=== PATIENT | male | born 1940 | race Caucasian/White ===

== ENCOUNTER 2021-08-03 14:27 | Inpatient (IN) | payer MEDICARE ==
[~2021-08-03] VITALS: Ht 172.7 cm; Wt 87.0 kg
[2021-08-03] MEDS ORDERED: ADENOSINE 6 MG/2 ML (ADENOCARD) VIAL IV ONE ×2 (14:55→15:02)
[2021-08-03] MEDS ORDERED: NS IV 1000 ML 1,000 ML ONE ×2 (14:57→15:43)
--- NOTE | 2021-08-03 15:12 | ED Cardiac General ---
History of Present Illness General Chief Complaint: Cardiac/General Problems Stated Complaint: LOW BP,DIZZINESS Source: patient, family Exam Limitations: no limitations History of Present Illness Date Seen by Provider: Aug 03, 2021 Time Seen by Provider: 14:55 Initial Comments Patient is an 81-year-old male who presents to the emergency department with a chief complaint of elevated pulse rate feeling dizzy lightheaded and generally weak this morning. Patient is a very difficult historian and it is hard to pinpoint a timeline of when symptoms started. Patient states a month ago he talked to his about following up with Dr. Chisholm. It seems that he has had intermittent episodes of high and low pulse over the course of the last month. He states it was normal yesterday. He denies any complaints of chest pain but has shortness of breath with laying flat. He has a history of cardiac abnormality, transferred from [facility] many years ago (approx 10) to the care of Dr. Cabezas at [facility]. He is still currently followed by Dr. Cabezas. states that he is on amiodarone and states spironolactone. He has with a bag of other medications to include isosorbide, losartan and other - although she states he is not taking these - only the amiodarone He is not on blood thinners (just baby aspirin). No history of coronary artery disease/stents/bypass. No recent illnesses such as fevers, chills, cough or congestion. No swelling in his lower extremities. No abdominal pain, nausea vomiting or diarrhea. No other complaints of illness. All other review of systems reviewed and negative except as stated. Timing/Duration: 1 day Severity: moderate Prior CP/Workup: no prior chest pain NTG SL BOBBIN DUMPER: No ASA po BOBBIN DUMPER: No Associated Systoms: Malaise, Weakness Allergies and Home Medications Allergies Coded Allergies: Sulfa (Sulfonamide Antibiotics) (Verified Allergy, Unknown, 08/03/21) codeine (Verified Allergy, Unknown, 08/03/21) Patient Home Medication List Home Medication List Reviewed: Yes Amiodarone HCl (Amiodarone HCl) 200 Mg Tablet, 200 MG PO DAILY, (Reported) Entered as Reported by: SARWAT GARCIA on 08/03/212118 Last Action: New Order Aspirin (Aspirin) 81 Mg Tab.chew, 81 MG PO DAILY, (Reported) Entered as Reported by: SARWAT GARCIA on 08/03/212118 Last Action: New Order Carvedilol (Carvedilol) 12.5 Mg Tablet, 12.5 MG PO BID, (Reported) Entered as Reported by: SARWAT GARCIA on 08/03/212118 Last Action: New Order Cetirizine HCl (Cetirizine HCl) 10 Mg Tablet, 10 MG PO DAILY, (Reported) Entered as Reported by: SARWAT GARCIA on 08/03/212118 Last Action: New Order Isosorbide Mononitrate (Isosorbide Mononitrate ER) 30 Mg Tab.er.24h, 30 MG PO DAILY, (Reported) Entered as Reported by: SARWAT GARCIA on 08/03/212118 Last Action: New Order Losartan Potassium (Losartan Potassium) 50 Mg Tablet, 50 MG PO DAILY, (Reported) Entered as Reported by: SARWAT GARCIA on 08/03/212118 Last Action: New Order Potassium Gluconate (Potassium) 595 Mg (99 Mg) Tablet, 99 MG PO DAILY, (Reported) Entered as Reported by: SARWAT GARCIA on 08/03/212118 Last Action: New Order Spironolactone (Spironolactone) 25 Mg Tablet, 25 MG PO DAILY, (Reported) Entered as Reported by: SARWAT GARCIA on 08/03/212118 Last Action: New Order Review of Systems Review of Systems Constitutional: see HPI EENTM: No Symptoms Reported Respiratory: No Symptoms Reported Cardiovascular: No Symptoms Reported Gastrointestinal: No Symptoms Reported Genitourinary: No Symptoms Reported Musculoskeletal: no symptoms reported Skin: no symptoms reported Psychiatric/Neurological: Weakness (Malaise, generalized weakness, dizziness) All Other Systems Reviewed Negative Unless Noted: Yes Physical Exam Vital Signs Vital Signs - First Documented 08/03/21 14:42 Temp 37.2 Pulse 197 Resp 20 B/P (MAP) 123/106 (112) Pulse Ox 97 Capillary Refill : Height, Weight, BMI Height: '" Weight: lbs. oz. kg; BMI Method: General Appearance: No Apparent Distress, WD/WN HEENT: PERRL/EOMI, Other (Dry oral mucosa) Neck: Normal Inspection Respiratory: Lungs Clear, Normal Breath Sounds, No Accessory Muscle Use, No Respiratory Distress Cardiovascular: Systolic Murmur (re-examined after cardioversion - harsh systolic murmur heard over the precordium), Tachycardia, Other (2+ radial pulses bilaterally) Gastrointestinal: Non Tender, Soft Extremity: Normal Inspection, Normal Range of Motion, Non Tender, Pedal Edema (1+ bilateral lower extremities) Neurologic/Psychiatric: Alert, Oriented x3, No Motor/Sensory Deficits, Normal Mood/Affect, oncology nurse II-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 Ack. Understanding Agreement on procedure with pt: Yes Breath Sounds per Auscultation: Clear Heart Sounds per Auscultation: Irregular Airway Exam: Mouth opens >2 fingers, Neck Full Range of Motion, Visulation of Uvula Sedation Adminstration Time: 15:38 Total Time spent in CS 27 min After sedation with etomidate, patient was electrically cardioverted with 100 J. He did transiently drop his oxygen saturations down to the mid 80s while on 2 L of oxygen per nasal cannula. Was transitioned over to simple facemask and then maintained sats in the upper 90s. Patient reexamined at 1630, awake, alert, oriented without complaints. Vital signs remained stable. Re-examination Time: 16:30 Additional Procedures: cardioversion/defib Progress Cardioversion with Etomidate as sedation 20mg; 100J; successful. Required supplemental O2 Progress/Results/Core Measures Results/Orders Lab Results Laboratory Tests Test 08/03/21 14:54 Range/Units White Blood Count 10.3 4.3-11.0 10^3/uL Red Blood Count 5.17 4.30-5.52 10^6/uL Hemoglobin 17.2 13.3-17.7 g/dL Hematocrit 51 40-54 % Mean Corpuscular Volume 99 80-99 fL Mean Corpuscular Hemoglobin 33 25-34 pg Mean Corpuscular Hemoglobin Concent 34 32-36 g/dL Red Cell Distribution Width 14.1 10.0-14.5 % Platelet Count 184 130-400 10^3/uL Mean Platelet Volume 11.6 9.0-12.2 fL Immature Granulocyte % (Auto) 0 % Neutrophils (%) (Auto) 67 42-75 % Lymphocytes (%) (Auto) 18 12-44 % Monocytes (%) (Auto) 11 0-12 % Eosinophils (%) (Auto) 3 0-10 % Basophils (%) (Auto) 1 0-10 % Neutrophils # (Auto) 6.9 1.8-7.8 X 10^3 Lymphocytes # (Auto) 1.9 1.0-4.0 X 10^3 Monocytes # (Auto) 1.2 H 0.0-1.0 X 10^3 Eosinophils # (Auto) 0.3 0.0-0.3 10^3/uL Basophils # (Auto) 0.1 0.0-0.1 10^3/uL Immature Granulocyte # (Auto) 0.0 0.0-0.1 10^3/uL Sodium Level 141 135-145 MMOL/L Potassium Level 4.7 3.6-5.0 MMOL/L Chloride Level 103 98-107 MMOL/L Carbon Dioxide Level 24 21-32 MMOL/L Anion Gap 14 5-14 MMOL/L Blood Urea Nitrogen 36 H 7-18 MG/DL Creatinine 2.01 H 0.60-1.30 MG/DL Estimat Glomerular Filtration Rate 33 BUN/Creatinine Ratio 18 Glucose Level 112 H 70-105 MG/DL Calcium Level 10.7 H 8.5-10.1 MG/DL Corrected Calcium 10.5 H 8.5-10.1 MG/DL Magnesium Level 2.1 1.6-2.4 MG/DL Total Bilirubin 0.8 0.1-1.0 MG/DL Aspartate Amino Transf (AST/SGOT) 26 5-34 U/L Alanine Aminotransferase (ALT/SGPT) 13 0-55 U/L Alkaline Phosphatase 32 L 40-136 U/L Troponin I 0.737 *H <0.028 NG/ML B-Type Natriuretic Peptide 2679.9 H <100.0 PG/ML Total Protein 7.5 6.4-8.2 GM/DL Albumin 4.3 3.2-4.5 GM/DL My Orders Orders - SERJIO BIRMINGHAM MD Adenosine Injection (Adenocard Injection (08/03/21 14:55) Ns Iv 1000 Ml (Sodium Chloride 0.9%) (08/03/21 14:57) Adenosine Injection (Adenocard Injection (08/03/21 15:02) Ed Iv/Invasive Line Start (08/03/21 15:09) Cbc With Automated Diff (08/03/21 15:09) Comprehensive Metabolic Panel (08/03/21 15:09) Bnp Mclean (08/03/21 15:09) Chest 1 View, Ap/Pa Only (08/03/21 15:09) Diltiazem Drip Pre-Mix (Cardizem Drip Pr (08/03/21 15:15) Diltiazem Injection (Cardizem Injection) (08/03/21 15:15) Ns Iv 1000 Ml (Sodium Chloride 0.9%) (08/03/21 15:43) Amiodarone For Bolus (Cordarone Bolus) (08/03/21 17:00) Amiodarone Injection (Cordarone Injectio (08/03/21 17:00) Ns Iv 1000 Ml (Sodium Chloride 0.9%) (08/03/21 17:00) Ed Admission (Communication) (08/03/21 18:02) Medications Given in ED Vital Signs/I&O 08/03/21 08/03/21 08/03/21 14:42 17:21 17:32 Temp 37.2 Pulse 197 66 64 Resp 20 B/P (MAP) 123/106 (112) 112/81 117/88 Pulse Ox 97 08/03/21 23:59 Intake Total 2103 ml Balance 2103 ml Progress Progress Note #1: Time: 15:[address] Chisholm called back and identified V Tach on the EKG - we discussed and will cardiovert. Progress Note #2: Time: 16:23 Progress Note Patient successfully cardioverted. Dr Chisholm in the Department just afterward; patient's BP is good. On simple facemask at 5Lm sats 97%. Dr Chisholm will get records from Dr Cabezas's office, plans for echo. discussed with Dr Bales. Will put on Stepdown. Initial ECG Impression Date: Aug 03, 2021 Initial ECG Impression Time: 15:24 Initial ECG Rate: 192 Initial ECG Rhythm: A Fib/Flutter Initial ECG Intervals QRS 215, QTc 410, Comment underlying rhythm appears to be possibly A. fib with RVR; almost bigeminal pattern EKG #1: EKG Time: 15:04 Rate: 196 Comment Narrow complex rhythm however QRS 202, more regular, not bigeminal, post 6 mg, 12 mg and 12 mg of adenosine EKG #2: EKG Time: 15:43 Rate: 65 Rhythm: Normal Sinus ECG Comparisson: Changed Comment IA 239 QRS 134 Qtc 430 no ectopy, no ST change Diagnostic Imaging Diagonstic Imaging: Xray Plain Films/CT/US/NM/MRI: chest Comments [facility] [place], [place] NAME: KARLA TAYLOR [facility] REC#: [id number] PT STATUS: REG ER : 1940 PHYSICIAN: SERJIO BIRMINGHAM MD ADMIT DATE: 08/03/21/ER Signed Date of Exam:08/03/21 CHEST 1 VIEW, AP/PA ONLY INDICATION: Dizziness. COMPARISON: None FINDINGS: Single frontal radiographic view of the chest was obtained and shows borderline enlargement of the cardiac silhouette and pulmonary vasculature. Lungs are clear. There is no large effusion or pneumothorax. Osseous structures show no gross acute abnormalities. IMPRESSION: 1. Borderline cardiomegaly with probable mild pulmonary vascular congestion. Dictated by: Dictated on workstation # [id number] Dict: 08/03/21 1641 Trans: 08/03/21 1651 CV [id number] Interpreted by: DOMONIQUE GONZALES MD Electronically signed by: DOMONIQUE GONZALES MD 08/03/21 1651 Critical Care Note Critical Care Start Time: 14:55 Stop Time: 16:05 Total Time (minutes) 40 minutes critical care time in the evaluation and management of this 81-year-old with wide-complex tachycardia. Time includes initial resuscitative measures with attempts at chemical cardioversion with adenosine. Review and interpretation of labs, EKGs and imaging. Discussion with family and cardiology and admitting provider. Time does not include that spent in procedures, sedation and electrical cardioversion. Departure Communication (Admissions) Time/Spoke to Admitting Phy: 16:[address] Nii Noriega Time/Spoke to Consulting Phy: 15:[address] Chisholm Impression Primary Impression: Ventricular tachycardia Disposition: ADMITTED INPATIENT Condition: Improved Admissions Decision to Admit Reason: Admit from ER (General) Decision to Admit/Date: Aug 03, 2021 Time/Decision to Admit Time: 16:25 Departure-Patient Inst. Referrals: NO,LOCAL PHYSICIAN (PCP/Family) Primary Care Physician SERJIO BIRMINGHAM MD Aug 03, 2021 15:12
[2021-08-03] MEDS: dilTIAZem DRIP PRE-MIX 125 ML IV SCH (15:16)
[2021-08-03 15:27] LABS: BASOPHILS # (AUTO) 0.1 10^3/uL (0.0-0.1); BASOPHILS % (AUTO) 1 % (0-10); EOSINOPHILS # (AUTO) 0.3 10^3/uL (0.0-0.3); EOSINOPHILS % (AUTO) 3 % (0-10); HEMATOCRIT 51 % (40-54); HEMOGLOBIN 17.2 g/dL (13.3-17.7); LYMPHOCYTES # (AUTO) 1.9 X 10^3 (1.0-4.0); LYMPHOCYTES % (AUTO) 18 % (12-44); MEAN CORPUSCULAR HEMOGLOBIN 33 pg (25-34); MEAN CORPUSCULAR HGB CONC 34 g/dL (32-36); MEAN CORPUSCULAR VOLUME 99 fL (80-99); MEAN PLATELET VOLUME 11.6 fL (9.0-12.2); MONOCYTES # (AUTO) 1.2 X 10^3 (0.0-1.0); MONOCYTES % (AUTO) 11 % (0-12); NEUTROPHILS # (AUTO) 6.9 X 10^3 (1.8-7.8); NEUTROPHILS % (AUTO) 67 % (42-75); PLATELET COUNT 184 10^3/uL (130-400); WHITE BLOOD COUNT 10.3 10^3/uL (4.3-11.0)
[2021-08-03 15:29] LABS: ALBUMIN 4.3 GM/DL (3.2-4.5); POTASSIUM 4.7 MMOL/L (3.6-5.0)
[2021-08-03 15:30] LABS: CALCIUM 10.7 MG/DL (8.5-10.1)
[2021-08-03 15:31] LABS: TOTAL PROTEIN 7.5 GM/DL (6.4-8.2)
[2021-08-03 15:33] LABS: BILIRUBIN,TOTAL 0.8 MG/DL (0.1-1.0)
[2021-08-03 15:35] LABS: CREATININE SERUM 2.01 MG/DL (0.60-1.30)
--- NOTE | 2021-08-03 16:43 | Diagnostic Imaging Report ---
INDICATION: Dizziness. COMPARISON: None FINDINGS: Single frontal radiographic view of the chest was obtained and shows borderline enlargement of the cardiac silhouette and pulmonary vasculature. Lungs are clear. There is no large effusion or pneumothorax. Osseous structures show no gross acute abnormalities. IMPRESSION: 1. Borderline cardiomegaly with probable mild pulmonary vascular congestion. Dictated by: Dictated on workstation # [id number]
[2021-08-03] MEDS ORDERED: AMIODARONE INJECTION 450 MG in D5W IV SOLUTION (EXCEL) 250 ML IV SCH ×2 (17:00→18:45)
[2021-08-03] MEDS ORDERED: AMIODARONE FOR BOLUS 150 MG in NS (IVPB) 100 ML IV ONE (17:00)
[2021-08-03 17:04] LABS: MAGNESIUM 2.1 MG/DL (1.6-2.4)
[2021-08-03] MEDS: NS IV 1000 ML 1,000 ML IV SCH (17:29)
--- NOTE | 2021-08-03 17:32 | Consultation-Cardiology ---
HPI-Cardiology Cardiology Consultation Date of Consultation 08/03/21 Date of Admission Time Seen by Provider: 17:27 Indication: Ventricular tachycardia HPI 81 years old gentleman with history of congestive heart failure. Patient is a poor historian and noncompliant with his medication. He has been following with the heart transplant clinic at [facility] for over 10 years. Does not recall having a heart catheterization or a stress test or any recent test other than echo cardiogram. He came into the emergency room with chief complaint of rapid heart rate and feeling lightheaded and dizzy and generalized weakness. Not able to provide full history. He was noted to have wide-complex tachycardia. Was given adenosine without success and cardioversion was done. He is awake laying down comfortably, feeling better. Had significant pedal edema and dyspnea on exertion but he is fairly active without limitation, he was able to mow the lawn yesterday. Home Medications & Allergies Allergies: Coded Allergies: Sulfa (Sulfonamide Antibiotics) (Verified Allergy, Unknown, 08/03/21) codeine (Verified Allergy, Unknown, 08/03/21) Home Medication List Reviewed: Yes [id number] Hx Patient Social History Marital Status: Employed/Student: retired Have you traveled recently?: No Alcohol Use?: No Past Medical History Discussed below Family Medical History Family Medical Hx Noncontributory Review of Systems-General Review of Systems Constitutional: see HPI, dizziness, malaise, weakness EENTM: see HPI, no symptoms reported Respiratory: no symptoms reported, see HPI Cardiovascular: see HPI, edema, palpitations Gastrointestinal: no symptoms reported, see HPI Genitourinary: no symptoms reported, see HPI Musculoskeletal: no symptoms reported Skin: no symptoms reported Psychiatric/Neurological: See HPI, Weakness (Malaise, generalized weakness, dizziness) All Other Systems Reviewed Negative Unless Noted: Yes Reviewed Test Results Reviewed Test Results Lab Laboratory Tests Test 08/03/21 14:54 Range/Units White Blood Count 10.3 4.3-11.0 10^3/uL Red Blood Count 5.17 4.30-5.52 10^6/uL Hemoglobin 17.2 13.3-17.7 g/dL Hematocrit 51 40-54 % Mean Corpuscular Volume 99 80-99 fL Mean Corpuscular Hemoglobin 33 25-34 pg Mean Corpuscular Hemoglobin Concent 34 32-36 g/dL Red Cell Distribution Width 14.1 10.0-14.5 % Platelet Count 184 130-400 10^3/uL Mean Platelet Volume 11.6 9.0-12.2 fL Immature Granulocyte % (Auto) 0 % Neutrophils (%) (Auto) 67 42-75 % Lymphocytes (%) (Auto) 18 12-44 % Monocytes (%) (Auto) 11 0-12 % Eosinophils (%) (Auto) 3 0-10 % Basophils (%) (Auto) 1 0-10 % Neutrophils # (Auto) 6.9 1.8-7.8 X 10^3 Lymphocytes # (Auto) 1.9 1.0-4.0 X 10^3 Monocytes # (Auto) 1.2 H 0.0-1.0 X 10^3 Eosinophils # (Auto) 0.3 0.0-0.3 10^3/uL Basophils # (Auto) 0.1 0.0-0.1 10^3/uL Immature Granulocyte # (Auto) 0.0 0.0-0.1 10^3/uL Sodium Level 141 135-145 MMOL/L Potassium Level 4.7 3.6-5.0 MMOL/L Chloride Level 103 98-107 MMOL/L Carbon Dioxide Level 24 21-32 MMOL/L Anion Gap 14 5-14 MMOL/L Blood Urea Nitrogen 36 H 7-18 MG/DL Creatinine 2.01 H 0.60-1.30 MG/DL Estimat Glomerular Filtration Rate 33 BUN/Creatinine Ratio 18 Glucose Level 112 H 70-105 MG/DL Calcium Level 10.7 H 8.5-10.1 MG/DL Corrected Calcium 10.5 H 8.5-10.1 MG/DL Magnesium Level 2.1 1.6-2.4 MG/DL Total Bilirubin 0.8 0.1-1.0 MG/DL Aspartate Amino Transf (AST/SGOT) 26 5-34 U/L Alanine Aminotransferase (ALT/SGPT) 13 0-55 U/L Alkaline Phosphatase 32 L 40-136 U/L Troponin I 0.737 *H <0.028 NG/ML B-Type Natriuretic Peptide 2679.9 H <100.0 PG/ML Total Protein 7.5 6.4-8.2 GM/DL Albumin 4.3 3.2-4.5 GM/DL Physical Exam Physical Exam Vital Signs Vital Signs - First Documented 08/03/21 14:42 Temp 37.2 Pulse 197 Resp 20 B/P (MAP) 123/106 (112) Pulse Ox 97 Capillary Refill : Height, Weight, BMI Height: '" Weight: lbs. oz. kg; 28.00 BMI Method: General Appearance: No Apparent Distress, WD/WN Eyes: Bilateral Eye Normal Inspection, Bilateral Eye PERRL, Bilateral Eye EOMI HEENT: PERRL/EOMI, Other (Dry oral mucosa) Neck: Normal Inspection Respiratory: Lungs Clear, Normal Breath Sounds, No Accessory Muscle Use, No Respiratory Distress Cardiovascular: Systolic Murmur (re-examined after cardioversion - harsh systolic murmur heard over the precordium), Tachycardia, Other (2+ radial pulses bilaterally) Gastrointestinal: Non Tender, Soft Back: Normal Inspection, No CVA Tenderness, No Vertebral Tenderness Extremity: Normal Inspection, Normal Range of Motion, Non Tender, Pedal Edema (1+ bilateral lower extremities) Neurologic/Psychiatric: Alert, Oriented x3, No Motor/Sensory Deficits, Normal Mood/Affect, soda flaker II-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 He has been maintained on amiodarone as an outpatient. I will give him a bolus of amiodarone and IV drip and monitor. Patient is at high risk for sudden due to heart failure. Congestive heart failure, acute on chronic compensated left ventricular systolic dysfunction, unknown etiology. Probably nonischemic. Following with [facility] with Dr. Cabezas. I will try to obtain copy of the records. Mild elevation in troponin, probably type II myocardial infarction secondary to tachycardia, underlying coronary artery disease cannot be excluded at this point. Acute renal failure, probably underlying chronic renal insufficiency. Starting IV fluid cautiously and monitor renal function. We will add diuretics as needed Noncompliance with medication, patient has bottles for Coreg, losartan, spironolactone, reported that he does not take any medication other than amiodarone and baby aspirin. Peripheral edema. Secondary to heart failure, will initiate diuretics. Clinical Quality Measures AMI/AHF: ASA po Prior to arrival: TRISTON Layne MD Aug 03, 2021 17:32
[2021-08-03] MEDS ORDERED: ANTACID SUSP 30 ML UDC (MYLANTA) PO PRN (18:45)
[2021-08-03] MEDS ORDERED: ENOXAPARIN 40 MG/0.4 ML (LOVENOX) SYR SC SCH (18:45)
[2021-08-03] MEDS ORDERED: MELATONIN 3 MG TABLET PO PRN (18:45)
[2021-08-03] MEDS ORDERED: ONDANSETRON 4 MG (ZOFRAN) ORAL DISSOLVE TAB PO PRN (18:45)
[2021-08-03] MEDS ORDERED: polyethylene glycoL POWDER 17 GM (MIRALAX) PACK PO PRN (18:45)
[2021-08-03] MEDS ORDERED: ONDANSETRON 4 MG/2 ML (SDV) Z0FRAN IV PRN (18:45)
--- NOTE | 2021-08-03 19:22 | Tele-ICU Progress Note ---
Subjective Date Seen by a Provider: Aug 03, 2021 Subjective/Events-last exam New TeleICU admission 81 yo M admitted via ED for sustained VTach, presenting comlaints were lightheadedness and palpitations. Status post cardioversion in ED. Cardiology on consult. Patient is awake, alert on RA Not in distress Now in SR with HR 79 No complaints in ICU Magnesium and lovenox rec'd Negative sepsis screen Assessment/Plan Assessment/Plan 1. Vtach status post cardioversion followed by Head Of [employer] 2. Cardiomegaly, acute pulmonary edema. Follow-up echo. Medical management for arrhythmia, heart failure. Not hypoxic. Not in respiratory distress 3. DVT prophylaxis 4. Negative sepsis screen 5. Acute v chronic kidney disease. Follow-up AM labs, obtain history from patient KEN QUINTEROS MD Aug 03, 2021 19:22
[2021-08-03] MEDS: ENOXAPARIN INJECTION 30 MG/0.3 ML SYR SC SCH (20:46)
[2021-08-03] MEDS ORDERED: ASPI-999 PO (21:19)
[2021-08-03] MEDS ORDERED: LOSA50TA63 PO (21:19)
[2021-08-03] MEDS ORDERED: ISOS30TA82 PO (21:19)
[2021-08-03] MEDS ORDERED: POTA99TA26 PO (21:19)
[2021-08-03] MEDS ORDERED: CETI10TA17 PO (21:19)
[2021-08-03] MEDS ORDERED: CARV12.53 PO (21:19)
[2021-08-03] MEDS ORDERED: AMIO200T65 PO (21:19)
[2021-08-03] MEDS ORDERED: SPIR25TA5 PO (21:19)
[2021-08-04] MEDS: NS IV 1000 ML 1,000 ML IV SCH ×3 (03:11→15:01)
[2021-08-04 04:52] LABS: BASOPHILS # (AUTO) 0.1 10^3/uL (0.0-0.1); BASOPHILS % (AUTO) 1 % (0-10); EOSINOPHILS # (AUTO) 0.5 10^3/uL (0.0-0.3); EOSINOPHILS % (AUTO) 5 % (0-10); HEMATOCRIT 45 % (40-54); HEMOGLOBIN 15.3 g/dL (13.3-17.7); LYMPHOCYTES % (AUTO) 18 % (12-44); MEAN CORPUSCULAR HEMOGLOBIN 33 pg (25-34); MEAN CORPUSCULAR HGB CONC 34 g/dL (32-36); MEAN CORPUSCULAR VOLUME 98 fL (80-99); MEAN PLATELET VOLUME 12.1 fL (9.0-12.2); MONOCYTES # (AUTO) 1.3 10^3/uL (0.0-1.0); MONOCYTES % (AUTO) 11 % (0-12); NEUTROPHILS # (AUTO) 7.5 10^3/uL (1.8-7.8); NEUTROPHILS % (AUTO) 66 % (42-75); PLATELET COUNT 161 10^3/uL (130-400); WHITE BLOOD COUNT 11.4 10^3/uL (4.3-11.0)
[2021-08-04 05:08] LABS: PHOSPHORUS 2.7 MG/DL (2.3-4.7)
[2021-08-04 05:09] LABS: CREATININE SERUM 1.67 MG/DL (0.60-1.30)
[2021-08-04 05:11] LABS: MAGNESIUM 1.7 MG/DL (1.6-2.4)
[2021-08-04] MEDS: KCL 20 MEQ TAB (K-DUR) PO SCH (06:28)
[2021-08-04] MEDS: POTASSIUM CL 10MEQ/50ML IVPB 50 ML IV SCH (06:28)
[2021-08-04] MEDS: MAGNESIUM 1 GM/100 ML IVPB 100 ML IV SCH (06:28)
--- NOTE | 2021-08-04 08:28 | Tele-ICU Progress Note ---
Subjective Date Seen by a Provider: Aug 04, 2021 Time Seen by a Provider: 07:00 Subjective/Events-last exam This virtual visit was conducted using real time audio/video. Thank you for asking us to see this patient for vtach,pulm edema and CHARLENE. Recent events: Cardioverted. PMH:CHF SH: smoking history N FH: Non-contributory ROS: as in HPI PE: Comfortable. VSS. 143/87. O2 sat 96% on RA HEENT: No obvious masses, adenopathy or JVD. Chest: clear to auscultation. CV: RRR S1 S2 No murmur or added sounds. Abd: Non-tender. Bowel sounds Y. : Unremarkable. Wylie N. SHIPPING TECHNICIAN/psychiatric: Grossly intact. No obvious focal findings. Extremities: 1+ edema. Capillary refill < 3 seconds. Skin: unremarkable. Results: Elevated WCC 11.4, BUN 31, Creat 1.67, Trop 1.396. CXR: CM, mild congest.. Available chart/ vitals / labs / images reviewed. Video assessment done using teleICU camera, rest of exam as per RN. A/P: Critical Care: critically ill patient. Cont.Vy., Dilt., Amiod., Aldact. Discussed with RN KT. Asked RN to reach out to eICU if any questions or concerns later. Time spent with patient/coordination of care with other health professionals (mins): 15 Sepsis Event Evaluation Height, Weight, BMI Height: '" Weight: lbs. oz. kg; 210.41 BMI Method: Exam Exam Patient acknowledged, consented, and participated in this virtual visit which was conducted using real time audio/video Vital Signs Date Time Temp Pulse Resp B/P (MAP) Pulse Ox O2 Delivery O2 Flow Rate FiO2 08/04/21 08:00 85 160/118 94 Room Air 08/04/21 07:00 82 22 143/87 94 Room Air 08/04/21 07:00 78 08/04/21 06:00 63 22 109/69 94 Room Air 08/04/21 05:00 63 21 112/65 92 Room Air 08/04/21 04:01 36.6 08/04/21 04:00 77 20 139/90 94 Room Air 08/04/21 04:00 95 Room Air 08/04/21 03:00 64 26 139/86 94 Room Air 08/04/21 02:00 79 20 154/101 94 Room Air 08/04/21 01:00 80 08/04/21 01:00 81 30 141/97 93 Room Air 08/04/21 00:24 36.4 08/04/21 00:00 95 Room Air 08/04/21 00:00 77 25 125/86 94 Room Air 08/03/21 23:00 62 17 116/75 93 Room Air 08/03/21 22:00 63 26 107/66 94 Room Air 08/03/21 21:00 81 22 129/88 98 Room Air 08/03/21 20:00 36.9 08/03/21 20:00 97 Room Air 08/03/21 20:00 72 25 114/75 96 Room Air 08/03/21 19:02 96 Room Air 08/03/21 19:00 77 25 123/100 97 Room Air 08/03/21 19:00 80 08/03/21 18:40 36.8 Room Air 08/03/21 18:39 80 08/03/21 18:30 148/95 08/03/21 18:15 77 16 119/79 97 08/03/21 17:32 64 117/88 08/03/21 17:21 66 112/81 08/03/21 14:42 37.2 197 20 123/106 (112) 97 I & O 08/04/21 07:00 Intake Total 3653 ml Output Total 900 ml Balance 2753 ml Height & Weight Height: '" Weight: lbs. oz. kg; 210.41 BMI Method: General Appearance: No Apparent Distress, WD/WN HEENT: PERRL/EOMI, Other (Dry oral mucosa) Neck: Normal Inspection Respiratory: Lungs Clear, Normal Breath Sounds, No Accessory Muscle Use, No Respiratory Distress Cardiovascular: Systolic Murmur (re-examined after cardioversion - harsh systolic murmur heard over the precordium), Tachycardia, Other (2+ radial pulses bilaterally) Extremity: Normal Inspection, Normal Range of Motion, Non Tender, Pedal Edema (1+ bilateral lower extremities) Neurologic/Psychiatric: Alert, Oriented x3, No Motor/Sensory Deficits, Normal Mood/Affect, 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
[2021-08-04] MEDS ORDERED: ETOMIDATE IV SOLN 20 MG/10 ML VIAL IV ONE (08:36)
[2021-08-04] MEDS ORDERED: SPIRONOLACTONE 25 MG (ALDACTONE) TAB PO SCH (09:00)
[2021-08-04] MEDS ORDERED: LIDOCAINE 1% INJ 20 ML VIAL ONE (10:07)
[2021-08-04] MEDS ORDERED: HEParin (CATH LAB) 2,000 ML IV ONE (10:07)
[2021-08-04] MEDS ORDERED: BALANCE OF NATURE PO (10:46)
[2021-08-04] MEDS ORDERED: ASPI-1238 PO (10:46)
[2021-08-04] MEDS ORDERED: OXYM30SP25 NS (10:49)
--- NOTE | 2021-08-04 11:06 | Cardiology Progress Note ---
Subjective Date Seen by Provider: Aug 04, 2021 Time Seen by Provider: 11:03 Subjective/Events-last exam Patient was seen at bedside, sitting comfortably. Feeling better. No chest pain was reported Review of Systems General: No Chills, No Night Sweats; Fatigue; No Malaise, No Appetite, No Other HEENT: No Head Aches, No Visual Changes, No Eye Pain, No Ear Pain, No Dy sphasia, No Sinus Congestion, No Post Nasal Drip, No Sore Throat, No Other Pulmonary: No Dyspnea, No Cough, No Pleuritic Chest Pain, No Other Cardiovascular: Edema; No: Chest Pain, Palpitations, Orthopnea, Paroxysmal Noc. Dyspnea, Lt Headedness, Other Objective-Cardiology Exam Last Set of Vital Signs Vital Signs 08/04/21 10:00 Pulse 91 Resp 11 B/P (MAP) 149/110 Pulse Ox 95 O2 Delivery Room Air I&O Intake and Output 08/04/21 00:00 Intake Total 2253 ml Output Total 200 ml Balance 2053 ml Intake Oral 150 ml IV Total 2103 ml Output Urine Total 200 ml Daily Weight Change No General: Alert, Oriented X3, Cooperative HEENT: Atraumatic, PERRLA Neck: Supple, No JVD, No Thyromegaly Lungs: Clear to Auscultation, Normal Air Movement Heart: Regular Rate, Normal S1, Normal S2, Other (Aortic stenosis) Abdomen: Normal Bowel Sounds, Soft, No Tenderness, No Hepatosplenomegaly, No Masses Extremities: No Clubbing, No Cyanosis, Normal Pulses, No Tenderness/Swelling, Other (+2 pedal edema) Skin: No Rashes, No Breakdown, No Significant Lesion Neuro: Normal Gait, Normal Speech, Strength at 5/5 X4 Ext, Normal Tone, Sensation Intact Psych/Mental Status: Mental Status NL, Mood NL Results Lab Laboratory Tests 08/03/21 14:54 08/04/21 04:03 A/P-Cardiology Admission Diagnosis Ventricular tachycardia Hypotensive shock Congestive heart failure, acute on chronic left ventricular systolic dysfunction Acute renal failure Assessment/Plan Sustained ventricular tachycardia, patient had wide-complex tachycardia required electrical cardioversion. He has been maintained on amiodarone as an outpatient. Patient was given amiodarone bolus and started on a drip. I am planning for cardiac catheterization and then proceeding with single- chamber ICD implant for secondary prevention Congestive heart failure, acute on chronic left ventricular systolic dysfunction, previously known to have nonischemic cardiomyopathy, last echo from 2019 was reported to me by Dr. Cabezas that his ejection fraction was 40 to 45%. Current echo showed significant deterioration in his left ventricular function. Ejection fraction 20 to 25%. Patient has been noncompliant with his medication, educated about the importance of compliance. I am starting at low-dose beta-blockers and ARB, I will avoid aggressive treatment due to history of hypotension on medication. Mild elevation in troponin, probably type II myocardial infarction, cannot exclude underlying coronary artery disease due to the severe cardiomyopathy. No recent cardiac cardiac catheterization. Acute renal failure, probably underlying chronic renal insufficiency. Receiving IV fluid and I will proceed with diuresis after the cardiac catheterization. Noncompliance with medication, patient has bottles for Coreg, losartan, spironolactone, reported that he does not take any medication other than amiodarone and baby aspirin. Peripheral edema. Secondary to heart failure, will initiate diuretics. TRISTON RITTER MD Aug 04, 2021 11:06
[2021-08-04] MEDS ORDERED: HEParin 1000 UNIT/ML (10ML VIAL) FOR BOLUS ONE (13:30)
[2021-08-04] MEDS ORDERED: MIDAZOLAM 5 MG/5 ML (VERSED) VIAL ONE (13:30)
[2021-08-04] MEDS ORDERED: NITRO DRIP 25000 MCG/D5W 0 ML IV ONE (13:30)
[2021-08-04] MEDS ORDERED: VERAPAMIL 5 MG/2 ML (CALAN) VIAL IV ONE (13:30)
[2021-08-04] MEDS ORDERED: fentaNYL INJ 100 MCG/2 ML AMP ONE (13:30)
[2021-08-04] MEDS ORDERED: NS IV 1000 ML 1,000 ML ONE ×2 (13:48→14:05)
[2021-08-04] MEDS ORDERED: meTOprolol 5 MG/5 ML (LOPRESSOR) VIAL ONE ×2 (13:51→13:53)
--- NOTE | 2021-08-04 14:27 | Cardiac Cath Report ---
Cardiac Cath Report Physician (s)/Sporting Goods Salesperson (s) Physician TRISTON RITTER MD Pre-Procedure Diagnosis Pre-Procedure Diagnosis: Sustained ventricular tachycardia Post-Procedure Note Procedure Start Date: Aug 04, 2021 Name of Procedure: Left heart catheterization Findings/Procedure Note PROCEDURE NOTE: 81 years old gentleman with history of nonischemic cardiomyopathy, admitted with ventricular tachycardia required electrical shock. Maintained on amiodarone drip, had mild elevation in troponin. No recent cardiac work-up, last cardiac work-up was done over 10 years ago. I decided to proceed with cardiac catheterization with elevated troponin. On arrival to the [facility] patient had multiple episodes of sustained ventricular tachycardia, I gave him a total of 10 mg of IV Lopressor and additional bolus of amiodarone 150 mg daily and the amiodarone drip was restarted. He continued to have frequent PVCs. After explaining the procedure to the patient, all pros and cons were explained, all questions were answered. The patient signed the consent and then he was placed on the cardiac catheterization laboratory. Groin was prepped SL fashion local anesthesia was used. Sheath placed in the right femoral artery. Yifan right and left catheter were used to access the coronary system. Yifan right was used to access the left ventricular cavity. Left ventriculogram was not done, pressure was measured At the end of the procedure the sheath was removed. Closure device was deployed FINDINGS: Hemodynamics LV 133/14, end-diastolic pressure of 14 Aorta 125/81 mean of 98 ANATOMY: Left Main is calcified and free of obstructive disease Left Anterior Descending is calcified artery proximally with moderate stenosis nonobstructive disease, diagonal artery has moderate disease Left Circumflex is tortuous artery with moderate disease at the midportion. Right Coronary Artery has diffuse ectasia with mild disease nonobstructive disease LV Gram was not done, pressure was measured CONCLUSION: 1. Heavily calcified left main and proximal LAD with mild to moderate disease nonobstructive disease otherwise tortuous coronary system with mild disease. 2. Diffuse ectasia in the right coronary artery with slow flow, small vessel disease nonobstructive disease 3. Normal left ventricular end-diastolic pressure DISCUSSION AND RECOMMENDATION: Patient has worsening of the left ventricular function, by echo his ejection fraction around 20%. His recurrent sustained ventricular tachycardia has been difficult to control. We will continue with aggressive beta-blockers and increase amiodarone dose to 400 twice daily. I am planning to proceed with ICD implant Anesthesia Type: Conscious Sedation Estimated blood loss (mL): 10 ml Contrast Amount: 45 ml Total Radiation Dose: 816 mGy Post-Procedure Diagnosis Post-operative diagnosis: Congestive heart failure, acute on chronic left ventricular systolic dysfunction, nonischemic cardiomyopathy Ventricular tachycardia Coronary artery disease Non-ST elevation myocardial infarction TRISTON RITTER MD Aug 04, 2021 14:27
--- NOTE | 2021-08-04 14:27 | Anesthesia-General Post-Op ---
MAC Patient Condition Mental Status/LOC: Same as Preop Cardiovascular: Satisfactory Nausea/Vomiting: Absent Respiratory: Satisfactory Pain: Controlled Complications: Absent Post Op Complications Complications None Follow Up Care/Instructions Patient Instructions None needed. Anesthesiology Discharge Order Discharge Order Patient is doing well, no complaints, stable vital signs, no apparent adverse anesthesia problems. No complications reported per nursing. LAURA KELLY CRNA Aug 04, 2021 14:27
[2021-08-04] MEDS ORDERED: PATIENT MAY USE OWN MEDS, ALL PO SCH (14:30)
[2021-08-04] MEDS: dilTIAZem DRIP PRE-MIX 125 ML IV SCH (15:02)
[2021-08-04] MEDS ORDERED: AMIODARONE (BOLUS) 150 MG/3 ML IV ONE (16:17)
[2021-08-04] MEDS: FUROSEMIDE 40 MG/4 ML INJ (LASIX) IVP SCH (17:32)
--- NOTE | 2021-08-04 18:17 | History & Physical-Hospitalist ---
History of Present Illness HPI/Chief Complaint Sancho Romero is an 81 year old male with PMH HFrEF, CKD, HTN, who presented with rapid heart rate. He noticed that his heart rate was high on his blood pressure monitor. He denies any chest pain. He was not having palpitations. He denies shortness of breath. He was feeling a bit lightheaded. He was otherwise in his normal state of health. He was found to be in ventricular tachycardia and was cardioverted in the emergency room and has remained in normal sinus rhythm since that time. Source: patient Exam Limitations: no limitations Date Seen 08/04/21 Time Seen by a Provider: 09:40 Attending Physician Da Bales MD PCP No,Local Physician Referring Physician Date of Admission Aug 03, 2021 at 18:03 Home Medications & Allergies Home Medications Reviewed patient Home Medication Reconciliation performed by pharmacy medication reconciliations television technician and/or nursing. Patients Allergies have been reviewed. Allergies Allergies Coded Allergies Sulfa (Sulfonamide Antibiotics) (Verified Allergy, Unknown, 08/03/21) codeine (Verified Allergy, Unknown, 08/03/21) Past Zudvewn-Jmuwuc-Zhtpau Hx Patient Social History Marrital Status: Employed/Student: retired Tobacco Use?: No Smoking Status: Never a Smoker Smokeless Tobacco Frequency: Never a User Use of E-Cig and/or Vaping dev: No Use of E-Cig and/or Vaping Spencer: Never a User Substance use?: No Alcohol Use?: No Pt feels they are or have been: No Immunizations Up To Date First/Initial COVID19 Vaccinat: May 2020 Second COVID19 Vaccination Jovany: June 2020 Current Status Advance Directives: Yes Advance Directive Location: Family to bring in copy Communicates: Verbally Primary Language: Honduran Preferred Spoken Language: Honduran Is interpretation needed?: No Implanted or Applied Medical D: None Family Medical History No Pertinent Family Hx Review of Systems Constitutional: dizziness EENTM: no symptoms reported Respiratory: no symptoms reported Cardiovascular: no symptoms reported Gastrointestinal: no symptoms reported Genitourinary: no symptoms reported Musculoskeletal: no symptoms reported Skin: no symptoms reported Psychiatric/Neurological: No Symptoms Reported Physical Exam Physical Exam Vital Signs Vital Signs - First Documented 08/03/21 08/03/21 14:42 18:40 Temp 37.2 Pulse 197 Resp 20 B/P (MAP) 123/106 (112) Pulse Ox 97 O2 Delivery Room Air Capillary Refill : Height, Weight, BMI Height: '" Weight: lbs. oz. kg; 210.41 BMI Method: General Appearance: No Apparent Distress, WD/WN HEENT: PERRL/EOMI, Pharynx Normal Neck: Normal Inspection, Supple Respiratory: Lungs Clear, Normal Breath Sounds, No Respiratory Distress Cardiovascular: Regular Rate, Rhythm, No Edema, No Murmur Gastrointestinal: Normal Bowel Sounds, Non Tender, Soft Extremity: Normal Inspection, Pedal Edema Neurologic/Psychiatric: Alert, Oriented x3, No Motor/Sensory Deficits, Normal Mood/Affect Skin: Normal Color, Warm/Dry Results Results/Procedures Labs Laboratory Tests 08/03/21 14:54 08/04/21 04:03 Patient resulted labs reviewed. Imaging: Reviewed Imaging Report Assessment/Plan Admission Diagnosis Ventricular tachycardia Admission Status: Inpatient Order (span 2 midnights) Reason for Inpatient Admission: IV antiarrhythmics Assessment and Plan Ventricular tachycardia Acute on chronic heart failure with reduced ejection fraction NSTEMI DARLIN on CKD HTN Cardiology following Amiodarone gtt Cardizem gtt Left heart cath today Kidney function improved with fluids Planning diuresis after heart cath DVT prophylaxis: Lovenox Diagnosis/Problems Diagnosis/Problems (1) Ventricular tachycardia Status: Acute (2) NSTEMI (non-ST elevation myocardial infarction) Status: Acute (3) Acute on chronic HFrEF (heart failure with reduced ejection fraction) Status: Acute (4) HTN (hypertension) Status: Chronic Clinical Quality Measures AMI/AHF: ASA po Prior to arrival: DA Torres MD Aug 04, 2021 18:17
[2021-08-04] MEDS: ENOXAPARIN INJECTION 30 MG/0.3 ML SYR SC SCH (19:06)
[2021-08-04] MEDS: AMIODARONE 200 MG (CORDARONE) TAB PO SCH (19:57)
[2021-08-04] MEDS ORDERED: LORATADINE (CLARITIN) 10 MG TAB PO ONE (20:45)
[2021-08-04] MEDS ORDERED: FUROSEMIDE 40 MG/4 ML INJ (LASIX) IVP ONE (23:45)
[2021-08-04] MEDS ORDERED: MAGNESIUM 1 GM/100 ML IVPB 100 ML IV ONE (23:45)
[2021-08-05] MEDS: NS IV 1000 ML 1,000 ML IV SCH ×2 (00:26→06:30)
[2021-08-05 04:33] LABS: BASOPHILS % (AUTO) 0 % (0-10); EOSINOPHILS # (AUTO) 0.1 10^3/uL (0.0-0.3); EOSINOPHILS % (AUTO) 1 % (0-10); HEMATOCRIT 49 % (40-54); HEMOGLOBIN 17.2 g/dL (13.3-17.7); LYMPHOCYTES # (AUTO) 1.1 10^3/uL (1.0-4.0); LYMPHOCYTES % (AUTO) 8 % (12-44); MEAN CORPUSCULAR HEMOGLOBIN 34 pg (25-34); MEAN CORPUSCULAR HGB CONC 35 g/dL (32-36); MEAN CORPUSCULAR VOLUME 96 fL (80-99); MEAN PLATELET VOLUME 11.9 fL (9.0-12.2); MONOCYTES # (AUTO) 1.5 10^3/uL (0.0-1.0); MONOCYTES % (AUTO) 11 % (0-12); NEUTROPHILS # (AUTO) 11.1 10^3/uL (1.8-7.8); NEUTROPHILS % (AUTO) 80 % (42-75); PLATELET COUNT 153 10^3/uL (130-400); WHITE BLOOD COUNT 13.8 10^3/uL (4.3-11.0)
[2021-08-05 04:43] LABS: POTASSIUM 3.8 MMOL/L (3.6-5.0)
[2021-08-05 04:44] LABS: CALCIUM 9.2 MG/DL (8.5-10.1)
[2021-08-05] MEDS ORDERED: AMIODARONE FOR BOLUS 150 MG in NS (IVPB) 100 ML IV ONE (04:45)
[2021-08-05 04:48] LABS: CREATININE SERUM 1.46 MG/DL (0.60-1.30); PHOSPHORUS 2.8 MG/DL (2.3-4.7)
[2021-08-05 04:50] LABS: MAGNESIUM 1.8 MG/DL (1.6-2.4)
[2021-08-05] MEDS: KCL 20 MEQ TAB (K-DUR) PO SCH (06:29)
[2021-08-05] MEDS: MAGNESIUM 1 GM/100 ML IVPB 100 ML IV SCH (06:29)
[2021-08-05] MEDS: POTASSIUM CL 10MEQ/50ML IVPB 50 ML IV SCH (06:29)
--- NOTE | 2021-08-05 07:38 | Tele-ICU Progress Note ---
Progress Note video rounds completed 81 y/o male admitted with syncope and v tach. Taken to lab nurse and found to have HFrEF and non obstructive CAD. Had AICD placed Cardiology following Titrating beta blockers and PO amiodarone PE: comfortale in bed HR: 80-90 BP: 145/77 O2 sat: 94% Plans: as per cardiology labs stable creatinine improving Focused Exam Height, Weight, BMI Height: '" Weight: lbs. oz. kg; 29.73 BMI Method: Laboratory Tests 08/05/21 04:06 Labs Labs Laboratory Tests 08/05/21 04:06: White Blood Count 13.8H, Red Blood Count 5.11, Hemoglobin 17.2, Hematocrit 49, Mean Corpuscular Volume 96, Mean Corpuscular Hemoglobin 34, Mean Corpuscular Hemoglobin Concent 35, Red Cell Distribution Width 13.4, Platelet Count 153, Mean Platelet Volume 11.9, Immature Granulocyte % (Auto) 0, Neutrophils (%) (Auto) 80H, Lymphocytes (%) (Auto) 8L, Monocytes (%) (Auto) 11, Eosinophils (%) (Auto) 1, Basophils (%) (Auto) 0, Neutrophils # (Auto) 11.1H, Lymphocytes # (Auto) 1.1, Monocytes # (Auto) 1.5H, Eosinophils # (Auto) 0.1, Basophils # (Auto) 0.0, Immature Granulocyte # (Auto) 0.1, Sodium Level 138, Potassium Level 3.8, Chloride Level 104, Carbon Dioxide Level 17L, Anion Gap 17H, Blood Urea Nitrogen 23H, Creatinine 1.46H, Estimat Glomerular Filtration Rate 48, BUN/Creatinine Ratio 16, Glucose Level 115H, Calcium Level 9.2, Phosphorus Level 2.8, Magnesium Level 1.8 Microbiology 08/03/21 MRSA Screen - Final, Complete MRSA not isolated MAGDALENO WADE MD Aug 05, 2021 07:38
[2021-08-05] MEDS ORDERED: MIDAZOLAM 5 MG/5 ML (VERSED) VIAL ONE (09:05)
[2021-08-05] MEDS ORDERED: fentaNYL INJ 100 MCG/2 ML AMP ONE (09:05)
[2021-08-05] MEDS ORDERED: NS IV 1000 ML 2,000 ML ONE (09:08)
[2021-08-05] MEDS ORDERED: HEParin (CATH LAB) 1,000 ML IV ONE (09:08)
[2021-08-05] MEDS ORDERED: LIDOCAINE 1% INJ 20 ML VIAL ONE (09:08)
[2021-08-05] MEDS: LOSARTAN 25 MG (COZAAR) TAB PO SCH (09:17)
[2021-08-05] MEDS: FUROSEMIDE 40 MG/4 ML INJ (LASIX) IVP SCH ×2 (09:17→18:09)
[2021-08-05] MEDS: AMIODARONE 200 MG (CORDARONE) TAB PO SCH ×2 (09:17→21:31)
[2021-08-05] MEDS ORDERED: AMIODARONE (BOLUS) 150 MG/3 ML IV ONE (09:26)
[2021-08-05] MEDS ORDERED: meTOprolol 5 MG/5 ML (LOPRESSOR) VIAL IV ONE (09:30)
[2021-08-05] MEDS ORDERED: ceFAZolin INJECTION 1,000 MG ONE (09:56)
[2021-08-05] MEDS ORDERED: proPOfol 200 MG/20 ML (DIPRIVAN) VIAL IV ONE (10:42)
--- NOTE | 2021-08-05 11:01 | Anesthesia-General Post-Op ---
MAC Patient Condition Mental Status/LOC: Same as Preop Cardiovascular: Satisfactory Nausea/Vomiting: Absent Respiratory: Satisfactory Pain: Controlled Complications: Absent Post Op Complications Complications None Follow Up Care/Instructions Patient Instructions None needed. Anesthesiology Discharge Order Discharge Order Patient is doing well, no complaints, stable vital signs, no apparent adverse anesthesia problems. No complications reported per nursing. ARMANDO RAMOS CRNA Aug 05, 2021 11:01
--- NOTE | 2021-08-05 11:01 | Anesthesia-Procedure Note ---
Procedures/Interventions Procedure Start/Stop/Diagnosis Date of Procedure: Aug 05, 2021 Start Time: 10:49 Stop Time: 10:52 Additional Procedures Procedures Sedation for Defibrillator Function Testing. Patient well sedated from CVCL medications. Additional 20mg of propofol given for testing. Tolerated shock well. Vital signs stable. Maintaining spontaneous respirations with a 93% SpO2. Care back to [facility] Staff. ARMANDO RAMOS CRNA Aug 05, 2021 11:01
--- NOTE | 2021-08-05 11:10 | Conscious Sedation/ASA ---
Conscious Sedation Pre-Proced Time 09:00 ASA Score 3 For ASA 3 and 4: Consider anesthesia and medical clearance. Also, for patients with a history of failed moderate sedation consider anesthesia. Airway Lungs Heart ASA score ASA 1: a normal healthy patient ASA 2: a patient with a mild systemic disease (mid diabetes, controlled hypertension, obesity x ASA 3: a patient with a severe systemic disease that limits activity (angina, COPD, prior Myocardial infarction) ASA 4: a patient with an incapacitating disease that is a constant threat to life (CHF, renal failure) ASA 5: a moribund patient not expected to survive 24 hrs. (ruptured aneurysm) ASA 6: a declared brain- patient whose organs are being harvested. For emergent operations, add the letter E after the classification Mallampati Classification Grade 3 Sedation Plan Analgesia, Amnesia, Plan communicated to team members, Discussed options with patient/fam, Discussed risks with patient/fam The patient is an appropriate candidate to undergo the planned procedure, sedation, and anesthesia. The patient immediately re-assessed prior to indication. TRISTON RITTER MD Aug 05, 2021 11:09
--- NOTE | 2021-08-05 11:13 | ICD Implantation ---
Single Chamber ICD Implant DATE OF SERVICE: 81 male SINGLE CHAMBER ICD IMPLANTATION PRIMARY PHYSICIAN: REFERRING PHYSICIAN: BIOCHEMISTRY SPECIALIST: Triston Chisholm INDICATION: Sustained ventricular tachycardia PREOPERATIVE DIAGNOSES: Sustained ventricular tachycardia, nonischemic cardiomyopathy POSTOPERATIVE DIAGNOSES: Ventricular tachycardia HISTORY: ICD implantation is recommended. PROCEDURE PERFORMED: 1. Single-chamber ICD implantation. 2. Implantable loop recorder explantation. 3. Venogram. 4. DFT testing. COMPLICATIONS: None. ESTIMATED BLOOD LOSS: 20 mL. SPECIMENS: None. ANESTHESIA: Conscious sedation. ORAL ANTICOAGULATION: None. FLUOROSCOPY TIME: FLUOROSCOPY DOSE: CONTRAST DOSE: PROCEDURE DETAILS: After all the questions were answered, an informed consent was taken. All the risks and complication were explained in detail. The patient was brought to the EP lab. The patient's right and left chest was prepped and draped in the usual sterile fashion. A 2-inch horizontal incision was made 1 cm below the clavicle and dissection carried down to the pectoralis fascia. IV antibiotics were admin istered prior to first incision. Under fluoroscopic guidance, access was gained in the axillary vein and a regular J-wire was placed. We then introduced a sheath into the axillary vein. A ICD lead was inserted. This is a single- coiled ICD lead. The RV lead was inserted across the tricuspid valve to an apical septal portion of the RV. The lead position was checked in URDU and VEE view. The screw was deployed and lead connected to the client server programmer. Good sensing and pacing thresholds were obtained. Diaphragmatic pacing was ruled out. The lead was secured with 2-0 Vicryl nonabsorbable sutures. The lead was secured to the underlying muscle and fascia. We then took an ICD generator and the lead was connected to the device in a hermetic fashion. The device and it was placed in the pocket. Aggressive irrigation with normal saline solution was done. Interrogation of the device revealed good integrity of the leads and connection. The wound was closed using 2 layers. The first layer was an interrupted 2-0 Vicryl. The second layer was an uninterrupted 4-0 Vicryl suture. Half inch Steri-Strips and a small dressing was then applied to the wound. DFT testing was done with anesthesia support. The induction mechanism was a T- shock. The first T-shock was at 310 milliseconds at one joule. Sustained ventricular fibrillation was identified a single shock was delivered and it was successful in terminating ventricular fibrillation. DEVICE INFORMATION: [place] VR MRI DF4 [id number] VENTRICULAR LEAD [id number] INTRAOPERATIVE DEVICE TESTING: Threshold: 0.4 ms at 0.25 V, impedance 456, R wave 10.25. DEVICE INTERROGATION IMMEDIATELY POSTOP: Good sensing and capture activity PLAN: The patient will be observed for 23 hours. We will continue with two more dosages of IV antibiotics. We will check a chest x-ray and interrogate the device in the morning. An EKG will be done as well. If everything checks out, the patient will be discharged tomorrow. CONCLUSION: Successful implantation of single-chamber ICD without complication Successful DFT testing TRISTON CHISHOLM MD Aug 05, 2021 11:13
[2021-08-05] MEDS ORDERED: PATIENT MAY USE OWN MEDS, ALL PO SCH (11:15)
[2021-08-05] MEDS ORDERED: NS IV 1000 ML 1,000 ML IV SCH (11:15)
--- NOTE | 2021-08-05 11:16 | Cardiology Progress Note ---
Subjective Date Seen by Provider: Aug 05, 2021 Time Seen by Provider: 11:13 Subjective/Events-last exam Patient was seen and evaluated at bedside, laying down comfortably, had multiple episode of ventricular tachycardia last night. Required multiple boluses of amiodarone. Currently feeling better, mild dyspnea Review of Systems General: No Chills, No Night Sweats; Fatigue; No Malaise, No Appetite, No Other HEENT: No Head Aches, No Visual Changes, No Eye Pain, No Ear Pain, No Dysphasia, No Sinus Congestion, No Post Nasal Drip, No Sore Throat, No Other Pulmonary: Dyspnea; No Cough, No Pleuritic Chest Pain, No Other Cardiovascular: No: Chest Pain, Palpitations, Orthopnea, Paroxysmal Noc. Dyspnea, Edema, Lt Headedness, Other Objective-Cardiology Exam Last Set of Vital Signs Vital Signs 08/05/21 08/05/21 08:15 09:00 Temp 36.9 Pulse 86 Resp 23 B/P (MAP) 139/78 Pulse Ox 93 O2 Delivery Nasal Cannula O2 Flow Rate 2.00 I&O Intake and Output 08/05/21 00:00 Intake Total 1780 ml Output Total 3450 ml Balance -1670 ml Intake Oral 780 ml IV Total 1000 ml Output Urine Total 3450 ml General: Alert, Oriented X3, Cooperative HEENT: Atraumatic, PERRLA Neck: Supple, No JVD, No Thyromegaly Lungs: Clear to Auscultation, Normal Air Movement Heart: Regular Rate, Normal S1, Normal S2, Other (Aortic stenosis) Abdomen: Normal Bowel Sounds, Soft, No Tenderness, No Hepatosplenomegaly, No Masses Extremities: No Clubbing, No Cyanosis, Normal Pulses, No Tenderness/Swelling, Other (+2 pedal edema) Skin: No Rashes, No Breakdown, No Significant Lesion Neuro: Normal Gait, Normal Speech, Strength at 5/5 X4 Ext, Normal Tone, Sensation Intact Psych/Mental Status: Mental Status NL, Mood NL Results Lab Laboratory Tests 08/05/21 04:06 A/P-Cardiology Admission Diagnosis Ventricular tachycardia Hypotensive shock Congestive heart failure, acute on chronic left ventricular systolic dysfunction Acute renal failure Assessment/Plan Sustained ventricular tachycardia, patient had wide-complex tachycardia required electrical cardioversion. He has been maintained on amiodarone as an outpatient. Patient was given amiodarone bolus and started on a drip. Patient continued to have recurrent ventricular tachycardia, required multiple boluses of amiodarone, total of 4 boluses of amiodarone each was 150 mg and received a full drip and started on amiodarone 400 twice daily orally. Status post single-chamber ICD implant on August 05, 2021 with DFT testing. No complication noted. Coronary artery disease, mild to moderate disease per cardiac catheterization done on August 04, 2021. Continue to monitor Congestive heart failure, acute on chronic left ventricular systolic dysfunction, previously known to have nonischemic cardiomyopathy, last echo from 2019 was reported to me by Dr. Cabezas that his ejection fraction was 40 to 45%. Current echo showed significant deterioration in his left ventricular function. Ejection fraction 20 to 25%. Patient has been noncompliant with his medication, educated about the importance of compliance. I will increase Coreg to 6.25 mg twice a day and planning to increase it to 12.5 mg twice a day, continue on losartan. Mild dyspnea and fluid overload secondary to cardiac catheterization IV fluid, will give him Lasix and evaluate tolerance and response Mild elevation in troponin, probably type II myocardial infarction, conservative management is recommended Acute renal failure, chronic renal insufficiency, tolerating IV fluid, renal function are better. Continue to monitor Noncompliance with medication, patient has bottles for Coreg, losartan, spironolactone, reported that he does not take any medication other than amiodarone and baby aspirin. Peripheral edema. Secondary to heart failure, will initiate diuretics. TRISTON RITTER MD Aug 05, 2021 11:16
--- NOTE | 2021-08-05 11:47 | Diagnostic Imaging Report ---
EXAMINATION: Chest 1 view HISTORY: Pacemaker placement COMPARISON: 08/03/2021 FINDINGS: Pacemaker is present. There is mild edema. There is a small left effusion. No pneumothorax. Heart size normal. IMPRESSION: 1. Mild edema and small left effusion. No pneumothorax. Dictated by: Dictated on workstation # [id number]
[2021-08-05] MEDS: ceFAZolin INJECTION 1,000 MG in NS (IVPB) 50 ML IV SCH ×2 (14:03→21:42)
[2021-08-05] MEDS: dilTIAZem DRIP PRE-MIX 125 ML IV SCH (15:23)
[2021-08-05] MEDS: ENOXAPARIN INJECTION 30 MG/0.3 ML SYR SC SCH (18:09)
[2021-08-06 05:04] LABS: MEAN CORPUSCULAR VOLUME 95 fL (80-99)
[2021-08-06 05:06] LABS: BASOPHILS # (AUTO) 0.1 10^3/uL (0.0-0.1); BASOPHILS % (AUTO) 0 % (0-10); EOSINOPHILS # (AUTO) 0.2 10^3/uL (0.0-0.3); EOSINOPHILS % (AUTO) 2 % (0-10); HEMATOCRIT 45 % (40-54); LYMPHOCYTES # (AUTO) 1.1 10^3/uL (1.0-4.0); LYMPHOCYTES % (AUTO) 9 % (12-44); MEAN CORPUSCULAR HEMOGLOBIN 34 pg (25-34); MEAN CORPUSCULAR HGB CONC 35 g/dL (32-36); MEAN PLATELET VOLUME 11.8 fL (9.0-12.2); MONOCYTES # (AUTO) 1.7 10^3/uL (0.0-1.0); MONOCYTES % (AUTO) 14 % (0-12); NEUTROPHILS # (AUTO) 9.2 10^3/uL (1.8-7.8); NEUTROPHILS % (AUTO) 75 % (42-75); PLATELET COUNT 121 10^3/uL (130-400); WHITE BLOOD COUNT 12.3 10^3/uL (4.3-11.0)
[2021-08-06 05:15] LABS: ALBUMIN 3.5 GM/DL (3.2-4.5); POTASSIUM 3.5 MMOL/L (3.6-5.0)
[2021-08-06 05:16] LABS: CALCIUM 8.4 MG/DL (8.5-10.1)
[2021-08-06 05:17] LABS: TOTAL PROTEIN 6.3 GM/DL (6.4-8.2)
[2021-08-06 05:19] LABS: BILIRUBIN,TOTAL 1.1 MG/DL (0.1-1.0)
[2021-08-06 05:21] LABS: CREATININE SERUM 1.51 MG/DL (0.60-1.30); PHOSPHORUS 2.8 MG/DL (2.3-4.7)
[2021-08-06 05:24] LABS: MAGNESIUM 1.6 MG/DL (1.6-2.4)
[2021-08-06] MEDS: MAGNESIUM 1 GM/100 ML IVPB 100 ML IV SCH (05:28)
[2021-08-06] MEDS: POTASSIUM CL 10MEQ/50ML IVPB 50 ML IV SCH (05:28)
[2021-08-06] MEDS: KCL 20 MEQ TAB (K-DUR) PO SCH (05:28)
[2021-08-06] MEDS: FUROSEMIDE 40 MG/4 ML INJ (LASIX) IVP SCH ×2 (06:01→17:46)
[2021-08-06] MEDS: ceFAZolin INJECTION 1,000 MG in NS (IVPB) 50 ML IV SCH (06:03)
[2021-08-06] MEDS: LOSARTAN 25 MG (COZAAR) TAB PO SCH (08:14)
[2021-08-06] MEDS: AMIODARONE 200 MG (CORDARONE) TAB PO SCH ×2 (08:14→21:43)
--- NOTE | 2021-08-06 09:13 | Tele-ICU Progress Note ---
Subjective Date Seen by a Provider: August 06, 2021 Time Seen by a Provider: 07:20 Subjective/Events-last exam This virtual visit was conducted using real time audio/video. Thank you for asking us to see this patient for vtach, pulm edema and CHARLENE. Recent events: AICD 08/05/21. PE: Comfortable. VSS. 126/103. O2 sat 93% on RA HEENT: No obvious masses, adenopathy or JVD. Chest: clear to auscultation. CV: RRR S1 S2 No murmur or added sounds. Abd: Non-tender. Bowel sounds Y. : Unremarkable. Wylie N. [employer] DEPUTY CLERK/psychiatric: Grossly intact. No obvious focal findings. Extremities: 1-2+ edema. Capillary refill < 3 seconds. Skin: unremarkable. Results: Elevated WCC 12.3, BUN 30, Creat 1.51, Trop 1.396. CXR: CM, mild congest. Available chart/ vitals / labs / images reviewed. Video assessment done using teleICU camera, rest of exam as per RN. A/P: Critical Care: critically ill patient. Cont.Vy., Dilt., Amiod., Aldact, coreg, losartan, lasix. Replace K. Discussed with KARLA Roberson. Asked RN to reach out to eICU if any questions or concerns later. Time spent with patient/coordination of care with other health professionals (mins): 15 Sepsis Event Evaluation Height, Weight, BMI Height: '" Weight: lbs. oz. kg; 29.73 BMI Method: Exam Exam Patient acknowledged, consented, and participated in this virtual visit which was conducted using real time audio/video Vital Signs Date Time Temp Pulse Resp B/P (MAP) Pulse Ox O2 Delivery O2 Flow Rate FiO2 08/06/21 09:00 99 24 95/63 92 Nasal Cannula 2.00 08/06/21 08:00 92 Room Air 08/06/21 08:00 73 16 131/84 93 Nasal Cannula 2.00 08/06/21 07:58 37.2 08/06/21 07:00 71 08/06/21 07:00 68 13 130/90 92 Nasal Cannula 2.00 08/06/21 06:11 Nasal Cannula 2.00 08/06/21 06:00 94 26 126/84 93 Nasal Cannula 2.00 08/06/21 05:00 92 28 110/88 91 Nasal Cannula 2.00 08/06/21 04:00 92 Room Air 08/06/21 04:00 61 28 123/77 94 Nasal Cannula 2.00 08/06/21 03:00 85 28 138/99 90 Nasal Cannula 2.00 08/06/21 02:00 87 28 133/91 95 Nasal Cannula 2.00 08/06/21 01:49 37.6 08/06/21 01:00 92 08/06/21 01:00 86 28 131/75 94 Nasal Cannula 2.00 08/06/21 00:00 86 24 131/82 92 Nasal Cannula 2.00 08/05/21 23:59 92 Room Air 08/05/21 23:00 69 22 129/76 93 Nasal Cannula 2.00 08/05/21 22:00 97 28 117/86 92 Nasal Cannula 2.00 08/05/21 21:00 90 23 125/68 93 Nasal Cannula 2.00 08/05/21 20:00 92 Room Air 08/05/21 20:00 89 21 121/61 93 Nasal Cannula 2.00 08/05/21 19:00 90 08/05/21 19:00 86 33 112/84 92 Nasal Cannula 2.00 08/05/21 18:00 61 16 120/71 94 Nasal Cannula 2.00 08/05/21 17:00 58 21 115/63 95 Nasal Cannula 2.00 08/05/21 16:00 Nasal Cannula 2.00 08/05/21 16:00 90 27 146/84 95 Nasal Cannula 2.00 08/05/21 15:00 79 19 108/65 95 Nasal Cannula 2.00 08/05/21 14:00 80 17 94/68 94 Nasal Cannula 2.00 08/05/21 13:00 80 29 112/95 94 Nasal Cannula 2.00 08/05/21 12:41 57 08/05/21 12:15 54 21 108/67 93 Nasal Cannula 2.00 08/05/21 12:00 55 108/68 Nasal Cannula 2.00 08/05/21 12:00 Nasal Cannula 2.00 08/05/21 11:45 56 124/74 Nasal Cannula 2.00 08/05/21 11:39 57 22 124/77 90 Nasal Cannula 2.00 I & O 08/06/21 07:00 Intake Total 1000 ml Output Total 2150 ml Balance -1150 ml Height & Weight Height: '" Weight: lbs. oz. kg; 29.73 BMI Method: General Appearance: No Apparent Distress, WD/WN HEENT: PERRL/EOMI, Pharynx Normal Neck: Normal Inspection, Supple Respiratory: Lungs Clear, Normal Breath Sounds, No Respiratory Distress Cardiovascular: Regular Rate, Rhythm, No Edema, No Murmur Extremity: Normal Inspection, Pedal Edema Neurologic/Psychiatric: Alert, Oriented x3, No Motor/Sensory Deficits, Normal Mood/Affect Skin: Normal Color, Warm/Dry Lymphatic: No Adenopathy Results Lab Laboratory Tests 08/05/21 04:06 08/06/21 04:51 Assessment/Plan Assessment/Plan See free text. Critical Care: Critically Ill Patient WIL DAMON MD August 06, 2021 09:13
--- NOTE | 2021-08-06 09:21 | Cardiology Progress Note ---
Subjective Date Seen by Provider: August 06, 2021 Time Seen by Provider: 09:20 Subjective/Events-last exam Patient is sitting in a chair, feeling better. No new complaint Review of Systems General: No Chills, No Night Sweats, No Fatigue, No Malaise, No Appetite, No Other HEENT: No Head Aches, No Visual Changes, No Eye Pain, No Ear Pain, No Dysphasia, No Sinus Congestion, No Post Nasal Drip, No Sore Throat, No Other Pulmonary: No Dyspnea, No Cough, No Pleuritic Chest Pain, No Other Cardiovascular: No: Chest Pain, Palpitations, Orthopnea, Paroxysmal Noc. Dyspnea, Edema, Lt Headedness, Other Objective-Cardiology Exam Last Set of Vital Signs Vital Signs 08/06/21 08/06/21 07:58 09:00 Temp 37.2 Pulse 99 Resp 24 B/P (MAP) 95/63 Pulse Ox 92 O2 Delivery Nasal Cannula O2 Flow Rate 2.00 I&O Intake and Output 08/06/21 00:00 Intake Total 1250 ml Output Total 3550 ml Balance -2300 ml Intake Oral 600 ml IV Total 650 ml Output Urine Total 3550 ml # Bowel Movements 1 General: Alert, Oriented X3, Cooperative HEENT: Atraumatic, PERRLA Neck: Supple, No JVD, No Thyromegaly Lungs: Clear to Auscultation, Normal Air Movement Heart: Regular Rate, Normal S1, Normal S2, Other (Aortic stenosis) Abdomen: Normal Bowel Sounds, Soft, No Tenderness, No Hepatosplenomegaly, No Masses Extremities: No Clubbing, No Cyanosis, Normal Pulses, No Tenderness/Swelling, Other (+2 pedal edema) Skin: No Rashes, No Breakdown, No Significant Lesion Neuro: Normal Gait, Normal Speech, Strength at 5/5 X4 Ext, Normal Tone, Sensation Intact Psych/Mental Status: Mental Status NL, Mood NL Results Lab Laboratory Tests 08/06/21 04:51 A/P-Cardiology Admission Diagnosis Ventricular tachycardia Hypotensive shock Congestive heart failure, acute on chronic left ventricular systolic dysfunction Acute renal failure Assessment/Plan Sustained ventricular tachycardia, patient had wide-complex tachycardia required electrical cardioversion. He has been maintained on amiodarone as an outpatient. Patient was given amiodarone bolus and started on a drip. Patient continued to have recurrent ventricular tachycardia, required multiple boluses of amiodarone, total of 4 boluses of amiodarone each was 150 mg and received a full drip and started on amiodarone 400 twice daily orally. Status post single-chamber ICD implant on August 05, 2021 with DFT testing. No complication noted. Still having frequent PVCs and short runs of nonsustained ventricular tachycardia. I will try lidocaine and evaluate tolerance and response Coronary artery disease, mild to moderate disease per cardiac catheterization done on August 04, 2021. Continue to monitor Congestive heart failure, acute on chronic left ventricular systolic dysfunction, previously known to have nonischemic cardiomyopathy, last echo from 2019 was reported to me by Dr. Cabezas that his ejection fraction was 40 to 45%. Current echo showed significant deterioration in his left ventricular function. Ejection fraction 20 to 25%. Patient has been noncompliant with his medication, educated about the importance of compliance. I will increase Coreg to 6.25 mg twice a day and planning to increase it to 12.5 mg twice a day, continue on losartan. Mild dyspnea and fluid overload secondary to cardiac catheterization IV fluid, will give him Lasix and evaluate tolerance and response Mild elevation in troponin, probably type II myocardial infarction, conservative management is recommended Acute renal failure, chronic renal insufficiency, tolerating IV fluid, renal function are better. Continue to monitor Noncompliance with medication, patient has bottles for Coreg, losartan, spironolactone, reported that he does not take any medication other than amiodarone and baby aspirin. Peripheral edema. Secondary to heart failure, will initiate diuretics. TRISTON RITTER MD August 06, 2021 09:21
[2021-08-06] MEDS ORDERED: LIDOCAINE BOLUS 100 MG/5 ML (IMS) SYR IV ONE (09:30)
[2021-08-06] MEDS ORDERED: SENNA W/DOCUSATE (SENOKOT S) TABLET PO ONE (10:00)
[2021-08-06] MEDS ORDERED: DOCUSATE SODIUM 100 MG (COLACE) CAP PO ONE (10:00)
[2021-08-06] MEDS ORDERED: LORATADINE (CLARITIN) 10 MG TAB PO ONE (10:00)
[2021-08-06] MEDS: LIDOCAINE DRIP 500 ML IV SCH (10:19)
[2021-08-06] MEDS: dilTIAZem DRIP PRE-MIX 125 ML IV SCH (13:34)
[2021-08-06] MEDS: ACETAMINOPHEN 325 MG TABLET PO PRN (13:35)
[2021-08-06] MEDS: ENOXAPARIN INJECTION 30 MG/0.3 ML SYR SC SCH (17:46)
[2021-08-06] MEDS: SENNA W/DOCUSATE (SENOKOT S) TABLET PO SCH (21:43)
[2021-08-06] MEDS: DOCUSATE SODIUM 100 MG (COLACE) CAP PO SCH (21:43)
--- NOTE | 2021-08-06 22:48 | Progress Note - Hospitalist ---
Subjective HPI/CC On Admission Date Seen by Provider: August 06, 2021 Time Seen by Provider: 09:40 Sancoh Romero is an 81 year old male with PMH HFrEF, CKD, HTN, who presented with rapid heart rate. He noticed that his heart rate was high on his blood pressure monitor. He denies any chest pain. He was not having palpitations. He denies shortness of breath. He was feeling a bit lightheaded. He was otherwise in his normal state of health. He was found to be in ventricular tachycardia and was cardioverted in the emergency room and has remained in normal sinus rhythm since that time. Subjective/Events-last exam He is feeling well today. He denies chest pain. He denies shortness of breath. He has no complaints. Objective Exam Vital Signs Vital Signs Date Time Temp Pulse Resp B/P (MAP) Pulse Ox O2 Delivery O2 Flow Rate FiO2 08/06/21 20:00 94 Room Air 08/06/21 19:40 37.2 08/06/21 19:00 80 08/06/21 18:00 12 130/95 2.00 Capillary Refill : General Appearance: No Apparent Distress, WD/WN Respiratory: Lungs Clear, No Respiratory Distress Cardiovascular: Regular Rate, Rhythm, No Murmur Gastrointestinal: Normal Bowel Sounds, Soft Extremity: Normal Inspection, No Pedal Edema Neurologic/Psychiatric: Alert, Normal Mood/Affect Skin: Normal Color, Warm/Dry Results/Procedures Lab Laboratory Tests 08/06/21 04:51 Patient resulted labs reviewed. Imaging: Reviewed Imaging Report Assessment/Plan Assessment and Plan Assess & Plan/Chief Complaint Ventricular tachycardia Acute on chronic heart failure with reduced ejection fraction NSTEMI DARLIN on CKD HTN Cardiology following s/p ICD placement Continue oral Amiodarone Increasing Coreg DVT prophylaxis: Lovenox Critical Care Critically Ill Patient Diagnosis/Problems Diagnosis/Problems (1) Ventricular tachycardia Status: Acute (2) NSTEMI (non-ST elevation myocardial infarction) Status: Acute (3) Acute on chronic HFrEF (heart failure with reduced ejection fraction) Status: Acute (4) HTN (hypertension) Status: Chronic Clinical Quality Measures AMI/AHF: ASA po Prior to arrival: DA Torres MD August 06, 2021 22:48
[2021-08-07] MEDS: ACETAMINOPHEN 325 MG TABLET PO PRN (03:32)
[2021-08-07] MEDS: KCL 20 MEQ TAB (K-DUR) PO SCH (03:38)
[2021-08-07] MEDS: POTASSIUM CL 10MEQ/50ML IVPB 50 ML IV SCH (03:38)
[2021-08-07] MEDS: MAGNESIUM 1 GM/100 ML IVPB 100 ML IV SCH (03:38)
[2021-08-07 04:34] LABS: BASOPHILS % (AUTO) 0 % (0-10); EOSINOPHILS # (AUTO) 0.2 10^3/uL (0.0-0.3); EOSINOPHILS % (AUTO) 2 % (0-10); HEMATOCRIT 43 % (40-54); LYMPHOCYTES # (AUTO) 1.2 10^3/uL (1.0-4.0); LYMPHOCYTES % (AUTO) 11 % (12-44); MEAN CORPUSCULAR HEMOGLOBIN 33 pg (25-34); MEAN CORPUSCULAR HGB CONC 35 g/dL (32-36); MEAN CORPUSCULAR VOLUME 95 fL (80-99); MEAN PLATELET VOLUME 11.9 fL (9.0-12.2); MONOCYTES # (AUTO) 1.9 10^3/uL (0.0-1.0); MONOCYTES % (AUTO) 17 % (0-12); NEUTROPHILS # (AUTO) 7.6 10^3/uL (1.8-7.8); NEUTROPHILS % (AUTO) 70 % (42-75); PLATELET COUNT 116 10^3/uL (130-400); WHITE BLOOD COUNT 10.9 10^3/uL (4.3-11.0)
[2021-08-07 04:50] LABS: POTASSIUM 3.3 MMOL/L (3.6-5.0)
[2021-08-07 04:51] LABS: CALCIUM 8.1 MG/DL (8.5-10.1)
[2021-08-07 04:55] LABS: PHOSPHORUS 2.5 MG/DL (2.3-4.7)
[2021-08-07 04:56] LABS: CREATININE SERUM 1.93 MG/DL (0.60-1.30)
[2021-08-07 04:58] LABS: MAGNESIUM 1.7 MG/DL (1.6-2.4)
[2021-08-07 06:32] VITALS: BP 122/71
[2021-08-07] MEDS: LIDOCAINE DRIP 500 ML IV SCH (06:32)
[2021-08-07] MEDS: SENNA W/DOCUSATE (SENOKOT S) TABLET PO SCH (08:35)
[2021-08-07] MEDS: AMIODARONE 200 MG (CORDARONE) TAB PO SCH (08:35)
[2021-08-07] MEDS: DOCUSATE SODIUM 100 MG (COLACE) CAP PO SCH (08:35)
[2021-08-07] MEDS: LOSARTAN 25 MG (COZAAR) TAB PO SCH (08:35)
[2021-08-07] MEDS ORDERED: AMIO200T65 PO (08:36)
[2021-08-07] MEDS ORDERED: NF-MEXI150 PO (08:36)
[2021-08-07] MEDS ORDERED: LOSA25TA41 PO (08:36)
[2021-08-07] MEDS ORDERED: FURO-125 PO (08:36)
--- NOTE | 2021-08-07 08:37 | Discharge Inst-Post CATH ---
Discharge Inst-CATH/EP Problems Reviewed?: Yes Post Cardiac Cath/EP D/C Inst Follow Up/Plan Appointment with Dr Chisholm in one week <b>CARDIAC CATH/EP PROCEDURE DISCHARGE INSTRUCTIONS</b> ACTIVITY * Go Home directly and rest. * Limit activity of the leg (or wrist if it was used) for 7 days including aerobics, swimming, jogging, bicycling, etc. * Restrict stair-climbing for 7 days if possible, if not, climb up with your non-cath leg, then bring together on the same step. * Avoid lifting, pushing, pulling or excessive movement of the affected extremity for 7 days. * Customary sexual activity may be resumed after 2 days-use caution not to use a position that strains or causes pain to the affected extremity. * No driving for 24 hours. * NO SMOKING. * Avoid straining for bowel movements for 7 days. * Gentle walking on level ground is allowed. * Returning to work will depend on the type of procedure and the results. Your doctor will discuss this with you. CALL YOUR DOCTOR FOR ANY OF THE FOLLOWING: *If bleeding from the puncture site occurs- Apply gentle pressure to site with clean cloth and call your doctor or EMS. * If a knot or lump forms under the skin, increases in size, or causes pain. * If bruising appears to be worsening or moving further down your leg instead of disappearing. * Temperature above 101 F. CARE OF YOUR GROIN INCISION; * Bruising or purple discoloration of the skin near the puncture site is common. * You may shower only, no bathtub bathing for 5 days. Be careful to avoid slipping as your leg may feel stiff. * If a closure device was used on your femoral artery, please see the attached guide regarding care of the device and your leg. * Leave dressing on FOR 24 hours. CARE OF YOUR WRIST INCISION; * Bruising or purple discoloration of the skin near the puncture site is common. * You may shower. * DO NOT submerge wrist. * Leave dressing on FOR 24 hours. TRISTON CHISHOLM MD August 07, 2021 08:37
--- NOTE | 2021-08-07 08:39 | Cardiology Progress Note ---
Subjective Date Seen by Provider: August 07, 2021 Time Seen by Provider: 08:37 Subjective/Events-last exam Patient is feeling better, reporting improvement No further episodes of ventricular tachycardia while on lidocaine Review of Systems General: No Chills, No Night Sweats, No Fatigue, No Malaise, No Appetite, No Other HEENT: No Head Aches, No Visual Changes, No Eye Pain, No Ear Pain, No Dysphasia, No Sinus Congestion, No Post Nasal Drip, No Sore Throat, No Other Pulmonary: No Dyspnea, No Cough, No Pleuritic Chest Pain, No Other Cardiovascular: No: Chest Pain, Palpitations, Orthopnea, Paroxysmal Noc. Dyspnea, Edema, Lt Headedness, Other Objective-Cardiology Exam Last Set of Vital Signs Vital Signs 08/06/21 08/07/21 08/07/21 19:00 08:00 08:18 Temp 36.5 Pulse 82 Resp 28 B/P (MAP) 112/72 Pulse Ox 93 O2 Delivery Room Air O2 Flow Rate 2.00 I&O Intake and Output 08/07/21 00:00 Intake Total 1575 ml Output Total 1975 ml Balance -400 ml Intake Oral 1575 ml Output Urine Total 1975 ml # Bowel Movements 1 General: Alert, Oriented X3, Cooperative HEENT: Atraumatic, PERRLA Neck: Supple, No JVD, No Thyromegaly Lungs: Clear to Auscultation, Normal Air Movement Heart: Regular Rate, Normal S1, Normal S2, Other (Aortic stenosis) Abdomen: Normal Bowel Sounds, Soft, No Tenderness, No Hepatosplenomegaly, No Masses Extremities: No Clubbing, No Cyanosis, Normal Pulses, No Tenderness/Swelling, Other (+2 pedal edema) Skin: No Rashes, No Breakdown, No Significant Lesion Neuro: Normal Gait, Normal Speech, Strength at 5/5 X4 Ext, Normal Tone, Sensation Intact Psych/Mental Status: Mental Status NL, Mood NL Results Lab Laboratory Tests 08/07/21 04:16 A/P-Cardiology Admission Diagnosis Ventricular tachycardia Hypotensive shock Congestive heart failure, acute on chronic left ventricular systolic dysfunction Acute renal failure Assessment/Plan Sustained ventricular tachycardia, patient had wide-complex tachycardia required electrical cardioversion. He has been maintained on amiodarone as an outpatient. Patient was given amiodarone bolus and started on a drip. Patient continued to have recurrent ventricular tachycardia, required multiple boluses of amiodarone, total of 4 boluses of amiodarone each was 150 mg and received a full drip and started on amiodarone 400 twice daily orally. Status post single-chamber ICD implant on August 05, 2021 with DFT testing. No complication noted. Improved after starting lidocaine. I will discharge him on mexiletine and amiodarone and continue to monitor as an outpatient Coronary artery disease, mild to moderate disease per cardiac catheterization done on August 04, 2021. Continue to monitor Congestive heart failure, acute on chronic left ventricular systolic dysfunction, previously known to have nonischemic cardiomyopathy, last echo from 2019 was reported to me by Dr. Cabezas that his ejection fraction was 40 to 45%. Current echo showed significant deterioration in his left ventricular function. Ejection fraction 20 to 25%. Patient has been noncompliant with his medication, educated about the importance of compliance. I will increase Coreg to 6.25 mg twice a day and planning to increase it to 12.5 mg twice a day, continue on losartan. Tolerating current medication well Mild dyspnea and fluid overload secondary to cardiac catheterization IV fluid, will give him Lasix and evaluate tolerance and response Mild elevation in troponin, probably type II myocardial infarction, conservative management is recommended Acute renal failure, chronic renal insufficiency, tolerating IV fluid, renal function are better. Continue to monitor Noncompliance with medication, patient has bottles for Coreg, losartan, spironolactone, reported that he does not take any medication other than amiodarone and baby aspirin. Peripheral edema. Secondary to heart failure, will initiate diuretics. TRISTON RITTER MD August 07, 2021 08:38
[2021-08-07] MEDS ORDERED: MEXILETINE 150 MG (MEXITIL) CAPSULE PO SCH (09:00)
[2021-08-07] MEDS ORDERED: LORATADINE (CLARITIN) 10 MG TAB PO SCH (09:00)
--- NOTE | 2021-08-07 11:17 | Discharge Summary ---
Diagnosis/Chief Complaint Date of Admission Aug 03, 2021 at 18:03 Date of Discharge Discharge Date: August 07, 2021 Admission Diagnosis Ventricular tachycardia Primary Care No,Local Physician Discharge Diagnosis (1) Ventricular tachycardia Status: Acute (2) NSTEMI (non-ST elevation myocardial infarction) Status: Acute (3) Acute on chronic HFrEF (heart failure with reduced ejection fraction) Status: Acute (4) HTN (hypertension) Status: Chronic Discharge Summary Discharge Physical Exam Allergies: Coded Allergies: Sulfa (Sulfonamide Antibiotics) (Verified Allergy, Unknown, 08/03/21) codeine (Verified Allergy, Unknown, 08/03/21) Vitals & I&Os Vital Signs Date Time Temp Pulse Resp B/P (MAP) Pulse Ox O2 Delivery O2 Flow Rate FiO2 08/07/21 10:00 85 19 116/75 91 Room Air 08/07/21 08:18 36.5 08/06/21 19:00 2.00 General Appearance: No Apparent Distress, WD/WN Respiratory: Lungs Clear, No Respiratory Distress Cardiovascular: Regular Rate, Rhythm, No Murmur Neurologic/Psychiatric: Alert, Oriented x3 Hospital Course Patient was admitted to the hospital secondary to sustained V. tach. He was cardioverted in the emergency department and admitted to the ICU where he had refractory ventricular tachycardia. He was bolused with amiodarone and treated with an amiodarone drip and echo revealed diminished EF of 15%. He had an AICD placed as well. He was started on a lidocaine drip due to frequent PVCs and did well with this. He was able to be transition to mexiletine orally and discharged home in stable and improved condition. Ideally I would have liked to watch him for 1 more day on oral medications to ensure that he remained in sinus rhythm but patient refused any further days in the hospital. We discussed the risk of premature discharge and he expressed understanding and states "if I was going to I want to at home." He was discharged home to follow-up with Dr. Chisholm as scheduled. Labs (last 24 hrs) Laboratory Tests 08/07/21 04:16: White Blood Count 10.9, Red Blood Count 4.55, Hemoglobin 15.0, Hematocrit 43, Mean Corpuscular Volume 95, Mean Corpuscular Hemoglobin 33, Mean Corpuscular Hemoglobin Concent 35, Red Cell Distribution Width 13.2, Platelet Count 116L, Mean Platelet Volume 11.9, Immature Granulocyte % (Auto) 0, Neutrophils (%) (Auto) 70, Lymphocytes (%) (Auto) 11L, Monocytes (%) (Auto) 17H, Eosinophils (%) (Auto) 2, Basophils (%) (Auto) 0, Neutrophils # (Auto) 7.6, Lymphocytes # (Auto) 1.2, Monocytes # (Auto) 1.9H, Eosinophils # (Auto) 0.2, Basophils # (Auto) 0.0, Immature Granulocyte # (Auto) 0.0, Sodium Level 136, Potassium Level 3.3L, C hloride Level 101, Carbon Dioxide Level 22, Anion Gap 13, Blood Urea Nitrogen 41H, Creatinine 1.93H, Estimat Glomerular Filtration Rate 34, BUN/Creatinine Ratio 21, Glucose Level 117H, Calcium Level 8.1L, Phosphorus Level 2.5, Magnesium Level 1.7 Microbiology 08/03/21 MRSA Screen - Final, Complete MRSA not isolated Patient resulted labs reviewed. Pending Labs Laboratory Tests 08/07/21 04:16: White Blood Count 10.9, Red Blood Count 4.55, Hemoglobin 15.0, Hematocrit 43, Mean Corpuscular Volume 95, Mean Corpuscular Hemoglobin 33, Mean Corpuscular Hemoglobin Concent 35, Red Cell Distribution Width 13.2, Platelet Count 116, Mean Platelet Volume 11.9, Immature Granulocyte % (Auto) 0, Neutrophils (%) (Auto) 70, Lymphocytes (%) (Auto) 11, Monocytes (%) (Auto) 17, Eosinophils (%) (Auto) 2, Basophils (%) (Auto) 0, Neutrophils # (Auto) 7.6, Lymphocytes # (Auto) 1.2, Monocytes # (Auto) 1.9, Eosinophils # (Auto) 0.2, Basophils # (Auto) 0.0, Immature Granulocyte # (Auto) 0.0, Sodium Level 136, Potassium Level 3.3, Chloride Level 101, Carbon Dioxide Level 22, Anion Gap 13, Blood Urea Nitrogen 41, Creatinine 1.93, Estimat Glomerular Filtration Rate 34, BUN/Creatinine Ratio 21, Glucose Level 117, Calcium Level 8.1, Phosphorus Level 2.5, Magnesium Level 1.7 Imaging: Reviewed Imaging Report Discussion & Recommendations Discharge Planning: >30 minutes discharge planning Discharge Home Medications: Active Scripts Active Lasix (Furosemide) 20 Mg Tablet 20 Mg PO PRN Use 1 tablet daily as needed for edema and take [id number] potassium with the Lasix Amiodarone HCl 200 Mg Tablet 200 Mg PO BID Losartan Potassium 25 Mg Tablet 25 Mg PO DAILY Mexiletine HCl 150 Mg Cap 150 Mg PO BID Reported Afrin (Oxymetazoline HCl) 0.05 % Exeter 1-2 Exeter NS UD PRN [Balance Of Nature] 1 Ea PO TIDWM Aspirin EC (Aspirin) 81 Mg Tablet.dr 81 Mg PO HS Carvedilol 12.5 Mg Tablet 12.5 Mg PO BID WITH MEALS Cetirizine HCl 10 Mg Tablet 10 Mg PO HS Instructions to patient/family Please see electronic discharge instructions given to patient. Clinical Quality Measures AMI/AHF: ASA po Prior to arrival: GARRY Linder MD August 07, 2021 11:17
== END 2021-08-07 11:28 | disposition home or self-care (01) | DRG 222 ==
LOC: ER 14:30 → ICU 18:03
PROVIDERS: ADMIT Internal Medicine; ATTEND Internal Medicine
PROC: 5A2204Z Restoration of Cardiac Rhythm, Single (ICD-10-PCS; 2021-08-03)
PROC: 4A023N7 Measurement of Cardiac Sampling and Pressure, Left Heart, Percutaneous Approach (ICD-10-PCS; 2021-08-04)
PROC: B2111ZZ Fluoroscopy of Multiple Coronary Arteries using Low Osmolar Contrast (ICD-10-PCS; 2021-08-04)
PROC: 0JH608Z Insertion of Defibrillator Generator into Chest Subcutaneous Tissue and Fascia, Open Approach (ICD-10-PCS; principal; 2021-08-05)
PROC: 02HK3KZ Insertion of Defibrillator Lead into Right Ventricle, Percutaneous Approach (ICD-10-PCS; 2021-08-05)
DX: I47.2 Ventricular tachycardia (principal); I50.23 Acute on chronic systolic (congestive) heart failure; I21.A1 Myocardial infarction type 2; R57.8 Other shock; I13.0 Hypertensive heart and chronic kidney disease with heart failure and stage 1 through stage 4 chronic kidney disease, or unspecified chronic kidney disease; N17.9 Acute kidney failure, unspecified; I42.9 Cardiomyopathy, unspecified; N18.9 Chronic kidney disease, unspecified; I49.3 Ventricular premature depolarization; Z91.14 Patient's other noncompliance with medication regimen; Z79.82 Long term (current) use of aspirin; Z88.5 Allergy status to narcotic agent; Z88.2 Allergy status to sulfonamides
CPT/HCPCS: 33249; 36415; 71045; 80048; 80053; 83735; 83880; 84100; 84484; 85025; 87081; 92960; 93005; 93306; 93458; 93641; 99291

== ENCOUNTER 2022-03-04 13:37 | Emergency (ER) | payer MEDICARE ==
[~2022-03-04] VITALS: Ht 172 cm; Wt 80.0 kg
[~2022-03-04 13:37] MED LIST: AMIO200T65 PO; ASPI-1238 PO; ASPI-999 PO; BALANCE OF NATURE PO; CARV12.53 PO; CETI10TA17 PO; FURO-125 PO; ISOS30TA82 PO; LOSA25TA41 PO; LOSA50TA63 PO; NF-MEXI150 PO; OXYM30SP25 NS; POTA99TA26 PO; SPIR25TA5 PO
[2022-03-04 14:10] LABS: BASOPHILS # (AUTO) 0.1 10^3/uL (0.0-0.1); BASOPHILS % (AUTO) 1 % (0-10); EOSINOPHILS # (AUTO) 0.4 10^3/uL (0.0-0.3); EOSINOPHILS % (AUTO) 6 % (0-10); HEMATOCRIT 46 % (40-54); HEMOGLOBIN 15.6 g/dL (13.3-17.7); LYMPHOCYTES % (AUTO) 14 % (12-44); MEAN CORPUSCULAR HEMOGLOBIN 33 pg (25-34); MEAN CORPUSCULAR HGB CONC 34 g/dL (32-36); MEAN CORPUSCULAR VOLUME 97 fL (80-99); MEAN PLATELET VOLUME 11.3 fL (9.0-12.2); MONOCYTES # (AUTO) 0.9 10^3/uL (0.0-1.0); MONOCYTES % (AUTO) 13 % (0-12); NEUTROPHILS # (AUTO) 4.7 10^3/uL (1.8-7.8); NEUTROPHILS % (AUTO) 67 % (42-75); PLATELET COUNT 170 10^3/uL (130-400); WHITE BLOOD COUNT 7.1 10^3/uL (4.3-11.0)
[2022-03-04 14:28] LABS: BILIRUBIN,TOTAL 0.8 MG/DL (0.1-1.0); CALCIUM 9.6 MG/DL (8.5-10.1); CREATININE SERUM 2.16 MG/DL (0.60-1.30); POTASSIUM 4.1 MMOL/L (3.6-5.0); TOTAL PROTEIN 7.5 GM/DL (6.4-8.2)
[2022-03-04 14:33] LABS: PROTHROMBIN TIME PATIENT 13.9 SEC (12.2-14.7)
[2022-03-04] MEDS ORDERED: ASPIRIN 81 MG CHEW (CHILDREN'S ASA) PO STA (14:47)
--- NOTE | 2022-03-04 15:03 | ED Cardiac General ---
History of Present Illness General Chief Complaint: Cardiac/General Problems Stated Complaint: ELEVATED BP/HEADACHE/TIRED Nursing Triage Note: PT TO RM 5 PT STATES B/P ELEVATED TODAY, HAD MEDS CHANGED BY DR CHISHOLM ON SATURDAY OF LAST WEEK. PT ALSO CO OF SINUS CONGESTION AND HEADACHE History of Present Illness Date Seen by Provider: Mar 04, 2022 Time Seen by Provider: 13:45 Initial Comments 81-year-old male presents because of elevated blood pressure with occasional headaches over the last 2 days. He had some of his medications changed by Dr. Chisholm on 02/26/2022. Jardiance was added and his blood sugar dropped to 80, his has held that for the last 2 days and is remained 100- 120. She is not certain of all of his medications but he knows that they increased his amiodarone and losartan last week. He feels the headache was related to sinus congestion, he took some OTC sinus medication the last 2days. Discussed this could elevate his B/P. He reports sinus congestion has improved. He has no chest pain or shortness of breath. He had a pacemaker placed in July [address] Chisholm, after having V. tach and cardioversion. He had a heart cath at that time which showed an ejection fraction of 20 to 25%. He takes a spirin 81 mg once a day (though his states sometimes twice a day). They were concerned today, as his b/p was elevated in the 160-180/100-110. Upon evaluation here, 161/113. Sinus rhythm per telemetry. Patient ambulated to exam room, otherwise stable and no SOA. He is not on Nitroglycerin and denies sleep apnea. No anti-coagulants. He denies stenting or angioplasty with previous hearth caths. Timing/Duration: 1-2 days Severity: mild NTG SL SAS PROGRAMMER: No ASA po SAS PROGRAMMER: No Associated Systoms: No Chest Pain, No Cough; Headaches (intermittent, sinus headaches. ); No Loss of Appetite, No Malaise, No Nausea/Vomiting, No Rash, No Seizure, No Shortness of Air, No Syncope, No Weakness; Other (No vision changes. ) Allergies and Home Medications Allergies Coded Allergies: Sulfa (Sulfonamide Antibiotics) (Verified Allergy, Unknown, 08/03/21) codeine (Verified Allergy, Unknown, 08/03/21) Patient Home Medication List Home Medication List Reviewed: Yes Amiodarone HCl (Amiodarone HCl) 200 Mg Tablet, 200 MG PO BID Prescribed by: TRISTON CHISHOLM on 08/07/21835 Aspirin (Aspirin EC) 81 Mg Tablet.dr, 81 MG PO HS, (Reported) Entered as Reported by: RAYMOND WARREN on 08/04/211045 Carvedilol (Carvedilol) 12.5 Mg Tablet, 12.5 MG PO BID WITH MEALS, (Reported) Entered as Reported by: SARWAT GARCIA on 08/03/212118 Cetirizine HCl (Cetirizine HCl) 10 Mg Tablet, 10 MG PO HS, (Reported) Entered as Reported by: SARWAT GARCIA on 08/03/212118 Furosemide (Lasix) 20 Mg Tablet, 20 MG PO PRN Prescribed by: TRISTON CHISHOLM on 08/07/21835 Losartan Potassium (Losartan Potassium) 25 Mg Tablet, 25 MG PO DAILY Prescribed by: TRISTON CHISHOLM on 08/07/21835 Mexiletine HCl (Mexiletine HCl) 150 Mg Cap, 150 MG PO BID Prescribed by: TRISTON CHISHOLM on 08/07/21835 Oxymetazoline HCl (Afrin) 0.05 % [place], 1-2 SPRAY NS UD PRN for CONGESTION, (Reported) Entered as Reported by: RAYMOND WARREN on 08/04/21 104 [[place]] , 1 EA PO TIDWM, (Reported) Entered as Reported by: RAYMOND WARREN on 08/04/211045 Review of Systems Review of Systems Constitutional: no symptoms reported, see HPI Respiratory: No Symptoms Reported, See HPI Cardiovascular: See HPI; Denies Chest Pain, Denies Palpitations, Denies Syncope; Other (Elevated B/P) Gastrointestinal: No Symptoms Reported, See HPI Genitourinary: No Symptoms Reported, See HPI All Other Systems Reviewed Negative Unless Noted: Yes Past Xhuoiju-Ehbyww-Mehlzm Hx Patient Social History Tobacco Use?: No Substance use?: No Alcohol Use?: No Pt feels they are or have been: No Immunizations Up To Date Influenza Vaccine Up-to-Date: Yes; Up-to-Date First/Initial COVID19 Vaccinat: May 2020 Second COVID19 Vaccination Jovany: June 2020 Third COVID19 Vaccination Date: January 2021 Past Medical History Surgery/Hospitalization HX: PACEMAKER, T AND A, HTN Family Medical History Reviewed Nursing Family Hx No Pertinent Family Hx Physical Exam Vital Signs Vital Signs - First Documented 03/04/22 03/04/22 13:45 17:02 Temp 35.6 Pulse 89 Resp 18 B/P (MAP) 161/113 (129) Pulse Ox 98 O2 Delivery Room Air Capillary Refill : Less Than 3 Seconds Height, Weight, BMI Height: '" Weight: lbs. oz. kg; 27.00 BMI Method: General Appearance: No Apparent Distress, WD/WN HEENT: PERRL/EOMI, TMs Normal, Normal ENT Inspection, Pharynx Normal, Moist Mucous Membranes, Other (no sinus tenderness. ) Neck: Full Range of Motion, Normal Inspection, Non Tender, Supple Respiratory: Chest Non Tender, Lungs Clear, Normal Breath Sounds Cardiovascular: Regular Rate, Rhythm, No Edema, Normal Peripheral Pulses Gastrointestinal: Normal Bowel Sounds, Non Tender, Soft Extremity: Normal Capillary Refill, Other (left knee pain, swelling. Chronic from childhood illness. ) Neurologic/Psychiatric: Alert, Oriented x3, No Motor/Sensory Deficits, Normal Mood/Affect Skin: Normal Color, Warm/Dry Procedures/Interventions Patient Education: Explained Benefits, Explained Risks, Pt. Ack. Understanding Breath Sounds per Auscultation: Clear Heart Sounds per Auscultation: Irregular Airway Exam: Mouth opens >2 fingers, Neck Full Range of Motion, Visulation of Uvula Sedation Adminstration Time: 1538 Re-examination Time: 1630 Progress/Results/Core Measures Results/Orders Lab Results Laboratory Tests Test 03/04/22 13:55 Range/Units White Blood Count 7.1 4.3-11.0 10^3/uL Red Blood Count 4.80 4.30-5.52 10^6/uL Hemoglobin 15.6 13.3-17.7 g/dL Hematocrit 46 40-54 % Mean Corpuscular Volume 97 80-99 fL Mean Corpuscular Hemoglobin 33 25-34 pg Mean Corpuscular Hemoglobin Concent 34 32-36 g/dL Red Cell Distribution Width 14.9 H 10.0-14.5 % Platelet Count 170 130-400 10^3/uL Mean Platelet Volume 11.3 9.0-12.2 fL Immature Granulocyte % (Auto) 0 % Neutrophils (%) (Auto) 67 42-75 % Lymphocytes (%) (Auto) 14 12-44 % Monocytes (%) (Auto) 13 H 0-12 % Eosinophils (%) (Auto) 6 0-10 % Basophils (%) (Auto) 1 0-10 % Neutrophils # (Auto) 4.7 1.8-7.8 10^3/uL Lymphocytes # (Auto) 1.0 1.0-4.0 10^3/uL Monocytes # (Auto) 0.9 0.0-1.0 10^3/uL Eosinophils # (Auto) 0.4 H 0.0-0.3 10^3/uL Basophils # (Auto) 0.1 0.0-0.1 10^3/uL Immature Granulocyte # (Auto) 0.0 0.0-0.1 10^3/uL Prothrombin Time 13.9 12.2-14.7 SEC INR Comment 1.0 0.8-1.4 Activated Partial Thromboplast Time 25 24-35 SEC Sodium Level 142 135-145 MMOL/L Potassium Level 4.1 3.6-5.0 MMOL/L Chloride Level 103 98-107 MMOL/L Carbon Dioxide Level 23 21-32 MMOL/L Anion Gap 16 H 5-14 MMOL/L Blood Urea Nitrogen 37 H 7-18 MG/DL Creatinine 2.16 H 0.60-1.30 MG/DL Estimat Glomerular Filtration Rate 30 BUN/Creatinine Ratio 17 Glucose Level 113 H 70-105 MG/DL Calcium Level 9.6 8.5-10.1 MG/DL Corrected Calcium 9.6 8.5-10.1 MG/DL Total Bilirubin 0.8 0.1-1.0 MG/DL Aspartate Amino Transf (AST/SGOT) 20 5-34 U/L Alanine Aminotransferase (ALT/SGPT) 23 0-55 U/L Alkaline Phosphatase 51 40-136 U/L Troponin I 0.043 H <0.028 NG/ML C-Reactive Protein High Sensitivity 0.53 H 0.00-0.50 MG/DL B-Type Natriuretic Peptide 1807.7 H <100.0 PG/ML Total Protein 7.5 6.4-8.2 GM/DL Albumin 4.0 3.2-4.5 GM/DL My Orders Orders - JARAD NICOLE Ekg Tracing (03/04/22 13:59) Cbc With Automated Diff (03/04/22 14:00) Comprehensive Metabolic Panel (03/04/22 14:00) Hs C Reactive Protein (03/04/22 14:00) Protime With Inr (03/04/22 14:00) Partial Thromboplastin Time (03/04/22 14:00) Troponin I Karen (03/04/22 14:00) Chest 1 View, Ap/Pa Only (03/04/22 14:47) Aspirin Chewable Tablet (Baby Aspirin Ch (03/04/22 14:47) Diltiazem Injection (Cardizem Injection) (03/04/22 14:57) Bnp Karen (03/04/22 15:05) Ed Iv/Invasive Line Start (03/04/22 15:18) Ns Iv 500 Ml (Sodium Chloride 0.9%) (03/04/22 15:30) Medications Given in ED Current Medications Medications Dose Ordered Sig/Praneeth Route Start Time Stop Time Status Last Admin Dose Admin Sodium Chloride 500 ml @ 0 mls/hr Q0M ONCE IV 03/04/22 15:30 03/04/22 15:31 DC 03/04/22 15:23 500 MLS/HR Vital Signs/I&O 03/04/22 03/04/22 03/04/22 13:45 15:05 17:02 Temp 35.6 Pulse 89 81 76 Resp 18 B/P (MAP) 161/113 (129) 142/93 140/91 Pulse Ox 98 98 O2 Delivery Room Air Blood Pressure Mean: 129 Progress Progress Note : Time: 13:45 Progress Note Patient seen and evaluated, will obtain labs, ASA 324 mg, EKG and chest x-ray. 1430 B/P continues to be elevated, will give Cardiazem 10 mg IV. 1515 B/P down to 130s/80s, continues to have no chest pain or SOA. Troponin elevated 0.[address] Kam. [address] Kam, agreeable with plan to admit, serial troponins. 1630 spoke to patient and and patient in depth, recommended plan for admission. Patient prefers to be discharged to home, understands he will sign out AGAINST MEDICAL ADVICE and returning home versus admission could result in . He has echo schedule with Dr. Chisholm on 03/06/22. AMA form completed. Dr. Kam notified. Initial ECG Impression Date: Mar 04, 2022 Initial ECG Impression Time: 14:10 Initial ECG Rate: 82 Initial ECG Rhythm: Normal Sinus Initial ECG Intervals: Normal Initial ECG Intervals MO 196, QRS D 165, QT 440, QTc 479. Axes: P 3, R 9, T 57 Initial ECG Impression: Normal Initial ECG Comparisson: Unchanged Diagnostic Imaging Diagonstic Imaging: Xray Plain Films/CT/US/NM/MRI: chest Comments NAME: [facility] REC#: [id number] PT STATUS: REG ER : 1940 PHYSICIAN: JARAD NICOLE ADMIT DATE: 03/04/22/ER Draft Date of Exam:03/04/22 CHEST 1 VIEW, AP/PA ONLY EXAMINATION: Chest 1 view HISTORY: Hypertension COMPARISON: None available. FINDINGS: Heart size is enlarged. Left-sided cardiac device is present. Patchy interstitial opacities within the lungs. No pleural effusion or pneumothorax. The osseous structures are intact. IMPRESSION: 1. Cardiomegaly with mild interstitial opacities throughout the lungs. Findings can be seen with pulmonary edema or atypical infection. Dictated on workstation # [id number] Dict: 03/04/22 1459 Trans: 03/04/22 1501 [facility] [id number] Interpreted by: BENJI ALONZO DO Electronically signed by: Reviewed: Reviewed by Me Departure Impression Primary Impression: Hypertensive heart disease Qualified Codes: I11.0 - Hypertensive heart disease with heart failure Additional Impressions: Elevated troponin Cardiomyopathy Qualified Codes: I42.9 - Cardiomyopathy, unspecified Disposition: 07 AGAINST MEDICAL ADVICE Condition: Critical Admissions Decision to Admit/Date: Mar 04, 2022 Time/Decision to Admit Time: 15:00 Departure-Patient Inst. Decision time for Depature: 16:30 Referrals: NO,LOCAL PHYSICIAN (PCP) Primary Care Physician TRISTON CHISHOLM MD Patient Instructions: Troponin Test, High Blood Pressure (DC) Add. Discharge Instructions: You are leaving against the recommendation of this Emergency Dept and Dr. Kam, you understand the risks associated with this decision could result in your . Return to emergency department for chest pain, shortness of breath, or continued elevation of blood pressure. Keep your scheduled appointment for your echocardiogram and appointment with Dr. Chisholm for this week. Continue to take all of your home medications as prescribed. Return to the emergency department for new, urgent healthcare needs. All discharge instructions reviewed with patient and/or family. Voiced understanding. Copy Copies To 1: TRISTON CHISHOLM MD, AMY ARNP Mar 04, 2022 15:03
[2022-03-04] MEDS ORDERED: NS IV 500 ML 500 ML IV ONE (15:30)
[2022-03-04 17:02] VITALS: BP 140/91
== END 2022-03-04 17:02 | disposition left against medical advice (07) ==
LOC: EDUNIT# 13:37 → ER 13:41
DX: I11.9 Hypertensive heart disease without heart failure (principal); I42.9 Cardiomyopathy, unspecified; R74.8 Abnormal levels of other serum enzymes; M25.562 Pain in left knee; M25.462 Effusion, left knee; Z95.0 Presence of cardiac pacemaker
CPT/HCPCS: 36415; 71045; 80053; 83880; 84484; 85025; 85610; 85730; 86141; 93005

== ENCOUNTER → 2022-03-06 | Outpatient (CLI) | payer MEDICARE | LOC: CARD 13:07 | PROVIDERS: ATTEND Internal Medicine Cardiovascular Disease | DX: I11.9 Hypertensive heart disease without heart failure (principal); I34.0 Nonrheumatic mitral (valve) insufficiency; I34.81 Nonrheumatic mitral (valve) annulus calcification; I07.1 Rheumatic tricuspid insufficiency | CPT/HCPCS: 93306 ==

== ENCOUNTER 2022-05-05 16:57 | Emergency (ER) | payer MEDICARE ==
[~2022-05-05] VITALS: Ht 170.1 cm; Wt 80.0 kg
[2022-05-05 17:29] LABS: BASOPHILS % (AUTO) 1 % (0-10); EOSINOPHILS # (AUTO) 0.3 10^3/uL (0.0-0.3); EOSINOPHILS % (AUTO) 5 % (0-10); HEMATOCRIT 48 % (40-54); LYMPHOCYTES # (AUTO) 0.8 10^3/uL (1.0-4.0); LYMPHOCYTES % (AUTO) 12 % (12-44); MEAN CORPUSCULAR HEMOGLOBIN 31 pg (25-34); MEAN CORPUSCULAR HGB CONC 33 g/dL (32-36); MEAN CORPUSCULAR VOLUME 94 fL (80-99); MEAN PLATELET VOLUME 11.5 fL (9.0-12.2); MONOCYTES # (AUTO) 0.8 10^3/uL (0.0-1.0); MONOCYTES % (AUTO) 13 % (0-12); NEUTROPHILS # (AUTO) 4.4 10^3/uL (1.8-7.8); NEUTROPHILS % (AUTO) 69 % (42-75); PLATELET COUNT 155 10^3/uL (130-400); WHITE BLOOD COUNT 6.3 10^3/uL (4.3-11.0)
--- NOTE | 2022-05-05 17:35 | Diagnostic Imaging Report ---
INDICATION: Chest pain. TECHNIQUE: Single view chest 5:17 PM. CORRELATION STUDY: 03/04/2022. FINDINGS: Left-sided AICD. Heart size and mediastinum are enlarged. There is pulmonary vascular congestion and edema appearing changed from prior. Small effusions. Scattered wispy-like opacities. Particularly, the left mid lung field and bilateral lung bases may reflect edema versus less likely infiltrate. IMPRESSION: Cardiac enlargement appears to be present with point vascular congestion and edema. Pulmonary opacities favor scattered areas of mild edema with infiltrate not excluded. Small effusions. Dictated by: Dictated on workstation # [id number]
[2022-05-05 17:41] LABS: INR 1.1 (0.8-1.4); PROTHROMBIN TIME PATIENT 14.3 SEC (12.2-14.7)
[2022-05-05 17:42] LABS: ALBUMIN 4.1 GM/DL (3.2-4.5); POTASSIUM 4.3 MMOL/L (3.6-5.0)
[2022-05-05 17:44] LABS: CALCIUM 10.1 MG/DL (8.5-10.1)
[2022-05-05 17:45] LABS: TOTAL PROTEIN 7.5 GM/DL (6.4-8.2)
[2022-05-05 17:48] LABS: CREATININE SERUM 1.83 MG/DL (0.60-1.30)
[2022-05-05 17:51] LABS: MAGNESIUM 2.4 MG/DL (1.6-2.4)
--- NOTE | 2022-05-05 18:31 | ED General ---
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 STARTED 2 DAYS AGO. Source of Information: Patient, Family Exam Limitations: No Limitations History of Present Illness Date Seen by Provider: May 05, 2022 Allergies and Home Medications Allergies Coded Allergies: Sulfa (Sulfonamide Antibiotics) (Verified Allergy, Unknown, 05/05/22) codeine (Verified Allergy, Unknown, 05/05/22) Patient Home Medication List Amiodarone HCl (Amiodarone HCl) 200 Mg Tablet, 200 MG PO BID Prescribed by: TRISTON CHISHOLM on 08/07/21835 Aspirin (Aspirin EC) 81 Mg Tablet.dr, 81 MG PO HS, (Reported) Entered as Reported by: RAYMOND WARREN on 08/04/211045 Carvedilol (Carvedilol) 12.5 Mg Tablet, 12.5 MG PO BID WITH MEALS, (Reported) Entered as Reported by: SARWAT GARCIA on 08/03/212118 Cetirizine HCl (Cetirizine HCl) 10 Mg Tablet, 10 MG PO HS, (Reported) Entered as Reported by: SARWAT GARCIA on 08/03/212118 Furosemide (Lasix) 20 Mg Tablet, 20 MG PO PRN Prescribed by: TRISTON CHISHOLM on 08/07/21835 Losartan Potassium (Losartan Potassium) 25 Mg Tablet, 25 MG PO DAILY Prescribed by: TRISTON CHISHOLM on 08/07/21835 Mexiletine HCl (Mexiletine HCl) 150 Mg Cap, 150 MG PO BID Prescribed by: TRISTON CHISHOLM on 08/07/21835 Oxymetazoline HCl (Afrin) 0.05 % [place], 1-2 SPRAY NS UD PRN for CONGESTION, (Reported) Entered as Reported by: RAYMOND WARREN on 08/04/21 1049 [Balance Of Nature] , 1 EA PO TIDWM, (Reported) Entered as Reported by: RAYMOND WARREN on 08/04/211045 Past Afhixaj-Tdbwby-Gmafhx Hx Patient Social History Tobacco Use?: No Use of E-Cig and/or Vaping dev: No Substance use?: No Alcohol Use?: No Pt feels they are or have been: No Immunizations Up To Date Influenza Vaccine Up-to-Date: Yes; Up-to-Date First/Initial COVID19 Vaccinat: May 2020 Second COVID19 Vaccination Jovany: June 2020 Third COVID19 Vaccination Date: January 2021 Past Medical History Surgery/Hospitalization HX: PACEMAKER, T AND A, HTN Family Medical History No Pertinent Family Hx Physical Exam Vital Signs Vital Signs - First Documented Capillary Refill : Less Than 3 Seconds Height, Weight, BMI Height: '" Weight: lbs. oz. kg; 27.00 BMI Method: Procedures/Interventions Patient Education: Explained Benefits, Explained Risks, Pt. Ack. Understanding Breath Sounds per Auscultation: Clear Heart Sounds per Auscultation: Irregular Airway Exam: Mouth opens >2 fingers, Neck Full Range of Motion, Visulation of Uvula Sedation Adminstration Time: 1538 Re-examination Time: 1630 Progress/Results/Core Measures Suspected Sepsis SIRS Temperature: Pulse: 79 Respiratory Rate: 18 Laboratory Tests 05/05/22 17:21: White Blood Count 6.3 Blood Pressure 136 /102 Mean: 113 Laboratory Tests 05/05/22 17:21: Creatinine 1.83H, INR Comment 1.1, Platelet Count 155, Total Bilirubin 1.0 Results/Orders Lab Results Laboratory Tests Test 05/05/22 17:21 05/05/22 17:26 Range/Units White Blood Count 6.3 4.3-11.0 10^3/uL Red Blood Count 5.11 4.30-5.52 10^6/uL Hemoglobin 16.0 13.3-17.7 g/dL Hematocrit 48 40-54 % Mean Corpuscular Volume 94 80-99 fL Mean Corpuscular Hemoglobin 31 25-34 pg Mean Corpuscular Hemoglobin Concent 33 32-36 g/dL Red Cell Distribution Width 15.2 H 10.0-14.5 % Platelet Count 155 130-400 10^3/uL Mean Platelet Volume 11.5 9.0-12.2 fL Immature Granulocyte % (Auto) 0 % Neutrophils (%) (Auto) 69 42-75 % Lymphocytes (%) (Auto) 12 12-44 % Monocytes (%) (Auto) 13 H 0-12 % Eosinophils (%) (Auto) 5 0-10 % Basophils (%) (Auto) 1 0-10 % Neutrophils # (Auto) 4.4 1.8-7.8 10^3/uL Lymphocytes # (Auto) 0.8 L 1.0-4.0 10^3/uL Monocytes # (Auto) 0.8 0.0-1.0 10^3/uL Eosinophils # (Auto) 0.3 0.0-0.3 10^3/uL Basophils # (Auto) 0.0 0.0-0.1 10^3/uL Immature Granulocyte # (Auto) 0.0 0.0-0.1 10^3/uL Prothrombin Time 14.3 12.2-14.7 SEC INR Comment 1.1 0.8-1.4 Activated Partial Thromboplast Time 29 24-35 SEC Sodium Level 138 135-145 MMOL/L Potassium Level 4.3 3.6-5.0 MMOL/L Chloride Level 101 98-107 MMOL/L Carbon Dioxide Level 24 21-32 MMOL/L Anion Gap 13 5-14 MMOL/L Blood Urea Nitrogen 35 H 7-18 MG/DL Creatinine 1.83 H 0.60-1.30 MG/DL Estimat Glomerular Filtration Rate 36 BUN/Creatinine Ratio 19 Glucose Level 111 H 70-105 MG/DL Calcium Level 10.1 8.5-10.1 MG/DL Corrected Calcium 10.0 8.5-10.1 MG/DL Magnesium Level 2.4 1.6-2.4 MG/DL Total Bilirubin 1.0 0.1-1.0 MG/DL Aspartate Amino Transf (AST/SGOT) 20 5-34 U/L Alanine Aminotransferase (ALT/SGPT) 21 0-55 U/L Alkaline Phosphatase 55 40-136 U/L Myoglobin 113.3 H 10.0-92.0 NG/ML Troponin I < 0.028 <0.028 NG/ML C-Reactive Protein High Sensitivity 2.07 H 0.00-0.50 MG/DL B-Type Natriuretic Peptide 2731.1 H <100.0 PG/ML Total Protein 7.5 6.4-8.2 GM/DL Albumin 4.1 3.2-4.5 GM/DL Influenza Type A (RT-PCR) Not Detected Not Detecte Influenza Type B (RT-PCR) Not Detected Not Detecte SARS-CoV-2 RNA (RT-PCR) Not Detected Not Detecte GUIDO Mandujano MD Cbc With Automated Diff (05/05/22 17:03) Magnesium (05/05/22 17:03) Chest 1 View, Ap/Pa Only (05/05/22 17:03) Ekg Tracing (05/05/22 17:03) Comprehensive Metabolic Panel (05/05/22 17:03) Myoglobin Serum (05/05/22 17:03) Protime With Inr (05/05/22 17:03) Partial Thromboplastin Time (05/05/22 17:03) O2 (05/05/22 17:03) Monitor-Rhythm Ecg Trace Only (05/05/22 17:03) Lipid Panel (05/06/22 06:00) Ed Iv/Invasive Line Start (05/05/22 17:03) Troponin I Karen (05/05/22 17:03) Bnp Karen (05/05/22 17:14) Hs C Reactive Protein (05/05/22 17:14) Covid 19 Inhouse Test (05/05/22 17:14) Influenza A And B By Pcr (05/05/22 17:14) Vital Signs/I&O 05/05/22 05/05/22 17:00 17:00 Temp 36.2 Pulse 79 Resp 18 B/P (MAP) 136/102 (113) Pulse Ox 97 O2 Delivery Room Air Room Air Capillary Refill : Less Than 3 Seconds Blood Pressure Mean: 113 ECG Initial ECG Impression Date: May 05, 2022 Initial ECG Impression Time: 17:09 Initial ECG Rate: 80 Initial ECG Rhythm: Normal Sinus Comment Sinus rhythm with no ischemic ST elevation or depression. IL intervals slightly prolonged and QTc interval slightly prolonged. No significant axis deviation. EKG is similar to prior. Departure Impression Primary Impression: Acute exacerbation of congestive heart failure Qualified Codes: I50.9 - Heart failure, unspecified Disposition: 01 HOME, SELF-CARE Condition: Stable Departure-Patient Inst. Decision time for Depature: 18:28 Referrals: NO,LOCAL PHYSICIAN (PCP) Primary Care Physician TRISTON CHISHOLM MD (Family) Primary Care Physician Patient Instructions: CHF Add. Discharge Instructions: Resume taking furosemide and potassium. To even out your urination with diuresis, discussed splitting up your diuretic dose into 1 morning dose and 1 afternoon dose when you follow-up with your prescriber. Follow-up with your primary care provider and/or Dr. Chisholm next week. Call Saturday for an appointment. Return to care if you have worsening or unresolving symptoms despite restarting diuretic therapy. All discharge instructions reviewed with patient and/or family. Voiced understanding. Copy Copies To 1: TRISTON CHISHOLM MD, JOSHUA T MD May 05, 2022 18:31
[2022-05-05 18:40] VITALS: BP 134/92
== END 2022-05-05 18:40 | disposition home or self-care (01) ==
LOC: EDUNIT# 16:57 → ER 17:00
DX: I11.0 Hypertensive heart disease with heart failure (principal); I50.9 Heart failure, unspecified; Z95.0 Presence of cardiac pacemaker; Z20.822 Contact with and (suspected) exposure to COVID-19
CPT/HCPCS: 36415; 71045; 80053; 83735; 83874; 83880; 84484; 85025; 85610; 85730; 86141; 87636; 93005; 93041

== ENCOUNTER 2022-05-15 14:13 | Inpatient (IN) | payer MEDICARE ==
[~2022-05-15] VITALS: Ht 172.7 cm; Wt 79.5 kg
--- OUTSIDE RECORDS SUMMARY | 2022-05-15 17:24 | XMS REPORT | Clinical Summary ---
Author Author [facility] Organization [facility] Address Unknown Phone Unavailable Care Team Providers Care Commissions Analyst Name Role Phone Luac Silverio MD PCP Source Comments Some departments are not documenting in the electronic medical record. If you d o not see the information that you expected, contact Release of Information in [facility] Information Management department at [phone] for further assistan ce in locating additional records.[facility] Allergies Comments Active Allergy Reactions Severity Noted Date Codeine UNKNOWN Low 08/25/2021 Propoxyphene UNKNOWN Low 08/25/2021 Atorvastatin DIZZINESS High 08/28/2021 Morphine UNKNOWN Low 08/25/2021 Sulfa (Sulfonamide UNKNOWN Low 08/25/2021 Antibiotics) Medications End Date Status Medication Sig Dispensed Refills Start Date Active aspirin EC 81 mg tablet Take 81 mg by 0 mouth daily. Take with food. Active carvediloL (COREG) 12.5 Take 12.5 mg 0 mg tablet by mouth twice daily with meals. Take with food. Active cetirizine (ZYRTEC) 10 mg Take 10 mg by 0 tablet mouth at bedtime daily. Active furosemide (LASIX) 20 mg Take 20 mg by 0 tablet mouth as Needed. Active losartan (COZAAR) 25 mg Take 25 mg by 0 tablet mouth daily. Active mexiletine (MEXITIL) 150 Take 300 mg 0 mg capsule by mouth twice daily. Active Potassium 99 mg tab Take 1 tablet 0 by mouth as Needed. Active amiodarone (CORDARONE) Take one 90 tablet 0 200 mg tablet tablet by 2 mouth daily. Take with food. Active Problems Problem Noted Date VT (ventricular tachycardia) 08/25/2021 Overview: Formatting of this note is di fferent from the original. Per OV note on 08/14/[address] Andrew Chisholm 07/11/2016 - ECHO: ([employer] [facility]) Nor mal left ventricular wall motion and systolic ejection fraction 55%. Co ncentric left ventricular hypertrophy. Decreased diastolic compl iance of the left ventricle. Mitral annular calcification. Moderate aortic valve stenosis with an aortic valve area of 1.5 cm. Left atrial enlargem ent 04/09/2019 - ECHO: ([facility]) Pre served LV systolic function. Severe left ventricular hypertrophy. Septal wa ll measures 1.6 cm. The aortic valve is calcified and thickened by cherie ocity criteria. There is mild aortic stenosis. If there is a clinical concern for more advanced aortic stenosis, would recommend dobutamine pr otocol echocardiogram to evaluate for low gradient aortic stenosis. IN ad dition, would recommend contrast administration for better visualization of LV endothelium. 09/26/2019 - ECHO: ([facility]) Mil d LV systolic dysfunction. LVEF is approximately 45%. Severe concentric l eft ventricular hypertrophy with diastolic dysfunction. Normal LV fill ing pressures. Mild aortic stenosis. Peak velocity of 2.8 meters per second with a calculated mean gradient of 14 mmHg. No pericardial ef fusion. PA systolic pressure estimated at 30 mmHg. 08/03/2021 - ECHO: ([facility]) LV cavity size is normal. There is moderate concentric hypertrophy. Sy stolic function is mildly to moderately reduced. EF ~ 15%. Severe diffuse hypokinesis features are consistent with a pseudonormal LV filli ng pattern, with concomitant abnormal relaxation and increase fillin g pressure (grade 2 diastolic dysfunction). Moderate hypokinesis of the mid anteroseptal, apical septal and apical myocardium. LA is moderatel y dilated. RA is dilated. Mild to moderate AV stenosis. Peak gradient 18 mmHg, mean gradient 11mmHg, valve are 1.5 cm2. PASP in the range of 40-4 5 mmHg. CRI (chronic renal insufficiency) 08/25/2021 Overview: Per OV note on 08/14/[address] Andrew Chisholm Peripheral edema 08/25/2021 Overview: Per OV note on 08/14/[address] Andrew Chisholm ICD (implantable cardioverter-defibrillator), single, in situ 08/25/2021 Overview: Per OV note on 08/14/[address] 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 Never 08/28/2021 How many drinks containing alcohol do you have on No t asked a typical day when you are drinking? How often do you have six or more drinks on one Not asked occasion? Sex Assigned at Date Recorded Not on file Obstetrics History Last Filed Vital Signs Reading Time Taken Comments Vital Sign 164/72 08/28/2021 2:22 PM CDT Blood Pressure 64 08/28/2021 2:22 PM CDT Pulse - - Temperature - - Respiratory Rate 97% 08/28/2021 2:22 PM CDT Oxygen Saturation - - Inhaled Oxygen Concentration 81.6 kg (180 lb) 08/28/2021 2:22 PM CDT Weight 172.7 cm (5' 8") 08/28/2021 2:22 PM CDT Height 27.37 08/28/2021 2:22 PM CDT Body Mass Index Plan of Treatment Health Maintenance Due Date Last Done Comments MEDICARE ANNUAL WELLNESS 1940 VISIT PHYSICAL (COMPREHENSIVE) 1958 EXAM PNEUMOCOCCAL VACCINE (2 - 04/23/2015 04/23/2014, PPSV23 if available, else 12/22/2005 PCV20) COVID-19 VACCINE (4 - 03/21/2021 01/24/2021, Booster for Pfizer 06/01/2020, series) 05/11/2020 INFLUENZA VACCINE (#1) 2021 12/21/2020 ADVANCED CARE PLANNING 04/08/2022 DISCUSSION AND DOCUMENTATION DEPRESSION SCREENING 04/08/2022 DTAP/TDAP VACCINES (2 - 01/17/2025 01/17/2015 Td or Tdap) SHINGLES RECOMBINANT Completed 05/23/2019, VACCINE 12/30/2018, 04/08/2004 Results Not on filefrom Last 3 Months Insurance Type Payer Benefit Subscriber ID Effective Phone Address Plan / Dates Group Medicare UHC MEDICARE UHC [id number] 2021-P [phone] MEDICARE resent [id number] [facility] [address] [place] [address] Care Teams Start Date End Date Commissions Analyst Relationship Specialty 08/16/21 Luca Silverio MD PCP - General [address] [place] [address]
[2022-05-15] MEDS ORDERED: ONDANSETRON 4 MG/2 ML (SDV) Z0FRAN IV PRN (17:30)
[2022-05-15] MEDS ORDERED: MELATONIN 3 MG TABLET PO PRN (17:30)
[2022-05-15] MEDS ORDERED: MILK OF MAGNESIA 400 MG/5 ML 30 ML UDC PO PRN (17:30)
[2022-05-15] MEDS ORDERED: ANTACID SUSP 30 ML UDC (MYLANTA) PO PRN (17:30)
[2022-05-15] MEDS ORDERED: BENZONATATE 100 MG (TESSALON) CAPSULE PO PRN (17:30)
[2022-05-15] MEDS ORDERED: FUROSEMIDE 40 MG/4 ML INJ (LASIX) IV SCH (18:00)
[2022-05-15] MEDS ORDERED: SALINE NASAL SPRAY (OCEAN) 45 ML BTL PRN (19:00)
--- NOTE | 2022-05-15 19:59 | Cardiology History & Physical ---
HPI-Cardiology Cardiology Consultation Date of Consultation 05/15/22 Date of Admission Time Seen by Provider: 07:30 [facility] Mr. Romero is a 82-year-old gentleman with a history of ventricular tachycardia on mexiletine and amiodarone, hypertension, nonischemic, cardiomyopathy with an EF lasted 30 to 35%, allergies who presents for evaluation of increasing lower extremity edema. Patient states that for the past 2 weeks he has been "" taking on fluid. He comments that he also noted some associated increasing abdominal girth as well as increasing lower extremity edema. He always sleeps in a recliner so it is difficult to tell whether he can lie flat or not. He comments that he takes Lasix 20 mg every morning and notes that over the past 2 weeks the Lasix 20 mg has not been as effective as at increasing his urine output. Personal read of his EKG from several days prior demonstrates normal sinus rhythm first-degree AV block and LVH with repolarization abnormalities. Of note he had an echocardiogram from February 2022 which demonstrated an EF of 30 to 35% mild MR mild TR with an RVSP of approximately 60 mmHg. In addition he had a cath from July 08, 2021 which demonstrated left main and proximal LAD with heavy calcification and mild to moderate nonobstructive disease RCA was not noted to be ectatic with slow flow. Otherwise, patient denies any chest pain shortness of breath palpitations presyncope syncope. He notes some chest pressure but this is only associated with his recent increase body fluid and shortness of breath. We are now asked to aid in consultation. PMH-Cardiology Other PMHx Ventricular tachycardia currently controlled on mexiletine and amiodarone with ICD in place Hypertension Nonischemic cardiomyopathy with an EF of 30 to 35% Seasonal allergies Social History Patient Social History Marrital Status: Smoking: Never smoker Dip or chew tobacco?: No Alcohol Use?: No Family Hx Significant Family History: No Pertinent Family Hx ( reviewed and noncontributory) ROS-Cardiology Review of Systems All systems were reviewed and are negative except what is described in [facility] Home Medications & Allergies Allergies: Coded Allergies: Sulfa (Sulfonamide Antibiotics) (Verified Allergy, Unknown, 05/05/22) codeine (Verified Allergy, Unknown, 05/05/22) Amiodarone 200 mg p.o. twice daily, Aspirin 81 mg p.o. daily Coreg 12.5 mg p.o. twice daily Zyrtec 10 mg p.o. daily Lasix 20 mg p.o. daily Losartan 25 mg p.o. daily Mexiletine 150 mg p.o. twice daily Afrin Potassium chloride Exam-Cardiology Vital Signs Vital Signs Date Time Temp Pulse Resp B/P (MAP) Pulse Ox O2 Delivery O2 Flow Rate FiO2 05/15/22 17:55 83 05/15/22 17:35 Room Air Exam General Appearance: Alert, Oriented X3 HEENT: Atraumatic Respiratory: Other (Diminished breath sounds in the bilateral bases with associated rales. Reduced air movement in the bilateral lung oviedo. No ann marie wheezing or rhonchi.) Cardiovascular: Regular Rate, Normal S1, Normal S2, Other (2 out of 6 to 3 out of 6 systolic murmur heard best at the right sternal border, no gallops or rubs are appreciated) Abdominal: Normal Bowel Sounds Extremities: No Clubbing, Other (2-3+ pitting edema to the knees) Skin: No Rashes, No Significant Lesion Psych/Mental Status: Mental Status NL A/P-Cardiology Admission Diagnosis Admission Status: Inpatient Order (span 2 midnights) Reason for Inpatient Admission: IV diuresis Assessment/Plan Mr. Romero is a 82-year-old gentleman with a history of ventricular tachycardia on mexiletine and amiodarone, hypertension, nonischemic, cardiomyopathy with an EF lasted 30 to 35%, allergies who presents for evaluation of increasing lower extremity edema. ##CHF: Patient reports increasing lower extremity edema, abdominal girth. Also notes shortness of breath. Patient reports Lasix 20 mg not as effective as it has been over the past 2 weeks. All signs and symptoms consistent with CHF. -Check a BMP and troponin -Repeat echocardiogram -Lasix 40 mg IV twice daily -Record strict I's and O's -Fluid restriction at 1.5 L daily -Keep K greater than 4 and mag greater than 2 ##Hypertension: -Continue with amiodarone, Coreg, losartan for now. ##Ventricular tachycardia: Continue with amiodarone I have asked nursing to coordinate with pharmacy to allow patient to take home mexiletine as we do not have it in our formulary. ##Nonischemic cardiomyopathy: Patient currently on Coreg and losartan. - Could consider transition to beta-clau, Entresto, Jardiance, Aldactone. We will do so over the next several days DANY DUQUE MD May 15, 2022 19:59
[2022-05-15 20:00] VITALS: BP 124/96
[2022-05-15] MEDS: AMIODARONE 200 MG (CORDARONE) TAB PO SCH (21:20)
[2022-05-15] MEDS: OXYMETAZOLINE (AFRIN) 0.05% NA 30 ML BTL SCH (23:03)
[2022-05-16] VITALS: BP 113/71
[2022-05-16 03:55] VITALS: BP 116/68
[2022-05-16 06:07] LABS: BASOPHILS # (AUTO) 0.1 10^3/uL (0.0-0.1); BASOPHILS % (AUTO) 1 % (0-10); EOSINOPHILS # (AUTO) 0.3 10^3/uL (0.0-0.3); EOSINOPHILS % (AUTO) 4 % (0-10); HEMATOCRIT 43 % (40-54); HEMOGLOBIN 14.7 g/dL (13.3-17.7); LYMPHOCYTES % (AUTO) 17 % (12-44); MEAN CORPUSCULAR HEMOGLOBIN 32 pg (25-34); MEAN CORPUSCULAR HGB CONC 35 g/dL (32-36); MEAN CORPUSCULAR VOLUME 93 fL (80-99); MEAN PLATELET VOLUME 11.3 fL (9.0-12.2); MONOCYTES # (AUTO) 0.8 10^3/uL (0.0-1.0); MONOCYTES % (AUTO) 14 % (0-12); NEUTROPHILS # (AUTO) 3.9 10^3/uL (1.8-7.8); NEUTROPHILS % (AUTO) 64 % (42-75); PLATELET COUNT 162 10^3/uL (130-400); WHITE BLOOD COUNT 6.1 10^3/uL (4.3-11.0)
[2022-05-16 06:23] LABS: ALBUMIN 3.3 GM/DL (3.2-4.5); BILIRUBIN,TOTAL 1.1 MG/DL (0.1-1.0); CALCIUM 9.9 MG/DL (8.5-10.1); CREATININE SERUM 1.83 MG/DL (0.60-1.30); POTASSIUM 3.1 MMOL/L (3.6-5.0)
[2022-05-16 07:54] VITALS: BP 127/86
[2022-05-16] MEDS: FUROSEMIDE 40 MG/4 ML INJ (LASIX) IVP SCH ×2 (09:08→17:29)
[2022-05-16] MEDS: LOSARTAN 25 MG (COZAAR) TAB PO SCH (09:09)
[2022-05-16] MEDS: AMIODARONE 200 MG (CORDARONE) TAB PO SCH (09:09)
[2022-05-16] MEDS: ASPIRIN 81 MG CHEW (CHILDREN'S ASA) PO SCH (09:10)
[2022-05-16] MEDS: LORATADINE (CLARITIN) 10 MG TAB PO SCH (09:12)
[2022-05-16] MEDS: KCL 10 MEQ TAB (MICRO K) PO SCH (09:13)
[2022-05-16] MEDS: OXYMETAZOLINE (AFRIN) 0.05% NA 30 ML BTL SCH ×2 (09:23→20:50)
[2022-05-16] MEDS ORDERED: KCL 20 MEQ TAB (K-DUR) PO NR (10:30)
--- NOTE | 2022-05-16 10:55 | Progress Note - Cardiology ---
Cardiology SOAP Progress Note Subjective: Sitting up on the side of the bed Spouse at the bedside States he feels his breathing is nearly back to baseline No c/o CP or palpitations LE swelling is better per pt report, but again not back to his baseline Objective: I&O/Vital Signs 05/17/22 05/17/22 05/17/22 05/17/22 00:00 00:00 01:00 04:00 Temp 36.4 36.5 Pulse 86 100 76 Resp 22 16 B/P (MAP) 117/86 (96) 121/86 (98) Pulse Ox 94 92 O2 Delivery Room Air Room Air Room Air 05/17/22 05/17/22 05/17/22 07:00 08:19 08:21 Temp 36.5 Pulse 99 97 Resp 20 B/P (MAP) 112/72 (85) Pulse Ox 92 93 O2 Delivery Room Air Room Air 05/17/22 00:00 Intake Total 872 ml Output Total 1825 ml Balance -953 ml Constitutional: AAO x 3, well-developed, well-nourished Respiratory: No accessory muscle use; respiratory distress, chest expansion is symmetric, chest is bilaterally symmetric, other (diminished bases bilate) Cardiovascular: regular rate-rhythm; No JVD; systolic murmur Gastrointestional: No tender; soft, round, audible bowel sounds Extremities: other (bilat pitting LE swelling) Neurologic/Psychiatric: grossly intact (moves all extremities) Skin: No rash on exposed areas, No ulcerations on exposed areas Results/Procedures: Labs Laboratory Tests 05/17/22 05:44: White Blood Count 5.5, Red Blood Count 4.85, Hemoglobin 15.2, Hematocrit 45, Mean Corpuscular Volume 92, Mean Corpuscular Hemoglobin 31, Mean Corpuscular Hemoglobin Concent 34, Red Cell Distribution Width 14.8H, Platelet Count 169, Mean Platelet Volume 11.5, Sodium Level 141, Potassium Level 3.4L, Chloride Level 99, Carbon Dioxide Level 28, Anion Gap 14, Blood Urea Nitrogen 36H, Creatinine 2.05H, Estimat Glomerular Filtration Rate 32, BUN/Creatinine Ratio 18, Glucose Level 92, Calcium Level 9.7 A/P: Assessment: Acute on chronic systolic CHF Minimally elevated troponin - likely Type 2 OH secondary to acute systolic CHF and transient hypoxia H/O Sustained ventricular tachycardia, patient had wide-complex tachycardia required electrical cardioversion. He has been maintained on amiodarone as an outpatient. Patient was given amiodarone bolus and started on a drip. Patient continued to have recurrent ventricular tachycardia, required multiple boluses of amiodarone, total of 4 boluses of amiodarone each was 150 mg and received a full drip and started on amiodarone 400 twice daily orally. Currently on Amiodarone and Mexiltine. Has been managed by Dr. Chisholm Status post single-chamber ICD implant on August 05, [address] Chisholm with DFT testing, [employer] VR MRI DF4. - Last pacemaker/ICD interrogation was done in February 2022 with good sensing and capture activity. NICM - 2D echo was done in July [address] Chisholm showed dilated left ventricle and moderate LVH, severe left ventricular hypokinesia with ejection fraction 15 to 20%, biatrial enlargement, mildmoderate aortic valve stenosis with peak gradient 18 mmHg, mean gradient 11 mmHg, valve area 1.5 cm clear, PA pressure 40 to 45 mmHg - Repeat echo was done on April 05, [address] Chisholm with normal LV size, moderate LVH, ejection fraction 30 to 35%, diffuse hypokinesia, dilated left atrium, dilated right atrium, calcified mitral valve with mild mitral regurgitation, moderate tricuspid regurgitation, PA pressure 55 to 60 mmHg. Coronary artery disease - mild to moderate disease per cardiac catheterization done on August 04, [address] Chisholm Hypertension Hyperlipidemia Chronic renal insufficiency, chronic kidney disease stage III H/O Noncompliance with medication, reporting compliance recently. Chronic Peripheral edema Mild bilateral carotid stenosis, ultrasound was done in February [address] Chisholm Plan: Acute on chronic systolic CHF - continue diuretics - monitor lab closely and replace electrolytes as indicated ICM - Continue with Jardiance, ARB and BB Replace electrolytes Dr. Carbajal's notes have been reviewed Discussed plan of care with SUSY Alvarez May 16, 2022 10:55
[2022-05-16] MEDS ORDERED: LOSA25TA41 PO (11:15)
[2022-05-16] MEDS ORDERED: NF-MEXI150 PO (11:15)
[2022-05-16] MEDS ORDERED: POTA99TA26 PO (11:15)
[2022-05-16] MEDS ORDERED: FURO20TA4 PO (11:15)
[2022-05-16] MEDS ORDERED: CARV25TA PO (11:15)
[2022-05-16 11:45] VITALS: BP 122/77
[2022-05-16] MEDS ORDERED: AMIO200T65 PO (11:45)
--- NOTE | 2022-05-16 14:01 | History & Physical ---
MILADISKAREN 05/16/22 1401: History of Present Illness History of Present Illness Reason for visit/HPI Patient is an 82 year old male with a history of systolic heart failure, HTN, Ventricular tachycardia and has an ICD in place who initially presented to [facility] in [place], [place] with chief complaint of LE edema. He is a patient of Dr. Mercado and was prescribed lasix 20 mg PO to use as needed for peripheral edema which he rpeorts that he only had to use occasionally until approximately 2 weeks ago. At this time, he noticed increasing edema and started taking his lasix daily. However, his edema continued to worsen, especially 4-5 days ago. At this time, the patient began to notice that if he reclined in his chair he would have a feeling of pressure in his lower abdomen. Additionally, he began to notice dyspnea when reclining or laying on his back that improved with sitting up. This led him to present to [facility] yesterday where he was transferred to [facility]. He was st arted on lasix 40 mg IV and reports that his swelling has improved greatly since yesterday and his calves no longer feel firm due to the edema. He reports that he is also no longer having any shortness of breath or feeling of pressure in his abdomen since admission. The patient does note some fatigue which he attributes to starting Jardiance in February. He reports stopping taking the medication late March due to the fatigue, but feels that he never returned to his baseline. Patient states that they have had a dry mouth for the past week, but that it has improved to normal since admission. Patient has no other complaints. Date of Admission May 15, 2022 at 17:21 Date Seen by a Provider: May 16, 2022 Time Seen by a Provider: 10:30 I consulted on this patient on 05/16/22 13:49 Attending Physician No,Local Physician Admitting Physician Admitting Physician: Garry Conti MD Attending Physician: Garry Conti MD Consult Allergies and Home Medications Allergies Coded Allergies: Sulfa (Sulfonamide Antibiotics) (Verified Allergy, Unknown, 05/05/22) codeine (Verified Allergy, Unknown, 05/05/22) atorvastatin (Verified Allergy, DIZZINESS, 05/16/22) morphine (Verified Allergy, UNKNOWN, 05/16/22) propoxyphene (Verified Allergy, UNKNOWN, 05/16/22) Patient Home Medication List Home Medication List Reviewed: Yes Amiodarone HCl (Amiodarone HCl) 200 Mg Tablet, 200 MG PO DAILY, (Reported) Entered as Reported by: RAYMOND WARREN on 05/16/221144 Last Action: Reviewed Aspirin (Aspirin EC) 81 Mg Tablet.dr, 81 MG PO HS, (Reported) Entered as Reported by: RAYMOND WARREN on 08/04/211045 Last Action: Reviewed Carvedilol (Carvedilol) 25 Mg Tablet, 25 MG PO BID, (Reported) Entered as Reported by: RAYMOND WARREN on 05/16/221114 Last Action: Reviewed Cetirizine HCl (Cetirizine HCl) 10 Mg Tablet, 10 MG PO HS, (Reported) Entered as Reported by: SARWAT GARCIA on 08/03/212118 Last Action: Reviewed Furosemide (Furosemide) 20 Mg Tablet, 20 MG PO DAILY, (Reported) Entered as Reported by: RAYMOND WARREN on 05/16/221114 Last Action: Reviewed Losartan Potassium (Losartan Potassium) 25 Mg Tablet, 25 MG PO DAILY, (Reported) Entered as Reported by: RAYMOND WARREN on 05/16/221114 Last Action: Reviewed Mexiletine HCl (Mexiletine HCl) 150 Mg Cap, 150 MG PO BID, (Reported) Entered as Reported by: RAYMOND WARREN on 05/16/221114 Last Action: Reviewed Oxymetazoline HCl (Afrin) 0.05 % [place], 1-2 SPRAY NS UD PRN for CONGESTION, (Reported) Entered as Reported by: RAYMOND WARREN on 08/04/211048 Last Action: Reviewed Potassium Gluconate (Potassium) 595 Mg (99 Mg) Tablet, 99 MG PO DAILY, (Reported) Entered as Reported by: RAYMOND WARREN on 05/16/221114 Last Action: Reviewed [Balance Of Nature] , 2 EA PO TIDWM, (Reported) Entered as Reported by: RAYMOND WARREN on 08/04/211045 Last Action: Reviewed Discontinued Medications Amiodarone HCl (Amiodarone HCl) 200 Mg Tablet, 200 MG PO BID Discontinued Reason: Duplicate Order Prescribed by: TRISTON RITTER on 08/07/21 2323 Last Action: Discontinued Carvedilol (Carvedilol) 12.5 Mg Tablet, 12.5 MG PO BID WITH MEALS, (Reported) Discontinued Reason: Duplicate Order Entered as Reported by: SARWAT GARCIA on 08/03/212118 Last Action: Discontinued Furosemide (Lasix) 20 Mg Tablet, 20 MG PO PRN Discontinued Reason: No Longer Taking Prescribed by: TRISTON RITTER on 08/07/21835 Last Action: Discontinued Losartan Potassium (Losartan Potassium) 25 Mg Tablet, 25 MG PO DAILY Discontinued Reason: Duplicate Order Prescribed by: TRISTON RITTER on 08/07/21835 Last Action: Discontinued Mexiletine HCl (Mexiletine HCl) 150 Mg Cap, 150 MG PO BID Discontinued Reason: Duplicate Order Prescribed by: TRISTON RITTER on 08/07/21835 Last Action: Discontinued Past Lsxnhxt-Tuxbxp-Yazayj Hx Patient Social History Marrital Status: Tobacco Use?: No Smoking Status: Never a Smoker Use of E-Cig and/or Vaping dev: No Use of E-Cig and/or Vaping [place]: Never a User Substance use?: No Alcohol Use?: No Immunizations Up To Date First/Initial COVID19 Vaccinat: May 2020 Second COVID19 Vaccination Jovany: June 2020 Current Status Primary Language: German Family Medical History No Pertinent Family Hx ( reviewed and noncontributory) Review of Systems Constitutional: No chills, No fever EENTM: No hearing loss, No vision loss Respiratory: No cough, No short of breath Cardiovascular: No chest pain; edema (b/l LE 3+,) Gastrointestinal: No constipation, No diarrhea, No nausea, No vomiting Genitourinary: No dysuria, No hematuria Musculoskeletal: No back pain; joint pain (R knee, states is chronic issue) Skin: No change in color, No lesions Psychiatric/Neurological: Denies Numbness, Denies Weakness Physical Exam Vital Signs Vital Signs - First Documented 05/15/22 05/15/22 05/16/22 17:35 17:55 08:00 Pulse 83 O2 Delivery Room Air O2 Flow Rate 0.00 Capillary Refill : Height, Weight, BMI Height: '" Weight: lbs. oz. kg; 26.62 BMI Method: General Appearance: No Apparent Distress, WD/WN HEENT: PERRL/EOMI, Pharynx Normal Neck: Non Tender, Supple Respiratory: Lungs Clear, Normal Breath Sounds, No Accessory Muscle Use Cardiovascular: Regular Rate, Rhythm, Systolic Murmur Gastrointestinal: Non Tender, Soft Rectal: Deferred Back: No CVA Tenderness, No Vertebral Tenderness Extremity: Non Tender, No Calf Tenderness, Pedal Edema (3+ b/l) Neurologic/Psychiatric: Alert, Oriented x3 Skin: Normal Color, Warm/Dry Lymphatic: No Adenopathy Assessment/Plan Assessment and Plan Acute decompensated systolic heart failure On lasix 40mg IV 2x daily Fluid restriction of 1.5L Sodium restricted diet Monitor I&O, actual weight Maintaining oxygen saturation around 95% on RA Cardiology consulted Monitor telemetry Elevated troponin Likely due to heart failure Denies chest pain/SOB EKG negative for acute CO Continue aspirin 81mg daily Will monitor CKD stage 3b Monitor BUN, Cr; currently around their baseline Diurese cautiously Hypokalemia Start potassium replacement with 40meq KCL PO Check Mg level HTN Continue losartan 25mg PO daily and carvedilol 12.5mg PO BID Ventricular tachycardia Continue amiodarone 200mg PO BID and home mexilitine 150mg PO BID Has not been tachycardic Heparin for DVT prophylaxis Admission Diagnosis Admission Status: Observation GARRY CONTI MD 05/16/22 1505: Allergies and Home Medications Allergies Coded Allergies: Sulfa (Sulfonamide Antibiotics) (Verified Allergy, Unknown, 05/05/22) codeine (Verified Allergy, Unknown, 05/05/22) atorvastatin (Verified Allergy, DIZZINESS, 05/16/22) morphine (Verified Allergy, UNKNOWN, 05/16/22) propoxyphene (Verified Allergy, UNKNOWN, 05/16/22) Patient Home Medication List Amiodarone HCl (Amiodarone HCl) 200 Mg Tablet, 200 MG PO DAILY, (Reported) Entered as Reported by: RAYMOND WARREN on 05/16/22 1145 Last Action: Reviewed Aspirin (Aspirin EC) 81 Mg Tablet.dr, 81 MG PO HS, (Reported) Entered as Reported by: RAYMOND WARREN on 08/04/21 1046 Last Action: Reviewed Carvedilol (Carvedilol) 25 Mg Tablet, 25 MG PO BID, (Reported) Entered as Reported by: RAYMOND WARREN on 05/16/22 1115 Last Action: Reviewed Cetirizine HCl (Cetirizine HCl) 10 Mg Tablet, 10 MG PO HS, (Reported) Entered as Reported by: SARWAT GARCIA on 08/03/212118 Last Action: Reviewed Furosemide (Furosemide) 20 Mg Tablet, 20 MG PO DAILY, (Reported) Entered as Reported by: RAYMOND WARREN on 05/16/221114 Last Action: Reviewed Losartan Potassium (Losartan Potassium) 25 Mg Tablet, 25 MG PO DAILY, (Reported) Entered as Reported by: RAYMOND WARREN on 05/16/221114 Last Action: Reviewed Mexiletine HCl (Mexiletine HCl) 150 Mg Cap, 150 MG PO BID, (Reported) Entered as Reported by: RAYMOND WARREN on 05/16/221114 Last Action: Reviewed Oxymetazoline HCl (Afrin) 0.05 % [place], 1-2 SPRAY NS UD PRN for CONGESTION, (Reported) Entered as Reported by: RAYMOND WARREN on 08/04/211048 Last Action: Reviewed Potassium Gluconate (Potassium) 595 Mg (99 Mg) Tablet, 99 MG PO DAILY, (Reported) Entered as Reported by: RAYMOND WARREN on 05/16/221114 Last Action: Reviewed [Balance Of Nature] , 2 EA PO TIDWM, (Reported) Entered as Reported by: RAYMOND WARREN on 08/04/211045 Last Action: Reviewed Discontinued Medications Amiodarone HCl (Amiodarone HCl) 200 Mg Tablet, 200 MG PO BID Discontinued Reason: Duplicate Order Prescribed by: TRISTON RITTER on 08/07/21835 Last Action: Discontinued Carvedilol (Carvedilol) 12.5 Mg Tablet, 12.5 MG PO BID WITH MEALS, (Reported) Discontinued Reason: Duplicate Order Entered as Reported by: SARWAT GARCIA on 08/03/212118 Last Action: Discontinued Furosemide (Lasix) 20 Mg Tablet, 20 MG PO PRN Discontinued Reason: No Longer Taking Prescribed by: TRISTON RITTER on 08/07/21835 Last Action: Discontinued Losartan Potassium (Losartan Potassium) 25 Mg Tablet, 25 MG PO DAILY Discontinued Reason: Duplicate Order Prescribed by: TRISTON RITTER on 08/07/21835 Last Action: Discontinued Mexiletine HCl (Mexiletine HCl) 150 Mg Cap, 150 MG PO BID Discontinued Reason: Duplicate Order Prescribed by: TRISTON RITTER on 08/07/21 0836 Last Action: Discontinued Assessment/Plan Assessment and Plan Patient admitted to the hospital with acutely decompensated systolic heart failure. He was started on jardiance for his heart failure but developed a "genital infection" per his so quit taking it. Since that time around 1 month ago he has been taking lasix but didn't htink that it worked as well as it previously did. He has been compliant with it though but continued to get worsening lower extremity edema. He has also been unable to lie flat due to SOB and has orthopnea so significant that he has to sleep in a recliner. He presented to outside hospital and was transferred her for cardiac evaluation. He has responded well to diuresis so far and has filled his urinal multiple times today already. I encouraged him to sit with his legs up as well to help with edema. Cardiology has been consulted and we will restart his heart failure meds. I am replacing potassium with his lasix but given his chronic renal failure will do so cautiously. Supervisory-Addendum Brief Verification & Attestation Participated in pt care: history, MDM, physical Personally performed: exam, history, MDM, supervision of care Care discussed with: Medical Student Procedures: n/a Results interpretation: Verified all documentation Verification and Attestation of Medical Student E/M Service A medical student performed and documented this service in my presence. I reviewed and verified all information documented by the medical student and made modifications to such information, when appropriate. I personally performed the physical exam and medical decision making. Garry Conti, May 16, 2022,14:55 KAREN REDDING May 16, 2022 14:01 GARRY CONTI MD May 16, 2022 15:05
[2022-05-16 16:40] VITALS: BP 103/77
--- NOTE | 2022-05-16 19:27 | Progress Note - Cardiology ---
Cardiology SOAP Progress Note Subjective: No cp or palp or syncope Shortness of breath is improving No n/v/d No focal weakness Gen weakness present Objective: I&O/Vital Signs 05/16/22 05/16/22 05/16/22 05/16/22 07:28 07:54 08:00 11:45 Temp 36.7 36.7 Pulse 78 81 82 Resp 16 15 B/P (MAP) 127/86 (100) 122/77 (92) Pulse Ox 94 94 94 O2 Delivery Room Air Room Air Room Air O2 Flow Rate 0.00 05/16/22 05/16/22 12:45 16:40 Temp 36.6 Pulse 79 82 Resp 16 B/P (MAP) 103/77 (86) O2 Delivery Room Air 05/16/22 00:00 Intake Total 600 ml Output Total 900 ml Balance -300 ml Constitutional: AAO x 3, well-developed, well-nourished Respiratory: No accessory muscle use; respiratory distress, chest expansion is symmetric, chest is bilaterally symmetric, other (diminished bases bilate) Cardiovascular: regular rate-rhythm; No JVD; systolic murmur Gastrointestional: No tender; soft, round, audible bowel sounds Extremities: other (bilat pitting LE swelling) Neurologic/Psychiatric: other (moves all limbs equally) Skin: No rash on exposed areas, No ulcerations on exposed areas Results/Procedures: Labs Laboratory Tests 05/16/22 05:22: White Blood Count 6.1, Red Blood Count 4.60, Hemoglobin 14.7, Hematocrit 43, Mean Corpuscular Volume 93, Mean Corpuscular Hemoglobin 32, Mean Corpuscular He moglobin Concent 35, Red Cell Distribution Width 15.0H, Platelet Count 162, Mean Platelet Volume 11.3, Immature Granulocyte % (Auto) 0, Neutrophils (%) (Auto) 64, Lymphocytes (%) (Auto) 17, Monocytes (%) (Auto) 14H, Eosinophils (%) (Auto) 4, Basophils (%) (Auto) 1, Neutrophils # (Auto) 3.9, Lymphocytes # (Auto) 1.0, Monocytes # (Auto) 0.8, Eosinophils # (Auto) 0.3, Basophils # (Auto) 0.1, Immature Granulocyte # (Auto) 0.0, Sodium Level 140, Potassium Level 3.1L, Chloride Level 99, Carbon Dioxide Level 27, Anion Gap 14, Blood Urea Nitrogen 35H, Creatinine 1.83H, Estimat Glomerular Filtration Rate 36, BUN/Creatinine Ratio 19, Glucose Level 86, Calcium Level 9.9, Corrected Calcium 10.5H, Magnesium Level 2.0, Total Bilirubin 1.1H, Aspartate Amino Transf (AST/SGOT) 19, Alanine Aminotransferase (ALT/SGPT) 12, Alkaline Phosphatase 57, Troponin I 0.190H, B-Type Natriuretic Peptide 2519.4H, Total Protein 7.0, Albumin 3.3, Triglycerides Level 86, Cholesterol Level 158, LDL Cholesterol Direct 115, VLDL Cholesterol 17, HDL Cholesterol 34L Laboratory Tests 05/16/22 05:22 A/P: Assessment: Acute on chronic systolic CHF Minimally elevated troponin - likely Type 2 [place] secondary to acute systolic CHF and transient hypoxia H/o sustained ventricular tachycardia - patient had wide-complex tachycardia required electrical cardioversion. He has been maintained on amiodarone as an outpatient. - status post single-chamber ICD implant on August 05, [address] Chisholm with DFT testing, [employer] [place] VR MRI DF4. kast pacemaker/ICD interrogation was done in February 2022 with good sensing and capture activity. NICM - 2D echo was done in July [address] Chisholm showed dilated left ventricle and moderate LVH, severe left ventricular hypokinesia with ejection fraction 15 to 20%, biatrial enlargement, mildmoderate aortic valve stenosis with peak gradient 18 mmHg, mean gradient 11 mmHg, valve area 1.5 cm clear, PA pressure 40 to 45 mmHg - Repeat echo was done on April 05, [address] Chisholm with normal LV size, moderate LVH, ejection fraction 30 to 35%, diffuse hypokinesia, dilated left atrium, dilated right atrium, calcified mitral valve with mild mitral regurgitation, moderate tricuspid regurgitation, PA pressure 55 to 60 mmHg. Coronary artery disease - mild to moderate disease per cardiac catheterization done on August 04, [address] Chisholm Hypertension Hyperlipidemia Chronic renal insufficiency, chronic kidney disease stage III H/O Noncompliance with medication, reporting compliance recently. Chronic Peripheral edema Mild bilateral carotid stenosis, ultrasound was done in February [address] Chisholm Plan: Acute on chronic systolic CHF - continue diuretics - monitor lab closely and replace electrolytes as indicated ICM - Continue with Jardiance, ARB and BB Replace electrolytes I reviewed his records and interviewed and examined him. I discussed his case with VALDO Anne MD FACP FAC CCDS May 16, 2022 19:27
[2022-05-16 19:50] VITALS: BP 99/69
[2022-05-17] VITALS: BP 117/86
[2022-05-17 04:00] VITALS: BP 121/86
[2022-05-17 05:59] LABS: HEMATOCRIT 45 % (40-54); HEMOGLOBIN 15.2 g/dL (13.3-17.7); MEAN CORPUSCULAR HEMOGLOBIN 31 pg (25-34); MEAN CORPUSCULAR HGB CONC 34 g/dL (32-36); MEAN CORPUSCULAR VOLUME 92 fL (80-99); MEAN PLATELET VOLUME 11.5 fL (9.0-12.2); PLATELET COUNT 169 10^3/uL (130-400); WHITE BLOOD COUNT 5.5 10^3/uL (4.3-11.0)
[2022-05-17 06:16] LABS: POTASSIUM 3.4 MMOL/L (3.6-5.0)
[2022-05-17 06:17] LABS: CALCIUM 9.7 MG/DL (8.5-10.1)
[2022-05-17 06:21] LABS: CREATININE SERUM 2.05 MG/DL (0.60-1.30)
[2022-05-17] MEDS: FUROSEMIDE 40 MG/4 ML INJ (LASIX) IVP SCH (06:54)
[2022-05-17] MEDS: KCL 10 MEQ TAB (MICRO K) PO SCH (06:54)
[2022-05-17] MEDS: ASPIRIN 81 MG CHEW (CHILDREN'S ASA) PO SCH (08:01)
[2022-05-17] MEDS: LORATADINE (CLARITIN) 10 MG TAB PO SCH (08:01)
[2022-05-17] MEDS: LOSARTAN 25 MG (COZAAR) TAB PO SCH (08:01)
[2022-05-17 08:21] VITALS: BP 112/72
[2022-05-17] MEDS ORDERED: AMIODARONE 200 MG (CORDARONE) TAB PO SCH (09:00)
[2022-05-17] MEDS ORDERED: EMPAGLIFLOZIN 10 MG TABLET (JARDIANCE) PO SCH (09:00)
[2022-05-17] MEDS: OXYMETAZOLINE (AFRIN) 0.05% NA 30 ML BTL SCH (09:00)
--- NOTE | 2022-05-17 11:05 | Progress Note - Cardiology ---
Cardiology SOAP Progress Note Subjective: Sitting up in recliner at the bedside Spouse at the bedside States he feels good Reports LE swelling is much improved Objective: I&O/Vital Signs 05/17/22 05/17/22 05/17/22 05/17/22 00:00 00:00 01:00 04:00 Temp 36.4 36.5 Pulse 86 100 76 Resp 22 16 B/P (MAP) 117/86 (96) 121/86 (98) Pulse Ox 94 92 O2 Delivery Room Air Room Air Room Air 05/17/22 05/17/22 05/17/22 07:00 08:19 08:21 Temp 36.5 Pulse 99 97 Resp 20 B/P (MAP) 112/72 (85) Pulse Ox 92 93 O2 Delivery Room Air Room Air 05/17/22 00:00 Intake Total 872 ml Output Total 1825 ml Balance -953 ml Constitutional: AAO x 3, well-developed, well-nourished Respiratory: No accessory muscle use; respiratory distress, chest expansion is symmetric, chest is bilaterally symmetric, other (diminished bases bilate) Cardiovascular: regular rate-rhythm; No JVD; systolic murmur Gastrointestional: No tender; soft, round, audible bowel sounds Extremities: other (bilat mod LE swelling (improved from yesterday)) Neurologic/Psychiatric: other (moves all limbs equally) Skin: No rash on exposed areas, No ulcerations on exposed areas Results/Procedures: Labs Laboratory Tests 05/17/22 05:44: White Blood Count 5.5, Red Blood Count 4.85, Hemoglobin 15.2, Hematocrit 45, Mean Corpuscular Volume 92, Mean Corpuscular Hemoglobin 31, Mean Corpuscular Hemoglobin Concent 34, Red Cell Distribution Width 14.8H, Platelet Count 169, Mean Platelet Volume 11.5, Sodium Level 141, Potassium Level 3.4L, Chloride Level 99, Carbon Dioxide Level 28, Anion Gap 14, Blood Urea Nitrogen 36H, Creatinine 2.05H, Estimat Glomerular Filtration Rate 32, BUN/Creatinine Ratio 18, Glucose Level 92, Calcium Level 9.7 Laboratory Tests 05/16/22 05:22 05/17/22 05:44 A/P: Assessment: Acute on chronic systolic CHF - clinically improving Minimally elevated troponin - likely Type 2 [place] secondary to acute systolic CHF and transient hypoxia H/o sustained ventricular tachycardia - patient had wide-complex tachycardia required electrical cardioversion. He has been maintained on amiodarone as an outpatient. - status post single-chamber ICD implant on August 05, [address] Chisholm with DFT testing, [employer] [place] VR MRI DF4. kast pacemaker/ICD interrogation was done in February 2022 with good sensing and capture activity. NICM - 2D echo was done in July [address] Chisholm showed dilated left ventricle and moderate LVH, severe left ventricular hypokinesia with ejection fraction 15 to 20%, biatrial enlargement, mildmoderate aortic valve stenosis with peak grad ient 18 mmHg, mean gradient 11 mmHg, valve area 1.5 cm clear, PA pressure 40 to 45 mmHg - Repeat echo was done on April 05, [address] Chisholm with normal LV size, moderate LVH, ejection fraction 30 to 35%, diffuse hypokinesia, dilated left atrium, dilated right atrium, calcified mitral valve with mild mitral regurgitation, moderate tricuspid regurgitation, PA pressure 55 to 60 mmHg. Coronary artery disease - mild to moderate disease per cardiac catheterization done on August 04, [address] Chisholm Hypertension Hyperlipidemia Chronic renal insufficiency, chronic kidney disease stage III H/O Noncompliance with medication, reporting compliance recently. Chronic Peripheral edema Mild bilateral carotid stenosis, ultrasound was done in February [address] Chisholm Plan: Acute on chronic systolic CHF - clinically improving - reduce diuretics d/t worsening of renal functioon - monitor lab closely and replace electrolytes as indicated ICM - Continue with Jardiance, ARB and BB Replace electrolytes SUSY LUIS May 17, 2022 11:05
[2022-05-17] MEDS ORDERED: KCL 20 MEQ TAB (K-DUR) PO NR (11:30)
--- NOTE | 2022-05-17 11:38 | Discharge Inst-Simple/Standard ---
Discharge Inst-Standard Patient Instructions/Follow Up Plan of Care/Instructions/FU: Please continue to take your medications as written. Please follow up with your primary care doctor to follow up this hospital stay. Activity as Tolerated: Yes Discharge Diet: Low Sodium Diet, Cardiac Diet Return to The Hospital For: Chest pain, shortness of breath, increasing leg swelling, weight gain, fever, weakness, if you feel you are getting worse. GARRY CONTI MD May 17, 2022 11:38
[2022-05-17] MEDS ORDERED: FURO40TA4 PO (11:43)
--- NOTE | 2022-05-17 12:36 | Discharge Summary ---
KAREN REDDING 05/17/22 1228: Discharge Summary Hospital Course Hospital Course Date of Admission: May 15, 2022 at 17:21 Admission Diagnosis : Family Physician/Provider: Dereck Woodson Physician Date of Discharge: 05/17/22 Discharge Diagnosis: [Acute decompensated systolic HF] Hospital Course: [ Patient is an 82 year old male with a history of systolic heart failure, HTN, Ventricular tachycardia and has an ICD in place who initially presented to [facility] in [place], [place] with chief complaint of LE edema. He is a patient of Dr. Mercado and was prescribed lasix 20 mg PO to use as needed for peripheral edema which he reported that he only had to use occasionally until approximately 2 weeks ago. At this time, he noticed increasing edema and started taking his lasix daily. However, his edema continued to worsen, especially 4-5 days ago. At this time, the patient began to notice that if he reclined in his chair he would have a feeling of pressure in his lower abdomen. Additionally, he began to notice dyspnea when reclining or laying on his back that improved with sitting up. This led him to present to [facility] on 05/15 where he was transferred to [facility]. He was started on lasix 40 mg IV BID. During the course of the stay his edema improved greatly and he is back to what he considers his baseline. He had no further complaints of SOB or fullness in the abdomen after starting on the diuretic. Today, the patient feels greatly improved and is eager to return home. He is being discharged today and will follow up with his copper plater and PCP outpatient] Labs and Pending Lab Test: Laboratory Tests 05/17/22 05:44: White Blood Count 5.5, Red Blood Count 4.85, Hemoglobin 15.2, Hematocrit 45, Mean Corpuscular Volume 92, Mean Corpuscular Hemoglobin 31, Mean Corpuscular Hemoglobin Concent 34, Red Cell Distribution Width 14.8H, Platelet Count 169, Mean Platelet Volume 11.5, Sodium Level 141, Potassium Level 3.4L, Chloride Level 99, Carbon Dioxide Level 28, Anion Gap 14, Blood Urea Nitrogen 36H, Creatinine 2.05H, Estimat Glomerular Filtration Rate 32, BUN/Creatinine Ratio 18, Glucose Level 92, Calcium Level 9.7 Home Meds Active Furosemide 40 Mg Tablet 40 Mg PO DAILY Reported Amiodarone HCl 200 Mg Tablet 200 Mg PO DAILY Potassium (Potassium Gluconate) 595 Mg (99 Mg) Tablet 99 Mg PO DAILY Losartan Potassium 25 Mg Tablet 25 Mg PO DAILY Carvedilol 25 Mg Tablet 25 Mg PO BID Mexiletine HCl 150 Mg Cap 150 Mg PO BID Afrin (Oxymetazoline HCl) 0.05 % [place] 1-2 [place] NS UD PRN [Balance Of Nature] 2 Ea PO TIDWM Aspirin EC (Aspirin) 81 Mg Tablet.dr 81 Mg PO HS Cetirizine HCl 10 Mg Tablet 10 Mg PO HS Assessment/Pt Instructions Acute decompensated systolic heart failure Discharged on lasix 40mg PO daily Denies any chest pain/SOB Instructed to avoid excess fluid or Na intake Has maintained oxygen saturation around 95% on RA Scheduled to follow up outpatient with his copper plater and PCP in the next 1-2 weeks Elevated troponin Likely due to heart failure Denies chest pain/SOB EKG negative for acute SC Continue aspirin 81mg daily PO CKD stage 3b BUN and Cr are around this patient's baseline Hypokalemia Improved with potassium replacement of 40meq KCL PO to 3.4 from 3.1 Continue home K supplements daily HTN Continue losartan 25mg PO daily and carvedilol 12.5mg PO BID Ventricular tachycardia Continue amiodarone 200mg PO BID and home mexilitine 150mg PO BID Rate has been controlled throughout his stay Discharge Instructions Discharge Diet: Low Sodium Diet, Cardiac Diet Activity as Tolerated: Yes Discharge Physical Examination Vital Signs Vital Signs Date Time Temp Pulse Resp B/P (MAP) Pulse Ox O2 Delivery O2 Flow Rate FiO2 05/17/22 08:21 36.5 97 20 112/72 (85) 93 Room Air 05/16/22 08:00 0.00 General Appearance: No Apparent Distress, WD/WN HEENT: PERRL/EOMI, Pharynx Normal Respiratory: Lungs Clear, No Accessory Muscle Use, No Respiratory Distress Cardiovascular: Regular Rate, Rhythm, Normal Peripheral Pulses, Systolic Murmur Gastrointestinal: Non Tender, Soft Extremity: Normal Capillary Refill, No Calf Tenderness, Pedal Edema (1+ b/l today, pt states about their normal) Skin: Normal Color, Warm/Dry Neurologic/Psychiatric: Alert, Oriented x3 Allergies: Coded Allergies: Sulfa (Sulfonamide Antibiotics) (Verified Allergy, Unknown, 05/05/22) codeine (Verified Allergy, Unknown, 05/05/22) atorvastatin (Verified Allergy, DIZZINESS, 05/16/22) morphine (Verified Allergy, UNKNOWN, 05/16/22) propoxyphene (Verified Allergy, UNKNOWN, 05/16/22) empagliflozin (Verified Adverse Reaction, Unknown, "gential infection", 05/17/22) Discharge Summary Date of Admission May 15, 2022 at 17:21 Date of Discharge Discharge Date: May 17, 2022 LULU CHING MD 05/17/22 1556: Discharge Summary Discharge Physical Examination Allergies: Coded Allergies: Sulfa (Sulfonamide Antibiotics) (Verified Allergy, Unknown, 05/05/22) codeine (Verified Allergy, Unknown, 05/05/22) atorvastatin (Verified Allergy, DIZZINESS, 05/16/22) morphine (Verified Allergy, UNKNOWN, 05/16/22) propoxyphene (Verified Allergy, UNKNOWN, 05/16/22) empagliflozin (Verified Adverse Reaction, Unknown, "gential infection", 05/17/22) Progress Note Addendum Progress Notes/Assess & Plan Date Seen 05/17/22 Time Seen by Provider: 11:00 Progress Note Addendum Progress Notes/Assess & Plan Date Seen 05/19/22 Time Seen by Provider: 11:00 Progress Note Addendum Progress Notes/Assess & Plan Date Seen 05/17/22 Time Seen by Provider: 11:00 Addendum Physician Addendum Addendum Verification and Attestation of Medical Student E/M Service A medical student performed and documented this service in my presence. I reviewed and verified all information documented by the medical student and made modifications to such information, when appropriate. I personally performed the physical exam and medical decision making. Lulu Ching, May 19, 2022,12:46 Progress 12:46 KAREN REDDING May 17, 2022 12:28 LULU CHING MD May 17, 2022 15:56
[2022-05-17] MEDS ORDERED: POTA-51 PO (13:25)
--- NOTE | 2022-05-17 17:06 | Progress Note - Cardiology ---
Cardiology SOAP Progress Note Subjective: No cp or palp or syncope Improving swelling and shortness of breath No n/v/d No focal weakness Gen weakness present Objective: I&O/Vital Signs 05/17/22 05/17/22 05/17/22 05/17/22 07:00 08:19 08:21 13:30 Temp 36.5 Pulse 99 97 Resp 20 B/P (MAP) 112/72 (85) Pulse Ox 92 93 O2 Delivery Room Air Room Air 05/17/22 00:00 Intake Total 872 ml Output Total 1825 ml Balance -953 ml Constitutional: AAO x 3, well-developed, well-nourished Respiratory: No accessory muscle use; respiratory distress, chest expansion is symmetric, chest is bilaterally symmetric, other (diminished bases bilate) Cardiovascular: regular rate-rhythm; No JVD; systolic murmur Gastrointestional: No tender; soft, round, audible bowel sounds Extremities: other (bilat mod LE swelling (improved from yesterday)) Neurologic/Psychiatric: other (moves all limbs equally) Skin: No rash on exposed areas, No ulcerations on exposed areas Results/Procedures: Labs Laboratory Tests 05/17/22 05:44: White Blood Count 5.5, Red Blood Count 4.85, Hemoglobin 15.2, Hematocrit 45, Mean Corpuscular Volume 92, Mean Corpuscular Hemoglobin 31, Mean Corpuscular Hemoglobin Concent 34, Red Cell Distribution Width 14.8H, Platelet Count 169, Mean Platelet Volume 11.5, Sodium Level 141, Potassium Level 3.4L, Chloride Level 99, Carbon Dioxide Level 28, Anion Gap 14, Blood Urea Nitrogen 36H, Creatinine 2.05H, Estimat Glomerular Filtration Rate 32, BUN/Creatinine Ratio 18, Glucose Level 92, Calcium Level 9.7 Laboratory Tests 05/16/22 05:22 05/17/22 05:44 A/P: Assessment: Acute on chronic systolic CHF - clinically improving Minimally elevated troponin - likely Type 2 AL secondary to acute systolic CHF and transient hypoxia H/o sustained ventricular tachycardia - patient had wide-complex tachycardia required electrical cardioversion. He has been maintained on amiodarone as an outpatient. - status post single-chamber ICD implant on August 05, [address] Chisholm with DFT testing, [employer] VR MRI DF4. kast pacemaker/ICD interrogation was done in February 2022 with good sensing and capture activity. NICM - 2D echo was done in July [address] Chisholm showed dilated left ventricle and moderate LVH, severe left ventricular hypokinesia with ejection fraction 15 to 20%, biatrial enlargement, mildmoderate aortic valve stenosis with peak gradient 18 mmHg, mean gradient 11 mmHg, valve area 1.5 cm clear, PA pressure 40 to 45 mmHg - Repeat echo was done on April 05, [address] Chisholm with normal LV size, moderate LVH, ejection fraction 30 to 35%, diffuse hypokinesia, dilated left atrium, dilated right atrium, calcified mitral valve with mild mitral regurgitation, moderate tricuspid regurgitation, PA pressure 55 to 60 mmHg. Coronary artery disease - mild to moderate disease per cardiac catheterization done on August 04, [address] Chisholm Hypertension Hyperlipidemia Chronic renal insufficiency, chronic kidney disease stage III H/O Noncompliance with medication, reporting compliance recently. Chronic Peripheral edema Mild bilateral carotid stenosis, ultrasound was done in February [address] Chisholm Plan: Acute on chronic systolic CHF - clinically improving - reduce diuretics d/t worsening of renal functioon - monitor lab closely and replace electrolytes as indicated ICM - Continue with Jardiance, ARB and BB Replace electrolytes VALDO BALES MD FACP FAC CCDS May 17, 2022 17:06
--- NOTE | 2022-05-17 19:12 | Physician Query Clarification ---
Physician Query-General Query to Physician: The medical record reflects the following clinical scenario: The patient, in the setting of History/Risk factors, heart failure, HTN, Ventricular tachycardia and has an ICD Clinical Findings Dyspnea, Troponin troponin I 0.190, Treatment IV Lasix, Aspirin, Cardiology Consult, EKG's Question: Do you agree with the impression of "likely Type 2 MA secondary to acute systolic CHF and transient hypoxia" per Dr Ying Kam ? 1. Yes; will document Likely Type 2 MA, present on admission in the Progress Notes 2. No; will continue current documentation in the Progress Notes 3. Other; will document explanation of clinical findings 4. Clinically undetermined; no explanation for clinical findings Please clarify and document your clinical opinion in the Progress Notes and Discharge Summary including the definitive and/or presumptive diagnosis, (suspected or probable), related to the above clinical findings. Please include clinical findings supporting your diagnosis. In responding to this query, please exercise your independent professional judgment. The purpose of this communication is to more accurately reflect the complexity of your patients condition. The fact that a question is asked does not imply that any particular answer is desired or expected. Thank you for timely response to this clarification. Chelsea Herbert, MSN, RN Clinical Automatic Equipment Technician [phone] [email or web address] PHYSICIAN RESPONSE: Based on the clinical findings in the record, please respond to the query above on this document as an addendum. Physician Response: Physician Response 1 If you have questions please contact: Computer Network Engineer: Ext: Thank you for your time and cooperation. Clinical Automatic Equipment Technician/Computer Network Engineer This is a permanent part of the medical record CHELSEA HERBERT May 17, 2022 19:12 GARRY CONTI MD May 18, 2022 15:57
[2022-05-18] MEDS ORDERED: FUROSEMIDE 40 MG (LASIX) TAB PO SCH (09:00)
[2022-05-18] MEDS ORDERED: PANT40TA2 PO (09:29)
== END 2022-05-17 13:35 | disposition home or self-care (01) | DRG 280 ==
LOC: CSD 17:21
PROVIDERS: ADMIT Family Medicine; ATTEND Family Medicine
DX: I13.0 Hypertensive heart and chronic kidney disease with heart failure and stage 1 through stage 4 chronic kidney disease, or unspecified chronic kidney disease (principal); I50.23 Acute on chronic systolic (congestive) heart failure; I21.A1 Myocardial infarction type 2; I47.20 Ventricular tachycardia, unspecified; N18.32 Chronic kidney disease, stage 3b; E87.6 Hypokalemia; I42.8 Other cardiomyopathies; I25.10 Atherosclerotic heart disease of native coronary artery without angina pectoris; E78.5 Hyperlipidemia, unspecified; I65.23 Occlusion and stenosis of bilateral carotid arteries; Z95.810 Presence of automatic (implantable) cardiac defibrillator; Z79.82 Long term (current) use of aspirin; Z79.899 Other long term (current) drug therapy; T38.3X6A Underdosing of insulin and oral hypoglycemic [antidiabetic] drugs, initial encounter; Z91.128 Patient's intentional underdosing of medication regimen for other reason
CPT/HCPCS: 36415; 80048; 80053; 80061; 83036; 83735; 83880; 84484; 85025; 85027; 93005; 93306

== ENCOUNTER 2022-05-18 07:37 | Emergency (ER) | payer MEDICARE ==
[~2022-05-18] VITALS: Ht 172 cm; Wt 77.0 kg
[~2022-05-18 07:37] MED LIST changes: +CARV25TA PO; +FURO20TA4 PO; +FURO40TA4 PO; +POTA-51 PO
--- NOTE | 2022-05-18 08:08 | ED General ---
General Chief Complaint: Respiratory Problems Stated Complaint: TIGHTNESS IN CHEST Nursing Triage Note: Patient to ER via wheelchair. Patient was just discharged from [facility] at noon [phone]. Patient was prescribed lasix. 2am patient states he felt short of breath and felt like he needed to come back. pressure in the epigastric region. Pacemaker placed July 2021. 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 Dr. Bobby Silverio is primary doc. "I can't breathe laying down." Source of Information: Patient, Family, Old Records Exam Limitations: No Limitations History of Present Illness Date Seen by Provider: May 18, 2022 Time Seen by Provider: 07:52 Initial Comments This 82-year-old gentleman with congestive heart failure presents to the emergency room with complaints of pressure in the mid abdomen and epigastric region as well as shortness of breath. He was discharged from the hospital yesterday after treatment for acute exacerbation of congestive heart failure. He picked up his medications from the pharmacy and took them as prescribed. This morning at 0200 he woke with shortness of air and pressure in the epigastrium. He has difficulty lying flat because of shortness of breath which is chronic and unchanged this morning. He does not describe any chest pain. On exam he has mild tenderness in the right upper quadrant. He reports no bowel movement in the last 5 days. Allergies and Home Medications Allergies Coded Allergies: Sulfa (Sulfonamide Antibiotics) (Verified Allergy, Unknown, 05/05/22) codeine (Verified Allergy, Unknown, 05/05/22) atorvastatin (Verified Allergy, DIZZINESS, 05/16/22) morphine (Verified Allergy, UNKNOWN, 05/16/22) propoxyphene (Verified Allergy, UNKNOWN, 05/16/22) empagliflozin (Verified Adverse Reaction, Unknown, "gential infection", 05/17/22) Patient Home Medication List Home Medication List Reviewed: Yes Amiodarone HCl (Amiodarone HCl) 200 Mg Tablet, 200 MG PO DAILY, (Reported) Entered as Reported by: RAYMOND WARREN on 05/16/22 1145 Aspirin (Aspirin EC) 81 Mg Tablet., 81 MG PO HS, (Reported) Entered as Reported by: RAYMOND WARREN on 08/04/21 1046 Carvedilol (Carvedilol) 25 Mg Tablet, 25 MG PO BID, (Reported) Entered as Reported by: RAYMOND WARREN on 05/16/22 111 Cetirizine HCl (Cetirizine HCl) 10 Mg Tablet, 10 MG PO HS, (Reported) Entered as Reported by: SARWAT GARCIA on 08/03/212118 Furosemide (Furosemide) 40 Mg Tablet, 40 MG PO DAILY Prescribed by: GARRY CONTI on 05/17/22 1143 Losartan Potassium (Losartan Potassium) 25 Mg Tablet, 25 MG PO DAILY, (Reported) Entered as Reported by: RAYMOND WARREN on 05/16/22 111 Mexiletine HCl (Mexiletine HCl) 150 Mg Cap, 150 MG PO BID, (Reported) Entered as Reported by: RAYMOND WARREN on 05/16/22 111 Oxymetazoline HCl (Afrin) 0.05 % [place], 1-2 SPRAY NS UD PRN for CONGESTION, (Reported) Entered as Reported by: RAYMOND WARREN on 08/04/21 104 Pantoprazole Sodium (Protonix) 40 Mg Tablet.dr, 40 MG PO DAILY Prescribed by: GUIDO LORA on 05/18/22 0929 Potassium Chloride (Potassium Chloride) 20 Meq Tablet.er, 20 MEQ PO DAILY Prescribed by: SUSY LUIS on 05/17/22 1325 [Balance Of Nature] , 2 EA PO TIDWM, (Reported) Entered as Reported by: RAYMOND WARREN on 08/04/21 104 Discontinued Medications Amiodarone HCl (Amiodarone HCl) 200 Mg Tablet, 200 MG PO BID Discontinued Reason: Duplicate Order Prescribed by: TRISTON CHISHOLM on 08/07/21 08 Carvedilol (Carvedilol) 12.5 Mg Tablet, 12.5 MG PO BID WITH MEALS, (Reported) Discontinued Reason: Duplicate Order Entered as Reported by: SARWAT GARCIA on 08/03/212118 Furosemide (Lasix) 20 Mg Tablet, 20 MG PO PRN Discontinued Reason: No Longer Taking Prescribed by: TRISTON CHISHOLM on 08/07/21835 Furosemide (Furosemide) 20 Mg Tablet, 20 MG PO DAILY, (Reported) Entered as Reported by: RAYMOND WARREN on 05/16/221114 Losartan Potassium (Losartan Potassium) 25 Mg Tablet, 25 MG PO DAILY Discontinued Reason: Duplicate Order Prescribed by: TRISTON CHISHOLM on 08/07/21 0836 Mexiletine HCl (Mexiletine HCl) 150 Mg Cap, 150 MG PO BID Discontinued Reason: Duplicate Order Prescribed by: TRISTON CHISHOLM on 08/07/21 0836 Potassium Gluconate (Potassium) 595 Mg (99 Mg) Tablet, 99 MG PO DAILY, (Reported) Entered as Reported by: RAYMOND WARREN on 05/16/22 1115 Review of Systems Review of Systems Constitutional: no symptoms reported EENTM: no symptoms reported Respiratory: see HPI Cardiovascular: see HPI Gastrointestinal: see HPI Genitourinary: no symptoms reported Musculoskeletal: no symptoms reported Skin: no symptoms reported Psychiatric/Neurological: No Symptoms Reported Hematologic/Lymphatic: No Symptoms Reported Past Rnwttgr-[id number] Hx Patient Social History Tobacco Use?: No Substance use?: No Alcohol Use?: No Immunizations Up To Date First/Initial COVID19 Vaccinat: May 2020 Second COVID19 Vaccination Jovany: June 2020 Third COVID19 Vaccination Date: January 2021 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 oz. kg; 26.00 BMI Method: General Appearance: WD/WN, Anxious HEENT: PERRL/EOMI, Normal ENT Inspection, Other (oropharynx dry. Bilateral cerumen impaction) Neck: Normal Inspection; No JVD Respiratory: Lungs Clear, Normal Breath Sounds, No Accessory Muscle Use Cardiovascular: Regular Rate, Rhythm, Other (mild edema) Gastrointestinal: Normal Bowel Sounds, Soft; No Distended; Tenderness (epigastr ic) Extremity: Pedal Edema Neurologic/Psychiatric: Alert, Oriented x3, No Motor/Sensory Deficits, measurer machine II- XII Norm as Tested, Other (Mildly anxious) Skin: Normal Color, Warm/Dry Procedures/Interventions Patient Education: Explained Benefits, Explained Risks, Pt. Ack. Understanding Breath Sounds per Auscultation: Clear Heart Sounds per Auscultation: Irregular Airway Exam: Mouth opens >2 fingers, Neck Full Range of Motion, Visulation of Uvula Sedation Adminstration Time: 1538 Re-examination Time: 1630 Progress/Results/Core Measures Suspected Sepsis SIRS Temperature: Pulse: 92 Respiratory Rate: 22 Laboratory Tests 05/18/22 08:20: White Blood Count 11.1H Blood Pressure 133 /95 Mean: 108 Laboratory Tests 05/18/22 08:20: Creatinine 2.12H, Platelet Count 189, Total Bilirubin 1.1H Results/Orders Lab Results Laboratory Tests Test 05/18/22 08:20 Range/Units White Blood Count 11.1 H 4.3-11.0 10^3/uL Red Blood Count 5.18 4.30-5.52 10^6/uL Hemoglobin 16.2 13.3-17.7 g/dL Hematocrit 48 40-54 % Mean Corpuscular Volume 93 80-99 fL Mean Corpuscular Hemoglobin 31 25-34 pg Mean Corpuscular Hemoglobin Concent 34 32-36 g/dL Red Cell Distribution Width 15.0 H 10.0-14.5 % Platelet Count 189 130-400 10^3/uL Mean Platelet Volume 11.2 9.0-12.2 fL Immature Granulocyte % (Auto) 1 % Neutrophils (%) (Auto) 83 H 42-75 % Lymphocytes (%) (Auto) 6 L 12-44 % Monocytes (%) (Auto) 9 0-12 % Eosinophils (%) (Auto) 1 0-10 % Basophils (%) (Auto) 1 0-10 % Neutrophils # (Auto) 9.2 H 1.8-7.8 10^3/uL Lymphocytes # (Auto) 0.6 L 1.0-4.0 10^3/uL Monocytes # (Auto) 1.0 0.0-1.0 10^3/uL Eosinophils # (Auto) 0.2 0.0-0.3 10^3/uL Basophils # (Auto) 0.1 0.0-0.1 10^3/uL Immature Granulocyte # (Auto) 0.1 0.0-0.1 10^3/uL Neutrophils % (Manual) 81 % Lymphocytes % (Manual) 10 % Monocytes % (Manual) 7 % Eosinophils % (Manual) 1 % Band Neutrophils 1 % Poikilocytosis Blood Morphology Comment NORMAL Sodium Level 141 135-145 MMOL/L Potassium Level 4.0 3.6-5.0 MMOL/L Chloride Level 99 98-107 MMOL/L Carbon Dioxide Level 28 21-32 MMOL/L Anion Gap 14 5-14 MMOL/L Blood Urea Nitrogen 38 H 7-18 MG/DL Creatinine 2.12 H 0.60-1.30 MG/DL Estimat Glomerular Filtration Rate 30 BUN/Creatinine Ratio 18 Glucose Level 121 H 70-105 MG/DL Calcium Level 10.4 H 8.5-10.1 MG/DL Corrected Calcium 10.6 H 8.5-10.1 MG/DL Magnesium Level 1.9 1.6-2.4 MG/DL Total Bilirubin 1.1 H 0.1-1.0 MG/DL Aspartate Amino Transf (AST/SGOT) 23 5-34 U/L Alanine Aminotransferase (ALT/SGPT) 18 0-55 U/L Alkaline Phosphatase 65 40-136 U/L B-Type Natriuretic Peptide 1824.8 H <100.0 PG/ML Total Protein 7.8 6.4-8.2 GM/DL Albumin 3.8 3.2-4.5 GM/DL Lipase 28 8-78 U/L My Orders Orders - GUIDO GOLD MD Ekg Tracing (05/18/22 07:52) Monitor-Rhythm Ecg Trace Only (05/18/22 07:52) Cbc With Automated Diff (05/18/22 08:02) Comprehensive Metabolic Panel (05/18/22 08:02) Lipase (05/18/22 08:02) Magnesium (05/18/22 08:02) Ed Iv/Invasive Line Start (05/18/22 08:02) Acute Abd Series (05/18/22 08:02) Bnp [place] (05/18/22 08:02) Ondansetron Injection (Zofran Injectio (05/18/22 08:15) Lidocaine 2% Viscous 15 Ml (Xylocaine Vi (05/18/22 08:15) Antacid Suspension (Mylanta Suspension (05/18/22 08:15) Manual Differential (05/18/22 08:20) Medications Given in ED Vital Signs/I&O 05/18/22 05/18/22 07:47 09:48 Temp 37.6 Pulse 92 82 Resp 22 10 B/P (MAP) 133/95 (108) 100/73 Pulse Ox 96 93 O2 Delivery Room Air Room Air Capillary Refill : Less Than 3 Seconds Blood Pressure Mean: 108 Progress Note : Progress Note Work-up including labs (CBC, chemistry, BNP), ECG, and chest x-ray was reviewed. These were compared with prior. X-ray was viewed by me and personally compared with prior and improvement was noted. There was slight improvement and stability demonstrated. This effectively ruled out worsening cardiopulmonary problems. GI cocktail was administered and resolved this symptoms. See discharge instructions for further discussion. We reviewed treatment for cerumen impaction. Protonix was prescribed for the epigastric pain. ECG Initial ECG Impression Date: May 18, 2022 Initial ECG Impression Time: 07:50 Initial ECG Rate: 84 Initial ECG Rhythm: Normal Sinus Comment Sinus rhythm with multiple PVCs. GA interval prolonged at [address] elevation or depression. No axis deviation. Possible old left bundle branch block. Similar to prior. Diagnostic Imaging Diagonstic Imaging: Xray Plain Films/CT/US/NM/MRI: chest Comments NAME: [facility] REC#: [id number] PT STATUS: DEP ER : 1940 PHYSICIAN: GUIDO GOLD MD ADMIT DATE: 05/18/22/ER Signed Date of Exam:05/18/22 ACUTE ABD SERIES CLINICAL INDICATIONS: Patient with abdominal pain. EXAMS: X-ray of the chest PA view and x-ray of the abdomen supine and upright views. COMPARISONS: Chest x-ray dated 05/05/2022. FINDINGS: CHEST: There is stable cardiomegaly and mild prominence of the pulmonary vasculature which has slightly decreased in the interim. There is persistent increased lung markings throughout both lungs which may be related to interstitial edema versus chronic lung changes. There is slight improved aeration of both lower lung field regions with subtle patchy airspace opacities which may represent atelectasis versus infiltrates. There is no pleural effusion or pneumothorax. Cardiac pacemaker/AICD is again seen, stable and appears intact. There are hypertrophic spurs involving the thoracic spine. ABDOMEN AND PELVIS: Unremarkable x-ray of the abdomen with nonobstructed bowel gas pattern. There is no evidence of abdominal free air. There is an oval-shaped radiodense area overlying the left abdomen suspected to represent an ingested object. Suspected phleboliths seen in the pelvis. There are hypertrophic spurs involving the thoracic spine and both hips. IMPRESSION: 1: Again seen cardiomegaly with mild pulmonary vascular congestion which has slightly improved in the interim. 2: There are mild patchy airspace opacities involving both lower lung [place] which may represent atelectasis versus pulmonary edema. Subtle infectious process cannot be completely excluded. These findings have slightly decreased in the interim. 3: Unremarkable x-ray of the abdomen. There is no intra-abdominal free air or evidence of intestinal obstruction. Dictated by: Dictated on workstation # [id number] Dict: 05/18/22 0854 Trans: 05/19/22 1344 [facility] [id number] Interpreted by: JOSEPH FANG MD Electronically signed by: JOSEPH FANG MD 05/19/22 1344 Departure Impression Primary Impression: Epigastric pain Additional Impressions: Chronic heart failure Qualified Codes: I50.9 - Heart failure, unspecified Cerumen impaction Qualified Codes: H61.23 - Impacted cerumen, bilateral Disposition: 01 HOME, SELF-CARE Condition: Improved Departure-Patient Inst. Decision time for Depature: 09:24 Referrals: NO,LOCAL PHYSICIAN (PCP/Family) Primary Care Physician Patient Instructions: Ear Wax Impaction ED, Gastritis ED Add. Discharge Instructions: Start Protonix (pantoprazole) prescribed. Follow-up with your primary care provider in a few weeks to determine if you should continue Protonix. Avoid the following: Eating large meals, eating close to bedtime, caffeine, carbonation, citrus fruits and juices, tomato products, chocolate, alcohol, tobacco, mints, fatty/greasy foods, spicy foods, NSAID medications such as ibuprofen or naproxen, or anything else you know irritate your stomach. You may use Tums per package instructions for flareups of the abdominal pain. If constipation is part of the problem, MiraLAX (or generic polyethylene glycol) is a good gentle laxative that may be used to help clear constipation. You have earwax impactions in both ears. This can be treated with [id number] earwax products such as Debrox. Alternatively, you may place a few drops of mineral oil or coconut oil in each ear 2 or 3 times a week to start loosening the wax. If these home treatments do not resolve the earwax impaction, you may present to your primary care office or ENT office for irrigation to remove the earwax. The home treatment should help loosen the wax in preparation for the irrigation. Return to care if you have worsening symptoms despite following these instructions. All discharge instructions reviewed with patient and/or family. Voiced u nderstanding. Scripts Pantoprazole Sodium (Protonix) 40 Mg Tablet. 40 MG PO DAILY, #30 TAB Prov: GUIDO GOLD MD 05/18/22 Copy Copies To 1: TRISTON CHISHOLM MD, JOSHUA T MD May 18, 2022 08:08
[2022-05-18] MEDS ORDERED: ANTACID SUSP 30 ML UDC (MYLANTA) PO ONE (08:15)
[2022-05-18] MEDS ORDERED: ONDANSETRON 4 MG/2 ML (SDV) Z0FRAN IVP ONE (08:15)
[2022-05-18] MEDS ORDERED: LIDOCAINE 2% VISCOUS 15 ML UDC PO ONE (08:15)
[2022-05-18 08:33] LABS: BASOPHILS # (AUTO) 0.1 10^3/uL (0.0-0.1); BASOPHILS % (AUTO) 1 % (0-10); EOSINOPHILS # (AUTO) 0.2 10^3/uL (0.0-0.3); EOSINOPHILS % (AUTO) 1 % (0-10); HEMATOCRIT 48 % (40-54); HEMOGLOBIN 16.2 g/dL (13.3-17.7); LYMPHOCYTES # (AUTO) 0.6 10^3/uL (1.0-4.0); LYMPHOCYTES % (AUTO) 6 % (12-44); MEAN CORPUSCULAR HEMOGLOBIN 31 pg (25-34); MEAN CORPUSCULAR HGB CONC 34 g/dL (32-36); MEAN CORPUSCULAR VOLUME 93 fL (80-99); MEAN PLATELET VOLUME 11.2 fL (9.0-12.2); MONOCYTES % (AUTO) 9 % (0-12); NEUTROPHILS # (AUTO) 9.2 10^3/uL (1.8-7.8); NEUTROPHILS % (AUTO) 83 % (42-75); PLATELET COUNT 189 10^3/uL (130-400); WHITE BLOOD COUNT 11.1 10^3/uL (4.3-11.0)
[2022-05-18 08:43] LABS: ALBUMIN 3.8 GM/DL (3.2-4.5)
[2022-05-18 08:45] LABS: CALCIUM 10.4 MG/DL (8.5-10.1)
[2022-05-18 08:46] LABS: TOTAL PROTEIN 7.8 GM/DL (6.4-8.2)
[2022-05-18 08:48] LABS: BILIRUBIN,TOTAL 1.1 MG/DL (0.1-1.0)
[2022-05-18 08:50] LABS: CREATININE SERUM 2.12 MG/DL (0.60-1.30)
[2022-05-18 08:53] LABS: BAND NEUTROPHILS 1 %; EOSINOPHILS % (MANUAL) 1 %; LYMPHOCYTES % (MANUAL) 10 %; MAGNESIUM 1.9 MG/DL (1.6-2.4); MONOCYTES % (MANUAL) 7 %; NEUTROPHILS % (MANUAL) 81 %
[2022-05-18 08:54] LABS: RBC MORPH NORMAL
--- NOTE | 2022-05-18 09:05 | Diagnostic Imaging Report ---
CLINICAL INDICATIONS: Patient with abdominal pain. EXAMS: X-ray of the chest PA view and x-ray of the abdomen supine and upright views. COMPARISONS: Chest x-ray dated 05/05/2022. FINDINGS: CHEST: There is stable cardiomegaly and mild prominence of the pulmonary vasculature which has slightly decreased in the interim. There is persistent increased lung markings throughout both lungs which may be related to interstitial edema versus chronic lung changes. There is slight improved aeration of both lower lung field regions with subtle patchy airspace opacities which may represent atelectasis versus infiltrates. There is no pleural effusion or pneumothorax. Cardiac pacemaker/AICD is again seen, stable and appears intact. There are hypertrophic spurs involving the thoracic spine. ABDOMEN AND PELVIS: Unremarkable x-ray of the abdomen with nonobstructed bowel gas pattern. There is no evidence of abdominal free air. There is an oval-shaped radiodense area overlying the left abdomen suspected to represent an ingested object. Suspected phleboliths seen in the pelvis. There are hypertrophic spurs involving the thoracic spine and both hips. IMPRESSION: 1: Again seen cardiomegaly with mild pulmonary vascular congestion which has slightly improved in the interim. 2: There are mild patchy airspace opacities involving both lower lung [place] which may represent atelectasis versus pulmonary edema. Subtle infectious process cannot be completely excluded. These findings have slightly decreased in the interim. 3: Unremarkable x-ray of the abdomen. There is no intra-abdominal free air or evidence of intestinal obstruction. Dictated by: Dictated on workstation # [id number]
[2022-05-18] MEDS ORDERED: PANT40TA2 PO (09:29)
[2022-05-18 09:48] VITALS: BP 100/73
== END 2022-05-18 09:48 | disposition home or self-care (01) ==
LOC: EDUNIT# 07:37 → ER 07:38
DX: I11.0 Hypertensive heart disease with heart failure (principal); I50.9 Heart failure, unspecified; H61.23 Impacted cerumen, bilateral
CPT/HCPCS: 36415; 74022; 80053; 83690; 83735; 83880; 85007; 85027; 93005; 96374

== ENCOUNTER 2022-05-22 05:46 | Inpatient (IN) | payer MEDICARE ==
[~2022-05-22] VITALS: Ht 172.7 cm; Wt 79.0 kg
[~2022-05-22 05:46] MED LIST changes: +PANT40TA2 PO
--- NOTE | 2022-05-22 06:25 | ED Abdominal Pain ---
General Chief Complaint: Abdominal/GI Problems Stated Complaint: SOB Source of Information: Patient (LIMITED, DIFFICULT HISTORIAN), Spouse History of Present Illness Date Seen by Provider: May 22, 2022 Time Seen by Provider: 06:25 Initial Comments PT ARRIVES VIA POV FROM HOME IN [place] STATES HE WOKE UP THIS MORNING AND COULDN'T BREATHE AND HAS PRESSURE IN HIS UPPER ABDOMEN HE STATES HE "CAN'T BELCH" STATES HE FEELS LIKE IF HE COULD BELCH HE WOULD FEEL BETTER NO NAUSEA/VOMITING HE STATES HE HAS BEEN HAVING THESE SYMPTOMS FOR THE LAST WEEK HE STATES HE CAN'T LAY DOWN BECAUSE HE GETS SHORT OF BREATH STATES HE IS "DEHYDRATED" BECAUSE HIS MOUTH IS DRY NO BM FOR THE LAST COUPLE OF DAYS ATE DINNER AT 1900 LAST NIGHT--CHICKEN AND RICE HE HAS CONTINUED TO EAT NORMALLY HE IS ON A DIURETIC AND VOIDS FREQUENTLY PT'S FIRST VISIT HERE WAS 07/2021--HE HAD V-TACH, AND HAD A PACEMAKER AND DEFIBRILLATOR PLACED AT THAT TIME HE HAS HAD 6 VISITS HERE HE WAS HERE 05/05 FOR CHF ADMITTED HERE 05/15-05/18/22 FOR CHF HE CAME BACK TO ER 05/18/22 FOR THIS SAME EPIGASTRIC DISCOMFORT HE WAS AT [facility] ER 05/20/22 FOR CONSTIPATION, AND HAD ENEMAS WITH LARGE BM'S AND PRESCRIBED MIRALAX HE HAS AN APPOINTMENT TODAY WITH HIS PCP, DR. LINDER, IN [place] HE HAS NOT SEEN HIS DRJeniffer RECENTLY FOR ANY OF THESE COMPLAINTS HE HAS AN APPOINTMENT WITH DR. RITTER 06/04/22, HE HAS NOT SEEN HIM SINCE LAST FEBRUARY. PCP: DR. LINDER, [place] EDUCATIONAL RESOURCE COORDINATOR: DR. RITTER Allergies and Home Medications Allergies Coded Allergies: Sulfa (Sulfonamide Antibiotics) (Verified Allergy, Unknown, 05/05/22) codeine (Verified Allergy, Unknown, 05/05/22) atorvastatin (Verified Allergy, DIZZINESS, 05/16/22) morphine (Verified Allergy, UNKNOWN, 05/16/22) propoxyphene (Verified Allergy, UNKNOWN, 05/16/22) empagliflozin (Verified Adverse Reaction, Unknown, "gential infection", 05/17/22) Patient Home Medication List Amiodarone HCl (Amiodarone HCl) 200 Mg Tablet, 200 MG PO DAILY, (Reported) Entered as Reported by: RAYMOND WARREN on 05/16/22 1145 Aspirin (Aspirin EC) 81 Mg Tablet.dr, 81 MG PO HS, (Reported) Entered as Reported by: RAYMOND WARREN on 08/04/21 104 Carvedilol (Carvedilol) 25 Mg Tablet, 25 MG PO BID, (Reported) Entered as Reported by: RAYMOND WARREN on 05/16/22 111 Cetirizine HCl (Cetirizine HCl) 10 Mg Tablet, 10 MG PO HS, (Reported) Entered as Reported by: SARWAT GARCIA on 08/03/212118 Furosemide (Furosemide) 40 Mg Tablet, 40 MG PO DAILY Prescribed by: GARRY CONTI on 05/17/22 114 Losartan Potassium (Losartan Potassium) 25 Mg Tablet, 25 MG PO DAILY, (Reported) Entered as Reported by: RAYMOND WARREN on 05/16/22 111 Mexiletine HCl (Mexiletine HCl) 150 Mg Cap, 150 MG PO BID, (Reported) Entered as Reported by: RAYMOND WARREN on 05/16/22 111 Oxymetazoline HCl (Afrin) 0.05 % [place], 1-2 SPRAY NS UD PRN for CONGESTION, (R eported) Entered as Reported by: RAYMOND WARREN on 08/04/21 104 Pantoprazole Sodium (Protonix) 40 Mg Tablet.dr, 40 MG PO DAILY Prescribed by: GUIDO LORA on 05/18/22 0929 Potassium Chloride (Potassium Chloride) 20 Meq Tablet.er, 20 MEQ PO DAILY Prescribed by: SUSY LUIS on 05/17/22 1325 [Balance Of Nature] , 2 EA PO TIDWM, (Reported) Entered as Reported by: RAYMOND WARREN on 08/04/21 104 Discontinued Medications Amiodarone HCl (Amiodarone HCl) 200 Mg Tablet, 200 MG PO BID Discontinued Reason: Duplicate Order Prescribed by: TRISTON RITTER on 08/07/21 0836 Carvedilol (Carvedilol) 12.5 Mg Tablet, 12.5 MG PO BID WITH MEALS, (Reported) Discontinued Reason: Duplicate Order Entered as Reported by: SARWAT GARCIA on 08/03/212118 Furosemide (Lasix) 20 Mg Tablet, 20 MG PO PRN Discontinued Reason: No Longer Taking Prescribed by: TRISTON RITTER on 08/07/21 0836 Furosemide (Furosemide) 20 Mg Tablet, 20 MG PO DAILY, (Reported) Entered as Reported by: RAYMOND WARREN on 05/16/22 111 Losartan Potassium (Losartan Potassium) 25 Mg Tablet, 25 MG PO DAILY Discontinued Reason: Duplicate Order Prescribed by: TRISTON RITTER on 08/07/21 0836 Mexiletine HCl (Mexiletine HCl) 150 Mg Cap, 150 MG PO BID Discontinued Reason: Duplicate Order Prescribed by: TRISTON RITTER on 08/07/21 0836 Potassium Gluconate (Potassium) 595 Mg (99 Mg) Tablet, 99 MG PO DAILY, (Reported) Entered as Reported by: RAYMOND WARREN on 05/16/22 111 Review of Systems Review of Systems Constitutional: no symptoms reported; No chills, No diaphoresis, No fever EENTM: See HPI (DRY MOUTH) Respiratory: See HPI; Denies Cough; Orthopnea, Shortness of Air, SOA With Exertion, SOA at Rest; Denies Wheezing Cardiovascular: See HPI, Edema; Denies Lightheadedness, Denies Palpitations, Denies Syncope Gastrointestinal: See HPI, Abdominal Pain, Constipated; Denies Nausea, Denies Poor Appetite, Denies Vomiting Genitourinary: No Symptoms Reported Musculoskeletal: no symptoms reported Skin: no symptoms reported Psychiatric/Neurological: No Symptoms Reported Endocrine: No Symptoms Reported Past Rjjhyky-[id number]-[id number] Hx Immunizations Up To Date First/Initial COVID19 Vaccinat: May 2020 Second COVID19 Vaccination Jovany: June 2020 Third COVID19 Vaccination Date: January 2021 Past Medical History Surgery/Hospitalization HX: T AND A, HTN Surgeries: Yes Cardiac, Defibrillator, Tonsillectomy Respiratory: No Cardiac: Yes (V-TACH S/P DEFIBRILLATOR AND LOOP RECORDER; EF 20%) Cardiomyopathy, Chronic Edema/Swelling, Coronary Artery Disease, High Cholesterol, Hypertension, Irregular Heartbeat Neurological: No Genitourinary: Yes (RENAL INSUFFICIENCY) Gastrointestinal: Yes Chronic Constipation Musculoskeletal: No Endocrine: No Cancer: No Psychosocial: No Integumentary: No Blood Disorders: No Family Medical History No Pertinent Family Hx CARDIAC CATH 08/04/[address] RITTER: CONCLUSION: 1. Heavily calcified left main and proximal LAD with mild to moderate disease nonobstructive disease otherwise tortuous coronary system with mild disease. 2. Diffuse ectasia in the right coronary artery with slow flow, small vessel disease nonobstructive disease 3. Normal left ventricular end-diastolic pressure DISCUSSION AND RECOMMENDATION: Patient has worsening of the left ventricular function, by echo his ejection fraction around 20%. His recurrent sustained ventricular tachycardia has been difficult to control. We will continue with aggressive beta-blockers and increase amiodarone dose to 400 twice daily. I am planning to proceed with ICD implant Anesthesia Type: Conscious Sedation -SINGLE CHAMBER ICD DEFIBRILLATOR, AND LOOP RECORDER PLACED 08/05/[address] RITTER Physical Exam Vital Signs Vital Signs - First Documented 05/22/22 06:23 Temp 36.4 Pulse 75 Resp 18 B/P (MAP) 132/82 (99) Capillary Refill : Height/Weight/BMI Height: '" Weight: lbs. oz. 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 Ack. Understanding Breath Sounds per Auscultation: Clear Heart Sounds per Auscultation: Irregular Airway Exam: Mouth opens >2 fingers, Neck Full Range of Motion, Visulation of Uvula Sedation Adminstration Time: 1538 Re-examination Time: 1630 Progress/Results/Core Measures Results/Orders Lab Results Laboratory Tests Test 05/22/22 06:20 05/22/22 06:35 05/22/22 06:44 Range/Units Influenza Type A (RT-PCR) Not Detected Not Detecte Influenza Type B (RT-PCR) Not Detected Not Detecte SARS-CoV-2 RNA (RT-PCR) Not Detected Not Detecte White Blood Count 7.4 4.3-11.0 10^3/uL Red Blood Count 4.87 4.30-5.52 10^6/uL Hemoglobin 15.3 13.3-17.7 g/dL Hematocrit 46 40-54 % Mean Corpuscular Volume 94 80-99 fL Mean Corpuscular Hemoglobin 31 25-34 pg Mean Corpuscular Hemoglobin Concent 34 32-36 g/dL Red Cell Distribution Width 15.1 H 10.0-14.5 % Platelet Count 209 130-400 10^3/uL Mean Platelet Volume 11.3 9.0-12.2 fL Immature Granulocyte % (Auto) 0 % Neutrophils (%) (Auto) 73 42-75 % Lymphocytes (%) (Auto) 11 L 12-44 % Monocytes (%) (Auto) 10 0-12 % Eosinophils (%) (Auto) 4 0-10 % Basophils (%) (Auto) 1 0-10 % Neutrophils # (Auto) 5.4 1.8-7.8 10^3/uL Lymphocytes # (Auto) 0.8 L 1.0-4.0 10^3/uL Monocytes # (Auto) 0.8 0.0-1.0 10^3/uL Eosinophils # (Auto) 0.3 0.0-0.3 10^3/uL Basophils # (Auto) 0.0 0.0-0.1 10^3/uL Immature Granulocyte # (Auto) 0.0 0.0-0.1 10^3/uL Erythrocyte Sedimentation Rate 21 0-30 MM/HR Prothrombin Time 14.4 12.2-14.7 SEC INR Comment 1.1 0.8-1.4 Activated Partial Thromboplast Time 30 24-35 SEC Sodium Level 141 135-145 MMOL/L Potassium Level 4.3 3.6-5.0 MMOL/L Chloride Level 98 98-107 MMOL/L Carbon Dioxide Level 29 21-32 MMOL/L Anion Gap 14 5-14 MMOL/L Blood Urea Nitrogen 46 H 7-18 MG/DL Creatinine 2.57 #H 0.60-1.30 MG/DL Estimat Glomerular Filtration Rate 24 BUN/Creatinine Ratio 18 Glucose Level 113 H 70-105 MG/DL Calcium Level 10.5 H 8.5-10.1 MG/DL Corrected Calcium 10.6 H 8.5-10.1 MG/DL Magnesium Level 2.6 H 1.6-2.4 MG/DL Total Bilirubin 1.0 0.1-1.0 MG/DL Aspartate Amino Transf (AST/SGOT) 21 5-34 U/L Alanine Aminotransferase (ALT/SGPT) 22 0-55 U/L Alkaline Phosphatase 66 40-136 U/L Total Creatine Kinase 81 30-200 U/L Creatine Kinase MB 1.0 <6.6 NG/ML Myoglobin 147.2 H 10.0-92.0 NG/ML Troponin I < 0.028 <0.028 NG/ML C-Reactive Protein High Sensitivity 2.74 H 0.00-0.50 MG/DL B-Type Natriuretic Peptide 1447.5 H <100.0 PG/ML Total Protein 8.0 6.4-8.2 GM/DL Albumin 3.9 3.2-4.5 GM/DL Amylase Level 72 25-125 U/L Lipase 39 8-78 U/L Urine Color YELLOW Urine Clarity CLEAR Urine pH 7.5 5-9 Urine Specific Jay Em 1.010 L 1.016-1.022 Urine Protein NEGATIVE NEGATIVE Urine Glucose (UA) NEGATIVE NEGATIVE Urine Ketones NEGATIVE NEGATIVE Urine Nitrite NEGATIVE NEGATIVE Urine Bilirubin NEGATIVE NEGATIVE Urine Urobilinogen 0.2 < = 1.0 MG/DL Urine Leukocyte Esterase NEGATIVE NEGATIVE Urine RBC (Auto) TRACE-I H NEGATIVE Urine RBC RARE /HPF Urine WBC NONE /HPF Urine Squamous Epithelial Cells NONE /HPF Urine Crystals NONE /LPF Urine Bacteria NEGATIVE /HPF Urine Casts NONE /LPF Urine Mucus NEGATIVE /LPF Urine Culture Indicated NO My Orders Orders - HARLEY MUJICA DO Ed Iv/Invasive Line Start (05/22/22 06:30) Ekg Tracing (05/22/22 06:30) Monitor-Rhythm Ecg Trace Only (05/22/22 06:30) Amylase (05/22/22 06:30) Bnp Karen (05/22/22 06:30) Cbc With Automated Diff (05/22/22 06:30) Comprehensive Metabolic Panel (05/22/22 06:30) Creatine Kinase (05/22/22 06:30) Creatine Kinase Mb (05/22/22 06:30) Hs C Reactive Protein (05/22/22 06:30) Lipase (05/22/22 06:30) Magnesium (05/22/22 06:30) Protime With Inr (05/22/22 06:30) Partial Thromboplastin Time (05/22/22 06:30) Ua Culture If Indicated (05/22/22 06:30) Erythrocyte Sedimentation Rate (05/22/22 06:30) Myoglobin Serum (05/22/22 06:30) Troponin I Payne (05/22/22 06:30) Covid 19 Inhouse Test (05/22/22 06:31) Influenza A And B By Pcr (05/22/22 06:31) Isolation Central Supply Req (05/22/22 06:31) Chest 1 View, Ap/Pa Only (05/22/22 06:50) Ekg Tracing (05/22/22 06:58) Ct Chest/Abdomen/Pelvis Wo (05/22/22 07:44) Vital Signs/I&O 05/22/22:23 Temp 36.4 Pulse 75 Resp 18 B/P (MAP) 132/82 (99) Diagnostic Imaging Comments CXR--PER RADIOLOGIST REPORT AT 0736 Findings: Heart is enlarged, increased from prior. There is increased vascular congestion. There is some left greater than right mixed interstitial and airspace opacities, given the additional findings suspect for edema. No effusion. No pneumothorax. Impression: Likely pulmonary edema, greater left with cardiomegaly and vascular congestion. No appreciable pleural fluid. CT CHEST/ABDOMEN/PELVIS--PER RADIOLOGIST REPORT AT 0850 FINDINGS: There are peripheral reticular opacities and nodular opacities. No apical basilar gradient. No honeycombing. No consolidation. No pleural effusion. No pneumothorax. No suspicious nodules. There is no axillary or supraclavicular lymphadenopathy. There is no mediastinal lymphadenopathy. A pacemaker is present. The heart is enlarged. There are severe coronary artery calcifications. No pericardial effusion. Aorta is normal in caliber. The liver is normal without focal lesion. There is no biliary ductal dilation. There are small stones and sludge in the gallbladder. No evidence of cholecystitis. Pancreas is normal. Spleen is normal. Adrenal glands are normal. Simple cysts are present in the kidneys. There is a small hemorrhagic cyst in the right kidney. No suspicious renal lesion. There is no hydronephrosis. Urinary bladder is normal. Bowel is normal in caliber without obstruction or inflammation. No free fluid or air. No abdominal or pelvic lymphadenopathy. Aorta is normal in caliber without aneurysm. There are no suspicious osseus lesions. IMPRESSION: 1. 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 2. No acute abnormality in the abdomen or pelvis. Reviewed: Reviewed by Me Departure Impression Primary Impression: Acute on chronic HFrEF (heart failure with reduced ejection fraction) Additional Impression: WORSENING OF CHRONIC RENAL INSUFFICIENCY Departure-Patient Inst. Referrals: NO,LOCAL PHYSICIAN (PCP/Family) Primary Care Physician HARLEY MUJICA DO May 22, 2022 06:25
[2022-05-22 06:58] LABS: BASOPHILS % (AUTO) 1 % (0-10); EOSINOPHILS # (AUTO) 0.3 10^3/uL (0.0-0.3); EOSINOPHILS % (AUTO) 4 % (0-10); HEMATOCRIT 46 % (40-54); HEMOGLOBIN 15.3 g/dL (13.3-17.7); LYMPHOCYTES # (AUTO) 0.8 10^3/uL (1.0-4.0); LYMPHOCYTES % (AUTO) 11 % (12-44); MEAN CORPUSCULAR HEMOGLOBIN 31 pg (25-34); MEAN CORPUSCULAR HGB CONC 34 g/dL (32-36); MEAN CORPUSCULAR VOLUME 94 fL (80-99); MEAN PLATELET VOLUME 11.3 fL (9.0-12.2); MONOCYTES # (AUTO) 0.8 10^3/uL (0.0-1.0); MONOCYTES % (AUTO) 10 % (0-12); NEUTROPHILS # (AUTO) 5.4 10^3/uL (1.8-7.8); NEUTROPHILS % (AUTO) 73 % (42-75); PLATELET COUNT 209 10^3/uL (130-400); WHITE BLOOD COUNT 7.4 10^3/uL (4.3-11.0)
[2022-05-22 06:59] LABS: ALBUMIN 3.9 GM/DL (3.2-4.5); CHLORIDE 98 MMOL/L (98-107); POTASSIUM 4.3 MMOL/L (3.6-5.0); SODIUM 141 MMOL/L (135-145)
[2022-05-22 06:59] LABS: BILIRUBIN,URINE NEGATIVE (NEGATIVE); CLARITY,URINE CLEAR; COLOR,URINE YELLOW; GLUCOSE, URINE (UA) NEGATIVE (NEGATIVE); KETONES,URINE NEGATIVE (NEGATIVE); LEUKOCYTE ESTERASE ,URINE NEGATIVE (NEGATIVE); NITRITE,URINE NEGATIVE (NEGATIVE); PH,URINE 7.5 (5-9); PROTEIN,URINE NEGATIVE (NEGATIVE)
[2022-05-22 07:00] LABS: CALCIUM 10.5 MG/DL (8.5-10.1)
[2022-05-22 07:01] LABS: AMYLASE 72 U/L (25-125); GLUCOSE 113 MG/DL (70-105)
[2022-05-22 07:03] LABS: CARBON DIOXIDE 29 MMOL/L (21-32); INR 1.1 (0.8-1.4); PROTHROMBIN TIME PATIENT 14.4 SEC (12.2-14.7)
[2022-05-22 07:05] LABS: ALKALINE PHOSPHATASE 66 U/L (40-136); CREATININE SERUM 2.57 MG/DL (0.60-1.30); GFR ESTIMATED 24
[2022-05-22 07:06] LABS: BUN/CREATININE RATIO 18
[2022-05-22 07:08] LABS: ALANINE AMINOTRANSFERASE 22 U/L (0-55); MAGNESIUM 2.6 MG/DL (1.6-2.4)
[2022-05-22 07:09] LABS: CREATINE KINASE 81 U/L (30-200); LIPASE 39 U/L (8-78)
[2022-05-22 07:26] LABS: BACTERIA,URINE NEGATIVE /HPF; RBC,URINE RARE /HPF
--- NOTE | 2022-05-22 07:27 | Diagnostic Imaging Report ---
Indication: Respiratory distress. Study compared to 05/18/2022. Findings: Heart is enlarged, increased from prior. There is increased vascular congestion. There is some left greater than right mixed interstitial and airspace opacities, given the additional findings suspect for edema. No effusion. No pneumothorax. Impression: Likely pulmonary edema, greater left with cardiomegaly and vascular congestion. No appreciable pleural fluid. Dictated by: Dictated on workstation # [id number]
[2022-05-22 07:47] LABS: ERYTHROCYTE SEDIMENTATION RATE 21 MM/HR (0-30)
--- NOTE | 2022-05-22 08:33 | Diagnostic Imaging Report ---
EXAMINATION: CT chest, abdomen and pelvis without intravenous contrast. TECHNIQUE: Multiple contiguous axial images were obtained through the chest, abdomen and pelvis without intravenous contrast. All CT scans use one or more of the following dose optimizing techniques: automated exposure control, MA and/or KvP adjustment based on patient size and exam type or iterative reconstruction. HISTORY: Chest and abdominal pain COMPARISON: None available. FINDINGS: There are peripheral reticular opacities and nodular opacities. No apical basilar gradient. No honeycombing. No consolidation. No pleural effusion. No pneumothorax. No suspicious nodules. There is no axillary or supraclavicular lymphadenopathy. There is no mediastinal lymphadenopathy. A pacemaker is present. The heart is enlarged. There are severe coronary artery calcifications. No pericardial effusion. Aorta is normal in caliber. The liver is normal without focal lesion. There is no biliary ductal dilation. There are small stones and sludge in the gallbladder. No evidence of cholecystitis. Pancreas is normal. Spleen is normal. Adrenal glands are normal. Simple cysts are present in the kidneys. There is a small hemorrhagic cyst in the right kidney. No suspicious renal lesion. There is no hydronephrosis. Urinary bladder is normal. Bowel is normal in caliber without obstruction or inflammation. No free fluid or air. No abdominal or pelvic lymphadenopathy. Aorta is normal in caliber without aneurysm. There are no suspicious osseus lesions. IMPRESSION: 1. 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 2. No acute abnormality in the abdomen or pelvis. Dictated by: Dictated on workstation # [id number]
[2022-05-22] MEDS ORDERED: FUROSEMIDE 40 MG/4 ML INJ (LASIX) IVP ONE (09:00)
[2022-05-22] MEDS ORDERED: ENOXAPARIN 80 MG/0.8 ML (LOVENOX) SYR SC ONE (09:00)
[2022-05-22 11:00] VITALS: BP 139/86
[2022-05-22] MEDS ORDERED: polyethylene glycoL POWDER 17 GM (MIRALAX) PACK PO PRN (12:00)
[2022-05-22] MEDS ORDERED: CALCIUM CARBONATE 500 MG (TUMS) TAB.CHEW PO PRN (12:00)
[2022-05-22] MEDS ORDERED: MELATONIN 3 MG TABLET PO PRN (12:00)
[2022-05-22] MEDS ORDERED: ONDANSETRON 4 MG (ZOFRAN) ORAL DISSOLVE TAB PO PRN (12:00)
[2022-05-22] MEDS ORDERED: LACTULOSE SYRUP 10GM/15ML (ENULOSE) 30ML UDC PO PRN (12:00)
[2022-05-22] MEDS ORDERED: MILK OF MAGNESIA 400 MG/5 ML 30 ML UDC PO PRN (12:00)
[2022-05-22] MEDS ORDERED: ACETAMINOPHEN 325 MG TABLET PO PRN (12:00)
[2022-05-22] MEDS ORDERED: ANTACID SUSP 30 ML UDC (MYLANTA) PO PRN (12:00)
[2022-05-22] MEDS ORDERED: NS IV 500 ML 500 ML IV PRN (12:00)
[2022-05-22] MEDS ORDERED: BISACODYL 10 MG SUPP (DULCOLAX) PR PRN (12:00)
[2022-05-22] MEDS ORDERED: ENOXAPARIN 40 MG/0.4 ML (LOVENOX) SYR SC SCH (12:00)
[2022-05-22] MEDS ORDERED: ONDANSETRON 4 MG/2 ML (SDV) Z0FRAN IV PRN (12:00)
[2022-05-22] MEDS ORDERED: DOCUSATE SODIUM 100 MG (COLACE) CAP PO SCH (12:15)
--- NOTE | 2022-05-22 12:33 | Consultation-Cardiology ---
HPI-Cardiology Cardiology Consultation Date of Consultation 05/22/22 Date of Admission Time Seen by Provider: 12:27 Indication: Congestive heart failure HPI 82 years old gentleman with history of congestive heart failure, multiple admissions recently for worsening heart failure. Was discharged recently from the hospital and has been doing well until 3 days ago when he started to have increasing dyspnea, pedal edema. Denied any chest pain. No palpitation. No syncope. Home Medications & Allergies Allergies: Coded Allergies: Sulfa (Sulfonamide Antibiotics) (Verified Allergy, Unknown, 05/05/22) codeine (Verified Allergy, Unknown, 05/05/22) atorvastatin (Verified Allergy, DIZZINESS, 05/16/22) morphine (Verified Allergy, UNKNOWN, 05/16/22) propoxyphene (Verified Allergy, UNKNOWN, 05/16/22) empagliflozin (Verified Adverse Reaction, Unknown, "gential infection", 05/17/22) Home Medication List Reviewed: Yes [id number]-[id number] Hx Patient Social History Marital Status: Employed/Student: retired Smoking Status: Never a Smoker Have you traveled recently?: Yes Alcohol Use?: No Immunizations Up To Date Date of Influenza Vaccine: Jan 17, 2022 Past Medical History Discussed below Family Medical History Significant Family History: No Pertinent Family Hx Review of Systems-General Review of Systems Constitutional: no symptoms reported; No chills, No diaphoresis, No fever; malaise EENTM: see HPI, no symptoms reported Respiratory: see HPI; No cough; dyspnea on exertion; No hemoptysis; orthopnea; No phlegm; short of breath; No stridor, No wheezing, No other Cardiovascular: see HPI; No chest pain; edema; No Hx of Intervention, No palpitations, No syncope, No vascular heart diseas, No other Gastrointestinal: no symptoms reported, see HPI Genitourinary: no symptoms reported, see HPI Musculoskeletal: no symptoms reported Skin: no symptoms reported Psychiatric/Neurological: No Symptoms Reported Reviewed Test Results Reviewed Test Results Lab Laboratory Tests Test 05/22/22 06:20 05/22/22 06:35 05/22/22 06:44 05/22/22 11:53 Range/Units Influenza Type A (RT-PCR) Not Detected Not Detecte Influenza Type B (RT-PCR) Not Detected Not Detecte SARS-CoV-2 RNA (RT-PCR) Not Detected Not Detecte White Blood Count 7.4 4.3-11.0 10^3/uL Red Blood Count 4.87 4.30-5.52 10^6/uL Hemoglobin 15.3 13.3-17.7 g/dL Hematocrit 46 40-54 % Mean Corpuscular Volume 94 80-99 fL Mean Corpuscular Hemoglobin 31 25-34 pg Mean Corpuscular Hemoglobin Concent 34 32-36 g/dL Red Cell Distribution Width 15.1 H 10.0-14.5 % Platelet Count 209 130-400 10^3/uL Mean Platelet Volume 11.3 9.0-12.2 fL Immature Granulocyte % (Auto) 0 % Neutrophils (%) (Auto) 73 42-75 % Lymphocytes (%) (Auto) 11 L 12-44 % Monocytes (%) (Auto) 10 0-12 % Eosinophils (%) (Auto) 4 0-10 % Basophils (%) (Auto) 1 0-10 % Neutrophils # (Auto) 5.4 1.8-7.8 10^3/uL Lymphocytes # (Auto) 0.8 L 1.0-4.0 10^3/uL Monocytes # (Auto) 0.8 0.0-1.0 10^3/uL Eosinophils # (Auto) 0.3 0.0-0.3 10^3/uL Basophils # (Auto) 0.0 0.0-0.1 10^3/uL Immature Granulocyte # (Auto) 0.0 0.0-0.1 10^3/uL Erythrocyte Sedimentation Rate 21 0-30 MM/HR Prothrombin Time 14.4 12.2-14.7 SEC INR Comment 1.1 0.8-1.4 Activated Partial Thromboplast Time 30 24-35 SEC Sodium Level 141 135-145 MMOL/L Potassium Level 4.3 3.6-5.0 MMOL/L Chloride Level 98 98-107 MMOL/L Carbon Dioxide Level 29 21-32 MMOL/L Anion Gap 14 5-14 MMOL/L Blood Urea Nitrogen 46 H 7-18 MG/DL Creatinine 2.57 #H 0.60-1.30 MG/DL Estimat Glomerular Filtration Rate 24 BUN/Creatinine Ratio 18 Glucose Level 113 H 70-105 MG/DL Calcium Level 10.5 H 8.5-10.1 MG/DL Corrected Calcium 10.6 H 8.5-10.1 MG/DL Magnesium Level 2.6 H 1.6-2.4 MG/DL Total Bilirubin 1.0 0.1-1.0 MG/DL Aspartate Amino Transf (AST/SGOT) 21 5-34 U/L Alanine Aminotransferase (ALT/SGPT) 22 0-55 U/L Alkaline Phosphatase 66 40-136 U/L Total Creatine Kinase 81 30-200 U/L Creatine Kinase MB 1.0 <6.6 NG/ML Myoglobin 147.2 H 10.0-92.0 NG/ML Troponin I < 0.028 < 0.028 <0.028 NG/ML C-Reactive Protein High Sensitivity 2.74 H 0.00-0.50 MG/DL B-Type Natriuretic Peptide 1447.5 H <100.0 PG/ML Total Protein 8.0 6.4-8.2 GM/DL Albumin 3.9 3.2-4.5 GM/DL Amylase Level 72 25-125 U/L Lipase 39 8-78 U/L Urine Color YELLOW Urine Clarity CLEAR Urine pH 7.5 5-9 Urine Specific [place] 1.010 L 1.016-1.022 Urine Protein NEGATIVE NEGATIVE Urine Glucose (UA) NEGATIVE NEGATIVE Urine Ketones NEGATIVE NEGATIVE Urine Nitrite NEGATIVE NEGATIVE Urine Bilirubin NEGATIVE NEGATIVE Urine Urobilinogen 0.2 < = 1.0 MG/DL Urine Leukocyte Esterase NEGATIVE NEGATIVE Urine RBC (Auto) TRACE-I H NEGATIVE Urine RBC RARE /HPF Urine WBC NONE /HPF Urine Squamous Epithelial Cells NONE /HPF Urine Crystals NONE /LPF Urine Bacteria NEGATIVE /HPF Urine Casts NONE /LPF Urine Mucus NEGATIVE /LPF Urine Culture Indicated NO Physical Exam Physical Exam Vital Signs Vital Signs - First Documented 05/22/22 05/22/22 06:23 11:00 Temp 36.4 Pulse 75 Resp 18 B/P (MAP) 132/82 (99) O2 Delivery Room Air Capillary Refill : Less Than 3 Seconds Height, Weight, BMI Height: '" Weight: lbs. oz. kg; 26.48 BMI Method: General Appearance: No Apparent Distress, WD/WN Eyes: Bilateral Eye Normal Inspection, Bilateral Eye PERRL, Bilateral Eye EOMI HEENT: PERRL/EOMI, TMs Normal, Normal ENT Inspection, Pharynx Normal, Moist Mucous Membranes Neck: Full Range of Motion, Normal Inspection, Non Tender, Supple, Carotid Bruit, JVD Respiratory: Chest Non Tender, Normal Breath Sounds, No Accessory Muscle Use, No Respiratory Distress Cardiovascular: Regular Rate, Rhythm, Normal Peripheral Pulses, Systolic Murmur, Gallop/S3 Gastrointestinal: Normal Bowel Sounds, No Organomegaly, No Pulsatile Mass, Non Tender, Soft Back: Normal Inspection, No CVA Tenderness, No Vertebral Tenderness Extremity: Normal Capillary Refill, Normal Inspection, Normal Range of Motion, Non Tender, No Calf Tenderness, Pedal Edema Neurologic/Psychiatric: Alert, Oriented x3, No Motor/Sensory Deficits, Normal Mood/Affect Skin: Normal Color, Warm/Dry Lymphatic: No Adenopathy A/P-Cardiology Admission Diagnosis Congestive heart failure, acute on chronic left ventricular systolic dysfunction, nonischemic cardiomyopathy Mild to moderate aortic valve stenosis Hypertension Hyperlipidemia Assessment/Plan Congestive heart failure, acute on chronic left ventricular systolic dysfunction, nonischemic cardiomyopathy Admitted and started on aggressive diuresis, I added Bumex and will evaluate his response. Type II myocardial infarction, mild elevation in troponin earlier in May 2022, On this admission his troponin level continue to be normal Coronary artery disease,. Had mild to moderate coronary artery disease by cardiac catheterization in July 2021. Mild to moderate aortic valve stenosis noted by echo done in May 2022. 2D echo done in May 2022 with moderate LVH, ejection fraction 30 to 35%, biatrial dilatation, mild mitral regurgitation, mild to moderate aortic stenosis, pulmonary hypertension with PA pressure 50 mmHg History of sustained ventricular tachycardia, had ICD implanted in July 2021. Has been doing well. Hypertension, restarting home medication and monitor blood pressure Hyperlipidemia, monitor lipids Acute on chronic renal insufficiency, chronic kidney disease stage III. Monitor renal function while on diuretics History of noncompliant with medication, reporting compliance at this time. Mild bilateral carotid stenosis, last ultrasound showed mild disease done in February 2022. Continue to monitor TRISTNO RITTER MD May 22, 2022 12:33
[2022-05-22] MEDS: MEXILETINE 200 MG CAPSULE PO SCH ×2 (13:10→20:23)
--- NOTE | 2022-05-22 13:58 | Physical Therapy Evaluation ---
PT Evaluation-General Medical Diagnosis Admission Date May 22, 2022 at 10:41 Medical Diagnosis: CHF/renal insufficiency Onset Date: May 22, 2022 Therapy Diagnosis Therapy Diagnosis: debility Precautions Precautions/Isolations: Fall Prevention, Standard Precautions Referral Physician: Nii Reason for Referral: Evaluation/Treatment Medical History Pertinent Medical History: Heart Failure, HTN, Renal Insufficiency Additional Medical History pacemaker Current History ER secondary to SOA and abdominal pressure Reviewed History: Yes Social History Home: Single Level Current Living Status: Spouse Prior Prior Level of Function SCALE: Activities may be completed with or without assistive devices. 1-Jnqgynddgi-yufszws completes the activity by him/herself with no assistance from a helper. 5-Set-up or Clean-up Assistance-helper sets up or cleans up; patient completes activity. [place] assists only prior to or following the activity. 4-Supervision or Touching Assistance-helper provides verbal cues and/or touching/steadying and/or contact guard assistance as patient completes activity. Assistance may be provided throughout the activity or intermittently. 3-Partial/Moderate Assistance-helper does LESS THAN HALF the effort. [place] li fts, holds or supports trunk or limbs, but provides less than half the effort. 2-Substantial/Maximal Assistance-helper does MORE THAN HALF the effort. [place] lifts or holds trunk or limbs and provides more than half the effort. 5-Xgatvrktk-ccidae does ALL the effort. Patient does none of the effort to complete the activity. Or, the assistance of 2 or more helpers is required for the patient to complete the activity. If activity was not attempted, code reason: 7-Patient Refused. 9-Not Applicable-not attempted and the patient did not perform the activity before the current illness, exacerbation or injury. 10-Not Attempted due to Environmental Limitations-(lack of equipment, weather restraints, etc.). 88-Not Attempted due to Medical Conditions or Safety Concerns. Bed Mobility: 6 Transfers (B,C,W/C): 6 Gait: 6 Stairs: 6 Indoor Mobility (Ambulation): Independent Stairs: Independent Prior Devices Use: Other-see list below Prior Device Use: cane PT Evaluation-Current Subjective Patient reports he is feeling much better and agrees to PT. Objective Patient Orientation: Normal For Age Attachments: Oxygen ROM/Strength ROM Lower Extremities bilateral LE WFL Strength Lower Extremities 4/5 grossly bilateral LE all planes Integumentary/Posture Bowel Incontinence: No Bladder Incontinence: No Posture WFL Neuromuscular (Tone, Coordination, Reflexes) grossly intact Sensory Vision: Functional Hearing: Functional Transfers Lying to Sitting/Side of Bed(Q: 6 Sit to Stand (QC): 4 Chair/Wlh-ud-Chqlq Xfer(QC): 4 Gait Mode of Locomotion: Walk Anticipated Mode of Locomotion: Walk Walk 10 feet (QC): 4 Walk 50 ft with 2 Turns(QC): 4 Walk 150 ft (QC): 4 Distance: 250' Gait Assistive Device: FWW Comments/Gait Description safe and functional with no deviation Balance Sitting Static: Normal Sitting Dynamic: Normal Standing Static: Normal Standing Dynamic: Normal Picking up an Object (QC): 6 Assessment/Needs Patient will be seen short term by skilled PT to address functional mobility to ensure safe return to home at maximum LOF. Rehab Potential: Fair PT Residential Goals Lead Caster Goals PT Lead Caster Goals Time Frame: May 26, 2022 Roll Left & Right (QC): 6 Sit to Lying (QC): 6 Lying-Sitting on Side/Bed(QC): 6 Sit to Stand (QC): 6 Chair/Mye-rb-Thlpt Xfer(QC): 6 Toilet Transfer (QC): 6 Walk 10 feet (QC): 6 Walk 50ft with 2 Turns (QC): 6 Walk 150 ft (QC): 6 PT Plan Treatment/Plan Treatment Plan: Continue Plan of Care Treatment Plan: Education, Functional Activity Geoff, Functional Strength, Gait, Safety, Therapeutic Exercise Treatment Duration: May 26, 2022 Frequency: 5 times per week Estimated Hrs Per Day: .25 hour per day Patient and/or Family Agrees t: Yes Time Time In: 1310 Time Out: 1335 DATE: May 22, 2022 Total Billed Treatment Time: 25 Total Billed Treatment 1 visit EVModC 12 min FA 13 min KARLA MERINO PT May 22, 2022 13:58
[2022-05-22] MEDS ORDERED: POLY238P32 PO (14:42)
[2022-05-22] MEDS ORDERED: PANT40TA52 PO (14:42)
[2022-05-22] MEDS ORDERED: LOSA50TA63 PO (14:42)
[2022-05-22] MEDS ORDERED: POTA-51 PO (14:42)
[2022-05-22] MEDS ORDERED: FURO40TA4 PO (14:42)
[2022-05-22 16:00] VITALS: BP 107/65
--- NOTE | 2022-05-22 18:28 | History & Physical-Hospitalist ---
History of Present Illness HPI/Chief Complaint Sancho Romero is an 82 year old male with PMH HTN, HLD, CAD, NICM, HFrEF, AICD, ventricular tachycardia, aortic stenosis, pulmonary HTN, CKD 3b, who presented with shortness of breath. He was recently in the hospital with a heart failure exacerbation. He says he was feeling well until one day ago. He started feeling more short of breath. He denies fevers. He denies cough. He denies chest pain. He denies abdominal pain. He reports compliance with his medications. He has been urinating well with his Lasix. Source: patient, family Exam Limitations: no limitations Date Seen 05/22/22 Time Seen by a Provider: 12:00 Attending Physician No,Local Physician PCP Admitting Physician: Da Woodward MD Attending Physician: Da Woodward MD Referring Physician Date of Admission May 22, 2022 at 10:41 Home Medications & Allergies Home Medications Reviewed patient Home Medication Reconciliation performed by pharmacy medication reconciliations prosthetic technician and/or nursing. Patients Allergies have been reviewed. Allergies Allergies Coded Allergies Sulfa (Sulfonamide Antibiotics) (Verified Allergy, Unknown, 05/05/22) codeine (Verified Allergy, Unknown, 05/05/22) atorvastatin (Verified AllergyDIZZINESS, 05/16/22) morphine (Verified AllergyUNKNOWN, 05/16/22) propoxyphene (Verified AllergyUNKNOWN, 05/16/22) empagliflozin (Verified Adverse Reaction, Unknown, "gential infection", 05/17/22) Past Ieofmci-Nqjxqr-Tiiszu Hx Patient Social History Marrital Status: Employed/Student: retired Tobacco Use?: No Smoking Status: Never a Smoker Smokeless Tobacco Frequency: Never a User Use of E-Cig and/or Vaping dev: No Substance use?: No Alcohol Use?: No Pt feels they are or have been: No Immunizations Up To Date Date of Influenza Vaccine: Jan 17, 2022 First/Initial COVID19 Vaccinat: May 2020 Second COVID19 Vaccination Jovany: June 2020 Current Status Advance Directives: Yes Communicates: Verbally Primary Language: Swedish Preferred Spoken Language: Swedish Is interpretation needed?: No Implanted or Applied Medical D: Pacemaker Past Medical History Surgeries: Cardiac, Defibrillator, Tonsillectomy Cardiomyopathy, Chronic Edema/Swelling, Coronary Artery Disease, High Cho lesterol, Hypertension, Irregular Heartbeat Chronic Constipation Blood Disorders: No Family Medical History No Pertinent Family Hx CARDIAC CATH 08/04/[address] RITTER: CONCLUSION: 1. Heavily calcified left main and proximal LAD with mild to moderate disease nonobstructive disease otherwise tortuous coronary system with mild disease. 2. Diffuse ectasia in the right coronary artery with slow flow, small vessel disease nonobstructive disease 3. Normal left ventricular end-diastolic pressure DISCUSSION AND RECOMMENDATION: Patient has worsening of the left ventricular function, by echo his ejection fraction around 20%. His recurrent sustained ventricular tachycardia has been difficult to control. We will continue with aggressive beta-blockers and increase amiodarone dose to 400 twice daily. I am planning to proceed with ICD implant Anesthesia Type: Conscious Sedation -SINGLE CHAMBER ICD DEFIBRILLATOR, AND LOOP RECORDER PLACED 08/05/[address] RITTER Review of Systems Constitutional: no symptoms reported EENTM: no symptoms reported Respiratory: dyspnea on exertion, short of breath Cardiovascular: no symptoms reported Gastrointestinal: no symptoms reported Physical Exam Physical Exam Vital Signs Vital Signs - First Documented 05/22/22 05/22/22 05/22/22 06:23 10:30 16:00 Temp 36.4 Pulse 75 Resp 18 B/P (MAP) 132/82 (99) Pulse Ox 99 O2 Delivery Room Air O2 Flow Rate 2.00 Capillary Refill : Less Than 3 Seconds Height, Weight, BMI Height: '" Weight: lbs. oz. kg; 26.48 BMI Method: General Appearance: No Apparent Distress, WD/WN HEENT: PERRL/EOMI, Pharynx Normal Neck: Normal Inspection, Supple Respiratory: No Respiratory Distress, Decreased Breath Sounds Cardiovascular: Regular Rate, Rhythm, No Murmur Gastrointestinal: Normal Bowel Sounds, Soft Extremity: Normal Inspection; No Inflammation; Pedal Edema Neurologic/Psychiatric: Alert, Oriented x3, Normal Mood/Affect Skin: Normal Color, Warm/Dry Results Results/Procedures Labs Laboratory Tests 05/22/22 06:35 05/23/22 04:11 Patient resulted labs reviewed. Imaging: Reviewed Imaging Films, Reviewed Imaging Report Assessment/Plan Admission Diagnosis Acute on chronic HFrEF Admission Status: Inpatient Order (span 2 midnights) Reason for Inpatient Admission: Heart failure Assessment and Plan Acute on chronic HFrEF NICM CAD pHTN HTN HLD Aortic stenosis Ventricular tachycardia DARLIN on CKD 3b CXR with pulmonary edema Cardiology consulted Started on IV Lasix Continue home meds as able Diagnosis/Problems Diagnosis/Problems (1) Acute on chronic HFrEF (heart failure with reduced ejection fraction) Status: Acute (2) Acute kidney injury superimposed on chronic kidney disease Status: Acute (3) HTN (hypertension) Status: Chronic (4) Ventricular tachycardia Status: Chronic DA WOODWARD MD May 22, 2022 18:28
[2022-05-22] MEDS: ENOXAPARIN INJECTION 30 MG/0.3 ML SYR SC SCH (19:29)
[2022-05-22] MEDS: SENNOSIDES 8.6 MG (SENOKOT) TAB PO SCH (20:23)
[2022-05-22] MEDS: DOCUSATE SODIUM 100 MG (COLACE) CAP PO SCH (20:23)
[2022-05-22 20:34] VITALS: BP 86/70
[2022-05-23] VITALS: BP 95/61
[2022-05-23 04:00] VITALS: BP 103/63
[2022-05-23 04:36] LABS: BASOPHILS # (AUTO) 0.1 10^3/uL (0.0-0.1); BASOPHILS % (AUTO) 1 % (0-10); EOSINOPHILS # (AUTO) 0.4 10^3/uL (0.0-0.3); EOSINOPHILS % (AUTO) 7 % (0-10); HEMATOCRIT 43 % (40-54); HEMOGLOBIN 14.4 g/dL (13.3-17.7); LYMPHOCYTES # (AUTO) 1.1 10^3/uL (1.0-4.0); LYMPHOCYTES % (AUTO) 20 % (12-44); MEAN CORPUSCULAR HEMOGLOBIN 31 pg (25-34); MEAN CORPUSCULAR HGB CONC 34 g/dL (32-36); MEAN CORPUSCULAR VOLUME 93 fL (80-99); MEAN PLATELET VOLUME 11.3 fL (9.0-12.2); MONOCYTES # (AUTO) 0.9 10^3/uL (0.0-1.0); MONOCYTES % (AUTO) 16 % (0-12); NEUTROPHILS # (AUTO) 3.1 10^3/uL (1.8-7.8); NEUTROPHILS % (AUTO) 56 % (42-75); PLATELET COUNT 203 10^3/uL (130-400); WHITE BLOOD COUNT 5.6 10^3/uL (4.3-11.0)
[2022-05-23 04:51] LABS: POTASSIUM 3.9 MMOL/L (3.6-5.0)
[2022-05-23 04:52] LABS: CALCIUM 9.6 MG/DL (8.5-10.1)
[2022-05-23 04:57] LABS: CREATININE SERUM 2.39 MG/DL (0.60-1.30)
[2022-05-23 04:59] LABS: MAGNESIUM 2.2 MG/DL (1.6-2.4)
[2022-05-23] MEDS ORDERED: MAGNESIUM 1 GM/100 ML IVPB 100 ML IV SCH (06:00)
[2022-05-23] MEDS ORDERED: KCL 20 MEQ TAB (K-DUR) PO SCH (06:00)
[2022-05-23] MEDS ORDERED: POTASSIUM BICARB 20 MEQ (EFFER-K) TABLET PO SCH (06:00)
[2022-05-23] MEDS ORDERED: POTASSIUM CL 10MEQ/50ML IVPB 50 ML IV SCH (06:00)
--- NOTE | 2022-05-23 07:04 | Consultation - Surgery ---
ANEL QUIÑONEZ 05/23/22 0704: History of Present Illness History of Present Illness Patient Consulted On(oriana/time) 05/23/22 06:58 Date Seen by Provider: May 23, 2022 Time Seen by Provider: 06:30 History of Present Illness Sancho Romero is a 82yo male presenting with 5/10 lower abdominal pressure localized below umbilicus that transforms into slight RUQ tenderness; pt states that it started 4 days ago and felt like he needed to belch, but couldn't. Pt had associated loss of appetite due to fullness feeling. Pt denies aggravating factors but endorses medication alleviating his pressure when he was admitted, but didn't remember what medication was given. Upon admission pt received CT abdomen w/o contrast showing presence of small stones and sludge in gallbladder w/o biliary ductal dilation and acute cholecystitis leading to Surgery consultation. Currently patient seems to be w/o discomfort and in good spirit; states he had ate well last night which is an improvement from previous days. Pt denies fever, chills, chest pain, palpitations, and N/V/D. Pt has a history of CHF, which has been associated with chronic lower extremity edema. Allergies and Home Medications Allergies Coded Allergies: Sulfa (Sulfonamide Antibiotics) (Verified Allergy, Unknown, 05/05/22) codeine (Verified Allergy, Unknown, 05/05/22) atorvastatin (Verified Allergy, DIZZINESS, 05/16/22) morphine (Verified Allergy, UNKNOWN, 05/16/22) propoxyphene (Verified Allergy, UNKNOWN, 05/16/22) empagliflozin (Verified Adverse Reaction, Unknown, "gential infection", 05/17/22) Patient Home Medication List Amiodarone HCl (Amiodarone HCl) 200 Mg Tablet, 200 MG PO DAILY, (Reported) Entered as Reported by: RAYMOND WARREN on 05/16/22 1145 Last Action: Reviewed Aspirin (Aspirin EC) 81 Mg Tablet.dr, 81 MG PO HS, (Reported) Entered as Reported by: RAYMOND WARREN on 08/04/21 1046 Last Action: Reviewed Carvedilol (Carvedilol) 25 Mg Tablet, 25 MG PO BID, (Reported) Entered as Reported by: RAYMOND WARREN on 05/16/22 1115 Last Action: Reviewed Cetirizine HCl (Cetirizine HCl) 10 Mg Tablet, 10 MG PO HS, (Reported) Entered as Reported by: SARWAT GARCIA on 08/03/212118 Last Action: Reviewed Furosemide (Furosemide) 40 Mg Tablet, 40 MG PO DAILY, (Reported) Entered as Reported by: RAYMOND WARREN on 05/22/221441 Last Action: Reviewed Losartan Potassium (Losartan Potassium) 50 Mg Tablet, 25 MG PO DAILY, (Reported) Entered as Reported by: RAYMOND WARREN on 05/22/221441 Last Action: Reviewed Mexiletine HCl (Mexiletine HCl) 150 Mg Cap, 150 MG PO BID, (Reported) Entered as Reported by: RAYMOND WARREN on 05/16/22 111 Last Action: Reviewed Oxymetazoline HCl (Afrin) 0.05 % [place], 1-2 SPRAY NS UD PRN for CONGESTION, (Reported) Entered as Reported by: RAYMOND WARREN on 08/04/211048 Last Action: Reviewed Pantoprazole Sodium (Pantoprazole Sodium) 40 Mg Tablet.dr, 40 MG PO DAILY, (Reported) Entered as Reported by: RAYMOND WARREN on 05/22/221441 Last Action: Reviewed Polyethylene Glycol 3350 ([id number]) 17 Gram/Dose Powder, 17 GM PO BID PRN for CONSTIPATION-2ND LINE, (Reported) Entered as Reported by: RAYMOND WARREN on 05/22/221441 Last Action: Reviewed Potassium Chloride (Potassium Chloride) 20 Meq Tablet.er, 20 MEQ PO DAILY, (Reported) Entered as Reported by: RAYMOND WARREN on 05/22/221441 Last Action: Reviewed [Balance Of Nature] , 2 EA PO TIDWM, (Reported) Entered as Reported by: RAYMOND WARREN on 08/04/211045 Last Action: Reviewed Discontinued Medications Amiodarone HCl (Amiodarone HCl) 200 Mg Tablet, 200 MG PO BID Discontinued Reason: Duplicate Order Prescribed by: TRISTON RITTER on 08/07/21 0898 Carvedilol (Carvedilol) 12.5 Mg Tablet, 12.5 MG PO BID WITH MEALS, (Reported) Discontinued Reason: Duplicate Order Entered as Reported by: SARWAT GARCIA on 08/03/212118 Furosemide (Lasix) 20 Mg Tablet, 20 MG PO PRN Discontinued Reason: No Longer Taking Prescribed by: TRISTON RITTER on 08/07/21 0836 Furosemide (Furosemide) 20 Mg Tablet, 20 MG PO DAILY, (Reported) Entered as Reported by: RAYMOND WARREN on 05/16/22 111 Furosemide (Furosemide) 40 Mg Tablet, 40 MG PO DAILY Discontinued Reason: Duplicate Order Prescribed by: GARRY CONTI on 05/17/22 1143 Last Action: Discontinued Losartan Potassium (Losartan Potassium) 25 Mg Tablet, 25 MG PO DAILY Discontinued Reason: Duplicate Order Prescribed by: TRISTON RITTER on 08/07/21 0836 Losartan Potassium (Losartan Potassium) 25 Mg Tablet, 25 MG PO DAILY, (Reported) Discontinued Reason: No Longer Taking Entered as Reported by: RAYMOND WARREN on 05/16/22 111 Last Action: Discontinued Mexiletine HCl (Mexiletine HCl) 150 Mg Cap, 150 MG PO BID Discontinued Reason: Duplicate Order Prescribed by: TRISTON RITTER on 08/07/21 0836 Pantoprazole Sodium (Protonix) 40 Mg Tablet.dr, 40 MG PO DAILY Discontinued Reason: Duplicate Order Prescribed by: GUIDO LORA on 05/18/22 0929 Last Action: Discontinued Potassium Chloride (Potassium Chloride) 20 Meq Tablet.er, 20 MEQ PO DAILY Discontinued Reason: Duplicate Order Prescribed by: SUSY LUIS on 05/17/22 1325 Last Action: Discontinued Potassium Gluconate (Potassium) 595 Mg (99 Mg) Tablet, 99 MG PO DAILY, (Report ed) Entered as Reported by: RAYMOND WARREN on 05/16/22 111 Past Akgxyyq-Pglbwo-Oqsyvx Hx Patient Social History Smoking Status: Never a Smoker Alcohol Use?: No Have you traveled recently?: Yes Immunizations Up To Date Date of Influenza Vaccine: Jan 17, 2022 Surgeries History of Surgeries: Yes Surgeries: Cardiac, Defibrillator, Tonsillectomy Respiratory History of Respiratory Disorde: No Cardiovascular History of Cardiac Disorders: Yes (V-TACH S/P DEFIBRILLATOR AND LOOP RECORDER; EF 20%) Cardiac Disorders: Cardiomyopathy, Chronic Edema/Swelling, Coronary Artery Disease, High Cholesterol, Hypertension, Irregular Heartbeat Neurological History of Neurological Disord: No Genitourinary History of Genitourinary Disor: Yes (RENAL INSUFFICIENCY) Gastrointestinal History of Gastrointestinal Di: Yes Gastrointestinal Disorders: Chronic Constipation Musculoskeletal History of Musculoskeletal Dis: No Endocrine History of Endocrine Disorders: No Cancer History of Cancer: No Psychosocial History of Psychiatric Problem: No Integumentary History of Skin or Integumenta: No Blood Transfusions History of Blood Disorders: No Family Medical History Significant Family History: No Pertinent Family Hx, Diabetes (Father ), Hypertension (Mother ), Other Conditions/Hx (Cerebral Hemorrhage - Mother ) Review of Systems-General Constitutional: No chills, No fever Respiratory: No cough, No short of breath Cardiovascular: No chest pain, No palpitations Gastrointestinal: abdominal pain (RUQ); No diarrhea; loss of appetite; No nausea, No vomiting; other (Lower Abdominal Pressure migrating to RUQ) Psychiatric/Neurological: Denies Headache, Denies Numbness, Denies Paresthesia Physical Exam-General Problems Physical Exam Vital Signs Vital Signs - First Documented 05/22/22 05/22/22 05/22/22 06:23 10:30 16:00 Temp 36.4 Pulse 75 Resp 18 B/P (MAP) 132/82 (99) Pulse Ox 99 O2 Delivery Room Air O2 Flow Rate 2.00 Capillary Refill : Less Than 3 Seconds General Appearance: no apparent distress HEENT: PERRL/EOMI, pharynx normal Neck: non-tender, full range of motion, supple Respiratory: chest non-tender, lungs clear, normal breath sounds, no respiratory distress, no accessory muscle use Cardiovascular: regular rate, rhythm Peripheral Pulses: 2+ Radial Pulses (R), 2+ Radial Pulses (L) Gastrointestinal: normal bowel sounds, non tender, soft; No distended, No guarding, No rebound Extremities: non-tender, normal inspection, no pedal edema, no calf tenderness Neurologic/Psychiatric: alert, normal mood/affect, oriented x 3 Skin: normal color, warm/dry Lymphatic: no adenopathy Data Review Labs Laboratory Tests 05/22/22 11:53: Troponin I < 0.028 05/23/22 04:11: White Blood Count 5.6, Red Blood Count 4.59, Hemoglobin 14.4, Hematocrit 43, Mean Corpuscular Volume 93, Mean Corpuscular Hemoglobin 31, Mean Corpuscular Hemoglobin Concent 34, Red Cell Distribution Width 14.9H, Platelet Count 203, Mean Platelet Volume 11.3, Immature Granulocyte % (Auto) 1, Neutrophils (%) (Auto) 56, Lymphocytes (%) (Auto) 20, Monocytes (%) (Auto) 16H, Eosinophils (%) (Auto) 7, Basophils (%) (Auto) 1, Neutrophils # (Auto) 3.1, Lymphocytes # (Auto) 1.1, Monocytes # (Auto) 0.9, Eosinophils # (Auto) 0.4H, Basophils # (Auto) 0.1, Immature Granulocyte # (Auto) 0.0, Sodium Level 139, Potassium Level 3.9, Chloride Level 98, Carbon Dioxide Level 27, Anion Gap 14, Blood Urea Nitrogen 44H, Creatinine 2.39H, Estimat Glomerular Filtration Rate 26, BUN/Creatinine Ratio 18, Glucose Level 102, Calcium Level 9.6, Magnesium Level 2.2, B-Type Natriuretic Peptide 1054.1H Radiology Date of Exam:05/22/22 CHEST 1 VIEW, AP/PA ONLY Indication: Respiratory distress. Study compared to 05/18/2022. Findings: Heart is enlarged, increased from prior. There is increased vascular congestion. There is some left greater than right mixed interstitial and airspace opacities, given the additional findings suspect for edema. No effusion. No pneumothorax. Impression: Likely pulmonary edema, greater left with cardiomegaly and vascular congestion. No appreciable pleural fluid. Date of Exam:05/22/22 CT CHEST/ABDOMEN/PELVIS WO EXAMINATION: CT chest, abdomen and pelvis without intravenous contrast. TECHNIQUE: Multiple contiguous axial images were obtained through the chest, abdomen and pelvis without intravenous contrast. All CT scans use one or more of the following dose optimizing techniques: automated exposure control, MA and/or KvP adjustment based on patient size and exam type or iterative reconstruction. HISTORY: Chest and abdominal pain COMPARISON: None available. FINDINGS: There are peripheral reticular opacities and nodular opacities. No apical basilar gradient. No honeycombing. No consolidation. No pleural effusion. No pneumothorax. No suspicious nodules. There is no axillary or supraclavicular lymphadenopathy. There is no mediastinal lymphadenopathy. A pacemaker is present. The heart is enlarged. There are severe coronary artery calcifications. No pericardial effusion. Aorta is normal in caliber. The liver is normal without focal lesion. There is no biliary ductal dilation. There are small stones and sludge in the gallbladder. No evidence of cholecystitis. Pancreas is normal. Spleen is normal. Adrenal glands are normal. Simple cysts are present in the kidneys. There is a small hemorrhagic cyst in the right kidney. No suspicious renal lesion. There is no hydronephrosis. Urinary bladder is normal. Bowel is normal in caliber without obstruction or inflammation. No free fluid or air. No abdominal or pelvic lymphadenopathy. Aorta is normal in caliber without aneurysm. There are no suspicious osseus lesions. IMPRESSION: 1. 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 2. No acute abnormality in the abdomen or pelvis Assessment/Plan Assessment/Plan Assessment/Plan Acute on Chronic Renal Insufficiency Acute on Chronic CHF Cholelithiasis RUQ Tenderness and Abdominal Pressure Absent RUQ tenderness and Abdominal Pressure Lack of signs indicating Acute Cholecystitis and Acute Cholagitis No surgical indications at this time; f/u outpatient w/ Kayleigh if new RUQ pain appears RD FENG DO 05/23/22 180: History of Present Illness History of Present Illness History of Present Illness Consult requested by Dr. Bales for cholelithiasis. Patient is an 82 year old male with lower abdominal pain and shortness of breath. Had recent constipation issues and was given enema and improved. Has been taking Miralax now and helping. Patient with the pressure in lower abdomen yesterday that felt like if he would belch would make it better. Nothing seems to make it worse. Rated the pain at a 5/10. Currently not having any pain. His breathing has improved as well he states. He had a ct scan of the chest abdomen and pelvis: 1. 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 2. No acute abnormality in the abdomen or pelvis. Also noted to have small gallstones and sludge with out evidence of cholecystitis. Allergies and Home Medications Allergies Coded Allergies: Sulfa (Sulfonamide Antibiotics) (Verified Allergy, Unknown, 05/05/22) codeine (Verified Allergy, Unknown, 05/05/22) atorvastatin (Verified Allergy, DIZZINESS, 05/16/22) morphine (Verified Allergy, UNKNOWN, 05/16/22) propoxyphene (Verified Allergy, UNKNOWN, 05/16/22) empagliflozin (Verified Adverse Reaction, Unknown, "gential infection", 05/17/22) Patient Home Medication List Home Medication List Reviewed: Yes Amiodarone HCl (Amiodarone HCl) 200 Mg Tablet, 200 MG PO DAILY, (Reported) Entered as Reported by: RAYMOND WARREN on 05/16/22 114 Last Action: Reviewed Aspirin (Aspirin EC) 81 Mg Tablet.dr, 81 MG PO HS, (Reported) Entered as Reported by: RAYMOND WARREN on 08/04/211045 Last Action: Reviewed Carvedilol (Carvedilol) 25 Mg Tablet, 25 MG PO BID, (Reported) Entered as Reported by: RAYMOND WARREN on 05/16/221114 Last Action: Reviewed Cetirizine HCl (Cetirizine HCl) 10 Mg Tablet, 10 MG PO HS, (Reported) Entered as Reported by: SARWAT GARCIA on 08/03/212118 Last Action: Reviewed Furosemide (Furosemide) 40 Mg Tablet, 40 MG PO DAILY, (Reported) Entered as Reported by: RAYMOND WARREN on 05/22/221441 Last Action: Reviewed Losartan Potassium (Losartan Potassium) 50 Mg Tablet, 25 MG PO DAILY, (Reported) Entered as Reported by: RAYMOND WARREN on 05/22/221441 Last Action: Reviewed Mexiletine HCl (Mexiletine HCl) 150 Mg Cap, 150 MG PO BID, (Reported) Entered as Reported by: RAYMOND WARREN on 05/16/221114 Last Action: Reviewed Oxymetazoline HCl (Afrin) 0.05 % [place], 1-2 SPRAY NS UD PRN for CONGESTION, (Reported) Entered as Reported by: RAYMOND WARREN on 08/04/211048 Last Action: Reviewed Pantoprazole Sodium (Pantoprazole Sodium) 40 Mg Tablet.dr, 40 MG PO DAILY, (Reported) Entered as Reported by: RAYMOND WARREN on 05/22/221441 Last Action: Reviewed Polyethylene Glycol 3350 ([id number]) 17 Gram/Dose Powder, 17 GM PO BID PRN for CONSTIPATION-2ND LINE, (Reported) Entered as Reported by: RAYMOND WARREN on 05/22/221441 Last Action: Reviewed Potassium Chloride (Potassium Chloride) 20 Meq Tablet.er, 20 MEQ PO DAILY, (Reported) Entered as Reported by: RAYMOND WARREN on 05/22/221441 Last Action: Reviewed [Balance Of Nature] , 2 EA PO TIDWM, (Reported) Entered as Reported by: RAYMOND WARREN on 08/04/211045 Last Action: Reviewed Discontinued Medications Amiodarone HCl (Amiodarone HCl) 200 Mg Tablet, 200 MG PO BID Discontinued Reason: Duplicate Order Prescribed by: TRISTON RITTER on 08/07/21 0836 Carvedilol (Carvedilol) 12.5 Mg Tablet, 12.5 MG PO BID WITH MEALS, (Reported) Discontinued Reason: Duplicate Order Entered as Reported by: SARWAT GARCIA on 08/03/212118 Furosemide (Lasix) 20 Mg Tablet, 20 MG PO PRN Discontinued Reason: No Longer Taking Prescribed by: TRISTON RITTER on 08/07/21 0836 Furosemide (Furosemide) 20 Mg Tablet, 20 MG PO DAILY, (Reported) Entered as Reported by: RAYMOND WARREN on 05/16/22 111 Furosemide (Furosemide) 40 Mg Tablet, 40 MG PO DAILY Discontinued Reason: Duplicate Order Prescribed by: GARRY CONTI on 05/17/22 1143 Last Action: Discontinued Losartan Potassium (Losartan Potassium) 25 Mg Tablet, 25 MG PO DAILY Discontinued Reason: Duplicate Order Prescribed by: TRISTON RITTER on 08/07/21 0836 Losartan Potassium (Losartan Potassium) 25 Mg Tablet, 25 MG PO DAILY, (Reported) Discontinued Reason: No Longer Taking Entered as Reported by: RAYMOND WARREN on 05/16/22 111 Last Action: Discontinued Mexiletine HCl (Mexiletine HCl) 150 Mg Cap, 150 MG PO BID Discontinued Reason: Duplicate Order Prescribed by: TRISTON RITTER on 08/07/21 0836 Pantoprazole Sodium (Protonix) 40 Mg Tablet.dr, 40 MG PO DAILY Discontinued Reason: Duplicate Order Prescribed by: GUIDO LORA on 05/18/22 0929 Last Action: Discontinued Potassium Chloride (Potassium Chloride) 20 Meq Tablet.er, 20 MEQ PO DAILY Discontinued Reason: Duplicate Order Prescribed by: SUSY LUIS on 05/17/22 1325 Last Action: Discontinued Potassium Gluconate (Potassium) 595 Mg (99 Mg) Tablet, 99 MG PO DAILY, (Reported) Entered as Reported by: RAYMOND WARREN on 05/16/22 111 Past Kxszpnd-Fhnhpq-Hadguq Hx Reviewed Nursing Assessment Reviewed/Agree w Nursing PMH: Yes Family Medical History Significant Family History: Diabetes (Father ), Hypertension (Mother ), Other Conditions/Hx (Cerebral Hemorrhage - Mother ) Review of Systems-General Constitutional: No chills, No fever EENTM: No blurred vision, No double vision Respiratory: No cough; short of breath Cardiovascular: No chest pain, No palpitations Gastrointestinal: abdominal pain; No diarrhea; loss of appetite, nausea; No vomiting; other (Lower Abdominal Pressure ) Musculoskeletal: No back pain, No joint pain Skin: No change in color, No change in hair/nails Psychiatric/Neurological: Denies Anxiety, Denies Depressed, Denies Emotional Problems All Other Systems Reviewed Negative Unless Noted: Yes (Negative excepted noted.) Physical Exam-General Problems Physical Exam General Appearance: WD/WN, no apparent distress HEENT: PERRL/EOMI, normal ENT inspection Neck: non-tender, supple Respiratory: chest non-tender, no respiratory distress, no accessory muscle use Cardiovascular: regular rate, rhythm, no JVD Gastrointestinal: non tender, soft; No distended, No guarding, No rebound Rectal: deferred Back: no CVA tenderness, no vertebral tenderness Extremities: non-tender, normal inspection, no pedal edema, no calf tenderness Neurologic/Psychiatric: alert, normal mood/affect, oriented x 3 Skin: normal color, warm/dry Lymphatic: no adenopathy Assessment/Plan Assessment/Plan Assessment/Plan Acute on Chronic Renal Insufficiency Acute on Chronic CHF Cholelithiasis Lower abdominal pain Patient with ct showing cholelithiasis without evidence of cholecystitis I feel this is incidental finding on CT. He is without pain at time of my examination. No surgical indications at this time; f/u outpatient w/ Kayleigh if new RUQ pain appears Will sign off, call if needed. Supervisory-Addendum Brief Verification & Attestation Participated in pt care: history, MDM, physical Personally performed: exam, history, MDM, supervision of care Care discussed with: Medical Student Procedures: n/a Results interpretation: Verified all documentation Verification and Attestation of Medical Student E/M Service A medical student performed and documented this service in my presence. I revie wed and verified all information documented by the medical student and made modifications to such information, when appropriate. I personally performed the physical exam and medical decision making. Rd Feng, May 23, 2022,18:04 ANEL QUIÑONEZ May 23, 2022 07:04 RD FENG DO May 23, 2022 18:01
--- NOTE | 2022-05-23 07:45 | Diagnostic Imaging Report ---
INDICATION: CHF. Frontal chest obtained at 05:11 a.m. compared to 05/22/2022. FINDINGS: There is cardiomegaly with unchanged pacemaker device. There is central vascular congestion with stable interstitial infiltrate versus edema. There is no pneumothorax or pleural fluid. IMPRESSION: Cardiomegaly. Central vascular congestion with stable interstitial infiltrate versus edema. No pneumothorax or pleural fluid. Dictated by: Dictated on workstation # [id number]
[2022-05-23 08:00] VITALS: BP 112/84
[2022-05-23] MEDS ORDERED: EMPAGLIFLOZIN 10 MG TABLET (JARDIANCE) PO SCH (09:00)
[2022-05-23] MEDS: DOCUSATE SODIUM 100 MG (COLACE) CAP PO SCH ×2 (09:27→20:47)
[2022-05-23] MEDS: ASPIRIN E.C. 81 MG (ECOTRIN) TAB PO SCH (09:27)
[2022-05-23] MEDS: AMIODARONE 200 MG (CORDARONE) TAB PO SCH (09:27)
[2022-05-23] MEDS: SENNOSIDES 8.6 MG (SENOKOT) TAB PO SCH ×2 (09:27→20:47)
[2022-05-23] MEDS: BUMETANIDE 1 MG/4 ML (BUMEX) VIAL IV SCH (09:27)
[2022-05-23] MEDS: MEXILETINE 200 MG CAPSULE PO SCH (09:58)
--- NOTE | 2022-05-23 10:07 | Physical Therapy Daily Note ---
PT Daily Note-Current Subjective Pt laying Supine in bed w/HOB raised. Pt agrees to PT. Pain Location: No Pain Reported Section J - Health Conditions 1. Rarely or not at all 2. Occasionally 3. Frequently 4. Almost constantly 8. Unable to answer Pain Effect on Sleep: 1 Pain Interference with Therapy: 1 Pain Interference w/Day-to-Day: 1 Mental Status Patient Orientation: Person, Place, Time, Situation Attachments: Other-See Comments (Telemetry) Transfers SCALE: Activities may be completed with or without assistive devices. 6-Jyrzbvmtpr-abhywfd completes the activity by him/herself with no assistance from a helper. 5-Set-up or Clean-up Assistance-helper sets up or cleans up; patient completes activity. Hedrick assists only prior to or following the activity. 4-Supervision or Touching Assistance-helper provides verbal cues and/or touching/steadying and/or contact guard assistance as patient completes activity. Assistance may be provided throughout the activity or intermittently. 3-Partial/Moderate Assistance-helper does LESS THAN HALF the effort. Hedrick lifts, holds or supports trunk or limbs, but provides less than half the effort. 2-Substantial/Maximal Assistance-helper does MORE THAN HALF the effort. Hedrick lifts or holds trunk or limbs and provides more than half the effort. 0-Tqbppaoap-hkerun does ALL the effort. Patient does none of the effort to complete the activity. Or, the assistance of 2 or more helpers is required for the patient to complete the activity. If activity was not attempted, code reason: 7-Patient Refused. 9-Not Applicable-not attempted and the patient did not perform the activity before the current illness, exacerbation or injury. 10-Not Attempted due to Environmental Limitations-(lack of equipment, weather restraints, etc.). 88-Not Attempted due to Medical Conditions or Safety Concerns. Lying to Sitting/Side of Bed(Q: 5 Sit to Stand (QC): 5 Weight Bearing Full Weight Bearing Full Weight Bearing Gait Training Does the Patient Walk?: Yes Distance: 250' Walk 10 feet (QC): 5 Walk 50 ft with 2 Turns(QC): 5 Walk 150 ft (QC): 5 Gait Assistive Device: FWW Wheelchair Training Does the Pt Use a Wheelchair?: No Treatments Pt and Sp ask questions regarding CHF regiment. RELATIONS MGR advised that PT suggests exercise & movement then elevation, positional changes & compression/JUAN hoses. Medical would would regiment for any medications, etc. TF to EOB then stands and amb in hallway before returning to rest at EOB and eat breakfast. Assessment Current Status: Good Progress Pt is TF and amb. well. PT Review Trainer Goals Review Trainer Goals PT Review Trainer Goals Time Frame: May 26, 2022 Roll Left & Right (QC): 6 Sit to Lying (QC): 6 Lying-Sitting on Side/Bed(QC): 6 Sit to Stand (QC): 6 Chair/Glp-bj-Alpja Xfer(QC): 6 Toilet Transfer (QC): 6 Walk 10 feet (QC): 6 Walk 50ft with 2 Turns (QC): 6 Walk 150 ft (QC): 6 PT Plan Treatment/Plan Treatment Plan: Continue Plan of Care Treatment Plan: Education, Functional Activity Geoff, Functional Strength, Gait, Safety, Therapeutic Exercise Treatment Duration: May 26, 2022 Frequency: 5 times per week Estimated Hrs Per Day: .25 hour per day Patient and/or Family Agrees t: Yes Time Time In: 825 Time Out: 855 DATE: May 23, 2022 Total Billed Treatment Time: 30 Total Billed Treatment 1, FA (15m) & GT (15m) RG ANDREA RELATIONS MGR May 23, 2022 10:07
--- NOTE | 2022-05-23 10:55 | Cardiology Progress Note ---
Subjective Date Seen by Provider: May 23, 2022 Time Seen by Provider: 08:55 Subjective/Events-last exam Patient is sitting up at bed side, eating breakfast. Denies any chest pain, reports dyspnea has improved. Objective-Cardiology Exam Last Set of Vital Signs Vital Signs 05/23/22 05/23/22 09:00 15:20 Temp 37.6 Pulse 80 Resp 20 B/P (MAP) 125/82 (96) Pulse Ox 93 O2 Delivery Room Air O2 Flow Rate 2.00 I&O l Intake and Output 05/23/22 00:00 Intake Total 1030 ml Output Total 1900 ml Balance -870 ml Intake Oral 1030 ml Output Urine Total 1900 ml Daily Weight Change No General: Alert, Oriented X3 HEENT: Atraumatic, PERRLA Lungs: Clear to Auscultation, Normal Air Movement Heart: Regular Rate Abdomen: Normal Bowel Sounds, Soft Extremities: Other (+1 edema BLE) Skin: No Rashes Results Lab Laboratory Tests 05/23/22 04:11 A/P-Cardiology Admission Diagnosis Congestive heart failure, acute on chronic left ventricular systolic dysfunction , nonischemic cardiomyopathy Mild to moderate aortic valve stenosis Hypertension Hyperlipidemia Assessment/Plan Congestive heart failure, acute on chronic left ventricular systolic dysfunction, nonischemic cardiomyopathy Admitted and started on aggressive diuresis, started on IV Bumex. Patient reporting improvement of his symptoms Type II myocardial infarction, mild elevation in troponin earlier in May 2022, On this admission his troponin level continue to be normal Coronary artery disease,. Had mild to moderate coronary artery disease by cardiac catheterization in July 2021. Mild to moderate aortic valve stenosis noted by echo done in May 2022. 2D echo done in May 2022 with moderate LVH, ejection fraction 30 to 35%, biatrial dilatation, mild mitral regurgitation, mild to moderate aortic stenosis, pulmonary hypertension with PA pressure 50 mmHg History of sustained ventricular tachycardia, had ICD implanted in July 2021. Has been doing well. Hypertension, restarting home medication and monitor blood pressure Hyperlipidemia, monitor lipids Acute on chronic renal insufficiency, chronic kidney disease stage III. Monitor renal function while on diuretics History of noncompliant with medication, reporting compliance at this time. Mild bilateral carotid stenosis, last ultrasound showed mild disease done in February 2022. Continue to monitor Patient was seen and evaluated with Leandra, examination performed, management plan was discussed, agree with the current scribed note, I made few changes to the note using Italic font Patient was seen at bedside, laying down comfortably, still complaining of constipation but overall feeling better Reporting improvement in his symptoms Continue with diuretics, continue to monitor tolerance and response. LEANDRA CARLSON May 23, 2022 10:55 TRISTON RITTER MD May 23, 2022 16:34
--- NOTE | 2022-05-23 11:16 | Progress Note - Hospitalist ---
Subjective HPI/CC On Admission Date Seen by Provider: May 23, 2022 Time Seen by Provider: 09:50 Sancho Romero is an 82 year old male with PMH HTN, HLD, CAD, NICM, HFrEF, AICD, ventricular tachycardia, aortic stenosis, pulmonary HTN, CKD 3b, who presented with shortness of breath. He was recently in the hospital with a heart failure exacerbation. He says he was feeling well until one day ago. He started feeling more short of breath. He denies fevers. He denies cough. He denies chest pain. He denies abdominal pain. He reports compliance with his medications. He has been urinating well with his Lasix. Subjective/Events-last exam He is feeling better. He is not short of breath. He walked in the ha with joby sheldon. Objective Exam Vital Signs Vital Signs Date Time Temp Pulse Resp B/P (MAP) Pulse Ox O2 Delivery O2 Flow Rate FiO2 05/23/22 08:00 37.4 81 17 112/84 (93) Room Air 05/23/22 04:00 96 2.00 Capillary Refill : Less Than 3 Seconds General Appearance: No Apparent Distress, WD/WN Respiratory: No Respiratory Distress, Decreased Breath Sounds Cardiovascular: Regular Rate, Rhythm, No Murmur Gastrointestinal: Normal Bowel Sounds, Non Tender, Soft Extremity: Non Tender; No Inflammation; Pedal Edema Neurologic/Psychiatric: Alert, Oriented x3, Normal Mood/Affect Skin: Normal Color, Warm/Dry Results/Procedures Lab Laboratory Tests 05/23/22 04:11 Patient resulted labs reviewed. Imaging: Reviewed Imaging Films, Reviewed Imaging Report Assessment/Plan Assessment and Plan Assess & Plan/Chief Complaint Acute on chronic HFrEF NICM CAD pHTN HTN HLD Aortic stenosis Ventricular tachycardia DARLIN on CKD 3b CXR stable pulmonary edema Cardiology following Transitioned to Bumex Continue home meds as able Diagnosis/Problems Diagnosis/Problems (1) Acute on chronic HFrEF (heart failure with reduced ejection fraction) Status: Acute (2) Acute kidney injury superimposed on chronic kidney disease Status: Acute (3) HTN (hypertension) Status: Chronic (4) Ventricular tachycardia Status: Chronic DA WOODWARD MD May 23, 2022 11:16
[2022-05-23 11:58] VITALS: BP 106/68
[2022-05-23] MEDS: BISACODYL 10 MG SUPP (DULCOLAX) PR NR ×2 (13:07→16:12)
[2022-05-23] MEDS: ENOXAPARIN INJECTION 30 MG/0.3 ML SYR SC SCH (13:10)
[2022-05-23 15:20] VITALS: BP 125/82
[2022-05-23 19:30] VITALS: BP 100/63
[2022-05-23] MEDS: MEXILETINE 150 MG CAPSULE PO SCH (20:47)
[2022-05-24 00:05] VITALS: BP 85/52
[2022-05-24 04:15] VITALS: BP 94/55
[2022-05-24 05:11] LABS: POTASSIUM 4.2 MMOL/L (3.6-5.0)
[2022-05-24 05:12] LABS: CALCIUM 9.7 MG/DL (8.5-10.1)
[2022-05-24 05:16] LABS: CREATININE SERUM 2.57 MG/DL (0.60-1.30)
[2022-05-24 05:18] LABS: MAGNESIUM 2.5 MG/DL (1.6-2.4)
[2022-05-24 07:36] VITALS: BP_SYST 112; BP_SYST 94; BP_DIAS 55; BP_DIAS 72
--- NOTE | 2022-05-24 08:17 | Cardiology Progress Note ---
Subjective Date Seen by Provider: May 24, 2022 Time Seen by Provider: 08:16 Subjective/Events-last exam Patient was seen at bedside, feeling better. Had 3 bowel movements Review of Systems General: No Chills, No Night Sweats, No Fatigue, No Malaise, No Appetite, No Other HEENT: No Head Aches, No Visual Changes, No Eye Pain, No Ear Pain, No Dysphasia, No Sinus Congestion, No Post Nasal Drip, No Sore Throat, No Other Pulmonary: No Dyspnea, No Cough, No Pleuritic Chest Pain, No Other Cardiovascular: No: Chest Pain, Palpitations, Orthopnea, Paroxysmal Noc. Dyspnea, Edema, Lt Headedness, Other Objective-Cardiology Exam Last Set of Vital Signs Vital Signs I&O Intake and Output 05/24/22 00:00 Intake Total 1415 ml Output Total 1110 ml Balance 305 ml Intake Oral 1415 ml Output Urine Total 1110 ml # Voids 3 # Bowel Movements 1 General: Alert, Oriented X3 HEENT: Atraumatic, PERRLA Lungs: Clear to Auscultation, Normal Air Movement Heart: Regular Rate, Normal S1, Normal S2 Abdomen: Normal Bowel Sounds, Soft Extremities: Other (+1 edema BLE) Skin: No Rashes Neuro: Normal Speech, Strength at 5/5 X4 Ext, Sensation Intact Psych/Mental Status: Mental Status NL, Mood NL Results Lab Laboratory Tests 05/24/22 04:35 A/P-Cardiology Admission Diagnosis Congestive heart failure, acute on chronic left ventricular systolic dysfunction, nonischemic cardiomyopathy Mild to moderate aortic valve stenosis Hypertension Hyperlipidemia Assessment/Plan Congestive heart failure, acute on chronic left ventricular systolic dysfunction, nonischemic cardiomyopathy Admitted and started on aggressive diuresis, started on IV Bumex. Better today. Continue with diuretics. Type II myocardial infarction, mild elevation in troponin earlier in May 2022, On this admission his troponin level continue to be normal Coronary artery disease,. Had mild to moderate coronary artery disease by cardiac catheterization in July 2021. Constipation, started on Colace, responded to Dulcolax suppository. Feeling better. Mild to moderate aortic valve stenosis noted by echo done in May 2022. 2D echo done in May 2022 with moderate LVH, ejection fraction 30 to 35%, biatrial dilatation, mild mitral regurgitation, mild to moderate aortic stenosis, pulmonary hypertension with PA pressure 50 mmHg History of sustained ventricular tachycardia, had ICD implanted in July 2021. Has been doing well. Hypertension, restarting home medication and monitor blood pressure Hyperlipidemia, monitor lipids Acute on chronic renal insufficiency, chronic kidney disease stage III. Monitor renal function while on diuretics History of noncompliant with medication, reporting compliance at this time. Mild bilateral carotid stenosis, last ultrasound showed mild disease done in February 2022. Continue to monitor Okay for discharge and follow-up as an outpatient TRISTON RITTER MD May 24, 2022 08:17
[2022-05-24] MEDS: MEXILETINE 150 MG CAPSULE PO SCH (08:28)
[2022-05-24] MEDS: ASPIRIN E.C. 81 MG (ECOTRIN) TAB PO SCH (08:28)
[2022-05-24] MEDS: AMIODARONE 200 MG (CORDARONE) TAB PO SCH (08:28)
[2022-05-24] MEDS: SENNOSIDES 8.6 MG (SENOKOT) TAB PO SCH (08:28)
[2022-05-24] MEDS: BUMETANIDE 1 MG/4 ML (BUMEX) VIAL IV SCH (08:28)
[2022-05-24] MEDS: DOCUSATE SODIUM 100 MG (COLACE) CAP PO SCH (08:28)
[2022-05-24] MEDS ORDERED: BUME1TAB8 PO (10:08)
--- NOTE | 2022-05-24 11:13 | Discharge Summary ---
Discharge Summary Hospital Course Was the Problem List Reviewed?: Yes Problems/Dx: (1) Acute on chronic HFrEF (heart failure with reduced ejection fraction) Status: Acute (2) Acute kidney injury superimposed on chronic kidney disease Status: Acute (3) HTN (hypertension) Status: Chronic (4) Ventricular tachycardia Status: Chronic Hospital Course Date of Admission: May 22, 2022 at 10:41 Admission Diagnosis : Acute on chronic HFrEF Family Physician/Provider: Kandice,Local Physician Date of Discharge: 05/24/22 Discharge Diagnosis: Acute on chronic HFrEF Hospital Course: Sancho Romero is an 82 year old male who was admitted with acute on chronic HFrEF. Cardiology was consulted and assisted with his care. He was found to have pulmonary edema on chest imaging. He was diuresed and responded well. He was transitioned from Lasix to Bumex. His course was complicated by DARLIN on CKD. He appears to have baseline CKD 4. He will follow up with Dr. Chisholm in about a week and a half. He will contact his PCP to reschedule a missed appointment due to his hospitalization. He was discharged home in stable condition. Labs and Pending Lab Test: Laboratory Tests 05/24/22 04:35: Sodium Level 138, Potassium Level 4.2, Chloride Level 96L, Carbon Dioxide Level 28, Anion Gap 14, Blood Urea Nitrogen 41H, Creatinine 2.57H, Estimat Glomerular Filtration Rate 24, BUN/Creatinine Ratio 16, Glucose Level 115H, Calcium Level 9.7, Magnesium Level 2.5H Home Meds Active Bumetanide 1 Mg Tablet 1 Mg PO DAILY 30 Days Reported Losartan Potassium 50 Mg Tablet 25 Mg PO DAILY TAKES OF A 50MG TAB Potassium Chloride 20 Meq Tablet.er 20 Meq PO DAILY Pantoprazole Sodium 40 Mg Tablet.dr 40 Mg PO DAILY [id number] (Polyethylene Glycol 3350) 17 Gram/Dose Powder 17 Gm PO BID PRN Amiodarone HCl 200 Mg Tablet 200 Mg PO DAILY Carvedilol 25 Mg Tablet 25 Mg PO BID Mexiletine HCl 150 Mg Cap 150 Mg PO BID Afrin (Oxymetazoline HCl) 0.05 % [place] 1-2 [place] NS UD PRN [Balance Of Nature] 2 Ea PO TIDWM Aspirin EC (Aspirin) 81 Mg Tablet.dr 81 Mg PO HS Cetirizine HCl 10 Mg Tablet 10 Mg PO HS Assessment/Pt Instructions See instructions Discharge Planning: <30 minutes discharge planning Discharge Instructions Discharge Diet: Low Sodium Diet Activity as Tolerated: Yes Consultations Cardiology Discharge Physical Examination Vital Signs Vital Signs Date Time Temp Pulse Resp B/P (MAP) Pulse Ox O2 Delivery O2 Flow Rate FiO2 05/24/22 08:00 94 Room Air 05/24/22 07:36 37.1 76 16 94/55 (68) 2.00 2.00 General Appearance: No Apparent Distress, WD/WN Respiratory: Lungs Clear, No Respiratory Distress Cardiovascular: Regular Rate, Rhythm, Systolic Murmur Gastrointestinal: Normal Bowel Sounds, Soft Extremity: Non Tender, Pedal Edema Skin: Normal Color, Warm/Dry Neurologic/Psychiatric: Alert, No Motor/Sensory Deficits Allergies: Coded Allergies: Sulfa (Sulfonamide Antibiotics) (Verified Allergy, Unknown, 05/05/22) codeine (Verified Allergy, Unknown, 05/05/22) atorvastatin (Verified Allergy, DIZZINESS, 05/16/22) morphine (Verified Allergy, UNKNOWN, 05/16/22) propoxyphene (Verified Allergy, UNKNOWN, 05/16/22) empagliflozin (Verified Adverse Reaction, Unknown, "gential infection", 05/17/22) Discharge Summary Date of Admission May 22, 2022 at 10:41 Date of Discharge Discharge Date: May 24, 2022 Discharge Time: 11:10 Admission Diagnosis Acute on chronic HFrEF Consults/Procedures Consulations Cardiology Discharge Diagnosis Acute on chronic HFrEF NICM CAD pHTN HTN HLD Aortic stenosis Ventricular tachycardia DARLIN on CKD 4 (1) Acute on chronic HFrEF (heart failure with reduced ejection fraction) Status: Acute (2) Acute kidney injury superimposed on chronic kidney disease Status: Acute (3) HTN (hypertension) Status: Chronic (4) Ventricular tachycardia Status: Chronic DA WOODWARD MD May 24, 2022 11:13
[2022-05-24 12:08] VITALS: BP 112/72
[2022-05-25] MEDS ORDERED: BUMETANIDE 1 MG (BUMEX) TAB PO SCH (09:00)
== END 2022-05-24 11:00 | disposition home or self-care (01) | DRG 291 ==
LOC: EDUNIT# 05:46 → ER 05:47 → CSD 10:41
PROVIDERS: ADMIT Internal Medicine; ATTEND Internal Medicine
DX: I13.0 Hypertensive heart and chronic kidney disease with heart failure and stage 1 through stage 4 chronic kidney disease, or unspecified chronic kidney disease (principal); I50.23 Acute on chronic systolic (congestive) heart failure; I47.20 Ventricular tachycardia, unspecified; N18.4 Chronic kidney disease, stage 4 (severe); N17.9 Acute kidney failure, unspecified; I42.8 Other cardiomyopathies; I27.20 Pulmonary hypertension, unspecified; I35.0 Nonrheumatic aortic (valve) stenosis; I25.10 Atherosclerotic heart disease of native coronary artery without angina pectoris; Z95.810 Presence of automatic (implantable) cardiac defibrillator; E78.00 Pure hypercholesterolemia, unspecified; Z79.82 Long term (current) use of aspirin; Z79.899 Other long term (current) drug therapy; K80.20 Calculus of gallbladder without cholecystitis without obstruction; K59.00 Constipation, unspecified; Z91.14 Patient's other noncompliance with medication regimen; I65.23 Occlusion and stenosis of bilateral carotid arteries; Z20.822 Contact with and (suspected) exposure to COVID-19; I25.2 Old myocardial infarction
CPT/HCPCS: 36415; 71045; 71250; 74176; 80048; 80053; 81000; 82150; 82550; 82553; 83690; 83735; 83874; 83880; 84484; 85025; 85610; 85652; 85730; 86141; 87636; 93005

== ENCOUNTER 2022-05-26 04:20 | Emergency (ER) | payer MEDICARE ==
[~2022-05-26] VITALS: Ht 172.7 cm; Wt 79.0 kg
[~2022-05-26 04:20] MED LIST changes: +BUME1TAB8 PO; +PANT40TA52 PO; +POLY238P32 PO
--- NOTE | 2022-05-26 04:38 | ED Dyspnea ---
General Stated Complaint: SOA Source of Information: Patient, Old Records, Spouse History of Present Illness Date Seen by Provider: May 26, 2022 Time Seen by Provider: 04:26 Initial Comments PT ARRIVES VIA POV FROM HOME IN [place], WITH C/O SHORTNESS OF BREATH AND ORTHOPNEA--SLEEPS IN A RECLINER THIS IS AN ONGOING PROBLEM AND HE HAS HAD MULTIPLE VISITS AND ADMITS HERE, WELL MULTIPLE VISITS TO OTHER LOCAL HOSPITALS WELL, ALL FOR SAME COMPLAINT HE WAS ADMITTED HERE 05/22/22 AND DISMISSED 05/24/22 FOR CHF, HE WAS STARTED ON BUMEX 1 MG DAILY ( REPLACED LASIX) HE WENT TO [facility] ER 05/25/22 FOR SAME AND WAS TOLD TO TAKE 2 DOSES OF BUMEX--HE ONLY TOOK 1 DOSE HE IS HERE AGAIN TONIGHT FOR THE SAME COMPLAINT. HE HAS HISTORY OF V-TACH AND HAD A DEFIBRILLATOR PLACED 07/2021--HIS FIRST VISIT HERE HE HAS BEEN HERE IN ER 05/05/22 FOR CHF ADMITTED 05/15/22-05/17/22 FOR CHF ER VISIT HERE 05/18/22 FOR CHF, AND C/O EPIGASTRIC DISCOMFORT [place] ER 05/20/22 FOR CONSTIPATION ADMITTED 05/22-05/24/22 FOR CHF. PCP: DR. LINDER IN [place] LIFT ELECTRICIAN: DR. RITTER Allergies and Home Medications Allergies Coded Allergies: Sulfa (Sulfonamide Antibiotics) (Verified Allergy, Unknown, 05/05/22) codeine (Verified Allergy, Unknown, 05/05/22) atorvastatin (Verified Allergy, DIZZINESS, 05/16/22) morphine (Verified Allergy, UNKNOWN, 05/16/22) propoxyphene (Verified Allergy, UNKNOWN, 05/16/22) empagliflozin (Verified Adverse Reaction, Unknown, "gential infection", 05/17/22) Patient Home Medication List Home Medication List Reviewed: Yes Amiodarone HCl (Amiodarone HCl) 200 Mg Tablet, 200 MG PO DAILY, (Reported) Entered as Reported by: RAYMOND WARREN on 05/16/22 1145 Aspirin (Aspirin EC) 81 Mg Tablet.dr, 81 MG PO HS, (Reported) Entered as Reported by: RAYMOND WARREN on 08/04/21 1046 Bumetanide (Bumetanide) 1 Mg Tablet, 1 MG PO DAILY Prescribed by: DA WOODWARD on 05/24/22 1008 Carvedilol (Carvedilol) 25 Mg Tablet, 25 MG PO BID, (Reported) Entered as Reported by: RAYMOND WARREN on 05/16/22 1115 Cetirizine HCl (Cetirizine HCl) 10 Mg Tablet, 10 MG PO HS, (Reported) Entered as Reported by: SARWAT GARCIA on 08/03/21 211 Losartan Potassium (Losartan Potassium) 50 Mg Tablet, 25 MG PO DAILY, (Reported) Entered as Reported by: RAYMOND WARREN on 05/22/22 144 Mexiletine HCl (Mexiletine HCl) 150 Mg Cap, 150 MG PO BID, (Reported) Entered as Reported by: RAYMOND WARREN on 05/16/22 111 Oxymetazoline HCl (Afrin) 0.05 % [place], 1-2 SPRAY NS UD PRN for CONGESTION, (Reported) Entered as Reported by: RAYMOND WARREN on 08/04/21 1049 Pantoprazole Sodium (Pantoprazole Sodium) 40 Mg Tablet.dr, 40 MG PO DAILY, (Reported) Entered as Reported by: RAYMOND WARREN on 05/22/22 144 Polyethylene Glycol 3350 ([id number]) 17 Gram/Dose Powder, 17 GM PO BID PRN for C ONSTIPATION-2ND LINE, (Reported) Entered as Reported by: RAYMOND WARREN on 05/22/22 144 Potassium Chloride (Potassium Chloride) 20 Meq Tablet.er, 20 MEQ PO DAILY, (Reported) Entered as Reported by: RAYMOND WARREN on 05/22/22 1442 [Balance Of Nature] , 2 EA PO TIDWM, (Reported) Entered as Reported by: RAYMOND WARREN on 08/04/21 1046 Discontinued Medications Furosemide (Furosemide) 40 Mg Tablet, 40 MG PO DAILY Discontinued Reason: Duplicate Order Prescribed by: GARRY CONTI on 05/17/22 1143 Furosemide (Furosemide) 40 Mg Tablet, 40 MG PO DAILY, (Reported) Entered as Reported by: RAYMOND WARREN on 05/22/22 1442 Losartan Potassium (Losartan Potassium) 25 Mg Tablet, 25 MG PO DAILY, (Reported) Discontinued Reason: No Longer Taking Entered as Reported by: RAYMOND WARREN on 05/16/22 1115 Pantoprazole Sodium (Protonix) 40 Mg Tablet.dr, 40 MG PO DAILY Discontinued Reason: Duplicate Order Prescribed by: GUIDO LORA on 05/18/22 0929 Potassium Chloride (Potassium Chloride) 20 Meq Tablet.er, 20 MEQ PO DAILY Discontinued Reason: Duplicate Order Prescribed by: SUSY LUIS on 05/17/22 1325 Review of Systems Review of Systems Constitutional: no symptoms reported EENTM: no symptoms reported Respiratory: see HPI, orthopnea, short of breath Cardiovascular: see HPI; No chest pain; edema; No palpitations, No syncope Gastrointestinal: no symptoms reported; No abdominal pain, No nausea, No vomiting Genitourinary: no symptoms reported Musculoskeletal: no symptoms reported Skin: no symptoms reported Psychiatric/Neurological: No Symptoms Reported Endocrine: No Symptoms Reported Hematologic/Lymphatic: No Symptoms Reported Past Pcstzqg-Cnfynw-Lapsto Hx Patient Social History Tobacco Use?: No Smoking Status: Never a Smoker Smokeless Tobacco Frequency: Never a User Use of E-Cig and/or Vaping dev: No Use of E-Cig and/or Vaping Spencer: Never a User Substance use?: No Alcohol Use?: No Immunizations Up To Date First/Initial COVID19 Vaccinat: May 2020 Second COVID19 Vaccination Jovany: June 2020 Third COVID19 Vaccination Date: January 2021 Past Medical History Surgery/Hospitalization HX: T AND A, HTN Surgeries: Yes Adenoidectomy, Cardiac, Defibrillator, Tonsillectomy Respiratory: No Cardiac: Yes (V-TACH S/P DEFIBRILLATOR AND LOOP RECORDER; EF 20%; LBBB) Cardiomyopathy, Chronic Edema/Swelling, Coronary Artery Disease, High Cholesterol, Hypertension, Irregular Heartbeat Neurological: No Genitourinary: Yes (RENAL INSUFFICIENCY) Gastrointestinal: Yes Chronic Constipation Musculoskeletal: No Endocrine: No HEENT: No Cancer: No Psychosocial: No Integumentary: No Blood Disorders: No Family Medical History Diabetes, Hypertension, Other Conditions/Hx SOCIAL HISTORY: -DENIES SMOKING -DENIES ALCOHOL -DENIES DRUG USE CARDIAC CATH 08/04/[address] RITTER: CONCLUSION: 1. Heavily calcified left main and proximal LAD with mild to moderate disease nonobstructive disease otherwise tortuous coronary system with mild disease. 2. Diffuse ectasia in the right coronary artery with slow flow, small vessel disease nonobstructive disease 3. Normal left ventricular end-diastolic pressure DISCUSSION AND RECOMMENDATION: Patient has worsening of the left ventricular function, by echo his ejection fraction around 20%. His recurrent sustained ventricular tachycardia has been difficult to control. We will continue with aggressive beta-blockers and increase amiodarone dose to 400 twice daily. I am planning to proceed with ICD implant Anesthesia Type: Conscious Sedation -SINGLE CHAMBER ICD DEFIBRILLATOR, AND LOOP RECORDER PLACED 08/05/[address] RITTER Physical Exam Vital Signs Vital Signs - First Documented 05/26/22 04:26 Temp 36.3 Pulse 68 Resp 20 B/P (MAP) 112/67 (82) Pulse Ox 97 O2 Delivery Room Air Capillary Refill : Height, Weight, BMI Height: '" Weight: lbs. oz. kg; 26.48 BMI Method: General Appearance: No Apparent Distress, WD/WN, Other (TALKS IN FULL SENTENCES. ) Neck: Normal Inspection Respiratory: No Accessory Muscle Use, No Respiratory Distress, Decreased Breath Sounds (IN BASES) Cardiovascular: Regular Rate, Rhythm, No JVD, Systolic Murmur (3/6 MURMUR) Gastrointestinal: Non Tender, Soft Extremity: Normal Capillary Refill, Non Tender, No Calf Tenderness, No Pedal Edema Neurologic/Psychiatric: Alert, Oriented x3, No Motor/Sensory Deficits, oil lease broker II- XII Norm as Tested Skin: Normal Color, Warm/Dry Procedures/Interventions Patient Education: Explained Benefits, Explained Risks, Pt. Ack. Understanding Breath Sounds per Auscultation: Clear Heart Sounds per Auscultation: Irregular Airway Exam: Mouth opens >2 fingers, Neck Full Range of Motion, Visulation of Uvula Sedation Adminstration Time: 1538 Re-examination Time: 1630 Progress/Results/Core Measures Results/Orders Lab Results Laboratory Tests Test 05/26/22 04:39 Range/Units White Blood Count 13.3 H 4.3-11.0 10^3/uL Red Blood Count 5.11 4.30-5.52 10^6/uL Hemoglobin 16.1 13.3-17.7 g/dL Hematocrit 47 40-54 % Mean Corpuscular Volume 93 80-99 fL Mean Corpuscular Hemoglobin 32 25-34 pg Mean Corpuscular Hemoglobin Concent 34 32-36 g/dL Red Cell Distribution Width 15.1 H 10.0-14.5 % Platelet Count 202 130-400 10^3/uL Mean Platelet Volume 11.5 9.0-12.2 fL Immature Granulocyte % (Auto) 1 % Neutrophils (%) (Auto) 80 H 42-75 % Lymphocytes (%) (Auto) 8 L 12-44 % Monocytes (%) (Auto) 9 0-12 % Eosinophils (%) (Auto) 2 0-10 % Basophils (%) (Auto) 1 0-10 % Neutrophils # (Auto) 10.6 H 1.8-7.8 10^3/uL Lymphocytes # (Auto) 1.1 1.0-4.0 10^3/uL Monocytes # (Auto) 1.2 H 0.0-1.0 10^3/uL Eosinophils # (Auto) 0.3 0.0-0.3 10^3/uL Basophils # (Auto) 0.1 0.0-0.1 10^3/uL Immature Granulocyte # (Auto) 0.1 0.0-0.1 10^3/uL Erythrocyte Sedimentation Rate 15 0-30 MM/HR Prothrombin Time 14.1 12.2-14.7 SEC INR Comment 1.0 0.8-1.4 Activated Partial Thromboplast Time 30 24-35 SEC Sodium Level 140 135-145 MMOL/L Potassium Level 4.5 3.6-5.0 MMOL/L Chloride Level 98 98-107 MMOL/L Carbon Dioxide Level 26 21-32 MMOL/L Anion Gap 16 H 5-14 MMOL/L Blood Urea Nitrogen 47 H 7-18 MG/DL Creatinine 2.81 H 0.60-1.30 MG/DL Estimat Glomerular Filtration Rate 22 BUN/Creatinine Ratio 17 Glucose Level 114 H 70-105 MG/DL Calcium Level 9.9 8.5-10.1 MG/DL Corrected Calcium 10.2 H 8.5-10.1 MG/DL Magnesium Level 2.5 H 1.6-2.4 MG/DL Total Bilirubin 1.0 0.1-1.0 MG/DL Aspartate Amino Transf (AST/SGOT) 20 5-34 U/L Alanine Aminotransferase (ALT/SGPT) 19 0-55 U/L Alkaline Phosphatase 60 40-136 U/L Total Creatine Kinase 64 30-200 U/L Creatine Kinase MB 0.8 <6.6 NG/ML Troponin I < 0.028 <0.028 NG/ML C-Reactive Protein High Sensitivity 3.54 H 0.00-0.50 MG/DL B-Type Natriuretic Peptide 1512.8 H <100.0 PG/ML Total Protein 7.9 6.4-8.2 GM/DL Albumin 3.6 3.2-4.5 GM/DL My Orders Orders - HARLEY MUJICA DO Ed Iv/Invasive Line Start (05/26/22 04:26) Ekg Tracing (05/26/22 04:26) O2 (05/26/22 04:26) Monitor-Rhythm Ecg Trace Only (05/26/22 04:26) Chest 1 View, Ap/Pa Only (05/26/22 04:26) Bnp Karen (05/26/22 04:26) Cbc With Automated Diff (05/26/22 04:26) Comprehensive Metabolic Panel (05/26/22 04:26) Creatine Kinase (05/26/22 04:26) Creatine Kinase Mb (05/26/22 04:26) Hs C Reactive Protein (05/26/22 04:26) Magnesium (05/26/22 04:26) Protime With Inr (05/26/22 04:26) Partial Thromboplastin Time (05/26/22 04:26) Erythrocyte Sedimentation Rate (05/26/22 04:26) Troponin I Karen (05/26/22 04:26) Vital Signs/I&O 05/26/22 05/26/22 05/26/22 04:26 04:26 06:40 Temp 36.3 36.3 Pulse 68 73 Resp 20 20 B/P (MAP) 112/67 (82) 104/73 Pulse Ox 97 97 O2 Delivery Room Air Room Air Room Air Progress Progress Note : Progress Note MAKING MULTIPLE DEMANDS SOON HE ARRIVES, REFUSES TO WEAR MASK O2 SAT 97% ON ROOM AIR ON ARRIVAL VITALS STABLE. REVIEWED PRIOR RECORDS, INCLUDING ER VISITS, ADMITS, H&P'S, CONSULTS, TESTS/PROCEDURES AND DISCHARGE SUMMARIES. NO DETERIORATION IN PT'S CONDITION DURING ER STAY DISCUSSED TEST RESULTS, ANTICIPATED COURSE, NEED FOR FOLLOW UP AND RETURN PRECAUTIONS WITH PT AND Initial ECG Impression Date: May 26, 2022 Initial ECG Impression Time: 04:38 Initial ECG Rate: 75 Initial ECG Rhythm: Normal Sinus (LBBB) Initial ECG Comparisson: Unchanged Comment INTERPRETED BY ME Diagnostic Imaging Comments CXR--PER RADIOLOGIST REPORT AT 0610 FINDINGS: There are patchy airspace opacities in the lungs bilaterally. Overall aeration appears slightly improved compared to the prior exam. There is no pleural effusion or pneumothorax. The cardiac silhouette is stable in size. Automatic implantable cardiac defibrillator lead appears stable. IMPRESSION: 1. Bilateral airspace opacities, may be due to infection or edema, mildly improved since the prior exam. Reviewed: Reviewed by Me Departure Communication (Admissions) 0546--SPOKE WITH DR. WOODWARD, ADVISES TO SEND PT HOME, WITH RECOMMENDATIONS TO CONTINUE BUMEX AT 1 MG DAILY AND FOLLOW UP WITH DR. RITTER. Impression Primary Impression: Chronic congestive heart failure Additional Impression: Chronic renal insufficiency Disposition: HOME, SELF-CARE Condition: Stable Admissions Decision to Admit Reason: Admit from ER (General) Decision to Admit/Date: May 26, 2022 Time/Decision to Admit Time: 05:50 Departure-Patient Inst. Decision time for Depature: 05:50 Referrals: TRISTON RITTER MD ,LOCAL PHYSICIAN (PCP) Primary Care Physician Patient Instructions: Heart Failure ED Add. Discharge Instructions: CONTINUE ALL YOUR CURRENT MEDICATIONS PRESCRIBED FOLLOW UP WITH DR. RITTER NEXT WEEK FOR FURTHER CARE HARLEY MUJICA DO May 26, 2022 04:38
[2022-05-26 04:55] LABS: BASOPHILS # (AUTO) 0.1 10^3/uL (0.0-0.1); BASOPHILS % (AUTO) 1 % (0-10); EOSINOPHILS # (AUTO) 0.3 10^3/uL (0.0-0.3); EOSINOPHILS % (AUTO) 2 % (0-10); HEMATOCRIT 47 % (40-54); HEMOGLOBIN 16.1 g/dL (13.3-17.7); LYMPHOCYTES # (AUTO) 1.1 10^3/uL (1.0-4.0); LYMPHOCYTES % (AUTO) 8 % (12-44); MEAN CORPUSCULAR HEMOGLOBIN 32 pg (25-34); MEAN CORPUSCULAR HGB CONC 34 g/dL (32-36); MEAN CORPUSCULAR VOLUME 93 fL (80-99); MEAN PLATELET VOLUME 11.5 fL (9.0-12.2); MONOCYTES # (AUTO) 1.2 10^3/uL (0.0-1.0); MONOCYTES % (AUTO) 9 % (0-12); NEUTROPHILS # (AUTO) 10.6 10^3/uL (1.8-7.8); NEUTROPHILS % (AUTO) 80 % (42-75); PLATELET COUNT 202 10^3/uL (130-400); WHITE BLOOD COUNT 13.3 10^3/uL (4.3-11.0)
[2022-05-26 05:00] LABS: PROTHROMBIN TIME PATIENT 14.1 SEC (12.2-14.7)
[2022-05-26 05:03] LABS: ALBUMIN 3.6 GM/DL (3.2-4.5); CHLORIDE 98 MMOL/L (98-107); POTASSIUM 4.5 MMOL/L (3.6-5.0); SODIUM 140 MMOL/L (135-145)
[2022-05-26 05:04] LABS: CALCIUM 9.9 MG/DL (8.5-10.1)
[2022-05-26 05:06] LABS: GLUCOSE 114 MG/DL (70-105); TOTAL PROTEIN 7.9 GM/DL (6.4-8.2)
[2022-05-26 05:07] LABS: CARBON DIOXIDE 26 MMOL/L (21-32)
[2022-05-26 05:09] LABS: ALKALINE PHOSPHATASE 60 U/L (40-136)
[2022-05-26 05:10] LABS: CREATININE SERUM 2.81 MG/DL (0.60-1.30); GFR ESTIMATED 22
[2022-05-26 05:11] LABS: BUN/CREATININE RATIO 17
[2022-05-26 05:12] LABS: ALANINE AMINOTRANSFERASE 19 U/L (0-55); ERYTHROCYTE SEDIMENTATION RATE 15 MM/HR (0-30); MAGNESIUM 2.5 MG/DL (1.6-2.4)
[2022-05-26 05:13] LABS: CREATINE KINASE 64 U/L (30-200)
[2022-05-26 05:19] LABS: CREATINE KINASE MB 0.8 NG/ML (<6.6)
--- NOTE | 2022-05-26 06:14 | Diagnostic Imaging Report ---
HISTORY: Dyspnea COMPARISON: 05/23/2022 TECHNIQUE: Frontal view of the chest. FINDINGS: There are patchy airspace opacities in the lungs bilaterally. Overall aeration appears slightly improved compared to the prior exam. There is no pleural effusion or pneumothorax. The cardiac silhouette is stable in size. Automatic implantable cardiac defibrillator lead appears stable. IMPRESSION: 1. Bilateral airspace opacities, may be due to infection or edema, mildly improved since the prior exam. Dictated by: Dictated on workstation # [id number]
[2022-05-26 06:40] VITALS: BP 104/73
== END 2022-05-26 06:50 | disposition home or self-care (01) ==
LOC: EDUNIT# 04:20 → ER 04:21
DX: I13.0 Hypertensive heart and chronic kidney disease with heart failure and stage 1 through stage 4 chronic kidney disease, or unspecified chronic kidney disease (principal); I50.9 Heart failure, unspecified; N18.9 Chronic kidney disease, unspecified
CPT/HCPCS: 36415; 71045; 80053; 82550; 82553; 83735; 83880; 84484; 85025; 85610; 85652; 85730; 86141; 93005; 93041

== ENCOUNTER 2022-09-16 14:26 | Observation (INO) | payer MEDICARE ==
[~2022-09-16 14:26] MED LIST changes: +POTA-330 PO; -POTA-51 PO
[2022-09-16 14:55] LABS: BASOPHILS # (AUTO) 0.1 10^3/uL (0.0-0.1); BASOPHILS % (AUTO) 1 % (0-10); EOSINOPHILS # (AUTO) 0.2 10^3/uL (0.0-0.3); EOSINOPHILS % (AUTO) 4 % (0-10); HEMATOCRIT 45 % (40-54); HEMOGLOBIN 15.1 g/dL (13.3-17.7); LYMPHOCYTES # (AUTO) 1.2 X 10^3 (1.0-4.0); LYMPHOCYTES % (AUTO) 20 % (12-44); MEAN CORPUSCULAR HEMOGLOBIN 33 pg (25-34); MEAN CORPUSCULAR HGB CONC 34 g/dL (32-36); MEAN CORPUSCULAR VOLUME 99 fL (80-99); MEAN PLATELET VOLUME 11.7 fL (9.0-12.2); MONOCYTES # (AUTO) 0.8 X 10^3 (0.0-1.0); MONOCYTES % (AUTO) 13 % (0-12); NEUTROPHILS # (AUTO) 3.7 X 10^3 (1.8-7.8); NEUTROPHILS % (AUTO) 61 % (42-75); PLATELET COUNT 163 10^3/uL (130-400)
[2022-09-16 15:02] LABS: ALBUMIN 3.7 GM/DL (3.2-4.5); POTASSIUM 4.8 MMOL/L (3.6-5.0)
[2022-09-16 15:03] LABS: CALCIUM 9.5 MG/DL (8.5-10.1)
[2022-09-16 15:05] LABS: TOTAL PROTEIN 7.6 GM/DL (6.4-8.2)
[2022-09-16 15:06] LABS: BILIRUBIN,TOTAL 0.9 MG/DL (0.1-1.0)
[2022-09-16 15:08] LABS: CREATININE SERUM 2.52 MG/DL (0.60-1.30)
[2022-09-16 15:08] LABS: BILIRUBIN,URINE NEGATIVE (NEGATIVE); CLARITY,URINE CLEAR; COLOR,URINE YELLOW; GLUCOSE, URINE (UA) NEGATIVE (NEGATIVE); KETONES,URINE NEGATIVE (NEGATIVE); LEUKOCYTE ESTERASE ,URINE NEGATIVE (NEGATIVE); NITRITE,URINE NEGATIVE (NEGATIVE); PH,URINE 5.5 (5-9); PROTEIN,URINE 1+ (NEGATIVE)
[2022-09-16 15:11] LABS: MAGNESIUM 2.3 MG/DL (1.6-2.4)
[2022-09-16 15:17] LABS: BACTERIA,URINE TRACE /HPF; HYALINE CASTS, URINE 0-2 /LPF; RBC,URINE 0-2 /HPF; WBC,URINE 0-2 /HPF
--- NOTE | 2022-09-16 15:56 | ED General ---
General Chief Complaint: Cardiac/General Problems Stated Complaint: WEAKNESS/ERATIC PULSE Nursing Triage Note: pt presents to ED with c/o generalized weakness, low BP, and high HR. pt denies chest pain, denies SOB. has pacemaker Source of Information: Patient, Family, Old Records History of Present Illness Date Seen by Provider: Sep 16, 2022 Time Seen by Provider: 14:36 Initial Comments This 82 year old gentleman presents to the ER with complaints of generalized weakness with low blood pressure and high heart rate. He denies chest pain or shortness of breath. He does have a pacemaker. He has history of chronic right bundle branch block, heart failure with ejection fraction of 20%, and chronic kidney disease. He reports a recent visit to his wood inspector indicated his renal function was stable. His primary complaint is feeling very tired and "wiped out.". He reports his blood pressure at home was 91/83 with a heart rate of 110. His blood pressure during evaluation is 110/92. He has had no recent changes in his medications. His medical lab technologist is Dr. Chisholm. His primary care provider is Dr. Reyes in [place]. He is in no distress. Allergies and Home Medications Allergies Coded Allergies: Sulfa (Sulfonamide Antibiotics) (Verified Allergy, Unknown, 05/05/22) codeine (Verified Allergy, Unknown, 05/05/22) atorvastatin (Verified Allergy, DIZZINESS, 05/16/22) morphine (Verified Allergy, UNKNOWN, 05/16/22) propoxyphene (Verified Allergy, UNKNOWN, 05/16/22) empagliflozin (Verified Adverse Reaction, Unknown, "gential infection", 05/17/22) Patient Home Medication List Home Medication List Reviewed: Yes Amiodarone HCl (Amiodarone HCl) 200 Mg Tablet, 200 MG PO DAILY, (Reported) Entered as Reported by: RAYMOND WARREN on 05/16/22 1145 Last Action: Reviewed Aspirin (Aspirin EC) 81 Mg Tablet., 81 MG PO HS, (Reported) Entered as Reported by: RAYMOND WARREN on 08/04/21 1046 Last Action: Reviewed Brimonidine Tartrate (Brimonidine Tartrate) 0.2 % Btl, 1 DROP OS BID, (Reported) Entered as Reported by: RAYMOND WARREN on 09/17/22 1120 Last Action: Reviewed Bumetanide (Bumetanide) 0.5 Mg Tablet, 0.5 MG PO Q48H, (Reported) Entered as Reported by: RAYMOND WARREN on 09/17/221119 Last Action: Reviewed Carvedilol (Carvedilol) 25 Mg Tablet, 25 MG PO BID, (Reported) Entered as Reported by: RAYMOND WARREN on 05/16/221114 Last Action: Reviewed Cetirizine HCl (Cetirizine HCl) 10 Mg Tablet, 10 MG PO HS, (Reported) Entered as Reported by: SARWAT GARCIA on 08/03/212118 Last Action: Reviewed Latanoprost (Xalatan) 0.005 % Drops, 1 DROP OS HS, (Reported) Entered as Reported by: RAYMOND WARREN on 09/17/221119 Last Action: Reviewed Mexiletine HCl (Mexiletine HCl) 150 Mg Cap, 150 MG PO BID, (Reported) Entered as Reported by: RAYMOND WARREN on 05/16/221114 Last Action: Reviewed Oxymetazoline HCl (Afrin) 0.05 % [place], 1-2 SPRAY NS UD PRN for CONGESTION, (Reported) Entered as Reported by: RAYMOND WARREN on 08/04/21 104 Last Action: Reviewed Pantoprazole Sodium (Pantoprazole Sodium) 40 Mg Tablet.dr, 40 MG PO DAILY, (Reported) Entered as Reported by: RAYMOND WARREN on 05/22/221441 Last Action: Reviewed Polyethylene Glycol 3350 ([id number]) 17 Gram/Dose Powder, 17 GM PO BID, (Reported) Entered as Reported by: RAYMOND WARREN on 05/22/221441 Last Action: Reviewed [Balance Of Nature] , 2 EA PO TIDWM, (Reported) Entered as Reported by: RAYMOND WARREN on 08/04/21 104 Last Action: Reviewed Discontinued Medications Bumetanide (Bumetanide) 1 Mg Tablet, 1 MG PO DAILY Discontinued Reason: No Longer Taking Prescribed by: DA WOODWARD on 05/24/22 1008 Last Action: Discontinued Losartan Potassium (Losartan Potassium) 50 Mg Tablet, 25 MG PO DAILY, (Reported) Discontinued Reason: No Longer Taking Entered as Reported by: RAYMOND WARREN on 2/14/23 1442 Last Action: Discontinued Potassium Chloride (Potassium Chloride) 20 Meq Tablet.er, 20 MEQ PO DAILY, (Reported) Discontinued Reason: No Longer Taking Entered as Reported by: RAYMOND WARREN on 05/22/22 1442 Last Action: Discontinued Review of Systems Review of Systems Constitutional: see HPI EENTM: no symptoms reported Respiratory: no symptoms reported Cardiovascular: see HPI Gastrointestinal: no symptoms reported Genitourinary: no symptoms reported Musculoskeletal: no symptoms reported Skin: no symptoms reported Psychiatric/Neurological: No Symptoms Reported Hematologic/Lymphatic: No Symptoms Reported Past Ncshsew-Kgmvvs-Jxqvpu Hx Patient Social History Tobacco Use?: No Use of E-Cig and/or Vaping dev: No Substance use?: No Alcohol Use?: No Immunizations Up To Date First/Initial COVID19 Vaccinat: May 2020 Second COVID19 Vaccination Jovany: June 2020 Third COVID19 Vaccination Date: January 2021 Past Medical History Surgery/Hospitalization HX: T AND A, HTN, CHRONIC CHF Surgeries: Yes Adenoidectomy, Cardiac, Defibrillator, Pacemaker, Tonsillectomy Respiratory: No Cardiac: Yes (V-TACH S/P DEFIBRILLATOR AND LOOP RECORDER; EF 20%; LBBB) Cardiomyopathy, Chronic Edema/Swelling, Coronary Artery Disease, Heart Murmur, High Cholesterol, Hypertension, Irregular Heartbeat Neurological: No Genitourinary: Yes (RENAL INSUFFICIENCY) Gastrointestinal: Yes Chronic Constipation Musculoskeletal: No Endocrine: No HEENT: No Cancer: No Psychosocial: No Integumentary: No Blood Disorders: No Family Medical History Diabetes, Hypertension, Other Conditions/Hx SOCIAL HISTORY: -DENIES SMOKING -DENIES ALCOHOL -DENIES DRUG USE CARDIAC CATH 08/04/[address] CHISHOLM: CONCLUSION: 1. Heavily calcified left main and proximal LAD with mild to moderate disease nonobstructive disease otherwise tortuous coronary system with mild disease. 2. Diffuse ectasia in the right coronary artery with slow flow, small vessel disease nonobstructive disease 3. Normal left ventricular end-diastolic pressure DISCUSSION AND RECOMMENDATION: Patient has worsening of the left ventricular function, by echo his ejection fraction around 20%. His recurrent sustained ventricular tachycardia has been difficult to control. We will continue with aggressive beta-blockers and increase amiodarone dose to 400 twice daily. I am planning to proceed with ICD implant Anesthesia Type: Conscious Sedation -SINGLE CHAMBER ICD DEFIBRILLATOR, AND LOOP RECORDER PLACED 08/05/[address] CHISHOLM Physical Exam Vital Signs Vital Signs - First Documented 09/16/22 14:35 Pulse 109 Resp 25 B/P (MAP) 119/88 (98) Pulse Ox 99 O2 Delivery Room Air Capillary Refill : Height, Weight, BMI Height: '" Weight: lbs. oz. kg; 26.00 BMI Method: General Appearance: No Apparent Distress, WD/WN HEENT: PERRL/EOMI, Normal ENT Inspection Neck: JVD Respiratory: Lungs Clear, Normal Breath Sounds, No Accessory Muscle Use Cardiovascular: Regular Rate, Rhythm, Diastolic Murmur, Systolic Murmur Gastrointestinal: Normal Bowel Sounds, Non Tender, Soft Extremity: Normal Inspection, Non Tender Neurologic/Psychiatric: Alert, Oriented x3, No Motor/Sensory Deficits, Normal Mood/Affect Skin: Normal Color, Warm/Dry Procedures/Interventions Patient Education: Explained Benefits, Explained Risks, Pt. Ack. Understanding Breath Sounds per Auscultation: Clear Heart Sounds per Auscultation: Irregular Airway Exam: Mouth opens >2 fingers, Neck Full Range of Motion, Visulation of Uvula Sedation Adminstration Time: 1538 Re-examination Time: 1630 Progress/Results/Core Measures Suspected Sepsis SIRS Temperature: Pulse: 109 Respiratory Rate: 25 Laboratory Tests 09/16/22 14:40: White Blood Count 6.0 Blood Pressure 119 /88 Mean: 98 Laboratory Tests 09/16/22 14:40: Creatinine 2.52H, Platelet Count 163, Total Bilirubin 0.9 Results/Orders Lab Results Laboratory Tests Test 09/16/22 14:40 09/16/22 14:55 Range/Units White Blood Count 6.0 4.3-11.0 10^3/uL Red Blood Count 4.56 4.30-5.52 10^6/uL Hemoglobin 15.1 13.3-17.7 g/dL Hematocrit 45 40-54 % Mean Corpuscular Volume 99 80-99 fL Mean Corpuscular Hemoglobin 33 25-34 pg Mean Corpuscular Hemoglobin Concent 34 32-36 g/dL Red Cell Distribution Width 15.8 H 10.0-14.5 % Platelet Count 163 130-400 10^3/uL Mean Platelet Volume 11.7 9.0-12.2 fL Immature Granulocyte % (Auto) 0 % Neutrophils (%) (Auto) 61 42-75 % Lymphocytes (%) (Auto) 20 12-44 % Monocytes (%) (Auto) 13 H 0-12 % Eosinophils (%) (Auto) 4 0-10 % Basophils (%) (Auto) 1 0-10 % Neutrophils # (Auto) 3.7 1.8-7.8 X 10^3 Lymphocytes # (Auto) 1.2 1.0-4.0 X 10^3 Monocytes # (Auto) 0.8 0.0-1.0 X 10^3 Eosinophils # (Auto) 0.2 0.0-0.3 10^3/uL Basophils # (Auto) 0.1 0.0-0.1 10^3/uL Immature Granulocyte # (Auto) 0.0 0.0-0.1 10^3/uL Sodium Level 136 135-145 MMOL/L Potassium Level 4.8 3.6-5.0 MMOL/L Chloride Level 102 98-107 MMOL/L Carbon Dioxide Level 24 21-32 MMOL/L Anion Gap 10 5-14 MMOL/L Blood Urea Nitrogen 47 H 7-18 MG/DL Creatinine 2.52 H 0.60-1.30 MG/DL Estimat Glomerular Filtration Rate 25 BUN/Creatinine Ratio 19 Glucose Level 114 H 70-105 MG/DL Calcium Level 9.5 8.5-10.1 MG/DL Corrected Calcium 9.7 8.5-10.1 MG/DL Magnesium Level 2.3 1.6-2.4 MG/DL Total Bilirubin 0.9 0.1-1.0 MG/DL Aspartate Amino Transf (AST/SGOT) 27 5-34 U/L Alanine Aminotransferase (ALT/SGPT) 32 0-55 U/L Alkaline Phosphatase 67 40-136 U/L B-Type Natriuretic Peptide 3008.3 H <100.0 PG/ML Total Protein 7.6 6.4-8.2 GM/DL Albumin 3.7 3.2-4.5 GM/DL Urine Color YELLOW Urine Clarity CLEAR Urine pH 5.5 5-9 Urine Specific [place] 1.025 H 1.016-1.022 Urine Protein 1+ H NEGATIVE Urine Glucose (UA) NEGATIVE NEGATIVE Urine Ketones NEGATIVE NEGATIVE Urine Nitrite NEGATIVE NEGATIVE Urine Bilirubin NEGATIVE NEGATIVE Urine Urobilinogen 1.0 < = 1.0 MG/DL Urine Leukocyte Esterase NEGATIVE NEGATIVE Urine RBC (Auto) NEGATIVE NEGATIVE Urine RBC 0-2 /HPF Urine WBC 0-2 /HPF Urine Crystals NONE /LPF Urine Bacteria TRACE /HPF Urine Casts PRESENT /LPF Urine Hyaline Casts 0-2 H /LPF Urine Mucus NEGATIVE /LPF Urine Culture Indicated NO My Orders Orders - GUIDO GOLD MD Cbc With Automated Diff (09/16/22 14:43) Comprehensive Metabolic Panel (09/16/22 14:43) Magnesium (09/16/22 14:43) Ua Culture If Indicated (09/16/22 14:43) Ed Iv/Invasive Line Start (09/16/22 14:43) Monitor-Rhythm Ecg Trace Only (09/16/22 14:43) Ns Iv 500 Ml (Sodium Chloride 0.9%) (09/16/22 16:00) Metoprolol Tartrate Injection (Lopressor (09/16/22 16:00) Bnp [place] (09/16/22 17:54) Medications Given in ED Vital Signs/I&O 09/16/22 09/16/22 14:35 18:10 Pulse 109 105 Resp 25 12 B/P (MAP) 119/88 (98) 111/87 Pulse Ox 99 98 O2 Delivery Room Air Room Air Capillary Refill : Blood Pressure Mean: 98 Progress Note : Progress Note Labs were obtained and interpreted by me. CBC and electrolytes were unremarkable. Creatinine was 2.5 which is baseline. BNP was elevated at 3000. UA was unremarkable. ECG demonstrated sinus rhythm with chronic LBBB. There was no definite ischemia. Intervals were widened when compare with prior. Dr. Chisholm was consulted. He recommended a Lopressor bolus of 5 mg IV and a NS bolus of 500 mL. This did improve his BP but not HR. Admission for observation was recommended due to his severe cardiomyopathy. Patient was agreeable. Dr. Chisholm requested a dose of Lovenox. Code status was discussed and patient elects full code but he does not desire prolonged intubation or prolonged life in an incapacitated state. ECG Initial ECG Impression Date: Sep 16, 2022 Initial ECG Impression Time: 14:51 Initial ECG Rate: 106 Initial ECG Rhythm: S.Tach Comment Sinus tachycardia with chronic left bundle branch block. Changes from prior include greater IL interval of 233 ms, wider QRS of 213 ms. EKG changes in the absence of chest pain or shortness of breath likely do not represent any ischemia. Departure Communication (Admissions) Time/Spoke to Admitting Phy: 17:50 Dr. Woodward Time/Spoke to Consulting Phy: 18:00 Dr. Chisholm Impression Primary Impression: Acute exacerbation of congestive heart failure Qualified Codes: I50.9 - Heart failure, unspecified Disposition: ADMITTED INPATIENT Condition: Stable Admissions Decision to Admit Reason: Admit from ER (General) Decision to Admit/Date: Sep 16, 2022 Time/Decision to Admit Time: 17:50 Departure-Patient Inst. Referrals: NITO SOLITARIO MD (PCP/Family) Primary Care Physician GUIDO GOLD MD Sep 16, 2022 15:56
[2022-09-16] MEDS ORDERED: meTOprolol 5 MG/5 ML (LOPRESSOR) VIAL IV ONE (16:00)
[2022-09-16] MEDS ORDERED: NS IV 500 ML 500 ML IV ONE (16:00)
[2022-09-16] MEDS ORDERED: ENOXAPARIN 80 MG/0.8 ML (LOVENOX) SYR SC ONE (19:15)
[2022-09-16] MEDS ORDERED: PATIENT MAY USE OWN MEDS, ALL MC SCH (19:15)
[2022-09-16 19:34] VITALS: BP 116/82
[2022-09-16] MEDS: ASPIRIN E.C. 81 MG (ECOTRIN) TAB PO SCH (20:57)
[2022-09-16] MEDS: MEXILETINE 150 MG CAPSULE PO SCH (20:57)
[2022-09-16] MEDS ORDERED: LORATADINE (CLARITIN) 10 MG TAB PO SCH (21:00)
[2022-09-16] MEDS ORDERED: BRIMONIDINE 0.2% (ALPHAGAN) OPHTH SOLN 5 ML BTL OU SCH (21:00)
[2022-09-16] MEDS ORDERED: LATANOPROST 0.005% (XALATAN) OPHTH SOLN 2.5 ML OU SCH (21:00)
[2022-09-16 23:04] VITALS: BP 106/74
[2022-09-17 02:59] VITALS: BP 106/73
[2022-09-17 06:28] LABS: BASOPHILS # (AUTO) 0.1 10^3/uL (0.0-0.1); BASOPHILS % (AUTO) 1 % (0-10); EOSINOPHILS # (AUTO) 0.3 10^3/uL (0.0-0.3); EOSINOPHILS % (AUTO) 6 % (0-10); HEMATOCRIT 41 % (40-54); LYMPHOCYTES # (AUTO) 1.3 10^3/uL (1.0-4.0); LYMPHOCYTES % (AUTO) 24 % (12-44); MEAN CORPUSCULAR HEMOGLOBIN 33 pg (25-34); MEAN CORPUSCULAR HGB CONC 34 g/dL (32-36); MEAN CORPUSCULAR VOLUME 98 fL (80-99); MEAN PLATELET VOLUME 12.5 fL (9.0-12.2); MONOCYTES # (AUTO) 0.9 10^3/uL (0.0-1.0); MONOCYTES % (AUTO) 17 % (0-12); NEUTROPHILS # (AUTO) 2.8 10^3/uL (1.8-7.8); NEUTROPHILS % (AUTO) 52 % (42-75); PLATELET COUNT 143 10^3/uL (130-400); POTASSIUM 4.1 MMOL/L (3.6-5.0); WHITE BLOOD COUNT 5.5 10^3/uL (4.3-11.0)
[2022-09-17 06:29] LABS: CALCIUM 9.1 MG/DL (8.5-10.1)
[2022-09-17 06:33] LABS: CREATININE SERUM 2.4 MG/DL (0.60-1.30)
[2022-09-17 07:30] VITALS: BP 110/73
[2022-09-17] MEDS: ASPIRIN E.C. 81 MG (ECOTRIN) TAB PO SCH (08:12)
[2022-09-17] MEDS: MEXILETINE 150 MG CAPSULE PO SCH (08:12)
--- NOTE | 2022-09-17 08:48 | Short Stay Summary-Hospitalist ---
History of Present Illness HPI/Chief Complaint Patient is an 82-year-old male with past medical history of atrial fibrillation and ventricular tachycardia who presented to the emergency department due to shortness of breath. He reports that the pollen level was very high and he had some yellow discharge from his nose. He has a history of CHF exacerbation so decided to come to the hospital here where his mechanic driver is. He checked his vitals at home and noticed that his blood pressure was a little low and he was tachycardic as well. In the emergency department labs were done and he actually appeared to be somewhat hypovolemic. Decision was made to admit for gentle IV fluid resuscitation given his EF of 30%. This morning he reports feeling better and has no nasal issues and is breathing easily. He is hopeful for discharge home. Source: patient Date Seen 09/17/22 Time Seen by a Provider: 08:00 Attending Physician Luca Silverio MD PCP Admitting Physician: Fallon Bales MD Attending Physician: Fallon Bales MD Referring Physician Date of Admission Sep 16, 2022 at 18:28 Home Medications & Allergies Home Medications Reviewed patient Home Medication Reconciliation performed by pharmacy medication reconciliations survey and mapping technician and/or nursing. Patients Allergies have been reviewed. Allergies Allergies Coded Allergies Sulfa (Sulfonamide Antibiotics) (Verified Allergy, Unknown, 05/05/22) codeine (Verified Allergy, Unknown, 05/05/22) atorvastatin (Verified AllergyDIZZINESS, 05/16/22) morphine (Verified AllergyUNKNOWN, 05/16/22) propoxyphene (Verified AllergyUNKNOWN, 05/16/22) empagliflozin (Verified Adverse Reaction, Unknown, "gential infection", 05/17/22) Past Lwgvcaq-Fhmvxj-Gqqljc Hx Patient Social History Marrital Status: Tobacco Use?: No Use of E-Cig and/or Vaping dev: No Substance use?: No Alcohol Use?: No Pt feels they are or have been: No Immunizations Up To Date Date of Influenza Vaccine: Jan 17, 2022 First/Initial COVID19 Vaccinat: May 2020 Second COVID19 Vaccination Jovany: June 2020 Current Status Advance Directives: Yes Advance Directive Location: Copy from prev record Communicates: Verbally Primary Language: Slovenian Preferred Spoken Language: Slovenian Is interpretation needed?: No Past Medical History Surgeries: Adenoidectomy, Cardiac, Defibrillator, Tonsillectomy Cardiomyopathy, Chronic Edema/Swelling, Coronary Artery Disease, High Choles terol, Hypertension, Irregular Heartbeat Chronic Constipation Blood Disorders: No Family Medical History Diabetes, Hypertension, Other Conditions/Hx SOCIAL HISTORY: -DENIES SMOKING -DENIES ALCOHOL -DENIES DRUG USE CARDIAC CATH 08/04/[address] CHISHOLM: CONCLUSION: 1. Heavily calcified left main and proximal LAD with mild to moderate disease nonobstructive disease otherwise tortuous coronary system with mild disease. 2. Diffuse ectasia in the right coronary artery with slow flow, small vessel disease nonobstructive disease 3. Normal left ventricular end-diastolic pressure DISCUSSION AND RECOMMENDATION: Patient has worsening of the left ventricular function, by echo his ejection fraction around 20%. His recurrent sustained ventricular tachycardia has been difficult to control. We will continue with aggressive beta-blockers and increase amiodarone dose to 400 twice daily. I am planning to proceed with ICD implant Anesthesia Type: Conscious Sedation -SINGLE CHAMBER ICD DEFIBRILLATOR, AND LOOP RECORDER PLACED 08/05/[address] CHISHOLM Review of Systems Constitutional: see HPI Physical Exam Physical Exam Vital Signs Vital Signs - First Documented 09/16/22 09/16/22 14:35 19:34 Temp 36.8 Pulse 109 Resp 25 B/P (MAP) 119/88 (98) Pulse Ox 99 O2 Delivery Room Air Capillary Refill : Less Than 3 Seconds Height, Weight, BMI Height: '" Weight: lbs. oz. kg; 26.00 BMI Method: General Appearance: No Apparent Distress, Chronically ill Respiratory: Lungs Clear, No Respiratory Distress Cardiovascular: Regular Rate, Rhythm, Systolic Murmur Gastrointestinal: Normal Bowel Sounds, Non Tender, Soft Extremity: No Calf Tenderness, No Pedal Edema Neurologic/Psychiatric: Alert, Oriented x3, Normal Mood/Affect Results Results/Procedures Labs Laboratory Tests 09/16/22 14:40 09/17/22 05:00 Patient resulted labs reviewed. Short Stay Diagnosis Discharge Diagnosis-Short Stay Admission Diagnosis CHF Final Discharge Diagnosis CHF Conclusion Plan Dehydrated CHF Likely a little dry Gently rehydrated overnight given EF of 30% tachycardia improved Discussed with Dr Chisholm Plan to DC home with outpatient follow up GARRY CONTI MD Sep 17, 2022 08:48
--- NOTE | 2022-09-17 08:50 | Discharge Inst-Simple/Standard ---
Discharge Inst-Standard Patient Instructions/Follow Up Plan of Care/Instructions/FU: Please continue to take your medications as written. Please follow up with your primary care doctor to follow up this hospital stay. Activity as Tolerated: Yes Discharge Diet: Low Sodium Diet, Cardiac Diet Return to The Hospital For: Chest pain, shortness of breath, fever, weakness, if you feel you are getting worse. GARRY CONTI MD Sep 17, 2022 08:50
[2022-09-17] MEDS ORDERED: BRIMONIDINE 0.2% (ALPHAGAN) OPHTH SOLN 5 ML BTL OS SCH (09:00)
[2022-09-17 11:12] VITALS: BP 100/70
[2022-09-17] MEDS ORDERED: BUME0.5T5 PO (11:20)
[2022-09-17] MEDS ORDERED: LATA2.5D19 OS (11:20)
[2022-09-17] MEDS ORDERED: BRIM5DRO3 OS (11:20)
== END 2022-09-17 13:33 | disposition home or self-care (01) ==
LOC: EDUNIT# 14:26 → ER 14:30 → UNDOADMOB 18:28 → 4TH 18:28 → UNDODISOB 09-17 13:33
PROVIDERS: ADMIT Internal Medicine; ATTEND Family Medicine
DX: I50.9 Heart failure, unspecified (principal); E86.0 Dehydration
CPT/HCPCS: 80048; 80053; 81000; 83735; 83880; 85025 ×2; 93005; 93041; 96372; 99284; G0378; 36415

== ENCOUNTER 2022-09-28 20:54 | Emergency (ER) | payer MEDICARE ==
[~2022-09-28] VITALS: Ht 172 cm; Wt 75.0 kg
[~2022-09-28 20:54] MED LIST changes: +BRIM5DRO3 OS; +BUME0.5T5 PO; +LATA2.5D19 OS
--- NOTE | 2022-09-28 22:58 | ED General ---
General Chief Complaint: Cough/Cold/Flu Symptoms Stated Complaint: SINUS CONGESTION/HEADACHE/ELEV BP Nursing Triage Note: PT PRESENTS TO ED WITH C/O CONGESTION X WEEKS THAT RESOLVED TODAY AND A SINUS PAYNE THAT BEGAN THIS AFTERNOON AND HIGH BP. PT TOOK TYLENOL FOR PAYNE AROUND 1400. Source of Information: Patient, Family Exam Limitations: No Limitations History of Present Illness Date Seen by Provider: Sep 28, 2022 Time Seen by Provider: 21:19 Allergies and Home Medications Allergies Coded Allergies: Sulfa (Sulfonamide Antibiotics) (Verified Allergy, Unknown, 05/05/22) codeine (Verified Allergy, Unknown, 05/05/22) atorvastatin (Verified Allergy, DIZZINESS, 05/16/22) morphine (Verified Allergy, UNKNOWN, 05/16/22) propoxyphene (Verified Allergy, UNKNOWN, 05/16/22) empagliflozin (Verified Adverse Reaction, Unknown, "gential infection", 05/17/22) Patient Home Medication List Amiodarone HCl (Amiodarone HCl) 200 Mg Tablet, 200 MG PO DAILY, (Reported) Entered as Reported by: RAYMOND WARREN on 05/16/22 1145 Aspirin (Aspirin EC) 81 Mg Tablet.dr, 81 MG PO HS, (Reported) Entered as Reported by: RAYMOND WARREN on 08/04/21 1046 Brimonidine Tartrate (Brimonidine Tartrate) 0.2 % Btl, 1 DROP OS BID, (Reported) Entered as Reported by: RAYMOND WARREN on 09/17/22 1120 Bumetanide (Bumetanide) 0.5 Mg Tablet, 0.5 MG PO Q48H, (Reported) Entered as Reported by: RAYMOND WARREN on 09/17/22 1120 Carvedilol (Carvedilol) 25 Mg Tablet, 25 MG PO BID, (Reported) Entered as Reported by: RAYMOND WARREN on 05/16/22 1115 Cetirizine HCl (Cetirizine HCl) 10 Mg Tablet, 10 MG PO HS, (Reported) Entered as Reported by: SARWAT GARCIA on 08/03/21 2119 Latanoprost (Xalatan) 0.005 % Drops, 1 DROP OS HS, (Reported) Entered as Reported by: RAYMOND WARREN on 09/17/22 1120 Mexiletine HCl (Mexiletine HCl) 150 Mg Cap, 150 MG PO BID, (Reported) Entered as Reported by: RAYMOND WARREN on 05/16/22 1115 Oxymetazoline HCl (Afrin) 0.05 % [place], 1-2 SPRAY NS UD PRN for CONGESTION, (Reported) Entered as Reported by: RAYMOND WARREN on 08/04/21 1049 Pantoprazole Sodium (Pantoprazole Sodium) 40 Mg Tablet.dr, 40 MG PO DAILY, (Repo rted) Entered as Reported by: RAYMOND WARREN on 05/22/22 1442 Polyethylene Glycol 3350 ([id number]) 17 Gram/Dose Powder, 17 GM PO BID, (Reported) Entered as Reported by: RAYMOND WARREN on 05/22/22 1442 [Balance Of Nature] , 2 EA PO TIDWM, (Reported) Entered as Reported by: RAYMOND WARREN on 08/04/21 1046 Past Wdqrdfy-Clzhgz-Ennbth Hx Patient Social History Tobacco Use?: No Substance use?: No Alcohol Use?: No Pt feels they are or have been: Unable to obtain Immunizations Up To Date First/Initial COVID19 Vaccinat: May 2020 Second COVID19 Vaccination Jovany: June 2020 Third COVID19 Vaccination Date: January 2021 Past Medical History Surgery/Hospitalization HX: T AND A, HTN, CHRONIC CHF Surgeries: Yes Adenoidectomy, Cardiac, Defibrillator, Pacemaker, Tonsillectomy Respiratory: No Cardiac: Yes (V-TACH S/P DEFIBRILLATOR AND LOOP RECORDER; EF 20%; LBBB) Cardiomyopathy, Chronic Edema/Swelling, Coronary Artery Disease, Heart Murmur, High Cholesterol, Hypertension, Irregular Heartbeat Neurological: No Genitourinary: Yes (RENAL INSUFFICIENCY) Gastrointestinal: Yes Chronic Constipation Musculoskeletal: No Endocrine: No HEENT: No Cancer: No Psychosocial: No Integumentary: No Blood Disorders: No Family Medical History Diabetes, Hypertension, Other Conditions/Hx SOCIAL HISTORY: -DENIES SMOKING -DENIES ALCOHOL -DENIES DRUG USE CARDIAC CATH 08/04/[address] CHISHOLM: CONCLUSION: 1. Heavily calcified left main and proximal LAD with mild to moderate disease nonobstructive disease otherwise tortuous coronary system with mild disease. 2. Diffuse ectasia in the right coronary artery with slow flow, small vessel disease nonobstructive disease 3. Normal left ventricular end-diastolic pressure DISCUSSION AND RECOMMENDATION: Patient has worsening of the left ventricular function, by echo his ejection fraction around 20%. His recurrent sustained ventricular tachycardia has been difficult to control. We will continue with aggressive beta-blockers and increase amiodarone dose to 400 twice daily. I am planning to proceed with ICD implant Anesthesia Type: Conscious Sedation -SINGLE CHAMBER ICD DEFIBRILLATOR, AND LOOP RECORDER PLACED 08/05/[address] CHISHOLM Physical Exam Vital Signs Vital Signs - First Documented 09/28/22 21:25 Temp 36.8 Pulse 72 Resp 18 B/P (MAP) 167/104 (125) Pulse Ox 96 O2 Delivery Room Air Capillary Refill : Less Than 3 Seconds Height, Weight, BMI Height: '" Weight: lbs. oz. kg; 25.00 BMI Method: Cardiovascular: Diastolic Murmur, Systolic Murmur Procedures/Interventions Patient Education: Explained Benefits, Explained Risks, Pt. Ack. Understanding Breath Sounds per Auscultation: Clear Heart Sounds per Auscultation: Irregular Airway Exam: Mouth opens >2 fingers, Neck Full Range of Motion, Visulation of Uvula Sedation Adminstration Time: 1538 Re-examination Time: 1630 Progress/Results/Core Measures Suspected Sepsis SIRS Temperature: Pulse: 72 Respiratory Rate: 18 Blood Pressure 167 /104 Mean: 125 Results/Orders Lab Results Laboratory Tests Test 09/28/22 21:35 Range/Units Influenza Type A (RT-PCR) Not Detected Not Detecte Influenza Type B (RT-PCR) Not Detected Not Detecte SARS-CoV-2 RNA (RT-PCR) Not Detected Not Detecte My Orders Orders - GUIDO GOLD MD Covid 19 Inhouse Test (09/28/22 21:19) Influenza A And B By Pcr (09/28/22 21:19) Vital Signs/I&O 09/28/22 09/28/22 21:25 21:29 Temp 36.8 Pulse 72 Resp 18 B/P (MAP) 167/104 (125) Pulse Ox 96 O2 Delivery Room Air Room Air Capillary Refill : Less Than 3 Seconds Blood Pressure Mean: 125 Departure Impression Primary Impression: Nasal congestion Additional Impressions: Left ear impacted cerumen Hypertension Qualified Codes: I10 - Essential (primary) hypertension Seasonal allergies Disposition: 01 HOME, SELF-CARE Condition: Stable Departure-Patient Inst. Decision time for Depature: 23:01 Referrals: NITO SOLITARIO MD (PCP/Family) Primary Care Physician Patient Instructions: Ear Wax Impaction ED, High Blood Pressure ED, Seasonal Allergies ED Add. Discharge Instructions: You may use Tylenol (acetaminophen) up to 1000 mg every 6 hours as needed for headaches. You may continue using cetirizine (Zyrtec) for allergies. If you have become tolerant to cetirizine, you may wish to change to another ixkv-urd-fkwtyvn allergy medication such as Claritin (loratadine) or Xyzal. Do not use any allergy medications that include a decongestant. Avoid excessive salt consumption. Stop using Afrin (oxymetazoline). This nasal spray should only be used for a maximum of 3 days at a time and should only be used a couple of times per year when symptoms are severe or when you have nosebleeds. Instead, use Flonase or generic fluticasone 2 sprays in each nostril daily to help prevent congestion. If you are still having consistently high blood pressure through the weekend, please contact Dr. Chisholm's office on Saturday for further instructions. You have a earwax impaction on the left and a partial impaction on the right. You may use bdlr-tjj-fwqzwyt earwax removal products to help loosen and remove this wax. If you are unable to fully accomplish removal at home, you may follow-up with your primary care provider for irrigation and removal of the i mpaction. Return to the ER if you have worsening symptoms despite following these instructions. All discharge instructions reviewed with patient and/or family. Voiced understanding. GUIDO GOLD MD Sep 28, 2022 22:58
[2022-09-28 23:12] VITALS: BP 148/82
== END 2022-09-28 23:13 | disposition home or self-care (01) ==
LOC: EDUNIT# 20:54 → ER 20:57
DX: J30.2 Other seasonal allergic rhinitis (principal); H61.22 Impacted cerumen, left ear; I11.0 Hypertensive heart disease with heart failure; I50.9 Heart failure, unspecified; Z20.822 Contact with and (suspected) exposure to COVID-19
CPT/HCPCS: 87636; 99283

== ENCOUNTER 2023-01-04 18:51 | Inpatient (IN) | payer MEDICARE ==
[~2023-01-04] VITALS: Ht 172 cm; Wt 77.4 kg
[2023-01-04] MEDS ORDERED: ASPIRIN 81 MG CHEWABLE TABLET PO ONE (19:00)
[2023-01-04] MEDS ORDERED: AMIODARONE FOR BOLUS 150 MG in NS (IVPB) 100 ML 100 ML IV ONE (19:15)
[2023-01-04 19:19] LABS: BASOPHILS # (AUTO) 0.1 10^3/uL (0.0-0.1); BASOPHILS % (AUTO) 1 % (0-10); EOSINOPHILS # (AUTO) 0.1 10^3/uL (0.0-0.3); EOSINOPHILS % (AUTO) 3 % (0-10); HEMATOCRIT 44 % (40-54); HEMOGLOBIN 14.3 g/dL (13.3-17.7); LYMPHOCYTES # (AUTO) 0.9 10^3/uL (1.0-4.0); LYMPHOCYTES % (AUTO) 18 % (12-44); MEAN CORPUSCULAR HEMOGLOBIN 31 pg (25-34); MEAN CORPUSCULAR HGB CONC 33 g/dL (32-36); MEAN CORPUSCULAR VOLUME 94 fL (80-99); MEAN PLATELET VOLUME 11.3 fL (9.0-12.2); MONOCYTES # (AUTO) 0.7 10^3/uL (0.0-1.0); MONOCYTES % (AUTO) 15 % (0-12); NEUTROPHILS % (AUTO) 63 % (42-75); PLATELET COUNT 170 10^3/uL (130-400); WHITE BLOOD COUNT 4.9 10^3/uL (4.3-11.0)
[2023-01-04] MEDS ORDERED: AMIODARONE FOR DRIP 450 MG in NORMAL SALINE (EXCEL) 250 ML 250 ML IV SCH (19:30)
[2023-01-04 19:34] LABS: INR 1.1 (0.8-1.4); PROTHROMBIN TIME PATIENT 14.8 SEC (12.2-14.7)
--- NOTE | 2023-01-04 19:35 | Diagnostic Imaging Report ---
EXAMINATION: Chest 1 view HISTORY: Chest pain COMPARISON: 05/26/2022 FINDINGS: Heart is enlarged. There is mild edema. Pacemaker is present. No pneumothorax. There are small pleural effusions. IMPRESSION: 1. Small pleural effusions with mild edema. Dictated by: Dictated on workstation # [id number]
[2023-01-04 19:36] LABS: POTASSIUM 4.2 MMOL/L (3.6-5.0)
[2023-01-04 19:37] LABS: CALCIUM 9.7 MG/DL (8.5-10.1)
[2023-01-04 19:38] LABS: TOTAL PROTEIN 7.8 GM/DL (6.4-8.2)
[2023-01-04 19:40] LABS: BILIRUBIN,TOTAL 1.1 MG/DL (0.1-1.0)
[2023-01-04 19:42] LABS: CREATININE SERUM 2.18 MG/DL (0.60-1.30)
[2023-01-04 19:43] LABS: ERYTHROCYTE SEDIMENTATION RATE 6 MM/HR (0-30)
--- NOTE | 2023-01-04 19:43 | ED Cardiac General ---
History of Present Illness General Chief Complaint: Abdominal/GI Problems Stated Complaint: TROUBLE BREATHING, PRESSURE IN CHEST Source: patient (EXTREMELY DIFFICULT HISTORIAN) History of Present Illness Date Seen by Provider: Jan 04, 2023 Time Seen by Provider: 19:00 Initial Comments PT ARRIVES VIA POV FROM HOME PT STATES FOR THE LAST 3 DAYS HE HAS HAD PRESSURE IN HIS CHEST AND HAS FELT SHORT OF BREATH, AND HAS BEEN UNABLE TO LAY FLAT DUE TO SHORTNESS OF BREATH NO SWEATS NO SWELLING IN LEGS/FEET OR PAIN IN CALVEWS NO FEVER/CHILLS NO COUGH NO NAUSEA/VOMITING. NO BM X 2 DAYS. C/O UPPER ABDOMINAL "PRESSURE" HE IS URINATING A NORMAL AMOUNT. NO DIZZINESS OR SYNCOPE PT HAS HISTORY OF V-TACH AND HAS DEFIBRILLATOR IN PLACE. HE DENIES ANY DEFIBRILLATOR SHOCKS PT IS UNAWARE OF RAPID HEART BEAT HE HAS HISTORY OF HTN, AND LBBB, AND CHF, WITH EF OF 20% PCP: DR. SOLITARIO, IN [place], [place] CAFETERIA AIDE: DR. RITTER Allergies and Home Medications Allergies Coded Allergies: Sulfa (Sulfonamide Antibiotics) (Verified Allergy, Unknown, 05/05/22) codeine (Verified Allergy, Unknown, 05/05/22) atorvastatin (Verified Allergy, DIZZINESS, 05/16/22) morphine (Verified Allergy, UNKNOWN, 05/16/22) propoxyphene (Verified Allergy, UNKNOWN, 05/16/22) empagliflozin (Verified Adverse Reaction, Unknown, "gential infection", 05/17/22) Patient Home Medication List Home Medication List Reviewed: Yes Amiodarone HCl (Amiodarone HCl) 200 Mg Tablet, 200 MG PO DAILY, (Reported) Entered as Reported by: RAYMOND WARREN on 05/16/22 1145 Aspirin (Aspirin EC) 81 Mg Tablet., 81 MG PO HS, (Reported) Entered as Reported by: RAYMOND WARREN on 08/04/21 1046 Brimonidine Tartrate (Brimonidine Tartrate) 0.2 % Btl, 1 DROP OS BID, (Reported) Entered as Reported by: RAYMOND WARREN on 09/17/22 1120 Bumetanide (Bumetanide) 0.5 Mg Tablet, 0.5 MG PO Q48H, (Reported) Entered as Reported by: RAYMOND WARREN on 09/17/22 1120 Carvedilol (Carvedilol) 25 Mg Tablet, 25 MG PO BID, (Reported) Entered as Reported by: RAYMOND WARREN on 05/16/22 1115 Cetirizine HCl (Cetirizine HCl) 10 Mg Tablet, 10 MG PO HS, (Reported) Entered as Reported by: SARWAT GARCIA on 08/03/21 2119 Latanoprost (Xalatan) 0.005 % Drops, 1 DROP OS HS, (Reported) Entered as Reported by: RAYMOND WARREN on 09/17/22 1120 Mexiletine HCl (Mexiletine HCl) 150 Mg Cap, 150 MG PO BID, (Reported) Entered as Reported by: RAYMOND WARREN on 05/16/22 111 Oxymetazoline HCl (Afrin) 0.05 % [place], 1-2 SPRAY NS UD PRN for CONGESTION, (Reported) Entered as Reported by: RAYMOND WARREN on 08/04/21 1049 Pantoprazole Sodium (Pantoprazole Sodium) 40 Mg Tablet.dr, 40 MG PO DAILY, (Reported) Entered as Reported by: RAYMOND WARREN on 05/22/22 1442 Polyethylene Glycol 3350 ([id number]) 17 Gram/Dose Powder, 17 GM PO BID, (Reported) Entered as Reported by: RAYMOND WARREN on 05/22/22 1442 [Balance Of Nature] , 2 EA PO TIDWM, (Reported) Entered as Reported by: RAYMOND WARREN on 08/04/21 1046 Review of Systems Review of Systems Constitutional: no symptoms reported Respiratory: See HPI; Denies Cough; Orthopnea, Shortness of Air Cardiovascular: See HPI, Chest Pain; Denies Edema Gastrointestinal: See HPI; Denies Abdominal Pain; Constipated; Denies Nausea, D enies Vomiting Genitourinary: No Symptoms Reported Musculoskeletal: no symptoms reported Skin: no symptoms reported Psychiatric/Neurological: No Symptoms Reported Endocrine: No Symptoms Reported Hematologic/Lymphatic: No Symptoms Reported Past Thrjeji-Mqdddv-Iypbww Hx Patient Social History Tobacco Use?: No Smoking Status: Never a Smoker Smokeless Tobacco Frequency: Never a User Use of E-Cig and/or Vaping [place]: Never a User Substance use?: No Alcohol Use?: No Immunizations Up To Date First/Initial COVID19 Vaccinat: May 2020 Second COVID19 Vaccination Jovany: June 2020 Third COVID19 Vaccination Date: January 2021 Past Medical History Surgery/Hospitalization HX: T AND A, HTN, CHRONIC CHF Surgeries: Yes Adenoidectomy, Cardiac, Defibrillator, Pacemaker, Tonsillectomy Respiratory: No Cardiac: Yes (V-TACH S/P DEFIBRILLATOR 07/2021 & LOOP RECORDER; EF 20%;LBBB;CARDIOVERSION) Cardiomyopathy, Chronic Edema/Swelling, Coronary Artery Disease, Heart Murmur, High Cholesterol, Hypertension, Irregular Heartbeat Neurological: No Genitourinary: Yes (RENAL INSUFFICIENCY) Gastrointestinal: Yes Chronic Constipation Musculoskeletal: No Endocrine: No HEENT: No Cancer: No Psychosocial: No Integumentary: No Blood Disorders: No Family Medical History Diabetes, Hypertension, Other Conditions/Hx SOCIAL HISTORY: -DENIES SMOKING -DENIES ALCOHOL -DENIES DRUG USE CARDIAC CATH 08/04/[address] RITTER: CONCLUSION: 1. Heavily calcified left main and proximal LAD with mild to moderate disease nonobstructive disease otherwise tortuous coronary system with mild disease. 2. Diffuse ectasia in the right coronary artery with slow flow, small vessel disease nonobstructive disease 3. Normal left ventricular end-diastolic pressure DISCUSSION AND RECOMMENDATION: Patient has worsening of the left ventricular function, by echo his ejection fraction around 20%. His recurrent sustained ventricular tachycardia has been difficult to control. We will continue with aggressive beta-blockers and increase amiodarone dose to 400 twice daily. I am planning to proceed with ICD implant Anesthesia Type: Conscious Sedation -SINGLE CHAMBER ICD DEFIBRILLATOR, AND LOOP RECORDER PLACED 08/05/[address] RITTER Physical Exam Vital Signs Vital Signs - First Documented 01/04/23 01/04/23 19:02 19:05 Temp 36.5 Pulse 126 Resp 20 B/P (MAP) 108/89 (95) Pulse Ox 97 O2 Delivery Nasal Cannula O2 Flow Rate 2.00 Capillary Refill : Height, Weight, BMI Height: '" Weight: lbs. oz. kg; 25.00 BMI Method: General Appearance: No Apparent Distress, WD/WN, Other (TALKS NON-STOP IN FULL SENTENCES. DOES NOT APPEAR TO BE IN ANY DISCOMFORT OR DISTRESS. ) Neck: Normal Inspection Respiratory: Normal Breath Sounds, No Accessory Muscle Use, No Respiratory Distress Cardiovascular: Systolic Murmur (1-2/6 MURMUR), Tachycardia Gastrointestinal: Non Tender, Soft Extremity: Pedal Edema (2+ EDEMA BILATERALLY WITH CHRONIC VENOUS STASIS CHANGES BILATERALLY) Neurologic/Psychiatric: Alert, Oriented x3, No Motor/Sensory Deficits, Normal M ood/Affect, stock blender II-XII Norm as Tested Skin: Normal Color, Warm/Dry Procedures/Interventions Procedure: CONSCIOUS SEDATION WITH CARDIOVERSEION Patient Education: Explained Benefits, Explained Risks, Pt. Ack. Understanding Agreement on procedure with pt: Yes Breath Sounds per Auscultation: Clear Heart Sounds per Auscultation: Murmur, Regular Airway Exam: Mouth opens >2 fingers, Neck Full Range of Motion, Visulation of Uvula SEEN NURSING NOTES FOR DETAILS PT IS IN SUSTAINED V-TACH CONSCIOUS SEDATION WITH PROPOFOL SUCCESSFUL CARDIOVERSION X 1 ATTEMPT AT 50 JOU[address], WITH DR. BALES AT BEDSIDE. PT IN NORMAL SINUS RHYTHM WITH NARROW COMPLEXES AFTER CARDIOVERSION PT TOLERATED WELL NO COMPLICATIONS Progress/Results/Core Measures Results/Orders Lab Results Laboratory Tests Test 01/04/23 19:13 Range/Units White Blood Count 4.9 4.3-11.0 10^3/uL Red Blood Count 4.63 4.30-5.52 10^6/uL Hemoglobin 14.3 13.3-17.7 g/dL Hematocrit 44 40-54 % Mean Corpuscular Volume 94 80-99 fL Mean Corpuscular Hemoglobin 31 25-34 pg Mean Corpuscular Hemoglobin Concent 33 32-36 g/dL Red Cell Distribution Width 15.0 H 10.0-14.5 % Platelet Count 170 130-400 10^3/uL Mean Platelet Volume 11.3 9.0-12.2 fL Immature Granulocyte % (Auto) 0 % Neutrophils (%) (Auto) 63 42-75 % Lymphocytes (%) (Auto) 18 12-44 % Monocytes (%) (Auto) 15 H 0-12 % Eosinophils (%) (Auto) 3 0-10 % Basophils (%) (Auto) 1 0-10 % Neutrophils # (Auto) 3.0 1.8-7.8 10^3/uL Lymphocytes # (Auto) 0.9 L 1.0-4.0 10^3/uL Monocytes # (Auto) 0.7 0.0-1.0 10^3/uL Eosinophils # (Auto) 0.1 0.0-0.3 10^3/uL Basophils # (Auto) 0.1 0.0-0.1 10^3/uL Immature Granulocyte # (Auto) 0.0 0.0-0.1 10^3/uL Erythrocyte Sedimentation Rate 6 0-30 MM/HR Prothrombin Time 14.8 H 12.2-14.7 SEC INR Comment 1.1 0.8-1.4 Activated Partial Thromboplast Time 31 24-35 SEC Sodium Level 142 135-145 MMOL/L Potassium Level 4.2 3.6-5.0 MMOL/L Chloride Level 101 98-107 MMOL/L Carbon Dioxide Level 27 21-32 MMOL/L Anion Gap 14 5-14 MMOL/L Blood Urea Nitrogen 43 H 7-18 MG/DL Creatinine 2.18 H 0.60-1.30 MG/DL Estimat Glomerular Filtration Rate 29 BUN/Creatinine Ratio 20 Glucose Level 120 H 70-105 MG/DL Calcium Level 9.7 8.5-10.1 MG/DL Corrected Calcium 9.7 8.5-10.1 MG/DL Magnesium Level 2.4 1.6-2.4 MG/DL Total Bilirubin 1.1 H 0.1-1.0 MG/DL Aspartate Amino Transf (AST/SGOT) 33 5-34 U/L Alanine Aminotransferase (ALT/SGPT) 29 0-55 U/L Alkaline Phosphatase 67 40-136 U/L Total Creatine Kinase 65 30-200 U/L Creatine Kinase MB 1.2 <6.6 NG/ML Troponin I 0.034 H <0.028 NG/ML C-Reactive Protein High Sensitivity 1.00 H 0.00-0.50 MG/DL B-Type Natriuretic Peptide 3788.3 H <100.0 PG/ML Total Protein 7.8 6.4-8.2 GM/DL Albumin 4.0 3.2-4.5 GM/DL Amylase Level 50 25-125 U/L Influenza Type A (RT-PCR) Not Detected Not Detecte Influenza Type B (RT-PCR) Not Detected Not Detecte SARS-CoV-2 RNA (RT-PCR) Not Detected Not Detecte My Orders Orders - HARLEY MUJICA DO Ed Iv/Invasive Line Start (01/04/23 19:00) Ekg Tracing (01/04/23 19:00) O2 (01/04/23 19:00) Monitor-Rhythm Ecg Trace Only (01/04/23 19:00) Amylase (01/04/23 19:00) Bnp Harper (01/04/23 19:00) Cbc And Automated Diff (01/04/23 19:00) Comprehensive Metabolic Panel (01/04/23 19:00) Creatine Kinase (01/04/23 19:00) Creatine Kinase Mb (01/04/23 19:00) Hs C Reactive Protein (01/04/23 19:00) Magnesium (01/04/23 19:00) Protime With Inr (01/04/23 19:00) Partial Thromboplastin Time (01/04/23 19:00) Ua Culture If Indicated (01/04/23 19:00) Erythrocyte Sedimentation Rate (01/04/23 19:00) Troponin I Karen (01/04/23 19:00) Chest 1 View, Ap/Pa Only (01/04/23 19:00) Aspirin Chewable Tablet (Aspirin Chewabl (01/04/23 19:00) Covid 19 Inhouse Test (01/04/23 19:00) Influenza A And B By Pcr (01/04/23 19:00) Amiodarone For Bolus (Amiodarone For Demario (01/04/23 19:15) Amiodarone For Drip (Amiodarone For Drip (01/04/23 19:30) Propofol Injection (Propofol Injection) (01/04/23 20:16) Fentanyl Injection (Fentanyl Injection (01/04/23 20:17) Ekg Tracing (01/04/23 20:27) End Tidal Co2 (01/04/23 20:54) Furosemide Injection (Furosemide Injec (01/04/23 21:15) Medications Given in ED Current Medications Medications Dose Ordered Sig/Praneeth Route Start Time Stop Time Status Last Admin Dose Admin Amiodarone HCl 150 mg/Sodium Chloride 103 ml @ 600 mls/hr ONCE ONCE IV 01/04/23 19:15 01/04/23 19:25 DC 01/04/23 19:21 600 MLS/HR Aspirin 324 mg ONCE ONCE PO 01/04/23 19:00 01/04/23 19:02 DC 01/04/23 19:20 324 MG Furosemide 40 mg ONCE ONCE IVP 01/04/23 21:15 01/04/23 21:16 DC 01/04/23 21:16 40 MG Propofol 200 mg STK-MED ONCE IV 01/04/23 20:16 01/04/23 20:20 DC 01/04/23 20:26 100 MG Vital Signs/I&O 01/04/23 01/04/23 01/04/23 01/04/23 19:02 19:05 19:21 20:25 Temp 36.5 Pulse 126 121 Resp 20 B/P (MAP) 108/89 (95) 108/89 Pulse Ox 97 99 O2 Delivery Nasal Cannula Nasal Cannula O2 Flow Rate 2.00 2.00 01/04/23 01/04/23 01/04/23 01/04/23 20:25 20:30 20:35 20:40 Pulse 116 53 48 47 Resp 16 10 21 14 B/P (MAP) 132/96 (108) 132/96 (108) 112/63 (79) 114/65 (81) Pulse Ox 100 94 95 98 O2 Delivery Nasal Cannula OxyMask OxyMask OxyMask O2 Flow Rate 2.00 4.00 4.00 4.00 01/04/23 01/04/23 01/04/23 01/04/23 20:45 21:11 21:51 22:00 Pulse 46 61 62 Resp 19 22 29 B/P (MAP) 112/63 (79) 123/74 141/94 (110) Pulse Ox 99 99 99 O2 Delivery Nasal Cannula Nasal Cannula Nasal Cannula Nasal Cannula O2 Flow Rate 2.00 2.00 2.00 2.00 01/05/23 00:00 Intake Total 103 ml Balance 103 ml Blood Pressure Mean: 95 Progress Progress Note : Progress Note VITALS ON ARRIVAL: TEMP 36.5=97.7, HR 126, RR 20, BP 108/89, O2 SAT 97% ON ROOM AIR GIVEN: -LASIX -AMIODARONE -LIDOCAINE -PROPOFOL FOR CONSCIOUS SEDATION LABS: -CBC NORMAL -CMP WITH NORMAL ELECTROLYTES, K 4.2, BUN 43, TIRE BLADDER MAKER 2.18, GLU 120---BUN AND CREATININE ARE PT'S NORMAL BASELINE LEVELS -MG 2.4 -TROPONIN 0.034 -BNP 3788 -PT/PTT/INR NORMAL -UA WITH 2+ PROTEIN -COVID AND FLU NEGATIVE EKG WITH LBBB/SUSTAINED V-TACH CXR WITH CHF SUCCESSFUL CARDIOVERSION TO NORMAL SINUS RHYTHM NO DETERIORATION IN PT'S CONDITION DURING ER STAY DISCUSSED TEST RESULTS, NEED FOR ADMIT AND PT IS AGREEABLE TO PLAN REVIEWED PRIOR RECORDS, INCLUDING ER VISITS, ADMITS/H&P'S/CONSULTS/DISCHARGE SUMMARIES, TESTS/PROCEDURES. Initial ECG Impression Date: Jan 04, 2023 Initial ECG Impression Time: 19:11 Initial ECG Rate: 123 Initial ECG Rhythm: V.Tach (LBBB) Initial ECG Intervals ND 231 QRS 196 QT/QTC 379/452 Comment EKG #1 APPEARS SIMILAR TO PRIOR EKG WITH LBBB, BUT ALSO HAS SAME APPEARANCE V-TACH INTERPRETED BY ME EKG : EKG Time: 20:31 Rate: 49 Rhythm: Normal Sinus Intervals ND 276 QRS 165 QT/QTC 527/497 ECG Comparisson: Changed ECG Impression: 1st Degree AV Block Comment INTPERPRETED BY ME Diagnostic Imaging Comments CXR--PER RADIOLOGIST REPORT AT 1942 FINDINGS: Heart is enlarged. There is mild edema. Pacemaker is present. No pneumothorax. There are small pleural effusions. IMPRESSION: 1. Small pleural effusions with mild edema. Reviewed: Reviewed by Me Critical Care Note Critical Care Start Time: 19:00 Stop Time: 21:00 Total Time (minutes) 120 MIN Departure Communication (Admissions) 1917--SPOKE WITH DR. BALES, CAFETERIA AIDE, CURRENT AND PRIOR EKG'S TEXTED TO HIM. . HE AGREES WITH AMIODARONE AND ALSO RECOMMENDS LIDOCAINE. HE WILL BE IN TO SEE PT. IF NO IMPROVEMENT WITH MEDICATIONS, WILL PROCEED WITH CARDIOVERSION. 1957--SPOKE WITH DR. WOODWARD, HOSPITALIST, ACCEPTS PT FOR ADMIT. 2002--REPORT TO E-ICU PHYSICIAN 2009--DR. BALES HERE. WILL PROCEED WITH CONSCIOUS SEDATION AND CARDIOVERSION Impression Primary Impression: Sustained ventricular tachycardia Additional Impressions: ACUTE EXACERBATION OF CHRONIC CONGESTIVE HEART FAILURE Elevated troponin Chronic renal insufficiency Disposition: ADMITTED INPATIENT Condition: Improved Admissions Decision to Admit Reason: Admit from ER (General) Decision to Admit/Date: Jan 04, 2023 Time/Decision to Admit Time: 20:00 Departure-Patient Inst. Referrals: NITO SOLITARIO MD (PCP/Family) Primary Care Physician HARLEY MUJICA DO Jan 04, 2023 19:43
[2023-01-04 19:44] LABS: MAGNESIUM 2.4 MG/DL (1.6-2.4)
[2023-01-04 19:52] LABS: CREATINE KINASE MB 1.2 NG/ML (<6.6)
[2023-01-04] MEDS ORDERED: proPOfol INJECTION 200 MG/20 ML VIAL IV ONE (20:16)
[2023-01-04] MEDS ORDERED: fentaNYL INJECTION 100 MCG/2 ML VIAL ONE (20:17)
--- NOTE | 2023-01-04 20:28 | Consultation-Cardiology ---
HPI-Cardiology Cardiology Consultation: Date of Consultation 01/04/23 Time Seen by a Provider: 20:35 Date of Admission Attending Physician Luca Silverio MD Admitting Physician Admitting Physician: Attending Physician: Consulting Physician VALDO BALES MD, MA, FACP, FACC, FSCAI, CCDS Primary clerk secretary: Dr Chisholm Physicians requesting consult: Dr Zhang, Dr Bales HPI: Chief Complaint: Weakness, malaise, poor stamina, shortness of breath for 2 days 82 yo man with 2 days of gen malaise and shortness of breath. No cp. No syncope. No swelling. No n/v/d Review of Systems-Cardiology Review of Systems Constitutional: malaise, tiredness; No weight loss, No weight gain Eyes: No vision change Ears/Nose/Throat: No ear discharge, No nasal drainage, No recent hearing loss Respiratory: As described under HPI Cardiovascular: As described under HPI Gastrointestinal: No diarrhea, No nausea, No vomiting Genitourinary: No dysuria, No hematuria, No urine frequency changes Musculoskeletal: No back pain, No joint pain Skin: rash, ulcerations Psychiatric/Neurological: No seizure, No focal weakness, No syncope Hematologic: No bleeding abnormalities COM-Vxytzt-Zihjfi Hx Patient Social History Smoking Status: Never a Smoker Immunizations Up To Date Date of Influenza Vaccine: Jan 17, 2022 Past Medical History PMH As described under Assessment. Family Medical History Family Medical History: Does not report fam h/o early CAD Allergies and Home Medications Allergies Coded Allergies: Sulfa (Sulfonamide Antibiotics) (Verified Allergy, Unknown, 05/05/22) codeine (Verified Allergy, Unknown, 05/05/22) atorvastatin (Verified Allergy, DIZZINESS, 05/16/22) morphine (Verified Allergy, UNKNOWN, 05/16/22) propoxyphene (Verified Allergy, UNKNOWN, 05/16/22) empagliflozin (Verified Adverse Reaction, Unknown, "gential infection", 05/17/22) Patient Home Medication List Home Medication List Reviewed: Yes Amiodarone HCl (Amiodarone HCl) 200 Mg Tablet, 200 MG PO DAILY, (Reported) Entered as Reported by: RAYMOND WARREN on 05/16/22 1145 Aspirin (Aspirin EC) 81 Mg Tablet.dr, 81 MG PO HS, (Reported) Entered as Reported by: RAYMOND WARREN on 08/04/21 1046 Brimonidine Tartrate (Brimonidine Tartrate) 0.2 % Btl, 1 DROP OS BID, (Reported) Entered as Reported by: RAYMOND WARREN on 09/17/22 1120 Bumetanide (Bumetanide) 0.5 Mg Tablet, 0.5 MG PO Q48H, (Reported) Entered as Reported by: RAYMOND WARREN on 09/17/22 1120 Carvedilol (Carvedilol) 25 Mg Tablet, 25 MG PO BID, (Reported) Entered as Reported by: RAYMOND WARREN on 05/16/22 1115 Cetirizine HCl (Cetirizine HCl) 10 Mg Tablet, 10 MG PO HS, (Reported) Entered as Reported by: SARWAT GARCIA on 08/03/21 211 Latanoprost (Xalatan) 0.005 % Drops, 1 DROP OS HS, (Reported) Entered as Reported by: RAYMOND WARREN on 09/17/22 1120 Mexiletine HCl (Mexiletine HCl) 150 Mg Cap, 150 MG PO BID, (Reported) Entered as Reported by: RAYMOND WARREN on 05/16/22 1115 Oxymetazoline HCl (Afrin) 0.05 % Campbell, 1-2 SPRAY NS UD PRN for CONGESTION, (Reported) Entered as Reported by: RAYMOND WARREN on 08/04/21 1049 Pantoprazole Sodium (Pantoprazole Sodium) 40 Mg Tablet.dr, 40 MG PO DAILY, (Reported) Entered as Reported by: RAYMOND WARREN on 05/22/22 1442 Polyethylene Glycol 3350 ([id number]) 17 Gram/Dose Powder, 17 GM PO BID, (Reported) Entered as Reported by: RAYMOND WARREN on 05/22/22 1442 [Balance Of Nature] , 2 EA PO TIDWM, (Reported) Entered as Reported by: RAYMOND WARREN on 08/04/21 1046 Physical Exam-Cardiology Physical Exam Vital Signs/I&O 01/04/23 19:21 Pulse 121 B/P (MAP) 108/89 Capillary Refill : Constitutional: AAO x 3, well-developed, well-nourished HEENT: EOMI, hearing is well preserved, oral hygience is good; No xanthelasmas are seen Neck: carotid pulses are 2 + bilaterally, with good upstrokes Respiratory: No accessory muscle use; chest expansion is symmetric, chest is bilaterally symmetric, other (good bilat air entry) Cardiovascular: regular rate-rhythm, S1 and S2, systolic murmur (soft ADALGISA at card base) Gastrointestinal: No tender; soft; No guarding, No rebound, No audible bowel sounds Extremities: No clubbing, No cyanosis; significant edema (2+ edema, bilateral) Neurologic/Psychiatric: oriented x 3, other (moves all limbs equally) Skin: No rash on exposed areas, No ulcerations on exposed areas Data Review Labs Laboratory Tests 01/04/23 19:13: White Blood Count 4.9, Red Blood Count 4.63, Hemoglobin 14.3, Hematocrit 44, Mean Corpuscular Volume 94, Mean Corpuscular Hemoglobin 31, Mean Corpuscular Hemoglobin Concent 33, Red Cell Distribution Width 15.0H, Platelet Count 170, Mean Platelet Volume 11.3, Immature Granulocyte % (Auto) 0, Neutrophils (%) (Auto) 63, Lymphocytes (%) (Auto) 18, Monocytes (%) (Auto) 15H, Eosinophils (%) (Auto) 3, Basophils (%) (Auto) 1, Neutrophils # (Auto) 3.0, Lymphocytes # (Auto) 0.9L, Monocytes # (Auto) 0.7, Eosinophils # (Auto) 0.1, Basophils # (Auto) 0.1, Immature Granulocyte # (Auto) 0.0, Erythrocyte Sedimentation Rate 6, Prothrombin Time 14.8H, INR Comment 1.1, Activated Partial Thromboplast Time 31, Sodium Level 142, Potassium Level 4.2, Chloride Level 101, Carbon Dioxide Level 27, Anion Gap 14, Blood Urea Nitrogen 43H, Creatinine 2.18H, Estimat Glomerular Filtration Rate 29, BUN/Creatinine Ratio 20, Glucose Level 120H, Calcium Level 9.7, Corrected Calcium 9.7, Magnesium Level 2.4, Total Bilirubin 1.1H, Aspartate Amino Transf (AST/SGOT) 33, Alanine Aminotransferase (ALT/SGPT) 29, Alkaline Margarito sphatase 67, Total Creatine Kinase 65, Creatine Kinase MB 1.2, Troponin I 0.034H , C-Reactive Protein High Sensitivity 1.00H, B-Type Natriuretic Peptide 3788.3H, Total Protein 7.8, Albumin 4.0, Amylase Level 50, Influenza Type A (RT-PCR) Not Detected, Influenza Type B (RT-PCR) Not Detected, SARS-CoV-2 RNA (RT-PCR) Not Detected Laboratory Tests 01/04/23 19:13 A/P-Cardiology Assessment/Admission Diagnosis Dilated cardiomyopathy - Card cath Aug 04, 2021: mild to mod CAD - Echo 04-05-23: LVEF 30-35%, global hypokineis, mild MR, mod TR, PASP 55-60 mmHg H/o sustained VT - Sustained ventricular tachycardia in 2021, patient had wide-complex tachycardia required electrical cardioversion. He has been maintained on amiodarone and mexilitine as an outpatient. - Status post single-chamber ICD implant on August 05, 2021 with DFT testing, [employer] [place] VR MRI DF4. HFrEF Hyperlipidemia Chronic renal insufficiency, chronic kidney disease stage III- IV. H/o noncompliance with medication, reports compliance at this time Peripheral edema. reporting improvement. Maintained on Bumex. Mild bilateral carotid stenosis, ultrasound was done in February 2022. Discussion and Recomendations * 50J synchronized elec CV after having obtained informed consent. NSR obtained * iv amiodarone * Continue previous cardiac regimen * Hosp to ICU VALDO BALES MD FACP FAC CCDS Jan 04, 2023 20:28
[2023-01-04] MEDS ORDERED: FUROSEMIDE INJECTION 40 MG/4 ML VIAL IVP ONE (21:15)
[2023-01-04] MEDS ORDERED: NS IV 500 ML 500 ML IV PRN (22:30)
[2023-01-04] MEDS ORDERED: fentaNYL INJECTION 100 MCG/2 ML VIAL IV PRN (23:00)
[2023-01-04] MEDS ORDERED: CATHETER FLUSH 10 ML SYR IVP PRN (23:00)
[2023-01-04] MEDS ORDERED: ONDANSETRON INJECTION 4 MG/2 ML (SDV) IV PRN (23:00)
[2023-01-04] MEDS ORDERED: AMIODARONE INJECTION 450 MG in Ns(excel) 250 ML IV SCH (23:00)
[2023-01-04 23:42] LABS: AMORPHOUS SEDIMENT,UR FEW AMOR URATES /LPF; BACTERIA,URINE TRACE /HPF; BILIRUBIN,URINE NEGATIVE (NEGATIVE); CLARITY,URINE CLEAR; COLOR,URINE YELLOW; GLUCOSE, URINE (UA) NEGATIVE (NEGATIVE); KETONES,URINE NEGATIVE (NEGATIVE); LEUKOCYTE ESTERASE ,URINE NEGATIVE (NEGATIVE); NITRITE,URINE NEGATIVE (NEGATIVE); PROTEIN,URINE 2+ (NEGATIVE); RBC,URINE 0-2 /HPF; SQUAMOUS EPITHELIAL CELL,UR 0-2 /HPF; WBC,URINE 0-2 /HPF
--- NOTE | 2023-01-05 00:24 | OPERATIVE REPORT ---
PREOPERATIVE DIAGNOSIS: Sustained ventricular tachycardia at approximately 120 beats per minute. POSTOPERATIVE DIAGNOSIS: Sinus rhythm at approximately 50 beats per minute. PROCEDURE: External electrical cardioversion. DETAILS OF PROCEDURE: After having obtained an informed consent, the emergency room physician gave short-acting anesthesia under which 50 joules of synchronized shock was given through external patches, which converted ventricular tachycardia to sinus rhythm. He tolerated the procedure well. Job ID: [id number] DocumentID: [id number] Dictated Date: 01/04/2023 20:44:42 P 3 Armament/Ordnance Ima Technician Date: 01/05/2023 00:22:00 Dictated By: VALDO BALES MD; LEE; FACP; FACC;
--- NOTE | 2023-01-05 03:01 | Tele-ICU Progress Note ---
Subjective Date Seen by a Provider: Jan 05, 2023 Time Seen by a Provider: 03:00 Subjective/Events-last exam (Tele-ICU Physician , Progress Note ) Service provided via interactive audio and video telecommunications E-CARE system to a patient admitted to ICU bed in [facility]. Patient is seen today due to persistent need of ICU care Available chart/ vitals / labs / Images reviewed Video assessment done using teleICU camera, rest of exam as per RN He is a 88-year-old male with past medical history of coronary artery disease and cardiomyopathy, previous history of ventricular tachycardia on amiodarone and mexiletine presented to the emergency syndrome with a complaint of pressure in the chest and difficulty in breathing. He is found to have a wide QRS tachycardia suggestive of ventricular tachycardia however his blood pressure is stable. In the emergency room architectural job captain was consulted and Dr. Kam came and did a cardioversion resulting in sinus rhythm. He is subseque ntly admitted to the intensive care unit for close monitoring and continuation of IV amiodarone. Currently he denies any chest pain or shortness of breath and resting comfortably. Reviewed with CENTERLESS GRINDER OPERATOR. I have reviewed the case earlier with ER physician. Impression 1. Congestive cardiomyopathy 2. Ventricular tachycardia. 3. Previous history of ventricular tachycardia status post single lead ICD placement. 4. Coronary artery disease. Recommendations 1. Management of his arrhythmia per architectural job captain. 2. Continue to monitor any secondary problems. Coordination of care with primary care physician and bedside consultants. I am remotely monitoring this patient from Tele icu station in [place]. I am unable to do the bedside exam, and history/physical and pertinent information is taken from other notes in the computer and bedside staff. Certain portions of this document may have been dictated utilizing voice recognition technology such as [employer]ment ([employer]). Inherent to this technology, t ypographical and grammatical errors may exist. As much as I am diligent to identify and correct to these mistakes, some errors may remain in the document. Critical care time devoted to this patient today is approximately is--15 minutes Sepsis Event Evaluation Height, Weight, BMI Height: '" Weight: lbs. oz. kg; 26.16 BMI Method: Exam Exam Patient acknowledged, consented, and participated in this virtual visit which was conducted using real time audio/video Vital Signs Date Time Temp Pulse Resp B/P (MAP) Pulse Ox O2 Delivery O2 Flow Rate FiO2 01/05/23 01:00 70 01/05/23 00:00 Nasal Cannula 2.00 01/04/23 23:57 Nasal Cannula 2.00 01/04/23 23:45 65 14 127/87 (100) 93 Nasal Cannula 2.00 01/04/23 23:15 65 27 138/85 (102) 96 Nasal Cannula 2.00 01/04/23 22:45 64 18 147/92 (110) 98 Nasal Cannula 2.00 01/04/23 22:30 61 18 148/99 (115) 97 Nasal Cannula 2.00 01/04/23 22:15 63 20 151/95 (113) 99 Nasal Cannula 2.00 01/04/23 22:10 60 01/04/23 22:00 62 29 141/94 (110) 99 Nasal Cannula 2.00 01/04/23 21:51 Nasal Cannula 2.00 01/04/23 21:11 61 22 123/74 99 Nasal Cannula 2.00 01/04/23 20:45 46 19 112/63 (79) 99 Nasal Cannula 2.00 01/04/23 20:40 47 14 114/65 (81) 98 OxyMask 4.00 01/04/23 20:35 48 21 112/63 (79) 95 OxyMask 4.00 01/04/23 20:30 53 10 132/96 (108) 94 OxyMask 4.00 01/04/23 20:25 116 16 132/96 (108) 100 Nasal Cannula 2.00 01/04/23 20:25 Nasal Cannula 2.00 01/04/23 19:21 121 108/89 01/04/23 19:05 99 Nasal Cannula 2.00 01/04/23 19:02 36.5 126 20 108/89 (95) 97 I & O 01/05/23 07:00 Intake Total 403 ml Output Total 800 ml Balance -397 ml Height & Weight Height: '" Weight: lbs. oz. kg; 26.16 BMI Method: General Appearance: Chronically ill Capillary Refill: Less Than 3 Seconds Results Lab Laboratory Tests 01/04/23 19:13 Assessment/Plan Assessment/Plan as above Critical Care: Critically Ill Patient Time spent with patient (mins): 15 SEAN MENDOZA MD Jan 05, 2023 03:01
[2023-01-05 03:32] LABS: BASOPHILS % (AUTO) 1 % (0-10); EOSINOPHILS # (AUTO) 0.1 10^3/uL (0.0-0.3); EOSINOPHILS % (AUTO) 2 % (0-10); HEMATOCRIT 40 % (40-54); HEMOGLOBIN 13.5 g/dL (13.3-17.7); LYMPHOCYTES # (AUTO) 1.1 10^3/uL (1.0-4.0); LYMPHOCYTES % (AUTO) 19 % (12-44); MEAN CORPUSCULAR HEMOGLOBIN 31 pg (25-34); MEAN CORPUSCULAR HGB CONC 34 g/dL (32-36); MEAN CORPUSCULAR VOLUME 91 fL (80-99); MEAN PLATELET VOLUME 11.5 fL (9.0-12.2); MONOCYTES # (AUTO) 1.1 10^3/uL (0.0-1.0); MONOCYTES % (AUTO) 19 % (0-12); NEUTROPHILS # (AUTO) 3.3 10^3/uL (1.8-7.8); NEUTROPHILS % (AUTO) 59 % (42-75); PLATELET COUNT 127 10^3/uL (130-400); WHITE BLOOD COUNT 5.6 10^3/uL (4.3-11.0)
[2023-01-05 03:42] LABS: ALBUMIN 3.7 GM/DL (3.2-4.5); POTASSIUM 3.7 MMOL/L (3.6-5.0)
[2023-01-05 03:43] LABS: CALCIUM 9.3 MG/DL (8.5-10.1)
[2023-01-05 03:46] LABS: BILIRUBIN,TOTAL 1.5 MG/DL (0.1-1.0)
[2023-01-05 03:48] LABS: CREATININE SERUM 2.06 MG/DL (0.60-1.30); PHOSPHORUS 3.7 MG/DL (2.3-4.7)
[2023-01-05 03:51] LABS: MAGNESIUM 2.1 MG/DL (1.6-2.4)
[2023-01-05] MEDS: CATHETER FLUSH 10 ML SYR IVP SCH ×2 (03:57→14:41)
[2023-01-05] MEDS ORDERED: POTASSIUM CHLORIDE 20 MEQ TABLET PO ONE (04:00)
[2023-01-05 04:07] LABS: BASOPHILS % (MANUAL) 1 %; EOSINOPHILS % (MANUAL) 1 %; LYMPHOCYTES % (MANUAL) 23 %; MONOCYTES % (MANUAL) 13 %; NEUTROPHILS % (MANUAL) 62 %; RBC MORPH NORMAL
[2023-01-05] MEDS ORDERED: POTASSIUM CL 10MEQ/50ML IVPB 50 ML IV SCH (06:00)
[2023-01-05] MEDS ORDERED: POTASSIUM CHLORIDE 20 MEQ TABLET PO SCH (06:00)
[2023-01-05] MEDS ORDERED: MAGNESIUM 1 GM/100 ML IVPB 100 ML IV SCH (06:00)
[2023-01-05] MEDS ORDERED: ASPIRIN enteric coated 81MG TABLET PO SCH (09:00)
[2023-01-05] MEDS ORDERED: FLUT9.9S NS (10:47)
[2023-01-05] MEDS ORDERED: LORA10TA7 PO (10:47)
[2023-01-05] MEDS ORDERED: ONDANSETRON INJECTION 4 MG/2 ML (SDV) IV PRN (13:15)
[2023-01-05] MEDS ORDERED: LIDOCAINE DRIP 500 ML IV SCH (14:15)
--- NOTE | 2023-01-05 14:29 | Progress Note - Cardiology ---
Cardiology SOAP Progress Note Subjective: No cp or palp or syncope No n/v/d Some gen weakness No focal weakness Objective: I&O/Vital Signs 01/05/23 01/05/23 01/05/23 01/05/23 03:00 04:00 04:00 04:00 Temp 36.4 Pulse 66 106 Resp 15 26 B/P (MAP) 130/83 (99) 108/84 (92) Pulse Ox 95 96 96 O2 Delivery Nasal Cannula Nasal Cannula Room Air O2 Flow Rate 2.00 2.00 01/05/23 01/05/23 01/05/23 01/05/23 05:00 06:00 06:21 07:00 Pulse 109 109 114 Resp 22 17 19 B/P (MAP) 108/92 (97) 116/94 (101) 118/91 (100) Pulse Ox 96 96 97 O2 Delivery Nasal Cannula Nasal Cannula Room Air Room Air O2 Flow Rate 2.00 2.00 01/05/23 01/05/23 01/05/23 01/05/23 07:00 07:59 08:00 08:00 Temp 36.1 Pulse 111 108 B/P (MAP) 124/97 (103) Pulse Ox 96 97 O2 Delivery Room Air Room Air 01/05/23 01/05/23 01/05/23 01/05/23 09:00 10:00 11:00 11:24 Temp 36.5 Pulse 106 105 105 B/P (MAP) 118/90 (99) 109/98 (105) 119/88 (98) Pulse Ox 95 96 97 O2 Delivery Room Air Room Air Room Air 01/05/23 01/05/23 01/05/23 12:00 13:00 13:00 Pulse 112 112 113 B/P (MAP) 112/90 (97) 114/81 (94) Pulse Ox 92 95 O2 Delivery Room Air Room Air 01/05/23 00:00 Intake Total 103 ml Balance 103 ml Constitutional: AAO x 3, well-developed, well-nourished Respiratory: No accessory muscle use; chest expansion is symmetric, chest is bilaterally symmetric, other (good bilat air entry) Cardiovascular: regular rate-rhythm, S1 and S2, systolic murmur (soft ADALGISA at card base) Gastrointestional: No tender; soft; No guarding, No rebound, No audible bowel sounds Extremities: No clubbing, No cyanosis; significant edema (2+ edema, bilateral) Neurologic/Psychiatric: oriented x 3, other (moves all limbs equally) Skin: No rash on exposed areas, No ulcerations on exposed areas Results/Procedures: Labs Laboratory Tests 01/04/23 19:13: White Blood Count 4.9, Red Blood Count 4.63, Hemoglobin 14.3, Hematocrit 44, Mean Corpuscular Volume 94, Mean Corpuscular Hemoglobin 31, Mean Corpuscular Hemoglobin Concent 33, Red Cell Distribution Width 15.0H, Platelet Count 170, Mean Platelet Volume 11.3, Immature Granulocyte % (Auto) 0, Neutrophils (%) (Auto) 63, Lymphocytes (%) (Auto) 18, Monocytes (%) (Auto) 15H, Eosinophils (%) (Auto) 3, Basophils (%) (Auto) 1, Neutrophils # (Auto) 3.0, Lymphocytes # (Auto) 0.9L, Monocytes # (Auto) 0.7, Eosinophils # (Auto) 0.1, Basophils # (Auto) 0.1, Immature Granulocyte # (Auto) 0.0, Erythrocyte Sedimentation Rate 6, Prothrombin Time 14.8H, INR Comment 1.1, Activated Partial Thromboplast Time 31, Sodium Level 142, Potassium Level 4.2, Chloride Level 101, Carbon Dioxide Level 27, Anion Gap 14, Blood Urea Nitrogen 43H, Creatinine 2.18H, Estimat Glomerular Filtration Rate 29, BUN/Creatinine Ratio 20, Glucose Level 120H, Calcium Level 9.7, Corrected Calcium 9.7, Magnesium Level 2.4, Total Bilirubin 1.1H, Aspartate Amino Transf (AST/SGOT) 33, Alanine Aminotransferase (ALT/SGPT) 29, Alkaline Phosphatase 67, Total Creatine Kinase 65, Creatine Kinase MB 1.2, Troponin I 0.034H, C-Reactive Protein High Sensitivity 1.00H, B-Type Natriuretic Peptide 3788.3H, Total Protein 7.8, Albumin 4.0, Amylase Level 50, Influenza Type A (RT- PCR) Not Detected, Influenza Type B (RT-PCR) Not Detected, SARS-CoV-2 RNA (RT- PCR) Not Detected 01/04/23 23:20: Urine Color YELLOW, Urine Clarity CLEAR, Urine pH 6.0, Urine Specific Osprey 1.015L, Urine Protein 2+H, Urine Glucose (UA) NEGATIVE, Urine Ketones NEGATIVE, Urine Nitrite NEGATIVE, Urine Bilirubin NEGATIVE, Urine Urobilinogen 1.0, Urine Leukocyte Esterase NEGATIVE, Urine RBC (Auto) NEGATIVE, Urine RBC 0-2, Urine WBC 0-2, Urine Squamous Epithelial Cells 0-2, Urine Crystals PRESENTH, Urine Amorphous Sediment FEW ADILIA URATESH, Urine Bacteria TRACE, Urine Casts PRESENT, Urine Hyaline Casts 5-10H, Urine Mucus SMALLH, Urine Culture Indicated NO 01/04/23 23:37: Troponin I 0.034H 01/05/23 03:22: White Blood Count 5.6, Red Blood Count 4.39, Hemoglobin 13.5, Hematocrit 40, Mean Corpuscular Volume 91, Mean Corpuscular Hemoglobin 31, Mean Corpuscular Hemoglobin Concent 34, Red Cell Distribution Width 14.8H, Platelet Count 127L, Mean Platelet Volume 11.5, Immature Granulocyte % (Auto) 0, Neutrophils (%) (Auto) 59, Lymphocytes (%) (Auto) 19, Monocytes (%) (Auto) 19H, Eosinophils (%) (Auto) 2, Basophils (%) (Auto) 1, Neutrophils # (Auto) 3.3, Lymphocytes # (Auto) 1.1, Monocytes # (Auto) 1.1H, Eosinophils # (Auto) 0.1, Basophils # (Auto) 0.0, Immature Granulocyte # (Auto) 0.0, Sodium Level 141, Potassium Level 3.7, Chlo ride Level 101, Carbon Dioxide Level 23, Anion Gap 17H, Blood Urea Nitrogen 43H, Creatinine 2.06H, Estimat Glomerular Filtration Rate 32, BUN/Creatinine Ratio 21, Glucose Level 91, Calcium Level 9.3, Corrected Calcium 9.5, Magnesium Level 2.1, Total Bilirubin 1.5H, Aspartate Amino Transf (AST/SGOT) 48H, Alanine Aminotransferase (ALT/SGPT) 36, Alkaline Phosphatase 69, Troponin I 0.040H, Total Protein 7.0, Albumin 3.7, Neutrophils % (Manual) 62, Lymphocytes % (Manual) 23, Monocytes % (Manual) 13, Eosinophils % (Manual) 1, Basophils % (Manual) 1, Percent Immature Platelet Fraction 4.2, Blood Morphology Comment NORMAL, Phosphorus Level 3.7, Triglycerides Level 74, Cholesterol Level 158, LDL Cholesterol Direct 121, VLDL Cholesterol 15, HDL Cholesterol 36L Laboratory Tests 01/04/23 19:13 01/05/23 03:22 A/P: Assessment: Recurrent sustained VT - Sustained ventricular tachycardia in 2021, patient had wide-complex tachycardia required electrical cardioversion. He has been maintained on amiodarone and mexilitine as an outpatient. - Status post single-chamber ICD implant on August 05, 2021 with DFT testing, [employer] [place] VR MRI DF4. - Sustained VT at 120 bpm on 01/04/23. Successfully cardioverted to sinus melonie through external 50J synchronized shock - Recurrent sustained VT at approx 110 bpm on 01/05/23 Dilated cardiomyopathy - Card cath Aug 04, 2021: mild to mod CAD - Echo 04-05-22: LVEF 30-35%, global hypokinesis, mild MR, mod TR, PASP 55-60 mmHg HFrEF Hyperlipidemia Chronic renal insufficiency, chronic kidney disease stage III- IV. H/o noncompliance with medication, reports compliance at this time Chronic, bilateral leg edema Mild bilateral carotid stenosis, ultrasound was done in February 2022. Plan: * Continue current regimen * Add iv esmolol/lidocaine * May need repeat shock * We are trying to call tertiary care center for transfer for consideration of VT ablation at the time of this writing ADDENDUM I spoke with Dr Moctezuma as I was writing this note. He accepts the patient in transfer to his service. We will make arrangements. Clinical Quality Measures AMI/AHF: ASA po Prior to arrival: VALDO Wiggins MD FACP [facility] CCDS Jan 05, 2023 14:29
--- NOTE | 2023-01-05 14:35 | Anesthesia-General Post-Op ---
MAC Patient Condition Mental Status/LOC: Same as Preop Cardiovascular: Satisfactory Nausea/Vomiting: Absent Respiratory: Satisfactory Pain: Controlled Complications: Absent Post Op Complications Complications None Follow Up Care/Instructions Patient Instructions None needed. Anesthesiology Discharge Order Discharge Order Patient is doing well, no complaints, stable vital signs, no apparent adverse anesthesia problems. No complications reported per nursing. MIROSLAVA GALVIN CRNA Jan 05, 2023 14:35
[2023-01-05 14:57] VITALS: BP 109/96
[2023-01-05] MEDS ORDERED: MIDAZOLAM INJ 5 MG/5 ML VIAL ONE (15:02)
[2023-01-05] MEDS ORDERED: MIDAZOLAM INJ 5 MG/5 ML VIAL IVP ONE (15:15)
--- NOTE | 2023-01-05 15:29 | Cardiology Discharge Summary ---
Diagnosis/Chief Complaint Date of Admission Jan 04, 2023 at 22:07 Date of Discharge 01-05-23 Admission Diagnosis Recurrent sustained VT - Sustained ventricular tachycardia in 2021, patient had wide-complex tachycardia required electrical cardioversion. He has been maintained on amiodarone and mexilitine as an outpatient. - Status post single-chamber ICD implant on August 05, 2021 with DFT testing, [employer] [place] VR MRI DF4. - Sustained VT at 120 bpm on 01/04/23. Successfully cardioverted to sinus melonie through external 50J synchronized shock - Recurrent sustained VT at approx 110 bpm on 01/05/23. Successfully cardioverted to sinus rhythm through external 50J synchronized shock Dilated cardiomyopathy - Card cath Aug 04, 2021: mild to mod CAD - Echo 04-05-22: LVEF 30-35%, global hypokinesis, mild MR, mod TR, PASP 55-60 mmHg HFrEF Hyperlipidemia Chronic renal insufficiency, chronic kidney disease stage III- IV. H/o noncompliance with medication, reports compliance at this time Chronic, bilateral leg edema Mild bilateral carotid stenosis, ultrasound was done in February 2022. Chief Complaint/HPI Chief Complaint/HPI 82 yo man with 2 days of gen malaise and shortness of breath. No cp. No syncope. No swelling. No n/v/d Please refer to our note of 01/05/23 (today) for hospital course and condition at discharge Discharge Summary Discussion & Recommendations Home Medications Reviewed patient Home Medication Reconciliation performed by pharmacy medication reconciliations environmental test technician and/or nursing. Patients Allergies have been reviewed. Discharge Home Medications: Reviewed and agree with Discharge Medication list on patient's Discharge Instruction sheet Clinical Quality Measures AMI/AHF: ASA po Prior to arrival: VALDO Wiggins MD FACP FACC CCDS Jan 05, 2023 15:29
--- NOTE | 2023-01-05 16:35 | OPERATIVE REPORT ---
DATE OF SERVICE: 01/05/2023 PREOPERATIVE DIAGNOSIS: Ventricular tachycardia. POSTOPERATIVE DIAGNOSIS: Sinus rhythm. PROCEDURE: External electrical cardioversion. The patient is an 82-year-old man with recurrent slow ventricular tachycardia. Following a successful cardioversion on 01/04/2023, he had gone back into slow ventricular tachycardia. Repeat cardioversion was discussed with him in detail. He provided informed consent. We proceeded with external electrical cardioversion under conscious sedation (4 mg of Versed and 25 mcg of fentanyl). DESCRIPTION OF PROCEDURE: A synchronized 50 joule shock was delivered through external patches, which converted ventricular tachycardia to sinus rhythm. Job ID: [id number] DocumentID: [id number] Dictated Date: 01/05/2023 15:23:46 Weight Clerk Date: 01/05/2023 16:33:00 Dictated By: VALDO BALES MD; LEE; FACP; FACC;
--- NOTE | 2023-01-05 17:31 | Short Stay Summary-Hospitalist ---
History of Present Illness HPI/Chief Complaint Sancho Romero is an 82 year old male with PMH HFrEF, AICD, history of VTach, who presented with weakness. He denies chest pain, palpitations, and shortness of breath. He noticed his heart rate was elevated and came to the ER. He was found to be in VTach. Cardiology was consulted and performed cardioversion in the ER under conscious sedation. He was successfully cardioverted to normal sinus rhythm. He was started on Amiodarone gtt. He was admitted to the ICU. He converted back to VTach but his rates were better controlled in the low 100s and he was less symptomatic at that point. He was again successfully cardioverted to normal sinus rhythm. Cardiology recommended transfer to tertiary care facility with EP cardiology for evaluation and possible ablation. Source: patient Exam Limitations: no limitations Date Seen 01/05/23 Time Seen by a Provider: 10:00 Attending Physician Luca Silverio MD PCP Admitting Physician: Da Bales MD Attending Physician: Da Bales MD Referring Physician Date of Admission Jan 04, 2023 at 22:07 Home Medications & Allergies Home Medications Reviewed patient Home Medication Reconciliation performed by pharmacy medication reconciliations crime scene evidence technician and/or nursing. Patients Allergies have been reviewed. Allergies Allergies Coded Allergies Sulfa (Sulfonamide Antibiotics) (Verified Allergy, Unknown, 05/05/22) codeine (Verified Allergy, Unknown, 05/05/22) atorvastatin (Verified AllergyDIZZINESS, 05/16/22) morphine (Verified AllergyUNKNOWN, 05/16/22) propoxyphene (Verified AllergyUNKNOWN, 05/16/22) empagliflozin (Verified Adverse Reaction, Unknown, "gential infection", 05/17/22) Past Vupjhag-Wowmqi-Lebtju Hx Patient Social History Tobacco Use?: No Smoking Status: Never a Smoker Smokeless Tobacco Frequency: Never a User Use of E-Cig and/or Vaping dev: No Use of E-Cig and/or Vaping Spencer: Never a User Substance use?: No Alcohol Use?: No Pt feels they are or have been: No Immunizations Up To Date Date of Influenza Vaccine: Jan 17, 2022 First/Initial COVID19 Vaccinat: May 2020 Second COVID19 Vaccination Jovany: June 2020 Tetanus Booster (TDap): Unknown Current Status Advance Directives: Unable to obtain Communicates: Verbally Primary Language: Macanese Preferred Spoken Language: Macanese Is interpretation needed?: No Implanted or Applied Medical D: Pacemaker Past Medical History Surgeries: Adenoidectomy, Cardiac, Defibrillator, Pacemaker, Tonsillectomy Cardiomyopathy, Chronic Edema/Swelling, Coronary Artery Disease, Heart Murmur, High Cholesterol, Hypertension, Irregular Heartbeat Chronic Constipation Blood Disorders: No Family Medical History Diabetes, Hypertension, Other Conditions/Hx SOCIAL HISTORY: -DENIES SMOKING -DENIES ALCOHOL -DENIES DRUG USE CARDIAC CATH 08/04/[address] RITTER: CONCLUSION: 1. Heavily calcified left main and proximal LAD with mild to moderate disease nonobstructive disease otherwise tortuous coronary system with mild disease. 2. Diffuse ectasia in the right coronary artery with slow flow, small vessel disease nonobstructive disease 3. Normal left ventricular end-diastolic pressure DISCUSSION AND RECOMMENDATION: Patient has worsening of the left ventricular function, by echo his ejection fraction around 20%. His recurrent sustained ventricular tachycardia has been difficult to control. We will continue with aggressive beta-blockers and increase amiodarone dose to 400 twice daily. I am planning to proceed with ICD implant Anesthesia Type: Conscious Sedation -SINGLE CHAMBER ICD DEFIBRILLATOR, AND LOOP RECORDER PLACED 08/05/[address] RITTER Review of Systems Constitutional: weakness Respiratory: no symptoms reported Cardiovascular: no symptoms reported Gastrointestinal: no symptoms reported Physical Exam Physical Exam Vital Signs Vital Signs - First Documented 01/04/23 01/04/23 19:02 19:05 Temp 36.5 Pulse 126 Resp 20 B/P (MAP) 108/89 (95) Pulse Ox 97 O2 Delivery Nasal Cannula O2 Flow Rate 2.00 Capillary Refill : Less Than 3 Seconds Height, Weight, BMI Height: '" Weight: lbs. oz. kg; 26.16 BMI Method: General Appearance: No Apparent Distress, WD/WN, Other (TALKS NON-STOP IN FULL SENTENCES. DOES NOT APPEAR TO BE IN ANY DISCOMFORT OR DISTRESS. ) Neck: Normal Inspection, Supple Respiratory: Lungs Clear, Normal Breath Sounds, No Respiratory Distress Cardiovascular: Systolic Murmur (1-2/6 MURMUR), Tachycardia Gastrointestinal: Normal Bowel Sounds, Non Tender, Soft Extremity: Non Tender, Pedal Edema Neurologic/Psychiatric: Alert, Oriented x3, No Motor/Sensory Deficits, Normal Mood/Affect Skin: Normal Color, Warm/Dry Results Results/Procedures Labs Laboratory Tests 01/04/23 19:13 01/05/23 03:22 Patient resulted labs reviewed. Imaging: Reviewed Imaging Report Short Stay Diagnosis Discharge Diagnosis-Short Stay Admission Diagnosis Ventricular tachycardia Final Discharge Diagnosis Ventricular tachycardia Conclusion Plan VTach s/p cardioversion x2 s/p Amiodarone gtt load Started on Lidocaine gtt Transfer to tertiary care facility for EP cardiology evaluation Diagnosis/Problems Diagnosis/Problems (1) Sustained ventricular tachycardia Status: Acute Clinical Quality Measures AMI/AHF: ASA po Prior to arrival: DA Torres MD Jan 05, 2023 17:31
[2023-01-05] MEDS ORDERED: carvediloL 12.5 MG TABLET PO SCH (20:00)
[2023-01-05] MEDS ORDERED: LIDOCAINE BOLUS 100 MG/5 ML (IMS) SYR INJ ONE (20:37)
[2023-01-05] MEDS ORDERED: MEXILETINE 150 MG CAPSULE PO SCH (21:00)
[2023-01-05] MEDS ORDERED: LATANOPROST 0.005% OPHTH SOLN 2.5 ML OS SCH (21:00)
[2023-01-05] MEDS ORDERED: BRIMONIDINE 0.2% OPHTH SOLN 5 ML BTL OS SCH (21:00)
[2023-01-06] MEDS ORDERED: POTASSIUM CHLORIDE 10 MEQ TABLET PO SCH (07:00)
[2023-01-06] MEDS ORDERED: PANTOPRAZOLE 40 MG TABLET PO SCH (09:00)
[2023-01-06] MEDS ORDERED: BUMETANIDE 1 MG TABLET PO SCH (09:00)
--- NOTE | 2023-01-08 02:57 | Physician Query Clarification ---
PQ-CHF Specificity Admission Date: Jan 04, 2023 at 22:07 Discharge Date: Jan 05, 2023 at 20:38 The medical record reflects the following clinical scenario: History/Risk Factors: A 82 years old male patient admitted with sustained ventricular tachycardia underwent cardioversion, HFrEF was documented in medical record. Clinical Findings: Bnp - 3788.3 H, ef - 30 to 35 % Treatment: Bumetanide, Carvedilol. Question: Can you further specify the acuity &/or type of CHF per the clinical indicators above? Please document a response in the Progress Notes or Discharge Summary. 1. Acuity: Acute, Chronic or Acute on Chronic 2. Type: Systolic, Diastolic or Systolic & Diastolic 3. Unspecified: CHF cannot be further specified regarding type or acuity 4. Other, with explanation of clinical findings 5. Clinically undetermined, no explanation for clinical findings PHYSICIAN RESPONSE Acuity: Chronic Type: Systolic In responding to this query, please exercise your independent professional judgment. The purpose of this communication is to more accurately reflect the complexity of your patients condition. The fact that a question is asked does not imply that any particular answer is desired or expected. Thank you for your timely response to this clarification. Requestors name: [ ] Phone # [ ] THIS PHYSICIAN QUERY FORM IS A PERMANENT PART OF THE MEDICAL RECORD KIMMIE CONRAD Jan 08, 2023 02:57 DA WOODWARD MD Jan 15, 2023 16:54
== END 2023-01-05 20:38 | DRG 309 ==
LOC: EDUNIT# 18:51 → ER 18:55 → ICU 22:07
PROVIDERS: ADMIT Internal Medicine; ATTEND Internal Medicine
PROC: 5A2204Z Restoration of Cardiac Rhythm, Single (ICD-10-PCS; principal; 2023-01-04)
PROC: 5A2204Z Restoration of Cardiac Rhythm, Single (ICD-10-PCS; 2023-01-05)
DX: I47.20 Ventricular tachycardia, unspecified (principal); I13.0 Hypertensive heart and chronic kidney disease with heart failure and stage 1 through stage 4 chronic kidney disease, or unspecified chronic kidney disease; I50.22 Chronic systolic (congestive) heart failure; I42.0 Dilated cardiomyopathy; N18.4 Chronic kidney disease, stage 4 (severe); I25.10 Atherosclerotic heart disease of native coronary artery without angina pectoris; E78.00 Pure hypercholesterolemia, unspecified; Z79.82 Long term (current) use of aspirin; Z79.899 Other long term (current) drug therapy; Z20.822 Contact with and (suspected) exposure to COVID-19; Z95.810 Presence of automatic (implantable) cardiac defibrillator; Z91.148 Patient's other noncompliance with medication regimen for other reason; I65.23 Occlusion and stenosis of bilateral carotid arteries
CPT/HCPCS: 36415; 71045; 80053; 80061; 81000; 82150; 82550; 82553; 83735; 83880; 84100; 84484; 85007; 85025; 85027; 85610; 85652; 85730; 86141; 87081; 87636; 93005; 93041; 96374; 96375